=== PATIENT | male | born 1965 | race Caucasian/White ===

== ENCOUNTER 2019-04-02 10:19 | Outpatient (RCR) | payer OTHER, SELFPAY ==
[2019-04-02 11:05] LABS: Basophils Percent Auto 0.3 % (0.2-1.2); Eosinophils Absolute Auto 0.4 K/mm3 (0-0.3); Hematocrit 35.8 % (42.0-52.0); Hemoglobin 11.4 g/dL (14.0-18.0); Immature Granulocyte Absolute 0.04 K/mm3 (0.00-0.031); Immature Granulocyte Percent A 0.6 % (0-0.5); Lymphocytes Absolute Auto 1.22 K/mm3 (0.9-3.2); Lymphocytes Percent Auto 19.7 % (18.3-44.2); Mean Corpuscular HGB Conc 31.8 g/dl (32-36); Mean Corpuscular Hemoglobin 28.4 pg (26-34); Mean Corpuscular Volume 89.3 fl (80-100); Mean Platelet Volume 9.2 fl (7.4-10.4); Monocytes Absolute Auto 0.7 K/mm3 (0.1-0.6); Monocytes Percent Auto 11.8 % (2.6-8.5); Neutrophils Absolute Auto 3.8 K/mm3 (1.3-6.7); Neutrophils Percent Auto 61.6 % (45.5-73.1); Platelet Count Result 130 k/mm3 (150-375); Red Blood Count 4.01 M/mm3 (4.6-6.20); Red Cell Distribution Width 14.2 % (11.5-14.5); White Blood Count 6.2 K/mm3 (4.5-10.0)
[2019-04-02 11:21] LABS: Alanine Aminotransferase 24 U/L (4-50); Albumin Level 3.9 g/dL (3.5-5.1); Alkaline Phosphatase 74 U/L (38-126); Aspartate Amino Transferase 25 U/L (17-59); Bilirubin,Total 0.6 mg/dL (0.2-1.3); Blood Urea Nitrogen 59 mg/dL (9-20); Calcium 8.9 mg/dL (8.4-10.2); Carbon Dioxide 20 mmol/L (22-30); Chloride 109 mmol/L (98-107); Estimated Glomerular Filt Rate 28; Glucose 85 mg/dL (75-110); Potassium 3.9 mmol/L (3.4-5.0); Sodium 141 mmol/L (137-145)
[2019-04-03 22:33] LABS: Tacrolimus Prograf 3.6 mcg/L
== END 2019-07-01 23:59 | disposition home or self-care (01) ==
LOC: ANHLAB 10:19
PROVIDERS: PCP Family Medicine
DX: E10.65 Type 1 diabetes mellitus with hyperglycemia (principal); Z94.0 Kidney transplant status
CPT/HCPCS: 36415; 80053; 80197; 85025

== ENCOUNTER 2020-02-24 10:07 | Outpatient (CLI) | payer BC, SELFPAY ==
--- NOTE | ~2020-02-24 | US_ITS ---
EXAMINATION: US retroperitoneal duplex ltd EXAM DATE: 02/24/2020 11:22 INDICATION: Elevated serum creatinine. Evaluate renal arteries for stenosis. TECHNIQUE: Multiple grayscale and Doppler images of the kidneys and renal arteries were obtained. T here is no prior study for comparison. FINDINGS: The aorta peak systolic velocity is 90 cm/s. The right renal artery peak systolic velocity is 212 cm/ s in the proximal segment, 216 cm/s in the mid segment, and 89 cm/s in the distal segment. Patient mcfarland s a left renal transplant which is reportedly no longer functioning. IMPRESSION: Elevated right renal artery velocity, finding does correlate with greater than 50-60% hal nosis. Reviewed, dictated and finalized at location B. IMPRESSION: Elevated right renal artery velocity, finding does correlate with g reater than 50-60% stenosis.
== END 2020-02-24 10:08 | disposition home or self-care (01) ==
PROVIDERS: PCP Family Medicine
DX: R79.89 Other specified abnormal findings of blood chemistry (principal); I70.1 Atherosclerosis of renal artery
CPT/HCPCS: 93976

== ENCOUNTER 2020-04-12 21:37 | Inpatient (IN) | payer BC, SELFPAY ==
--- NOTE | ~2020-04-12 | XR_ITS ---
XR chest 1V portable DATE: 04/17/2020 06:17 INDICATION: Respiratory failure TECHNIQUE: Portable AP chest on 04/09/2020 at 0513 hours COMPARISON: Portable AP chest on 04/16/2020 at 0511 hours FINDINGS: ET tube in satisfactory position 3 cm above zaida. Nasogastric tube is noted passing towar d the stomach. No central lines. There are persistent bilateral lower lung infiltrates and/atelectasis. Cardiomegaly. Aortic calcification. There is also minor fissure suggesting subpleural edema. There ar e probable bilateral mild pleural effusions. There is pulmonary vascular congestion/redistribution. IMPRESSION: Cardiomegaly, pulmonary vascular congestion, mild pleural effusions, subpleural edema, co nsistent with congestive heart failure, with persistent bilateral predominantly lower lung infiltrate s and/atelectasis. Right lower lung infiltrate or atelectasis appears increased since 04/16/2020. Reviewed, dictated and finalized at location A. UCTION TECHNOLOGIST IMPRESSION: Cardiomegaly, pulmonary vascular congestion, mild pleural effusions , subpleural edema, consistent with congestive heart failure, with persistent b ilateral predominantly lower lung infiltrates and/atelectasis. Right lower lung infiltrate or atelectasis appears increased since 04/16/2020.
--- NOTE | ~2020-04-12 | CT_ITS ---
EXAMINATION: CT chest abdomen pelvis wo con DATE: 04/25/2020 12:45 FLUME MAKER INDICATION: Sepsis TECHNIQUE: Computed tomography (CT) of the chest, abdomen, and pelvis was performed without intraveno us contrast. The dose-length product was 2065.90 mGy-cm. Automated exposure control and iterative rec onstruction technique were employed. COMPARISON: CT dated 01/04/2007 FINDINGS: CHEST CT: Small pleural effusions. Patchy bilateral airspace consolidation with areas of nodularity. Findings c ompatible with pneumonia. There are pleural calcifications possibly related to previous asbestos expo sure. There are pericardial calcifications. There is an endotracheal tube present. There is extensive atherosclerosis of the chest and abdomen. No evidence for aneurysm. ABDOMEN/PELVIS CT: There is a percutaneous catheter in the upper abdomen. There is a midline vertically oriented wound o f the abdominal wall with intraperitoneal gas. Clinical history patient underwent recent exploratory laparotomy. There is soft tissue/fluid near the end of the upper abdominal catheter which lies adjace nt to the stomach. NG tube in the distal aspect of the stomach. Nonobstructive bowel gas pattern. The re is a right flank transplant kidney. There is a failed left flank transplant kidney. There is a Fol ey catheter in the bladder which is decompressed. There are are prostate calcifications. There is sub cutaneous edema of the flank soft tissues bilaterally. There are gallstones. Bowel pattern is nonobst ructive. No osteolytic or osteoblastic lesions. IMPRESSION: 1. Patchy bilateral airspace disease of the mid and lower lung zones, compatible with pneumonia. 2: Small pleural effusions. 3: Percutaneous drainage catheter of the upper abdomen with adjacent midline surgical incision. Intra -abdominal gas is compatible with recent surgery. Small amount of fluid/soft tissue near the end of t he surgical drain which likely represents phlegmonous change. Abscess not excluded in the absence of contrast administration. Cannot exclude fistula with the adjacent stomach. 4: Extensive subcutaneous edema of the flank soft tissues bilaterally. Cannot exclude cellulitis. 5: Cholelithiasis. Dr. Henderson discussed with the patient's nurse in ICU, [place], at 04/25/2020 13:00 FLUME MAKER. Reviewed, dictated and finalized at location A. E MAKER IMPRESSION: 1. Patchy bilateral airspace disease of the mid and lower lung zones, compatibl e with pneumonia. 2: Small pleural effusions. 3: Percutaneous drainage catheter of the upper abdomen with adjacent midline bass rgical incision. Intra-abdominal gas is compatible with recent surgery. Small a mount of fluid/soft tissue near the end of the surgical drain which likely repr esents phlegmonous change. Abscess not excluded in the absence of contrast admi nistration. Cannot exclude fistula with the adjacent stomach. 4: Extensive subcutaneous edema of the flank soft tissues bilaterally. Cannot e xclude cellulitis. 5: Cholelithiasis. Dr. Henderson discussed with the patient's nurse in ICU, [place], at 04/25/2020 13:00 FLUME MAKER.
--- NOTE | ~2020-04-12 | XR_ITS ---
EXAMINATION: XR chest 1V portable DATE: 04/27/2020 06:07 INDICATION: Respiratory failure TECHNIQUE: frontal view of the chest was obtained. COMPARISON: Chest radiograph dated 04/26/2020 FINDINGS: Endotracheal tube tip 5.0 cm above the zaida. Nasogastric tube extends below the left hemidiaphragm with distal tip collimated off the study. Left internal jugular central venous catheter with distal tip near the superior cavoatrial junction. Right upper extremity peripherally inserted central venous catheter (PICC) tip near the superior cavoatrial junction. Slight decrease in the gradient of subtle hazy airspace opacity in the bilateral lower lung zones con sistent with decreasing small bilateral pleural effusions. There is persistent left retrocardiac cons olidation as well as bandlike opacity right lower lung zone bladder most likely discoid atelectasis. No pneumothorax. Cardiomegaly. Atherosclerotic aorta. IMPRESSION: 1. Decreasing small bilateral pleural effusions. 2. Retrocardiac consolidation at the left lung base which could represent atelectasis and/or pneumoni a. 3. Bandlike opacity right lower lung zone which favors atelectasis over pneumonia. 4. Cardiomegaly. Reviewed, dictated and finalized at location A. OR ENERGY MARKET COORDINATOR IMPRESSION: 1. Decreasing small bilateral pleural effusions. 2. Retrocardiac consolidation at the left lung base which could represent atele ctasis and/or pneumonia. 3. Bandlike opacity right lower lung zone which favors atelectasis over pneumon ia. 4. Cardiomegaly.
--- NOTE | ~2020-04-12 | CT_ITS ---
EXAMINATION: CT brain wo con EXAM DATE: 04/20/2020 11:09 INDICATION: Encephalopathy. TECHNIQUE: Spiral CT of the head was performed without contrast. Axial, coronal and sagittal images were reviewed. The dose-length product (DLP) for this examination was 681.00 mGy-cm. The exposure w as tailored according to patient size, and iterative reconstruction (ASIR) was used as additional dos e reduction technique. Comparison is made to prior examination from 10/06/2006. FINDINGS: There is no acute intraparenchymal hemorrhage. No evidence of intraparenchymal brain mass lesion. No evidence of acute infarction. Please note that initial head CT has limited sensitivity f or small or acute infarctions. There is mild periventricular and subcortical hypodensity, nonspecific but probably related to small vessel ischemic disease. There is mild prominence of the sulci and v entricles related to cerebral atrophy. There is intracranial carotid arteriosclerosis. There are n o extra-axial collections. There is no mass effect or midline shift. The orbits are unremarkable. Soft tissue is unremarkable. Mild mucoperiosteal thickening. There is a nasogastric tube. IMPRESSION: 1. No acute intracranial findings. 2. Chronic age related findings. Reviewed, dictated and finalized at location A. ESE LANGUAGE PROFESSOR
--- NOTE | ~2020-04-12 | XR_ITS ---
XR chest 1V portable 04/24/2020 05:42 Indication: Acute respiratory failure Procedure: AP portable chest Comparison: Comparison to multiple prior studies sequentially, with oldest reviewed study dated 05/2019. Findings: Endotracheal tube tip 4.6 cm above the zaida. NG tube in the stomach. PICC line tip in the SVC. Left IJ central venous catheter tip in the SVC. Bibasilar airspace disease without significant change. No pneumothorax. Impression: 1: Persistent airspace disease of the lower lungs which may represent pneumonia and/or atelectasis. Reviewed, dictated and finalized at location A. ER OPERATOR Impression: 1: Persistent airspace disease of the lower lungs which may represent pneumonia and/or atelectasis.
--- NOTE | ~2020-04-12 | XR_ITS ---
XR abdomen NG/feed tube insert INDICATION: Evaluate NG tube position. TECHNIQUE: Limited KUB perform for evaluating NG tube . COMPARISON: 06/03/2005 FINDINGS: NG tube tip in the stomach. Visualized bowel gas pattern is unremarkable. IMPRESSION: 1: NG tube tip in the stomach. Reviewed, dictated and finalized at location A. OYMENT SERVICES DIRECTOR
--- NOTE | ~2020-04-12 | XR_ITS ---
EXAMINATION: XR chest 1V portable EXAM DATE: 04/23/2020 06:20 INDICATION: Acute respiratory failure TECHNIQUE: Portable AP frontal chest x-ray was obtained. Comparison is made to prior examination from 04/22/2020. FINDINGS: Endotracheal tube tip is 4 centimeters above the zaida. There is a nasogastric tube seen with tip collimated off the study, but below the left hemidiaphragm. There is a right-sided PICC l ine with tip projecting over the cavoatrial junction. Scattered bibasilar predominant subsegmental atelectasis and/or infection. Small left pleural effusi ons. Mild cardiomegaly. No pneumothorax. There is aortic arteriosclerosis. Mild degenerative bony changes. Left IJ line no longer identified. Airspace disease appears unchanged. IMPRESSION: 1. Tubes, lines in position. No postprocedure pneumothorax. 2. Bibasilar infection and/or atelectasis unchanged. Reviewed, dictated and finalized at location A. EHOUSE CLERK
--- NOTE | ~2020-04-12 | XR_ITS ---
XR chest 1V portable 04/25/2020 06:09 Indication: Acute respiratory failure Procedure: AP portable chest Comparison: Comparison to multiple prior studies sequentially, with oldest reviewed study dated 07/2019. Findings: Progression of airspace disease in the mid and lower lung zones. Small left pleural effusio n. No pneumothorax. Left IJ central venous catheter tip in the SVC. No acute osseous abnormality. No pneumothorax. Impression: 1: Cardiomegaly with diffuse bilateral airspace disease which has progressed, edema versus pneumonia. Reviewed, dictated and finalized at location A. TURBINE TECHNICIAN Impression: 1: Cardiomegaly with diffuse bilateral airspace disease which has progressed, e rose versus pneumonia.
--- NOTE | ~2020-04-12 | CT_ITS ---
EXAMINATION: CT abdomen pelvis wo con DATE: 04/27/2020 20:26 INDICATION: Abscess TECHNIQUE: Computed tomography (CT) of the abdomen and pelvis was performed without intravenous contr ast. The dose-length product (DLP) was 1676.90 mGy-cm. Automated exposure control and iterative recon struction technique were employed. COMPARISON: 04/25/2020 FINDINGS: There are small pleural effusions, left greater than right. There is near complete opacific ation of the visualized lower lobes. The examination is limited by the absence of intravenous contras t. A percutaneous drainage catheter is again seen in the upper abdomen entering in the right midabdom en and continuing superomedially, crossing the midline and ending with its tip anterior to the body o f the stomach. There is an approximately 6.1 x 4.7 cm abscess located caudal to the tip of the draina ge catheter with extensive surrounding free intraperitoneal gas which tracks the right and left of mi dline in the upper abdomen, into the upper abdominal wall musculature, and posterior and inferior to the transverse colon. Overall extent of free air has increased since the prior examination. Stones ar e present in the nondistended gallbladder. The liver, spleen, pancreas, and adrenal glands appear nor mal. There is severe atrophy of the [place] kidneys. A transplant kidney is present in the right pelvi s. There is severe atrophy of the transplant kidney in the left pelvis. The bladder is decompressed b y [place] catheter. No pathologically enlarged abdominal or pelvic lymph nodes are identified. Enteric contrast material from recent upper GI persists in the colon. IMPRESSION: 1. Worsening upper abdominal abscess. 2. Near complete opacification of the visualized lower lobes, consistent with atelectasis and pneumon ia. 3. Bilateral renal atrophy, detailed left pelvic transplant kidney, and right pelvic transplant kidne y. Reviewed, dictated and finalized at location A. ER MELTER IMPRESSION: 1. Worsening upper abdominal abscess. 2. Near complete opacification of the visualized lower lobes, consistent with a telectasis and pneumonia. 3. Bilateral renal atrophy, detailed left pelvic transplant kidney, and right p elvic transplant kidney.
--- NOTE | ~2020-04-12 | US_ITS ---
EXAMINATION: US right upper quadrant DATE: 04/19/2020 13:03 INDICATION: Hyperbilirubinemia. TECHNIQUE: Multiple grayscale and Doppler ultrasound images of the abdomen were obtained. COMPARISON: Ultrasound 10/12/2005, CT abdomen 01/04/2007 FINDINGS: The pancreas is obscured by bowel gas. The liver is normal without focal lesion. There is n ormal flow in main portal vein. The gallbladder is normal in size. There are gallstones in the gallbl adder. Gallbladder wall thickening is noted. The common duct is normal and measures 4 mm. IMPRESSION: 1. Cholelithiasis. Gallbladder wall thickening may be secondary to interstitial edema. Reviewed, dictated and finalized at location A. DER AND CHIEF EXECUTIVE OFFICER
--- NOTE | ~2020-04-12 | XR_ITS ---
EXAMINATION: XR chest 1V portable DATE: 04/26/2020 05:41 INDICATION: Acute respiratory failure TECHNIQUE: frontal view of the chest was obtained. COMPARISON: Chest radiograph and CT dated 04/25/2020 FINDINGS: Endotracheal tube tip 3.3 cm above the zaida. Nasogastric tube extends below the left hemidiaphragm with distal tip collimated off the study. Right upper extremity peripherally inserted central venous catheter (PICC) tip near the superior cavoatrial junction. Persistent gradients of hazy airspace opacities in the bilateral mid and lower lung zones with superi mposed patchy airspace opacities in the right lower lung zone and retrocardiac consolidation at the l eft lower lung zone. No pneumothorax. Cardiomegaly. There are bridging osteophytes at multiple levels in the spine, consistent with diffuse idiopathic skeletal hyperostosis (DISH). IMPRESSION: 1. No significant change accounting for differences in technique in opacities in the bilateral mid to lower lung zones consistent with likely combination of atelectasis and pneumonia superimposed over s mall pleural effusions. 2. Cardiomegaly. Reviewed, dictated and finalized at location A. ATER CHIEF IMPRESSION: 1. No significant change accounting for differences in technique in opacities i n the bilateral mid to lower lung zones consistent with likely combination of a telectasis and pneumonia superimposed over small pleural effusions. 2. Cardiomegaly.
--- NOTE | ~2020-04-12 | XR_ITS ---
XR chest 1V portable DATE: 04/27/2020 13:37 INDICATION: Respiratory failure TECHNIQUE: Portable upright AP chest on 05/07/2020 at 1331 hours COMPARISON: 04/27/2020 portable AP chest at 0551 hours FINDINGS: ET tube tip is approximately 6 cm above zaida. [place] range is minimal T2-5 centimeters. A nasogastric tube is noted passing toward the stomach. Right upper extremity PIC catheter tip overlies the superior vena cava. Left internal jugular central venous catheter tip also overlies the superior vena cava. There are bilateral lower lung infiltrates and/atelectasis, right greater than left. No pleural effus ion or pulmonary vascular congestion or pneumothorax is detected. IMPRESSION: Bilateral lower lung infiltrate and/atelectasis persist Reviewed, dictated and finalized at location A. GER OF REGULATORY AFFAIRS
--- NOTE | ~2020-04-12 | XR_ITS ---
EXAMINATION: XR chest 1V portable DATE: 04/28/2020 06:23 INDICATION: Respiratory failure TECHNIQUE: frontal view of the chest was obtained. COMPARISON: Chest radiograph and CT abdomen and pelvis dated 04/27/2020 FINDINGS: Endotracheal tube tip 6.6 cm above the zaida. Nasogastric tube extends below the left hemidiaphragm with distal tip collimated off the study. Right upper extremity peripherally inserted central venous catheter (PICC) tip near the superior cavoatrial junction. Left internal jugular central venous cath eter with distal tip also near the superior cavoatrial junction. Unchanged opacities in the bilateral lower lung zones. No pneumothorax. Cardiomediastinal silhouette is normal. IMPRESSION: 1. Endotracheal tube 6.6 cm above the zaida. Consider advancement by 4 cm. 2. Unchanged opacities in the bilateral lower lung which on CT corresponds to a combination of small bilateral pleural effusions, atelectasis and pneumonia. Reviewed, dictated and finalized at location A. NOSTIC TECHNOLOGIST
--- NOTE | ~2020-04-12 | XR_ITS ---
XR chest PICC line 04/20/2020 13:32 Indication: PICC line adjustment Procedure: AP portable chest Comparison: 04/20/2020 Findings: There is a PICC line coiled in the right axillary region. Endotracheal tube tip 5.6 cm abov e the zaida. Distal aspect of the NG tube is not definitely visualized. Bibasilar airspace disease. Small pleural effusions. Heart size upper normal. Impression: 1: Bibasilar airspace disease may represent atelectasis and/or pneumonia. 2: Small pleural effusions. 3: PICC line coiled in the right axilla. Reviewed, dictated and finalized at location B. SUBMERGENCE VEHICLE CREWMEMBER Impression: 1: Bibasilar airspace disease may represent atelectasis and/or pneumonia. 2: Small pleural effusions. 3: PICC line coiled in the right axilla.
--- NOTE | ~2020-04-12 | XR_ITS ---
XR chest 1V portable 04/14/2020 06:04 Indication: Sepsis. Procedure: AP portable chest Comparison: 07/25/2018 Findings: Borderline heart size. Right basilar consolidation. No pleural effusion or pneumothorax. No acute osseous abnormality. Impression: 1: Focal consolidation right lower lung zone which may represent atelectasis or pneumonia. Reviewed, dictated and finalized at location A. NCIAL SERVICE PROFESSIONAL Impression: 1: Focal consolidation right lower lung zone which may represent atelectasis or pneumonia.
--- NOTE | ~2020-04-12 | XR_ITS ---
XR chest 1V portable DATE: 04/15/2020 06:48 INDICATION: Respiratory failure TECHNIQUE: Portable AP chest on 04/15/2020 at 0531 hours COMPARISON: 04/14/2020 portable AP chest at 0530 and 0534 hours FINDINGS: ET tube in satisfactory position approximately 4.6 cm above zaida. NG tube in stomach. No central lines. There are bibasilar infiltrates and/atelectasis, new or increased since 04/14/2020. There is minimal if any pleural effusion. No pneumothorax. Borderline or increased heart size. Aortic arch calcification. IMPRESSION: Increased bibasilar infiltrate and/atelectasis since 04/14/2020 ET and NG tubes in satisfactory position Reviewed, dictated and finalized at location A. ATRIC ONCOLOGY NURSE
--- NOTE | ~2020-04-12 | XR_ITS ---
EXAMINATION: XR chest 1V portable EXAM DATE: 04/22/2020 06:13 INDICATION: Acute respiratory failure . TECHNIQUE: Portable AP frontal chest x-ray was obtained. Comparison is made to prior examination from 04/20/2020. FINDINGS: Endotracheal tube tip is 6 centimeters above the zaida. There is a nasogastric tube seen with tip collimated off the study, but below the left hemidiaphragm. There is a right-sided PICC li ne with tip projecting over the cavoatrial junction. Scattered bibasilar predominant subsegmental atelectasis and/or infection. Small bilateral pleural e ffusions. Mild cardiomegaly. No pneumothorax. There is aortic arteriosclerosis. Mild degenerative bony changes. Airspace disease appears unchanged compared to yesterday. The endotracheal tube may have retracted a centimeter. IMPRESSION: 1. ET tube could be safely advanced 1 to 2 cm. 2. Bibasilar infection and/or atelectasis unchanged. Reviewed, dictated and finalized at location A. VIOUR SUPPORT TEACHER
--- NOTE | ~2020-04-12 | XR_ITS ---
EXAMINATION: XR chest ET placement, XR abdomen NG/feed tube insert DATE: 04/14/2020 17:42 INDICATION: Endotracheal tube and orogastric tube placement TECHNIQUE: 1. Frontal view of the chest was obtained. 2. Frontal view of the abdomen was obtained. COMPARISON: Chest radiograph dated 04/14/2020 at 5:17 AM FINDINGS: Chest: Endotracheal tube tip is essentially at the level of the zaida. Improvement in the bilateral basilar opacities which likely represented atelectasis. No pulmonary edema, pleural effusion or pneumothorax . An electronic device projects over and partially obscures a portion of the left upper lung zone. Ciaran rderline heart size accounting for AP technique. Atherosclerotic thoracic aorta. Abdomen: Orogastric tube tip at the gastric antrum with proximal side-port in the gastric body. No dilated loo ps of gas-filled bowel in the visualized abdomen to suggest obstruction. Vascular calcific calcificat ion along the splenic artery. There are bridging osteophytes at multiple levels in the spine, consist ent with diffuse idiopathic skeletal hyperostosis (DISH). IMPRESSION: 1. Endotracheal tube tip at the level of the zaida. Recommend withdrawal by 2 cm. 2. Orogastric tube in the stomach but would consider withdrawal by 5-10 cm to reduce the redundancy o f the tubing in the stomach. 3. Improvement in prior bibasilar atelectasis. Reviewed, dictated and finalized at location H. TH INFORMATION INTERNSHIP IMPRESSION: 1. Endotracheal tube tip at the level of the zaida. Recommend withdrawal by 2 cm. 2. Orogastric tube in the stomach but would consider withdrawal by 5-10 cm to r educe the redundancy of the tubing in the stomach. 3. Improvement in prior bibasilar atelectasis.
--- NOTE | ~2020-04-12 | CT_ITS ---
EXAMINATION: CT brain wo con DATE: 04/25/2020 12:35 INDICATION: Encephalopathy. TECHNIQUE: Computed tomography (CT) of the head was performed without intravenous contrast. The dose- length product was 681.00 mGy-cm. The mA was adjusted according to patient size. Iterative reconstruc tion technique was employed. COMPARISON: CT dated 04/20/2020 FINDINGS: Mild generalized atrophy. There are scattered mild periventricular and subcortical white ma tter changes, most likely related to small vessel ischemic disease (microangiopathy). There is intrac ranial atherosclerosis. No ventriculomegaly or midline shift. Basilar cisterns are patent. No acute i ntracranial hemorrhage, infarction, mass or mass effect. There are calcifications of the right cerebe llum, likely related to previous trauma or infection. There is an endotracheal tube present. Mild muc osal thickening of the ethmoid and sphenoid sinuses. Mastoids contain small effusions. IMPRESSION: 1. No acute intracranial abnormality. 2: Mild sinus disease. Small mastoid effusions. 3: Chronic age-related findings. Reviewed, dictated and finalized at location A. CUSTOMER SERVICE REPRESENTATIVE
--- NOTE | ~2020-04-12 | XR_ITS ---
XR chest 1V portable DATE: 04/18/2020 05:59 INDICATION: Covid pneumonia TECHNIQUE: Portable AP chest on 04/18/2020 at 0522 hours COMPARISON: 04/17/2020 portable AP chest at 0513 hours FINDINGS: Cardiomegaly. Aortic calcification. There is pulmonary vascular congestion and redistributi on. There are bilateral primarily central and particularly lower lung zone infiltrates and atelectasi s; infiltrates may be due to pulmonary edema and/or pneumonia. The costophrenic angles are not well-d efined, suggesting mild bilateral pleural effusions. ET tube in satisfactory position 4.3 cm above zaida. NG tube noted passing toward the stomach. IMPRESSION: Congestive changes and bilateral infiltrates, stable since 04/17/2020 Reviewed, dictated and finalized at location A. WORKER IMPRESSION: Congestive changes and bilateral infiltrates, stable since 04/17/20 20
--- NOTE | ~2020-04-12 | XR_ITS ---
EXAMINATION: XR chest 1V portable EXAM DATE: 04/20/2020 07:55 INDICATION: shock, respiratory failure, F/U. COVID-19. TECHNIQUE: Portable AP frontal chest x-ray was obtained. Comparison is made to prior examination from 04/19, 04/18. FINDINGS: Endotracheal tube and feeding tube are in position. Scattered bibasilar predominant subsegmental atelectasis and/or infection. Small bilateral pleural e ffusions. Mild cardiomegaly. No pneumothorax. Mild cardiomegaly. There is aortic arteriosclerosis. Mild degenerative bony changes. Accounting for differences in technique, there is no significant interval change. IMPRESSION: 1. Tubes in position. 2. Bibasilar infection and/or atelectasis unchanged. Reviewed, dictated and finalized at location A. RY DERRICK OPERATOR
--- NOTE | ~2020-04-12 | XR_ITS ---
EXAMINATION: XR chest port-a-cath/central EXAM DATE: 04/22/2020 10:45 INDICATION: HD line placement [facility] . Acute respiratory failure. TECHNIQUE: Portable AP frontal chest x-ray was obtained. Comparison is made to prior examination from earlier same day. FINDINGS: There is a left-sided IJ venous catheter, tip projecting over cavoatrial junction region. E ndotracheal tube tip is 4-5 centimeters above the zaida. There is a nasogastric tube seen with tip collimated off the study, but below the left hemidiaphragm. There is a right-sided PICC line with t ip projecting over the cavoatrial junction. Scattered bibasilar predominant subsegmental atelectasis and/or infection. Small bilateral pleural e ffusions. Mild cardiomegaly. No pneumothorax. There is aortic arteriosclerosis. Mild degenerative bony changes. There is no significant interval change. IMPRESSION: 1. Tubes, lines in position. No postprocedure pneumothorax. 2. Bibasilar infection and/or atelectasis unchanged. Reviewed, dictated and finalized at location A. H MIXER
--- NOTE | ~2020-04-12 | XR_ITS ---
EXAMINATION: XR UGI water soluble wo kub EXAM DATE: 04/19/2020 10:11 INDICATION: please place hypaque in NG and do KUB, s/p pyloroplasty. TECHNIQUE: Limited portable bedside upper GI water-soluble exam was injected through nasogastric tub e in place. Omnipaque 350 solution was used, a total of 240 cc. Fluoroscopy time was 0.0 minutes with 3 static KUB images obtained. FINDINGS: There are laparotomy young. There is a right-sided surgical drain. Initial image after 50 mL injected demonstrates feeding tube in expected position and small amount of contrast in the gastric cardia. A total of 120 mL were then injected through the tube with opacifica tion of the stomach and duodenum. A 3rd image following a total of 240 mL injection was then obtained . There was no contrast extravasation at any of the images, gastric pylorus region was unremarkable. IMPRESSION: No evidence of pyloric leak. Reviewed, dictated and finalized at location A. OLATE DIPPER
--- NOTE | ~2020-04-12 | XR_ITS ---
EXAMINATION: XR chest 1V portable DATE: 04/29/2020 05:51 INDICATION: Respiratory failure TECHNIQUE: frontal view of the chest was obtained. COMPARISON: Chest radiograph dated 04/28/2020 FINDINGS: Endotracheal tube tip 5.3 cm above the zaida. Nasogastric tube extends below the left hemidiaphragm with distal tip collimated off the study. Right upper extremity peripherally inserted central venous catheter (PICC) as well as a left internal jugular central venous catheter, both with distal tip krzysztof r the superior cavoatrial junction. Unchanged gradient of hazy airspace opacities in the bilateral mid to lower lung zones the lower lung zones with superimposed more patchy airspace opacities in the lower lung zones. No pneumothorax. Car diomediastinal silhouette is normal. IMPRESSION: 1. Unchanged opacities in the bilateral lower lungs consistent with small posterior layering bilatera l pleural effusions and associated atelectasis and/or pneumonia. Reviewed, dictated and finalized at location A. TER PROFESSIONAL IMPRESSION: 1. Unchanged opacities in the bilateral lower lungs consistent with small poste rior layering bilateral pleural effusions and associated atelectasis and/or pne umonia.
--- NOTE | ~2020-04-12 | XR_ITS ---
EXAMINATION: XR chest PICC line EXAM DATE: 04/20/2020 13:44 INDICATION: Adjustment to PICC. TECHNIQUE: Portable AP frontal chest x-ray was obtained. Comparison is made to prior examination from 04/20. FINDINGS: Endotracheal tube and feeding tube are in position. There is a right-sided PICC line with t ip projecting over the cavoatrial junction. Scattered bibasilar predominant subsegmental atelectasis and/or infection. Small bilateral pleural e ffusions. Mild cardiomegaly. No pneumothorax. There is aortic arteriosclerosis. Mild degenerative bony changes. Compared to prior study, the PICC line has straightened its course. Airspace disease appears unchange d. IMPRESSION: 1. Line, tubes in position. 2. Bibasilar infection and/or atelectasis unchanged. Reviewed, dictated and finalized at location A. CREAM SERVER
--- NOTE | ~2020-04-12 | XR_ITS ---
EXAMINATION: XR chest 1V portable EXAM DATE: 04/19/2020 05:36 INDICATION: COVID-19. Respiratory failure. TECHNIQUE: Portable AP frontal chest x-ray was obtained. Comparison is made to prior examination from 04/18, 04/17 and 04/16. FINDINGS: Endotracheal tube tip is 5 centimeters above the zaida. Feeding tube is in position. Scattered bibasilar subsegmental atelectasis and/or infection. Small bilateral pleural effusions. M ild cardiomegaly. No pneumothorax. Mild cardiomegaly. Mild degenerative bony changes. Accounting for differences in technique, there is no significant interval change. IMPRESSION: 1. Tubes in position. 2. Bibasilar infection and/or atelectasis. Reviewed, dictated and finalized at location A. CAST PATTERNMAKER
--- NOTE | ~2020-04-12 | US_ITS ---
EXAMINATION: US venous doppler [facility] DATE: 04/27/2020 15:46 INDICATION: Deep vein thrombosis. TECHNIQUE: Grayscale ultrasound images without and with compression and Doppler ultrasound images of the bilateral lower extremity veins were obtained. COMPARISON: None. FINDINGS: The visualized portions of right common femoral vein, profunda (deep) femoral vein, femoral vein, pop liteal vein, peroneal veins, posterior tibial veins, and greater saphenous vein outflow are patent. The visualized portions of left common femoral vein, profunda femoral vein, femoral vein, popliteal v ein, peroneal veins, posterior tibial veins, and greater saphenous vein outflow are patent. IMPRESSION: 1. No deep venous thrombosis. Reviewed, dictated and finalized at location B. MINER BLASTING
--- NOTE | ~2020-04-12 | XR_ITS ---
XR chest 1V portable DATE: 04/16/2020 05:47 INDICATION: Respiratory failure TECHNIQUE: Portable AP chest on 04/16/2020 at 0511 hours COMPARISON: 04/15/2020 portable AP chest at 0531 hours FINDINGS: ET tube in satisfactory position approximately 3.5 cm above zaida. NG tube is noted but di stal portion is not visualized due to technique. Heart size is not optimally evaluated due to magnification associated with AP projection. There is ao rtic arch calcification. There is pulmonary vascular redistribution suggesting pulmonary venous hypertension. There are patchy infiltrates and/or atelectasis involving primarily the mid and particularly lower lung zones. Minima l if any pleural effusion is evident. No pneumothorax. IMPRESSION: Patchy infiltrates and/or atelectasis involving the mid and particularly lower lung zones , mildly increased since 04/15/2020 Reviewed, dictated and finalized at location A. SALES ASSOCIATE IMPRESSION: Patchy infiltrates and/or atelectasis involving the mid and particu larly lower lung zones, mildly increased since 04/15/2020
[2020-04-12 21:45] VITALS: BP 130/58; PULSE 57; RESP 18; TEMP 36.5; O2SAT 100
[2020-04-12] MEDS: PANTOPRAZOLE SODIUM IV 40 MG VIAL 80 MG IV PUSH (22:17)
[2020-04-12] MEDS: ONDANSETRON INJ 4 MG/2 ML VIAL IV PUSH (22:17)
[2020-04-12 23:10] LABS: INR 1.3; Prothrombin Time 16.8 Seconds (11.1-14.7)
[2020-04-12 23:11] LABS: Basophils Percent Auto 0.2 % (0.2-1.2); Eosinophils Absolute Auto 0.1 K/mm3 (0-0.3); Eosinophils Percent Auto 1.5 % (0-4.4); Hematocrit 21.8 % (42.0-52.0); Immature Granulocyte Absolute 0.02 K/mm3 (0.00-0.031); Immature Granulocyte Percent A 0.5 % (0-0.5); Lymphocytes Percent Auto 22.2 % (18.3-44.2); Mean Corpuscular HGB Conc 32.1 g/dl (32-36); Mean Corpuscular Hemoglobin 28.3 pg (26-34); Mean Corpuscular Volume 88.3 fl (80-100); Monocytes Absolute Auto 0.4 K/mm3 (0.1-0.6); Monocytes Percent Auto 9.4 % (2.6-8.5); Neutrophils Absolute Auto 2.7 K/mm3 (1.3-6.7); Neutrophils Percent Auto 66.2 % (45.5-73.1); Partial Thromboplastin Time 29.6 SECONDS (22.3-36.8); Platelet Count Result 84 k/mm3 (150-375); Red Blood Count 2.47 M/mm3 (4.6-6.20); Red Cell Distribution Width 14.4 % (11.5-14.5); White Blood Count 4.1 K/mm3 (4.5-10.0)
--- NOTE | 2020-04-12 23:12 | ED.GIBLEED ---
HPI - GI Bleed General Chief complaint: GI Bleed Stated complaint: rectal bleeding Time Seen by Provider: 04/12/20 21:47 History of Present Illness HPI Narrative: Patient is a 55-year-old male who presents the ER with rectal bleeding. Patient reports that he thought he was just going to use the restroom normally when he had liquid maroon blood coming from his rectum. Patient reports that he has recently been placed on Eliquis for new diagnosis of atrial fibrillation. He sees Dr. Prieto with the [facility]. He reports that he does have history of bleeding gastric ulcers that he saw Dr. Negrete for several years back who preformed cauterization. Patient did feel lightheaded when he went from sitting to standing but did not pass out. Related Data Home Medications Medication Instructions Recorded Confirmed aspirin 81 mg tablet,delayed 81 mg PO DAILY 03/27/19 01/27/20 release cholecalciferol (vitamin D3) 25 1,000 unit PO DAILY 03/27/19 01/27/20 mcg (1,000 unit) capsule furosemide 40 mg tablet 40 mg PO QAM PRN 03/27/19 01/27/20 mycophenolate mofetil 500 mg tablet 500 mg PO Q12H tablet 03/27/19 01/27/20 nitroglycerin 0.4 mg sublingual See Rx Instructions SUBLINGUAL Q5M 03/27/19 01/27/20 tablet PRN pen needle, diabetic 29 gauge x #30 each 03/27/19 01/27/20 1/2 prednisolone 5 mg tablet 5 mg PO DAILY tablet 03/27/19 01/27/20 sodium bicarbonate 650 mg tablet 650 mg PO DAILY 03/27/19 01/27/20 tacrolimus 0.75 mg tablet,extended 2 mg PO DAILY tablet 03/27/19 01/27/20 release 24 hr tamsulosin 0.4 mg capsule 0.4 mg PO DAILY 03/27/19 01/27/20 calcium carbonate 260 mg calcium 260 mg PO DAILY 01/27/20 01/27/20 (650 mg) chewable tablet docusate sodium 100 mg capsule 100 mg PO DAILY PRN 01/27/20 01/27/20 fish oil-dha-epa 1,200 mg-144 1 cap PO 01/27/20 01/27/20 mg-216 mg capsule isosorbide mononitrate 60 mg 90 mg PO DAILY tablet 01/27/20 01/27/20 tablet,extended release 24 hr rosuvastatin 20 mg tablet 20 mg PO DAILY 01/27/20 01/27/20 carvedilol [Coreg] 37.5 mg PO BID 04/12/20 insulin regular hum U-500 conc 70 unit SUB-Q BID 04/12/20 [Humulin R U-500 (Conc) Kwikpen] losartan 25 mg PO DAILY 04/12/20 Allergies Allergy/AdvReac Type Severity Reaction Status Date / Time adhesive Allergy Unknown RASH Verified 04/12/20 21:50 clindamycin Allergy Unknown rash Verified 04/12/20 21:50 pantoprazole [From Protonix] AdvReac Unknown rash Verified 04/12/20 21:50 Review of Systems Review of Systems: All systems reviewed & are unremarkable except as noted in HPI and below Constitutional: Constitutional: Denies chills, Denies fever(s) and Denies weakness Cardiovascular: Cardiovascular: Denies chest pain and Denies radiating jaw, neck or arm pain Gastrointestinal: Gastrointestinal: Denies abdominal pain, Reports nausea and Denies vomiting Comments: Rectal bleeding Musculoskeletal: Musculoskeletal: Denies back pain and Denies muscle cramps PMFSH Past Medical History Medical History (Updated 04/13/20 @ 01:41 by Nate Vasquez MD) Anemia in stage 3 chronic kidney disease (~1989) Arthritis CAD (coronary artery disease) Chronic heart failure with preserved ejection fraction (HFpEF) (~2015) COPD (chronic obstructive pulmonary disease) Diabetes mellitus H/O: HTN (hypertension) Hearing loss Heart disease High blood pressure with end-stage kidney disease (~1990) History of left common carotid artery stent placement (~2015) IgA nephropathy with benign hematuria (~1989) Lung disease Renal disease Sleep apnea with use of continuous positive airway pressure (CPAP) (~1995) Status post hemodialysis (~2007) Status post peritoneal dialysis (~2003) Stroke TIA due to embolism Type 2 diabetes mellitus with other circulatory complications (~1989) Surgical History Surgical History History of kidney transplant (~1990) History of kidney transplant (~2007) Family History Fam
[2020-04-12 23:16] LABS: Anion Gap 4 mmol/L (8-16); Blood Urea Nitrogen 82 mg/dL (9-20); Carbon Dioxide 20 mmol/L (22-30); Chloride 113 mmol/L (98-107); Estimated CRCL calculation 49 ml/min; Estimated Glomerular Filt Rate 33; Glucose 206 mg/dL (75-110); Potassium 6.5 mmol/L (3.4-5.0); Sodium 137 mmol/L (137-145)
[2020-04-12 23:22] VITALS: BP 114/60; PULSE 50; RESP 19; O2SAT 100
[2020-04-12] MEDS: SODIUM CHLORIDE 0.9% IV 1,000 ML 999 ML IV CONT (23:42)
[2020-04-12] MEDS: DEXTROSE 50% 25 GM/50 ML SYRINGE IV PUSH (23:42)
[2020-04-12] MEDS: INSULIN HUMAN REGULAR (*BKC) 100 UNITS/ML 10 UNITS IV PUSH (23:43)
[2020-04-13] VITALS (77 sets, daily range): BP systolic 74–141; BP diastolic 23–77; PULSE 52–157; RESP 16–28; TEMP 36.4–37.8; O2SAT 95–100; BMI 39.9
[2020-04-13 00:08] LABS: Glucose Point of Care 218 (65-105)
[2020-04-13] MEDS: ONDANSETRON INJ 4 MG/2 ML VIAL IV PUSH ×2 (00:09→04:49)
[2020-04-13 00:16] LABS: Immature Reticulocyte Fraction 13.8 % (3.0-15.9); Reticulocyte Hemoglobin Conten 31.4 pg (28.2-35.7); Reticulocyte Percent 2.39 % (0.7-4.3); Reticulocytes Absolute 0.06 B/L (32.2-175.7)
[2020-04-13 00:20] LABS: Lactate Dehydrogenase 304 U/L (313-618)
[2020-04-13] MEDS: SODIUM CHLORIDE 0.9% IV 250 ML 30 ML IV CONT ×2 (00:44→19:02)
[2020-04-13] MEDS: TUBING, BLOOD PLUM PUMP TUBING 1 EACH XX ×2 (00:45→19:02)
[2020-04-13 01:32] LABS: Glucose Point of Care 184 (65-105)
--- NOTE | 2020-04-13 01:38 | PM.IMHP ---
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 The patient does have a past medical history of peptic ulcer disease and his last endoscopic evaluation was approximately 4 years ago. he is also known to be on aspirin therapy daily. Tonight the patient has had associated nausea and lightheadedness but denies any significant shortness of breath or chest pain. He denies any NSAID use. He is known to have chronic anemia and his baseline H&H is 10 and 30 although tonight he was found to have a hemoglobin of 7 and hematocrit of 21.8. ER provider performed bedside rectal exam which was grossly positive. The patient was also found to have hyperkalemia on routine labs including a potassium of 6.5 which was treated in the emergency room with insulin and dextrose. while in the emergency room this evening the patient seemed to have a vagal episode as he started a very nauseated and his blood pressure dropped down to 85/45. The patient was treated with 2 L of normal saline IV bolus. The patient has no other complaints at this time. ER provider has consulted radiology therapist, Dr. Vásquez and we have been asked to admit the patient to the hospital for further care. Review of Systems Review of Systems: All systems reviewed & are unremarkable except as noted in HPI and below PMFSH Past Medical History Medical History Anemia in stage 3 chronic kidney disease (~1989) Arthritis CAD (coronary artery disease) Chronic heart failure with preserved ejection fraction (HFpEF) (~2015) Chronic renal failure COPD (chronic obstructive pulmonary disease) Diabetes mellitus H/O: HTN (hypertension) Hearing loss Heart disease High blood pressure with end-stage kidney disease (~1990) History of left common carotid artery stent placement (~2015) IgA nephropathy with benign hematuria (~1989) Lung disease Renal disease Sleep apnea with use of continuous positive airway pressure (CPAP) (~1995) Status post hemodialysis (~2007) Status post peritoneal dialysis (~2003) Stroke TIA due to embolism Type 2 diabetes mellitus with other circulatory complications (~1989) Surgical History Surgical History History of kidney transplant (~1990) History of kidney transplant (~2007) Family History Family History Father Hypertension Family history of diabetes mellitus in first degree relative Diabetes mellitus Family history of hypercholesterolemia Cerebrovascular accident Family history of kidney disease Mother Hypertension Family history of coronary artery disease Diabetes mellitus Family history of hypercholesterolemia Family history of kidney disease Sibling Hypertension Family history of elevated blood lipids Family history of diabetes mellitus in first degree relative Family history of thyroid disease Diabetes mellitus Family history of hypercholesterolemia Grandparent Acute myocardial infarction Social History Social History Smoking status: Never smoker Second hand tobacco smoke exposure: No Alcohol intake: never Substance use: never Spiritual care concerns: No Meds Home Medications and Allergies Home Medications Medication Instructions Recorded Confirmed Type aspirin 81 mg tablet,delayed 81 mg PO DAILY 03/27/19 04/13/20 History release cholecalciferol (vitamin D3) 25 1,000 unit PO DAILY 03/27/19
[2020-04-13] MEDS: SODIUM BICARBONATE 8.4% 50 MEQ/50 ML VIAL IV PUSH ×3 (02:04→09:30)
--- NOTE | 2020-04-13 02:10 | ADMGEN ---
This patient, Juaquin Covington, was admitted to IMU Room 206-01. Patient/family oriented to hospital policies and general routines including ID bracelet, bed and alarms, visiting hours, pain management, procedures, bathroom and other care routines, personal items, smoking policy, room service/diet, and visiting hours. Information on how to activate the Rapid Response Team has been discussed. Patient/Family are encouraged to report perceived risks to care and to ask questions if they do not understand what they are told or what they should do.
[2020-04-13] MEDS: ALBUTEROL SULFATE NEB 2.5 MG/0.5 ML INH 10 MG INHALATION (02:13)
[2020-04-13] MEDS: CALCIUM GLUC 1,000 MG/NS 50 ML 1,000 MG/50 ML BAG 100 MG IVPB ×3 (03:08→10:09)
[2020-04-13 04:50] LABS: Anion Gap 5 mmol/L (8-16); Blood Urea Nitrogen 89 mg/dL (9-20); Calcium 7.3 mg/dL (8.4-10.2); Carbon Dioxide 16 mmol/L (22-30); Chloride 115 mmol/L (98-107); Estimated CRCL calculation 54 ml/min; Estimated Glomerular Filt Rate 35; Glucose 224 mg/dL (75-110); Potassium 6.9 mmol/L (3.4-5.0); Sodium 136 mmol/L (137-145)
[2020-04-13 05:25] LABS: Mean Corpuscular HGB Conc 32.2 g/dl (32-36); Mean Corpuscular Hemoglobin 29.1 pg (26-34); Mean Corpuscular Volume 90.6 fl (80-100); Mean Platelet Volume 9.9 fl (7.4-10.4); Platelet Count Result 76 k/mm3 (150-375); Red Blood Count 2.23 M/mm3 (4.6-6.20); Red Cell Distribution Width 14.5 % (11.5-14.5); White Blood Count 5.3 K/mm3 (4.5-10.0)
[2020-04-13 05:28] LABS: Hematocrit 20.2 % (42.0-52.0); Hemoglobin 6.5 g/dL (14.0-18.0)
[2020-04-13] MEDS: DEXTROSE 50% 25 GM/50 ML SYRINGE IV PUSH ×2 (05:28→09:30)
[2020-04-13] MEDS: INSULIN HUMAN REGULAR (*BKC) 100 UNITS/ML 10 UNITS IV PUSH ×2 (05:34→09:30)
--- NOTE | 2020-04-13 06:26 | WPDPROCEDUR ---
Procedures Central Line Placement Right Femoral: Central Line Date: 04/13/20 Central Line Time: 06:26 Discussed w/ the patient/family/POA,the placement of a central venous catheter, including its clinical necessity/indication & associated potential risks, benifits and alternatives.: Yes Time Out Performed: Yes Patient Position: supine Patient placed on monitor/pulse ox: Yes Provider Prep: mask, sterile gown, sterile gloves, Max. sterile barrier precautions, cap and hand hygiene with conventional soap/water or alcohol based hand rub Central line prep: 2% Chlorhexidine scrub Amount of anesthesia used (ml): 4 Sterile US Technique with sterile gel/sterile probe covers: Yes Central line lumen inserted: triple Persian: 7 Length (cm): 20 Depth of Insertion (cm): 20 Post Procedure: sutured in place, good blood return, all ports aspirated, flushed, capped, transparent dressing, hemostatic product and aseptic technique maintained throughout procedure Patient tolerated procedure: well Complications: none Additional comments: Date of service of procedure was 04/13/2020 at 06:15 hrs.
[2020-04-13] MEDS: SODIUM BICARBONATE 8.4% 150 MEQ in WATER, STERILE FOR INJECTION 950 ML 100 MEQ IV CONT (08:20)
[2020-04-13 08:41] LABS: Alanine Aminotransferase 14 U/L (4-50); Albumin Level 2.2 g/dL (3.5-5.1); Alkaline Phosphatase 39 U/L (38-126); Anion Gap 5 mmol/L (8-16); Aspartate Amino Transferase 17 U/L (17-59); Bilirubin,Total 1.3 mg/dL (0.2-1.3); Blood Urea Nitrogen 87 mg/dL (9-20); Calcium 7.3 mg/dL (8.4-10.2); Carbon Dioxide 16 mmol/L (22-30); Chloride 115 mmol/L (98-107); Estimated CRCL calculation 54 ml/min; Estimated Glomerular Filt Rate 35; Glucose 373 mg/dL (75-110); Lactic Acid Reflex 1.4 mmol/L (0.7-2.1); Magnesium 1.8 mg/dL (1.6-2.3); Phosphorus 2.9 mg/dL (2.5-4.5); Potassium 7.2 mmol/L (3.4-5.0); Sodium 136 mmol/L (137-145)
--- NOTE | 2020-04-13 08:45 | PM.IMPN ---
Progress Note: A&P Assessment and Plan (1) Acute GI bleeding: Onset Date: ~04/13/20 Code(s): K92.2 - Gastrointestinal hemorrhage, unspecified Status: Acute Assessment and Plan: Acute GI bleeding appears to be secondary to anticoagulant use. BRBPR and with dark, coffee ground emesis. Suspect upper GI bleed that is brisk with rapid transit. Patient has received 4 units of packed red blood cells. Repeat H&H. Continue serial H&H if hemoglobin remains stable. GI been consulted and is aware. Eliquis has been stopped. Will hold on going to the GI lab given the severe hyperkalemia. Continue Protonix drip (2) Acute hyperkalemia: Code(s): E87.5 - Hyperkalemia Status: Acute Assessment and Plan: The patient's potassium was 6.5 on admission. The patient was treated with insulin and dextrose in the ER. We will also treat the patient with calcium gluconate, sodium bicarbonate, and albuterol. He was placed on telemetry. Repeat potassium this morning was 7.2. Potassium continues to climb despite appropriate treatment. Could be related to the transfusion. Discussed with Nephrology by phone with plans for emergent dialysis. Continue telemetry. Will repeat above treatment and check another BMP in approximately 1 hour. Patient may need central line for dialysis if fistula does not function well. Last time fistula was accessed was 2007. (3) Acute on chronic anemia: Code(s): D64.9 - Anemia, unspecified Status: Acute Assessment and Plan: With a hemoglobin running in the 10-11 range most likely related to his chronic renal disease. Hemoglobin 7.0 on admission related to acute blood loss anemia. Last hemoglobin 6.5 but this was drawn during the transfusion. Repeat H&H is pending. (4) Thrombocytopenia: Code(s): D69.6 - Thrombocytopenia, unspecified Status: Chronic Assessment and Plan: Patient with chronic thrombocytopenia but counter lower this admission most likely related to consumption from the acute blood loss. Monitor closely and transfuse as needed. (5) Chronic renal failure: Qualifiers: Chronic kidney disease stage: stage 3 (moderate) Chronic kidney disease stage 3 subtype: unspecified whether 3a or 3b Qualified Code(s): N18.30 - Chronic kidney disease, stage 3 unspecified Code(s): N18.9 - Chronic kidney disease, unspecified Status: Chronic Assessment and Plan: Patient with history of IgA nephropathy and end-stage renal disease status post renal transplant. He has underlying CKD with creatinine running the 1.9-2.2 range mostly. Renal function appears to be close to baseline. Monitor renal function, avoid nephrotoxic agents, renally dose medications. Monitor urine output. (6) Chronic heart failure with preserved ejection fraction (HFpEF): Onset Date: ~2015 Code(s): I50.32 - Chronic diastolic (congestive) heart failure Status: Chronic Assessment and Plan: Patient appears euvolemic. Monitor daily weights as well as fluid status. We will consider Lasix therapy in between and after blood transfusion as the patient does have known heart failure and has already received 2 L of normal saline IV bolus in the ER. (7) Type 2 diabetes mellitus with other circulatory complications: Onset Date: ~1989 Code(s): E11.59 - Type 2 diabetes mellitus with other circulatory complications Status: Chronic Assessment and Plan: Accu-Cheks, sliding scale insulin coverage, hypoglycemia protocol. Resume home insulin therapy once he is eating again. (8) History of kidney transplant: Onset Date: ~1990 Code(s): Z94.0 - Kidney transplant status Status: Chronic Assessment and Plan: Of kidney transplant 1990 and again in 2007. His anti-rejection medications are on hold at this time related to above. The transplant unit has been notified. (9) H/O: HTN
[2020-04-13] MEDS: ALBUTEROL SULFATE NEB 2.5 MG/0.5 ML INH 20 MG INHALATION (09:19)
[2020-04-13 09:24] LABS: Hematocrit 21.8 % (42.0-52.0); Hemoglobin 7.1 g/dL (14.0-18.0); Mean Corpuscular HGB Conc 32.6 g/dl (32-36); Mean Corpuscular Hemoglobin 28.5 pg (26-34); Mean Corpuscular Volume 87.6 fl (80-100); Mean Platelet Volume 10.4 fl (7.4-10.4); Platelet Count Result 108 k/mm3 (150-375); Red Blood Count 2.49 M/mm3 (4.6-6.20); Red Cell Distribution Width 14.9 % (11.5-14.5); White Blood Count 7.2 K/mm3 (4.5-10.0)
[2020-04-13 09:57] LABS: Hepatitis B Surface Anti Res Positive
--- NOTE | 2020-04-13 10:06 | ECG_ITS ---
Measurements Intervals [place] Rate: 144 P: IN: 0 QRS: -37 QRSD: 94 T: 92 QT: 285 QTc: 441 Interpretive Statements ATRIAL FIBRILLATION WITH RAPID VENTRICULAR RESPONSE LEFT AXIS DEVIATION ST-T WAVE ABNORMALITY IN HIGH LATERAL LEADS- CONSIDER ISCHEMIA ABNORMAL ECG Electronically Signed On 04-13-2020 10:46:02 HEAD ROSE GROWER by Davdi Le D.O.
[2020-04-13] MEDS: AMIODARONE 150 MG/D5W 100 ML 150 MG/100 ML BAG 600 MG IV CONT ×2 (10:10→12:40)
[2020-04-13] MEDS: LORazepam INJ (*CRX) 2 MG/ML VIAL (10:13)
[2020-04-13] MEDS: AMIODARONE 360 MG/D5W 200 ML 360 MG/200 ML BAG 33.33 MG IV CONT ×2 (10:24→16:30)
--- NOTE | 2020-04-13 10:31 | PM.PNNEP ---
Progress Note: A&P Assessment and Plan (1) Acute hyperkalemia: Code(s): E87.5 - Hyperkalemia Status: Acute Assessment and Plan: as noted by admission labs due to GI bleed and associated hemolysis of RBCs in gut as well as outpatient use of ARB therapy continues to worsen by repeat labs despite medical management HD today to correct hyperkalemia would recheck K+ one hour after HD treatment done (2) Chronic renal failure, stage 3a: Code(s): N18.31 - Chronic kidney disease, stage 3a Status: Acute Assessment and Plan: due chronic allograft nephropathy (of transplanted kidney) baseline creatinine ~ 2.0mg/dl FULL CONSULT to follow Subjective Date/time seen: 04/13/20 10:31 Receiving dialysis at the time of my visit (seen ~ 10:00AM)but complicated by chest pain on my arrival; Dr. Duarte was already at bedside; noted to be tachycardic and hypotensive so blood flow with HD treatment reduced; EKG with Afib but no overt ischemic changes by my read; amiodarone given to attempt rate control and chest did subside over time; attempting to continue dialysis treatment at this time given his hyperkalemia as noted by most recent labs. Exam Narrative: Exam Narrative: General: WD/WN male in mild distress (due to chest pain symptoms) Heart: IRRR and tachycardic Lungs: clear to auscultation Abdomen: soft, nontender, nondistended, positive bowel sounds Extremities: no cyanosis or clubbing; no edema Skin: warm and dry Objective Data Vital Signs Vital Signs: Vital Signs Temp Pulse Resp BP Pulse Ox 04/13/20 09:45 90 84/46 L 04/13/20 09:30 65 106/49 L 04/13/20 09:20 64 119/58 L 04/13/20 09:11 36.9 C 70 20 116/50 L 04/13/20 07:04 36.4 C 62 18 109/60 98 04/13/20 06:49 36.9 C 60 20 103/53 L 98 04/13/20 06:27 36.9 C 60 20 103/53 L 98 04/13/20 06:11 36.8 C 62 20 98/48 L 98 04/13/20 06:00 36.8 C 62 20 98/48 L 98 04/13/20 04:12 36.8 C 56 L 18 115/53 L 100 04/13/20 04:00 36.8 C 56 L 18 115/53 L 100 04/13/20 03:52 36.9 C 55 L 20 95/50 L 100 04/13/20 03:37 36.9 C 55 L 20 95/50 L 100 04/13/20 03:28 36.5 C 57 L 20 101/49 L 100 04/13/20 03:18 36.5 C 57 L 20 101/49 L 100 04/13/20 02:50 36.5 C 57 L 20 101/49 L 100 04/13/20 02:17 74 18 04/13/20 02:00 36.5 C 57 L 20 98/55 L 98 04/13/20 01:50 36.5 C 57 L 20 98/55 L 98 04/13/20 01:33 36.5 C 70 20 120/56 L 95 04/13/20 01:30 100 04/13/20 01:04 36.6 C 56 L 24 H 109/59 L 99 04/13/20 00:50 36.6 C 56 L 22 H 89/52 L 98 04/13/20 00:31 36.6 C 65 21 H 99/66 L 97 04/13/20 00:10 52 L 23 H 85/45 L 100 04/12/20 23:22 50 L 19 114/60 100 04/12/20 21:45 36.5 C 57 L 18 130/58 L 100 Intake/Output Intake/Output: Intake & Output 04/10/20 04/11/20 04/12/20 04/13/20 23:59 23:59 23:59 23:59 Intake Total 2150 Balance 2150 Meds/Results Medications: Active Medications Generic Name Dose Route Start Last Admin Trade Name Freq PRN Reason Stop Dose Admin Dextrose 12.5 gm 04/13/20 02:27 Dextrose 50% 25 Gm/50 Ml Syringe IV PUSH PRN PRN Hypoglycemia Protocol Fentanyl Citrate 50 mcg 04/12/20 23:53 Fentanyl Citrate Inj (*Crx) 100 Mcg/2 Ml Vial IV PUSH Q2H PRN Pain Rated 7-10 Glucagon 1 mg 04/13/20 02:27 Glucagon For Inj 1 Mg Vial IM PRN PRN Hypoglycemia Protocol Pantoprazole Sodium 80 mg/ 500 mls @ 50 mls/hr 04/12/20 22:05 04/12/20 23:22 Dextrose IV CONT 04/15/20 22:06 50 mls/hr .Q10H QUEENIE Administration Acetaminophen 1,000 mg in 100 mls @ 400 mls/hr 04/12/20 23:53 Ofirmev 1,000 Mg Ivpb IVPB 04/13/20 23:54 Q6H PRN Mild Pain (1-3) or Fever Dextrose 1,000 mls @ 100 mls/hr 04/13/20 02:27 Dextrose 5% 1,000 Ml IVPB PRN PRN Hypoglycemia Protocol Sodium Chloride 250 mls @ 30 mls/hr 04/13/20 05:25 04/13/20
[2020-04-13 10:37] LABS: Potassium 5.7 mmol/L (3.4-5.0)
[2020-04-13 10:40] LABS: Anion Gap 2 mmol/L (8-16); Blood Urea Nitrogen 77 mg/dL (9-20); Calcium 7.1 mg/dL (8.4-10.2); Carbon Dioxide 23 mmol/L (22-30); Chloride 111 mmol/L (98-107); Estimated CRCL calculation 67 ml/min; Estimated Glomerular Filt Rate 45; Glucose 364 mg/dL (75-110); Sodium 136 mmol/L (137-145)
--- NOTE | 2020-04-13 11:51 | WPDGICN ---
Assessment and Plan Assessment and plan (1) Acute GI bleeding: Code(s): K92.2 - Gastrointestinal hemorrhage, unspecified Status: Acute Assessment and Plan: Patient appears to have upper GI bleeding based on the NG tube return which is coffee-grounds. He has had significant bleeding overnight. Plan is to transfuse to stable hemoglobin cover with proton pump inhibitor therapy for possible ulcer. An EGD will be performed today after dialysis. (2) Acute on chronic anemia: Code(s): D64.9 - Anemia, unspecified Status: Acute Assessment and Plan: Patient will be transfused to a stable hemoglobin. (3) Paroxysmal atrial fibrillation: Code(s): I48.0 - Paroxysmal atrial fibrillation Status: Chronic Assessment and Plan: patient has recent diagnosis of atrial fibrillation. Was placed on Eliquis anticoagulation. This will be held because of blood loss. Likely Eliquis contributes strongly to his current bleeding episode. (4) Renal disease: Code(s): N28.9 - Disorder of kidney and ureter, unspecified Status: Acute Assessment and Plan: Patient has a history of IgA nephropathy required to kidney transplant. Continues to have azotemia. At the time of presentation potassium was quite elevated and urgent dialysis today (5) IgA nephropathy with benign hematuria: Onset Date: ~1989 Code(s): N02.8 - Recurrent and persistent hematuria with other morphologic changes Status: Acute (6) History of kidney transplant: Onset Date: ~1990 Code(s): Z94.0 - Kidney transplant status Status: Chronic GI Consult Note Consult date/time: 04/13/20 11:51 HPI: Juaquin Covington is a 55 year old male seen in evaluation at the request of the hospitalist service. Patient has a history of renal transplant secondary to IgA nephropathy. He recently was identified as having atrial fibrillation and started on Eliquis anticoagulation. Last evening began to have a rather large amount of maroonish dark bloody stools. This persisted throughout the night prompting him to go to the emergency room. GI blood loss has persisted in NG tube revealed coffee-ground return. Laboratory analysis reveals significant hyperkalemia and for this reason patient is to be dialyzed this morning. I am asked to see him for GI blood loss he will be transfused during dialysis or before dialysis. Review of Systems Review of Systems: All systems reviewed & are unremarkable except as noted in HPI and below PMFSH Past Medical History Medical History Anemia in stage 3 chronic kidney disease (~1989) Arthritis CAD (coronary artery disease) Chronic heart failure with preserved ejection fraction (HFpEF) (~2015) Chronic renal failure COPD (chronic obstructive pulmonary disease) Diabetes mellitus H/O: HTN (hypertension) Hearing loss Heart disease High blood pressure with end-stage kidney disease (~1990) History of left common carotid artery stent placement (~2015) IgA nephropathy with benign hematuria (~1989) Lung disease Renal disease Sleep apnea with use of continuous positive airway pressure (CPAP) (~1995) Status post hemodialysis (~2007) Status post peritoneal dialysis (~2003) Stroke TIA due to embolism Type 2 diabetes mellitus with other circulatory complications (~1989) Surgical History Surgical History (Updated 04/13/20 @ 02:00 by Juaquin Pollack MD) History of kidney transplant (~1990) History of kidney transplant (~2007) Family History Family History Father Hypertension Family history of diabetes mellitus in first degree relative Diabetes mellitus Family history of hypercholesterolemia Cerebrovascular accident Family history of kidney disease Mother Hypertension Family history of coronary artery disease Diabetes mellitus Family hist
[2020-04-13] MEDS: EPOETIN ALFA-EPBX 10,000 UNITS/ML VIAL 10000 UNITS IV PUSH (11:55)
[2020-04-13 12:03] LABS: Hepatitis B Surface Antigen Negative (Negative)
[2020-04-13 13:35] LABS: Hematocrit 19.2 % (42.0-52.0); Hemoglobin 6.5 g/dL (14.0-18.0)
[2020-04-13 13:40] LABS: Glucose Point of Care 297 (65-105)
[2020-04-13 13:40] LABS: Glucose Point of Care 239 (65-105)
[2020-04-13 13:40] LABS: Glucose Point of Care 366 (65-105)
[2020-04-13 13:40] LABS: Glucose Point of Care 292 (65-105)
--- NOTE | 2020-04-13 13:43 | WPDANESEPPF ---
Anes - Initial Pre Proc Eval Procedure: Operation Date: 04/13/20 10:00 Proposed Procedures p Esophagogastroduodenoscopy - Bobby Vásquez MD Date/Time: 04/13/20 13:43 Surgeon: Pritesh Hernandez MD Pre Op Diagnosis: gi bleed, hyperkalemia, thrombocytopenia Patient Data Age: 55 Gender: M Height: 6 ft Weight: 133.7 kg Last Vital Signs Temp 100.1 F H 04/13/20 12:10 Pulse 72 04/13/20 12:10 Resp 17 04/13/20 12:10 BP 94/56 L 04/13/20 12:10 Pulse Ox 100 04/13/20 12:10 Allergies Allergy/AdvReac Type Severity Reaction Status Date / Time adhesive Allergy Unknown RASH Verified 04/12/20 21:50 clindamycin Allergy Unknown rash Verified 04/12/20 21:50 pantoprazole [From Protonix] AdvReac Unknown rash Verified 04/12/20 21:50 Home Medications Medication Instructions Recorded Confirmed Type aspirin 81 mg tablet,delayed 81 mg PO DAILY 03/27/19 04/13/20 History release cholecalciferol (vitamin D3) 25 1,000 unit PO DAILY 03/27/19 04/13/20 History mcg (1,000 unit) capsule furosemide 40 mg tablet 40 mg PO QAM PRN 03/27/19 04/13/20 History mycophenolate mofetil 500 mg tablet 500 mg PO Q12H tablet 03/27/19 04/13/20 History nitroglycerin 0.4 mg sublingual See Rx Instructions SUBLINGUAL Q5M 03/27/19 04/13/20 History tablet PRN pen needle, diabetic 29 gauge x #30 each 03/27/19 01/27/20 History 1/2 prednisolone 5 mg tablet 5 mg PO DAILY tablet 03/27/19 04/13/20 History sodium bicarbonate 650 mg tablet 650 mg PO DAILY 03/27/19 04/13/20 History tacrolimus 0.75 mg tablet,extended 2 mg PO DAILY tablet 03/27/19 04/13/20 History release 24 hr tamsulosin 0.4 mg capsule 0.4 mg PO DAILY 03/27/19 04/13/20 History allopurinol 100 mg tablet See Rx Instructions .ROUTE 11/19/19 04/13/20 Rx .COMPLEX #180 tablet blood sugar diagnostic #100 each 01/27/20 01/27/20 Rx blood-glucose meter #1 each 01/27/20 01/27/20 Rx calcium carbonate 260 mg calcium 260 mg PO DAILY 01/27/20 04/13/20 History (650 mg) chewable tablet docusate sodium 100 mg capsule 100 mg PO DAILY PRN 01/27/20 04/13/20 History fish oil-dha-epa 1,200 mg-144 1 cap PO BID 01/27/20 04/13/20 History mg-216 mg capsule isosorbide mononitrate 60 mg 90 mg PO DAILY tablet 01/27/20 04/13/20 History tablet,extended release 24 hr lancets 33 gauge #100 each 01/27/20 01/27/20 Rx rosuvastatin 20 mg tablet 20 mg PO DAILY 01/27/20 04/13/20 History carvedilol [Coreg] 37.5 mg PO BID 04/12/20 04/13/20 History insulin regular hum U-500 conc See Rx Instructions .ROUTE .COMPLEX 04/12/20 04/13/20 History [Humulin R U-500 (Conc) Kwikpen] losartan 25 mg PO DAILY 04/12/20 04/13/20 History Laboratory Tests 04/12/20 04/12/20 04/12/20 22:51 22:51 22:52 WBC 4.1 K/mm3 L K/mm3 (4.5-10.0) RBC 2.47 M/mm3 L M/mm3 (4.6-6.20) Hgb 7.0 g/dL L D g/dL (14.0-18.0) Hct 21.8 % L % (42.0-52.0) MCV 88.3 fl fl (80-100) MCH 28.3 pg pg (26-34) MCHC 32.1 g/dl g/dl (32-36) RDW 14.4 % % (11.5-14.5) Plt Count 84 k/mm3 L k/mm3 (150-375) MPV 10.0 fl fl (7.4-10.4) Immature Gran % (Auto) 0.5 % % (0-0.5) Neut % (Auto) 66.2 % % (45.5-73.1) Lymph % (Auto) 22.2 % % (18.3-44.2) Divide % (Auto) 9.4 % H % (2.6-8.5) Eos % (Auto) 1.5 % % (0-4.4) Baso % (Auto) 0.2 % % (0.2-1.2) Lymph # (Auto) 0.90 K/mm3 K/mm3 (0.9-3.2) Divide # (Auto) 0.4 K/mm3 K/mm3 (0.1-0.6) Eos # (Auto) 0.1 K/mm3 K/mm3 (0-0.3) Baso # (Auto) 0.0 K/mm3 K/mm3 (0.0-0.1) Abs Immat Gran (auto) 0.02 K/mm3 K/mm3 (0.00-0.031) Absolute Neuts (auto) 2.7 K/mm3 K/mm3 (1.3-6.7) Absolute Nucleated RBC 0.0 K/mm3 K/mm3 (0.0-0.012) Nucleated RBC % 0.0 % % (0.0-0.2) Absolute Retic 0.06 B/L L B/L (32.2-175.7) Percent Retic 2.39 % % (0.7-4.3)
[2020-04-13 13:47] LABS: Anion Gap 7 mmol/L (8-16); Blood Urea Nitrogen 55 mg/dL (9-20); Calcium 7.3 mg/dL (8.4-10.2); Carbon Dioxide 22 mmol/L (22-30); Chloride 107 mmol/L (98-107); Estimated CRCL calculation 71 ml/min; Estimated Glomerular Filt Rate 49; Glucose 289 mg/dL (75-110); Potassium 4.5 mmol/L (3.4-5.0); Sodium 136 mmol/L (137-145)
[2020-04-13] MEDS: SODIUM CHLORIDE 0.9% IV 500 ML 10 ML IV CONT (13:51)
[2020-04-13 15:05] LABS: Glucose Point of Care 331 (65-105)
--- NOTE | 2020-04-13 15:39 | WPDCNINT ---
Assessment and Plan Assessment and plan (1) Acute GI bleeding: Code(s): K92.2 - Gastrointestinal hemorrhage, unspecified Status: Acute Assessment and Plan: Patient presented with dark red stools along with vomiting coffee-ground emesis. -hemoglobin was 7.0 on admission and dropped to 6.5 after 2 units packed RBCs, 2 more units of packed RBCs were transfused for a total of 4 units. Patient was given 1 unit of FFP and 1 unit of platelets. -repeat hemoglobin after 4 units of packed RBCs was 6.5. Patient to get 1 more unit of packed RBCs now -EGD done on 04/13/2020 showed duodenal ulcers were cauterized with gold probe successfully -appreciate GI following the patient -he was initially on a PPI drip which is being currently switch to Protonix IV q.12 hours (2) Paroxysmal atrial fibrillation: Code(s): I48.0 - Paroxysmal atrial fibrillation Status: Chronic Assessment and Plan: Patient went to AFib RVR during dialysis requiring amiodarone bolus and infusion -will continue to monitor heart rate -patient was on Eliquis, which was held due to acute GI bleed (3) Chronic renal failure: Qualifiers: Chronic kidney disease stage: stage 3 (moderate) Chronic kidney disease stage 3 subtype: unspecified whether 3a or 3b Qualified Code(s): N18.30 - Chronic kidney disease, stage 3 unspecified Code(s): N18.9 - Chronic kidney disease, unspecified Status: Chronic Assessment and Plan: Patient with history of chronic renal failure, creatinine at baseline, patient with good urine output -will continue to monitor (4) Thrombocytopenia: Code(s): D69.6 - Thrombocytopenia, unspecified Status: Chronic Assessment and Plan: Thrombocytopenia likely presumptive, also could be due to immunosuppressive treatment for his renal transplant Received 1 unit of platelets this morning -will monitor platelet counts closely (5) Acute on chronic anemia: Code(s): D64.9 - Anemia, unspecified Status: Acute Assessment and Plan: Acute on chronic anemia likely related to GI bleed -transfuse as above -continue to monitor H&H Q 6 (6) H/O: HTN (hypertension): Code(s): Z86.79 - Personal history of other diseases of the circulatory system Status: Chronic Assessment and Plan: Hold antihypertensives as patient with borderline blood pressures likely hypovolemic secondary to acute severe blood loss -will restart antihypertensives as tolerated (7) Atrial fibrillation with rapid ventricular response: Code(s): I48.91 - Unspecified atrial fibrillation Status: Acute Assessment and Plan: AFib RVR during dialysis and wall receiving albuterol nebulizer for his hyperkalemia -patient given amiodarone bolus and started on amiodarone infusion -will obtain echocardiogram (8) History of kidney transplant: Onset Date: ~1990 Code(s): Z94.0 - Kidney transplant status Status: Chronic Assessment and Plan: Patient on tacrolimus prednisolone mycophenolate mofetil -will check tacrolimus levels (9) DVT prophylaxis: Code(s): Z29.9 - Encounter for prophylactic measures, unspecified Status: Acute Assessment and Plan: SCDs Additional Plan Discussed with patient updated with his condition and plan of care. Patient is a little anxious which is the natural with all what is going on. I answered all questions. Discussed with Maryse, patient's and updated her with patient's condition and plan of care. I did discuss with her, the the EGD report, the patient had AFib RVR. I answered all questions Code status: Full code Critical care time spent: 55 minutes Due to a high probability of clinically significant, life threatening deterioration, the patient required my highest level of preparedness to intervene emergently and I personally spent this critical care time directly and personally managing the patient. This critical
--- NOTE | 2020-04-13 17:07 | PCDIET ---
transferred pt to room ICU 1 at 1650. Report given to Brittney FRANCISCO
[2020-04-13] MEDS: SODIUM BICARBONATE 8.4% 150 MEQ in WATER, STERILE FOR INJECTION 950 ML 50 MEQ IV CONT (18:09)
[2020-04-13] MEDS: INSULIN ASPART (*BKC) 100 UNITS/ML SUB-Q (18:12)
[2020-04-13 18:17] LABS: Glucose Point of Care 346 (65-105)
[2020-04-13 18:41] LABS: Anion Gap 7 mmol/L (8-16); Blood Urea Nitrogen 58 mg/dL (9-20); Calcium 7.3 mg/dL (8.4-10.2); Carbon Dioxide 24 mmol/L (22-30); Chloride 104 mmol/L (98-107); Estimated CRCL calculation 63 ml/min; Estimated Glomerular Filt Rate 42; Glucose 347 mg/dL (75-110); Potassium 5.2 mmol/L (3.4-5.0); Sodium 135 mmol/L (137-145)
[2020-04-13 18:42] LABS: Hemoglobin 6.3 g/dL (14.0-18.0)
--- NOTE | 2020-04-13 20:44 | PHAR ---
The patient's home meds of Mycophenolate 500mg (1 tab bid) and Envarsus xr 1mg (Tacrolimus) (1 tab daily) have been verified.
[2020-04-13] MEDS: AMIODARONE 360 MG/D5W 200 ML 360 MG/200 ML BAG 16.67 MG IV CONT ×2 (22:30→23:15)
[2020-04-13 23:26] LABS: Hemoglobin 5.7 g/dL (14.0-18.0)
[2020-04-14] VITALS (64 sets, daily range): BP systolic 73–166; BP diastolic 44–73; PULSE 48–105; RESP 12–34; TEMP 36–38.4; O2SAT 93–100; BMI 39.9
[2020-04-14] MEDS: NOREPINEPHRINE 8 MG/D5W 250 ML 8 MG/250 ML BAG 18.75 MG IV CONT
--- NOTE | 2020-04-14 | ECHO_ITS ---
Patient Info Name: Juaquin Covington Age: 55 years : 1965 Gender: Male Ht: 72 in Wt: 294 lbs BSA: 2.66 m2 HR: 69 bpm BP: 99 / 58 mmHg Heart Rhythm: Sinus Rhythm Technical Quality: Good Exam Date: 04/14/2020 9:58 AM Exam Location: [facility] Patient Status: Inpatient Admit Date: 04/12/2020 Staff Ordering Physician: Ngoc Duarte MD Trencher Driver: Willie Ratliff, MARCOCS, RT Attending Provider: Ayaz Hernandez MD Referring Physician: Felicia HERNANDEZ; Exam Type: CA echo dop color flow w con Study Info Indications I50.9 - Heart failure, unspecified Complete two-dimensional, color flow and Doppler transthoracic echocardiogram is performed. Summary 1. Complete two-dimensional, color flow and Doppler transthoracic echocardiogram is performed. 2. Left ventricular chamber dimension is normal. 3. Left ventricular systolic function is hyperdynamic, estimated at >70%. 4. There is moderately increased left ventricular wall thickness. 5. The left ventricular diastolic function is normal. 6. Left atrial chamber dimension is mildly enlarged. 7. There is mild aortic valve calcification. 8. There is mild pulmonic regurgitation. Left Ventricle Left ventricular chamber dimension is normal. Left ventricular systolic function is hyperdynamic, estimated at >70%. There is moderately increased left ventricular wall thickness. The left ventricular diastolic function is normal. Right Ventricle Right ventricular chamber dimension is normal. Right ventricular systolic function is normal. Left Atria Left atrial chamber dimension is mildly enlarged. Right Atria Right atrial chamber dimension is normal. Atrial Septum Intact interatrial septum visualized by color flow imaging. Aortic Valve The aortic valve is probable trileaflet. There is mild aortic valve sclerosis. There is no aortic valve stenosis. There is trace aortic valve regurgitation. There is mild aortic valve calcification. Pulmonic Valve The pulmonic valve is normal. There is no pulmonic valve stenosis. There is mild pulmonic regurgitation. Mitral Valve The mitral valve has calcified annulus. There is no mitral valve stenosis. There is trace mitral valve regurgitation. Tricuspid Valve The tricuspid valve leaflets are normal. There is no significant tricuspid valve stenosis. There is trace tricuspid valve regurgitation. Pericardium/Pleural The pericardium appears normal. There is no pericardial effusion. Inferior Vena Cava Normal inferior vena cava with >50% collapse upon inspiration consistent with normal right atrial pressure, 10 mmHg. Aorta The aortic root size at the sinus of Valsalva is normal. There is mild aortic atherosclerosis. Left Ventricular Outflow Tract Name Value Normal LVOT 2D LVOT Diameter 1.97 cm LVOT Doppler LVOT Peak Gradient 7 mmHg LVOT Mean Gradient 4 mmHg LVOT VTI 24.50 cm LVOT VTI/AV VTI Ratio 1.01 LVOT Stroke Volume 74.81 ml
[2020-04-14] MEDS: PANTOPRAZOLE SODIUM IV 40 MG VIAL IV PUSH (01:36)
[2020-04-14] MEDS: SODIUM CHLORIDE 0.9% IV 250 ML 30 ML IV CONT ×2 (02:59→08:05)
[2020-04-14] MEDS: ONDANSETRON INJ 4 MG/2 ML VIAL IV PUSH (05:32)
[2020-04-14 05:37] LABS: Basophils Percent Auto 0.2 % (0.2-1.2); Eosinophils Percent Auto 0.3 % (0-4.4); Immature Granulocyte Absolute 0.13 K/mm3 (0.00-0.031); Immature Granulocyte Percent A 1.2 % (0-0.5); Lymphocytes Absolute Auto 3.05 K/mm3 (0.9-3.2); Lymphocytes Percent Auto 29.2 % (18.3-44.2); Mean Corpuscular HGB Conc 32.6 g/dl (32-36); Mean Corpuscular Hemoglobin 28.6 pg (26-34); Mean Corpuscular Volume 87.7 fl (80-100); Mean Platelet Volume 9.9 fl (7.4-10.4); Monocytes Absolute Auto 1.4 K/mm3 (0.1-0.6); Monocytes Percent Auto 12.9 % (2.6-8.5); Neutrophils Absolute Auto 5.9 K/mm3 (1.3-6.7); Neutrophils Percent Auto 56.2 % (45.5-73.1); Nucleated Red Blood Cells Perc 0.4 % (0.0-0.2); Platelet Count Result 116 k/mm3 (150-375); Red Blood Count 1.54 M/mm3 (4.6-6.20); Red Cell Distribution Width 15.6 % (11.5-14.5); White Blood Count 10.5 K/mm3 (4.5-10.0)
[2020-04-14 05:43] LABS: Hematocrit 13.5 % (42.0-52.0); Hemoglobin 4.4 g/dL (14.0-18.0)
[2020-04-14 05:46] LABS: INR 1.9; Partial Thromboplastin Time 36.7 SECONDS (22.3-36.8)
--- NOTE | 2020-04-14 05:50 | P.PNCROSS_ITS ---
Event Note Event Note Event Note: Nursing staff called me this evening regarding patient's H&H at 11:00 p.m. that came back with result of 5.7 and 17. At that time I instructed the nurse to contact our spinning lathe operator, Dr. Vásquez and I ordered 2 more units of packed red blood cells, platelets, and FFP to be transfused to the patient. Dr. Vásquez instructed nursing staff to replace NG to the and do lavage. I called general surgeon Dr. Pickett and discussed the case with him at length as I felt the patient may need surgical evaluation and intervention for his GI bleed. Nursing staff informs me that the patient continues to have ongoing rectal bleeding. Overnight we continue to monitor the patient closely and I also ordered Levophed IV for vasopressor support as the patient's blood pressure or became labile. I was called by ICU nurse at 5:45 a.m. to inform me that the patient was getting anxious. He finished receiving his blood products and his H&H has now come back at 4.4 And 13.5. We have ordered an additional 3 units of packed red blood cells to be transfused and I have called and spoken with Dr. Vásquez who is on his way into the hospital now to perform endoscopy at bedside.
[2020-04-14 05:55] LABS: Albumin Level 1.6 g/dL (3.5-5.1); Alkaline Phosphatase 29 U/L (38-126); Anion Gap 10 mmol/L (8-16); Aspartate Amino Transferase 31 U/L (17-59); Bilirubin,Total 0.6 mg/dL (0.2-1.3); Blood Urea Nitrogen 63 mg/dL (9-20); Calcium 6.2 mg/dL (8.4-10.2); Carbon Dioxide 19 mmol/L (22-30); Chloride 105 mmol/L (98-107); Estimated CRCL calculation 43 ml/min; Estimated Glomerular Filt Rate 27; Glucose 439 mg/dL (75-110); Magnesium 1.7 mg/dL (1.6-2.3); Phosphorus 3.4 mg/dL (2.5-4.5); Potassium 6.3 mmol/L (3.4-5.0); Sodium 134 mmol/L (137-145)
[2020-04-14 05:56] LABS: Lactic Acid Reflex 7.3 mmol/L (0.7-2.1)
[2020-04-14 05:59] LABS: Alanine Aminotransferase 20 U/L (4-50)
[2020-04-14 06:07] LABS: Base Excess ABG -6.9 mEq/l (+/-2.0); Carboxyhemoglobin 0.3 % THb (0-2.0); Fractional Inspired Oxygen 28 %; HCO3 ABG 16.6 mEq/l (22.0-26.0); Methemoglobin ABG 0.8 %THb (0-1.5); Oxygen Content ABG 6.9 %vol (16.0-22.0); Oxygen Saturation ABG 98.6 % (95.0-100.0); PCO2 ABG 24.6 mmHg (35.0-45.0); PO2 ABG 122.6 mmHg (80.0-100.0); PO2 FiO2 Ratio Arterial Blood 4.38 %; Reduced Hemoglobin 2.9 %THb (0-5.0); pH ABG 7.448 (7.350-7.450)
[2020-04-14 06:09] LABS: Total Hemoglobin 4.9 g/dL (12.0-18.0)
[2020-04-14 06:10] LABS: Device VENTURI MASK; Modified Allen's Test Unable to perform; Site Drawn LEFT FEMORAL
--- NOTE | 2020-04-14 07:25 | PM.OP ---
Procedure Note - Brief Procedure Note - Brief Date of procedure: 04/14/20 Pre-op diagnosis: gi bleed, hyperkalemia, thrombocytopenia Post-op diagnosis: other (duodenal ulcer) Procedure performed: EGD with epinephrine injection and 3 clips applied Description of procedure: Patient is sedated with anesthesia Fujinon video endoscope passed through the esophagus which appears normal stomach reveals some residual blood but no lesions. Duodenum reveals a 1cm ulceration in the duodenal sweep that is actively bleeding. This is injected with 2cc of epinephrine this cause the bleeding to subside. Subsequently 3 clips were applied to the actively bleeding duodenal ulcer. No active bleeding noted at the end of the procedure. Anesthesia: MAC Surgeon: Bobby Vásquez MD Findings: Impression duodenal ulcer with active bleeding now status post epinephrine injection and 3 clips applied. Plan to continue close observation transfuse as necessary. Avoid anticoagulation. Proton pump inhibitor drip will continue.
--- NOTE | 2020-04-14 07:53 | SUR.OPER ---
GOLD PROBE USED ON DUODENAL ULCER. 2ML EPI INJECTED
--- NOTE | 2020-04-14 07:53 | SUR.OPER ---
RESOLUTION CLIP PLACED X3 LOT #[id number] EXP LOT #[id number] EXP LOT #[id number] EXP
[2020-04-14 08:02] LABS: Mean Platelet Volume 10.6 fl (7.4-10.4); Platelet Count Result 111 k/mm3 (150-375)
[2020-04-14] MEDS: SODIUM BICARBONATE 8.4% 50 MEQ/50 ML VIAL IV PUSH (08:02)
--- NOTE | 2020-04-14 08:03 | OP_ITS ---
DATE OF PROCEDURE: 04/14/2020 PREOPERATIVE DIAGNOSIS: Upper gastrointestinal bleeding. POSTOPERATIVE DIAGNOSIS: Actively bleeding duodenal ulcer. DESCRIPTION OF PROCEDURE: Informed consent was obtained from the patient. The risks, benefits, alternatives, indications are discussed and agreed to prior to starting the procedure. The risks include, but are not limited to, adverse reaction to medications including allergies, the risk of bleeding and possible need for transfusion, the risk of perforation and possible need for surgery, and the risk for missed pathology. The patient voiced clear understanding, agreed to proceed. The patient is sedated with anesthesia. Instrument is the IPWireless video endoscope. Following findings, the esophagus appeared normal. Stomach is seen in its entirety including U-turn also normal, some residual blood noted. Duodenal bulb is normal in this sweep. There is ulceration identified on previous endoscopy. There is active oozing of blood from this area. The ulcer is injected with 2 cc of epinephrine with diminishment of bleeding. Subsequent to this, 3 clips were applied to the ulcer with no active bleeding at the end of the procedure. IMPRESSION: Duodenal ulcer status post active bleeding, now status post epinephrine and clip application. Plan is to continue monitor hemoglobin closely. Transfuse to a stable hemoglobin. Continue Protonix drip for the immediate future. D I MT: Maria Luz
[2020-04-14 08:17] LABS: Glucose Point of Care 450 (65-105)
[2020-04-14 08:19] LABS: INR 2.2
--- NOTE | 2020-04-14 08:19 | WPDANESPN ---
Anes - Prog Note Post-Op Date/Time: 04/14/20 08:19 Cardiovascular status: other (on levophed drip) Respiratory status: other (on facemask) Airway patency: baseline Mental status: other (АЛЕКСАНДР 2/2 repeat EGD and post-anesthesia this A.M.) Post-Op hydration status: normal Vital Signs: Last Vital Signs Temp 36.6 C 04/14/20 06:45 Pulse 57 L 04/14/20 07:44 Resp 20 04/14/20 06:45 BP 100/44 L 04/14/20 07:44 Pulse Ox 97 04/14/20 06:45 Pain Score (VAS): АЛЕКСАНДР I/O: Intake & Output 04/13/20 04/14/20 04/14/20 23:59 07:59 15:59 Intake Total 1650 2759 350 Output Total 2300 1400 Balance -650 1359 350 Laboratory Tests 04/14/20 07:56 04/14/20 05:22 04/12/20 04/13/20 04/13/20 22:53 08:12 08:14 WBC 7.2 RBC 2.49 L Hgb 7.1 L Hct 21.8 L MCV 87.6 MCH 28.5 MCHC 32.6 RDW 14.9 H Plt Count 108 L MPV 10.4 Immature Gran % (Auto) Neut % (Auto) Lymph % (Auto) [place] % (Auto) Eos % (Auto) Baso % (Auto) Lymph # (Auto) [place] # (Auto) Eos # (Auto) Baso # (Auto) Abs Immat Gran (auto) Absolute Neuts (auto) Absolute Nucleated RBC Nucleated RBC % PT INR APTT Fibrinogen D-Dimer Puncture Site ABG pH ABG pCO2 ABG pO2 ABG PO2/FiO2 Ratio ABG HCO3 ABG O2 Saturation ABG O2 Content ABG Base Excess A-a Gradient Oxyhemoglobin Carboxyhemoglobin Methemoglobin Reduced Hemoglobin Total Hemoglobin O2 Delivery Device O2 Liters/Min FiO2 Sodium Potassium Chloride Carbon Dioxide Anion Gap BUN Creatinine Estim Creat Clear Calc Estimated GFR Glucose POC Capillary Glucose Lactic Acid Calcium Phosphorus Magnesium Total Bilirubin AST ALT Alkaline Phosphatase Total Protein Albumin Tacrolimus Hep Bs Antigen Negative Hep Bs Antibody Positive Blood Type A Negative Antibody Screen Negative Crossmatch See Detail 04/13/20 04/13/20 04/13/20 08:17 08:17 08:17 WBC RBC Hgb Hct MCV MCH MCHC RDW Plt Count MPV Immature Gran % (Auto) Neut % (Auto) Lymph % (Auto) [place] % (Auto) Eos % (Auto) Baso % (Auto) Lymph # (Auto) [place] # (Auto) Eos # (Auto) Baso # (Auto) Abs Immat Gran (auto) Absolute Neuts (auto) Absolute Nucleated RBC Nucleated RBC % PT INR APTT Fibrinogen D-Dimer Puncture Site ABG pH ABG pCO2 ABG pO2 ABG PO2/FiO2 Ratio ABG HCO3 ABG O2 Saturation ABG O2 Content ABG Base Excess A-a Gradient Oxyhemoglobin Carboxyhemoglobin Methemoglobin Reduced Hemoglobin Total Hemoglobin O2 Delivery Device O2 Liters/Min FiO2 Sodium 136 L Potassium Cancelled 7.2 H* Chloride 115 H Carbon Dioxide 16 L Anion Gap 5 L BUN 87 H Creatinine 2.00 H Estim Creat Clear Calc 54 Estimated GFR 35 L Glucose 373 H POC Capillary Glucose Lactic Acid 1.4 Calcium 7.3 L Phosphorus 2.9 Magnesium 1.8 Total Bilirubin 1.3 AST 17 ALT 14 Alkaline Phosphatase 39 Total Protein 4.0 L Albumin 2.2 L Tacrolimus Hep Bs Antigen Hep Bs Antibody Blood Type Antibody Screen Crossmatch 04/13/20 04/13/20 04/13/20 09:46 10:01 10:49 WBC RBC Hgb Hct MCV MCH MCHC RDW Plt Count MPV Immature Gran % (Auto) Neut % (Auto) Lymph % (Auto) [place] % (Auto) Eos % (Auto) Baso % (Auto) Lymph # (Auto) [place] # (Auto) Eos # (Auto) Baso # (Auto) Abs Immat Gran (auto) Absolute Neuts (auto) Absolute Nucleated RBC Nucleated RBC % PT INR APTT Fibrinogen D-Dimer Puncture Site ABG pH ABG pCO2 ABG pO2 ABG PO2/FiO2 Ratio ABG HCO3 ABG O2 Saturation ABG O2 Content ABG Base Excess
[2020-04-14 08:20] LABS: Magnesium 1.6 mg/dL (1.6-2.3); Partial Thromboplastin Time 40.1 SECONDS (22.3-36.8)
[2020-04-14 08:22] LABS: D Dimer 1.14 ug/mL (<0.48)
[2020-04-14 08:33] LABS: Reflex Lactic Acid Yes or No Add Lactic
[2020-04-14 08:46] LABS: Fibrinogen 108 mg/dl (215-510)
[2020-04-14] MEDS: INSULIN HUMAN REGULAR (*BKC) 100 UNITS/ML 10 UNITS IV PUSH (08:46)
[2020-04-14] MEDS: DEXTROSE 50% 25 GM/50 ML SYRINGE IV PUSH (08:46)
[2020-04-14] MEDS: CALCIUM GLUCONATE 1,000 MG/10 ML VIAL 1000 MG IV PUSH (08:48)
[2020-04-14] MEDS: INSULIN DETEMIR 100 UNITS/ML 8 UNITS SUB-Q (08:50)
[2020-04-14] MEDS: INSULIN ASPART (*BKC) 100 UNITS/ML SUB-Q (08:52)
[2020-04-14] MEDS: NOREPINEPHRINE 8 MG/D5W 250 ML 8 MG/250 ML BAG 46.88 MG IV CONT ×2 (09:05→14:03)
--- NOTE | 2020-04-14 09:52 | WPDINTPN ---
Progress Note: A&P Assessment and Plan (1) Hemorrhagic shock: Code(s): R57.8 - Other shock Status: Acute Assessment and Plan: Hemorrhagic shock likely related to acute GI bleed, from bleeding duodenal ulcer -patient with severe anemia status post large amount of blood product transfusion -patient on Levophed, maintain mean arterial pressures greater than 65 mm Hg for adequate end organ perfusion specially the transplanted kidney (2) Acute GI bleeding: Onset Date: ~04/13/20 Code(s): K92.2 - Gastrointestinal hemorrhage, unspecified Status: Acute Assessment and Plan: Patient presented with dark red stools along with vomiting coffee-ground emesis. -EGD done on 04/13/2020 showed duodenal ulcers were cauterized with gold probe successfully -patient continues to have bloody bowel movements, repeat EGD on 04/14/2020 shows acute active duodenal ulcer bleeding. Epinephrine and clips x3 were applied. -appreciate GI following the patient -PPI infusion was restarted -appreciate surgical evaluation and recommendation (3) Paroxysmal atrial fibrillation: Code(s): I48.0 - Paroxysmal atrial fibrillation Status: Chronic Assessment and Plan: Patient went to AFib RVR during dialysis requiring amiodarone bolus and infusion -patient converted to sinus rhythm last night on 04/13/2020 -patient was on Eliquis, which is currently being held due to the acute GI bleed and severe anemia (4) Chronic renal failure: Qualifiers: Chronic kidney disease stage: stage 3 (moderate) Chronic kidney disease stage 3 subtype: unspecified whether 3a or 3b Qualified Code(s): N18.30 - Chronic kidney disease, stage 3 unspecified Code(s): N18.9 - Chronic kidney disease, unspecified Status: Chronic Assessment and Plan: Patient with history of chronic renal failure, creatinine at baseline, patient with good urine output -patient with metabolic acidosis, lactic acidosis likely related to hemorrhagic shock -creatinine has increase, patient is hyperkalemic, discussed with Nephrology, will try to dialyze again today (5) Thrombocytopenia: Code(s): D69.6 - Thrombocytopenia, unspecified Status: Chronic Assessment and Plan: Thrombocytopenia likely presumptive, also could be due to immunosuppressive treatment for his renal transplant Patient received more platelets on 04/14 -will monitor platelet counts closely (6) Acute on chronic anemia: Code(s): D64.9 - Anemia, unspecified Status: Acute Assessment and Plan: Acute on chronic anemia likely related to GI bleed -transfuse to maintain hemoglobin greater than 7.0 -continue to monitor H&H Q 6 (7) H/O: HTN (hypertension): Code(s): Z86.79 - Personal history of other diseases of the circulatory system Status: Chronic Assessment and Plan: Hold antihypertensives as patient with borderline blood pressures likely hypovolemic secondary to acute severe blood loss -will restart antihypertensives as tolerated (8) Atrial fibrillation with rapid ventricular response: Code(s): I48.91 - Unspecified atrial fibrillation Status: Acute Assessment and Plan: AFib RVR during dialysis and wall receiving albuterol nebulizer for his hyperkalemia -patient given amiodarone bolus and started on amiodarone infusion -echocardiogram was done, report pending -patient converted to sinus rhythm, amiodarone has been discontinued since patient was slightly bradycardic in the 50s (9) History of kidney transplant: Onset Date: ~1990 Code(s): Z94.0 - Kidney transplant status Status: Chronic Assessment and Plan: Patient on tacrolimus prednisolone mycophenolate mofetil -tacrolimus levels are pending -discussed with neurology regarding patient's immunosuppressive therapy, recommended holding for now until patient is able to take p.o. for the next 2-3 days (10) DVT prophylaxis: Code(s):
[2020-04-14 10:08] LABS: Hematocrit 19.7 % (42.0-52.0); Hemoglobin 6.4 g/dL (14.0-18.0)
[2020-04-14 10:16] LABS: Anion Gap 10 mmol/L (8-16); Blood Urea Nitrogen 67 mg/dL (9-20); Calcium 6.1 mg/dL (8.4-10.2); Carbon Dioxide 20 mmol/L (22-30); Chloride 105 mmol/L (98-107); Estimated CRCL calculation 37 ml/min; Estimated Glomerular Filt Rate 23; Glucose 443 mg/dL (75-110); Potassium 5.7 mmol/L (3.4-5.0); Sodium 135 mmol/L (137-145)
[2020-04-14 10:23] LABS: Lactic Acid Reflex 8.5 mmol/L (0.7-2.1)
--- NOTE | 2020-04-14 10:28 | PM.CNGS ---
Assessment and Plan Assessment and plan (1) Acute GI bleeding: Onset Date: ~04/13/20 Code(s): K92.2 - Gastrointestinal hemorrhage, unspecified Status: Acute Assessment and Plan: Plan is for serial H&Hs further transfusion and careful observation in ICU. Surgery will stand ready to proceed with possible open upper abdominal surgery with duodenotomy and over-sewing of the duodenal ulcer. Hopefully this recent COUNTERINTELLIGENCE ANALYST with placement of clips and injection of epipherine will stop his bleeding as we are now 36 hours away from his last Eliquis dose. With the combination of further platelets and FFP with transfusion may help the patient's situation. (2) Chronic renal failure, stage 3a: Code(s): N18.31 - Chronic kidney disease, stage 3a Status: Acute (3) Paroxysmal atrial fibrillation: Code(s): I48.0 - Paroxysmal atrial fibrillation Status: Chronic (4) Thrombocytopenia: Code(s): D69.6 - Thrombocytopenia, unspecified Status: Chronic (5) Acute hyperkalemia: Code(s): E87.5 - Hyperkalemia Status: Acute (6) Obesity (BMI 35.0-39.9 without comorbidity): Code(s): E66.9 - Obesity, unspecified Status: Acute (7) CAD (coronary artery disease): Code(s): I25.10 - Atherosclerotic heart disease of [place] coronary artery without angina pectoris Status: Acute (8) H/O: HTN (hypertension): Code(s): Z86.79 - Personal history of other diseases of the circulatory system Status: Chronic (9) 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 The patient does have a past medical history of peptic ulcer disease and his last endoscopic evaluation was approximately 4 years ago. he is also known to be on aspirin therapy daily. Last night the patient has had associated nausea and lightheadedness but denies any significant shortness of breath or chest pain. He denies any NSAID use. He is known to have chronic anemia and his baseline H&H is 10 and 30 although tonight he was found to have a hemoglobin of 7 and hematocrit of 21.8. ER provider performed bedside rectal exam which was grossly positive. The patient was also found to have hyperkalemia on routine labs including a potassium of 6.5 which was treated in the emergency room with insulin and dextrose. While in the emergency room this evening the patient seemed to have a vagal episode as he started being very nauseated and his blood pressure dropped down to 85/45. The patient was treated with 2 L of normal saline IV bolus. The patient has no other complaints at this time. ER provider has consulted chemical tester, Dr. Vásquez. Since his admission yesterday Dr. tete heller performed upper GI endoscopy and found a duodenal ulcer that was oozing. This was cauterized. However the patient had been off his Eliquis for just over 12 hours at that point. last night when the patient had received total of 7 units of PRBCs and was still having some mild hypotension and rectal bleeding in the ICU doctor late ca
[2020-04-14] MEDS: PERFLUTREN LIPID MICROSPHERES 1.5 ML VIAL DILUTED TO 10 ML TOTAL VOLUME IV PUSH (10:36)
[2020-04-14] MEDS: SODIUM BICARBONATE 8.4% 150 MEQ in WATER, STERILE FOR INJECTION 950 ML 100 MEQ IV CONT (10:53)
[2020-04-14 12:05] LABS: Glucose Point of Care 496 (65-105)
[2020-04-14 13:32] LABS: Glucose Point of Care > 500 (65-105)
[2020-04-14] MEDS: INSULIN HUMAN REGULAR (*BKC) 100 UNITS in SODIUM CHLORIDE 0.9% IV 99 ML 8.7 UNITS IV CONT (14:28)
[2020-04-14 14:31] LABS: Glucose Point of Care 494 (65-105)
[2020-04-14 15:11] LABS: Hematocrit 19.7 % (42.0-52.0); Hemoglobin 6.5 g/dL (14.0-18.0)
[2020-04-14 15:17] LABS: Magnesium 1.6 mg/dL (1.6-2.3); Phosphorus 3.5 mg/dL (2.5-4.5)
[2020-04-14 15:18] LABS: Anion Gap 5 mmol/L (8-16); Blood Urea Nitrogen 71 mg/dL (9-20); Calcium 5.9 mg/dL (8.4-10.2); Carbon Dioxide 24 mmol/L (22-30); Chloride 103 mmol/L (98-107); Estimated CRCL calculation 34 ml/min; Estimated Glomerular Filt Rate 20; Glucose 463 mg/dL (75-110); Potassium 5.7 mmol/L (3.4-5.0); Sodium 132 mmol/L (137-145)
--- NOTE | 2020-04-14 15:28 | P.CONNP_ITS ---
Assessment and Plan Assessment and plan (1) Acute hyperkalemia: Code(s): E87.5 - Hyperkalemia Status: Acute Assessment and Plan: * as noted by admission labs * due to GI bleed and associated hemolysis of RBCs in gut as well as outpatient use of ARB therapy * continued to worsen by repeat labs despite medical management on admission * s/p hemodialysis yesterday to help correct hyperkalemia (complicated by AFib with RVR and chest pain as well as relative hypotension) * unfortunately, with events overnight, potassium is back up again * will attempt HD again today to correct K+ and provide clearance of lactic acid (2) QUANG (acute kidney injury): Code(s): N17.9 - Acute kidney failure, unspecified Status: Acute Assessment and Plan: * likely mild ATN from hemodynamic instability, shock, and severe anemia * continue effort to maintain perfusion to his transplant kidney * follow trend of electrolytes, urine output/volume status, and clearance - suspect higher BUN more related to bleeding issue than lack of clearance of uremic toxins (3) Chronic renal failure, stage 3a: Code(s): N18.31 - Chronic kidney disease, stage 3a Status: Acute Assessment and Plan: * due chronic allograft nephropathy (of transplanted kidney) * baseline creatinine ~ 2.0mg/dl * 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 (4) Hemorrhagic shock: Code(s): R57.8 - Other shock Status: Acute Assessment and Plan: * as evidence by ongoing GI bleeding in the last 24 hours * pressor support to maintain MAP with weaning as tolerated * blood product transfusion PRN * follow trend of hemodynamics (5) Acute GI bleeding: Onset Date: ~04/13/20 Code(s): K92.2 - Gastrointestinal hemorrhage, unspecified Status: Acute Assessment and Plan: * s/p EGD x 2 with findings of bleeding duodenal ulcers * Gastroentrology following * follow trend of H/H * dose Epogen with HD (6) Paroxysmal atrial fibrillation: Code(s): I48.0 - Paroxysmal atrial fibrillation Status: Chronic Assessment and Plan: * noted to RVR with dialysis treatment yesterday * back in NSR with amidodarone * anticoagulation on hold given #5 (7) History of kidney transplant: Onset Date: ~1990 Code(s): Z94.0 - Kidney transplant status Status: Chronic Assessment and Plan: * hold immunosuppressive therapy for now * resume when able to safely take oral medications (8) Diabetes: Code(s): E11.9 - Type 2 diabetes mellitus without complications Status: Chronic Assessment and Plan: * follow accuchecks * on SSI Discussed case with Dr. Duarte. Greater than 20 minutes was spent reviewing the chart, disussion with physicians and nurses involved in his care, and the patient himself given his multitude of medical issues at this time. Will continue to follow. History of Present Illness Reason for Consult Consult date: 04/14/20 Reason for consult: chronic renal failure and hyperkalemia Chief Complaint Chief complaint: gi bleed, hyperkalemia, thrombocytopenia History of Present Illness Narrative: The patient is a 55 year old male with an extensive past medical history as outlined below who presented to [facility] Emergency room with complaints of large dark red stools. The patient has a past medical history significant for peptic ulcer disease and given the finding of the a for mentioned bloody stools he was somewhat concern
--- NOTE | 2020-04-14 15:28 | PM.CNNEP ---
Assessment and Plan Assessment and plan (1) Acute hyperkalemia: Code(s): E87.5 - Hyperkalemia Status: Acute Assessment and Plan: as noted by admission labs due to GI bleed and associated hemolysis of RBCs in gut as well as outpatient use of ARB therapy continued to worsen by repeat labs despite medical management on admission s/p hemodialysis yesterday to help correct hyperkalemia (complicated by AFib with RVR and chest pain as well as relative hypotension) unfortunately, with events overnight, potassium is back up again will attempt HD again today to correct K+ and provide clearance of lactic acid (2) QUANG (acute kidney injury): Code(s): N17.9 - Acute kidney failure, unspecified Status: Acute Assessment and Plan: likely mild ATN from hemodynamic instability, shock, and severe anemia continue effort to maintain perfusion to his transplant kidney follow trend of electrolytes, urine output/volume status, and clearance - suspect higher BUN more related to bleeding issue than lack of clearance of uremic toxins (3) Chronic renal failure, stage 3a: Code(s): N18.31 - Chronic kidney disease, stage 3a Status: Acute Assessment and Plan: due chronic allograft nephropathy (of transplanted kidney) baseline creatinine ~ 2.0mg/dl 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 (4) Hemorrhagic shock: Code(s): R57.8 - Other shock Status: Acute Assessment and Plan: as evidence by ongoing GI bleeding in the last 24 hours pressor support to maintain MAP with weaning as tolerated blood product transfusion PRN follow trend of hemodynamics (5) Acute GI bleeding: Onset Date: ~04/13/20 Code(s): K92.2 - Gastrointestinal hemorrhage, unspecified Status: Acute Assessment and Plan: s/p EGD x 2 with findings of bleeding duodenal ulcers Gastroentrology following follow trend of H/H dose Epogen with HD (6) Paroxysmal atrial fibrillation: Code(s): I48.0 - Paroxysmal atrial fibrillation Status: Chronic Assessment and Plan: noted to RVR with dialysis treatment yesterday back in NSR with amidodarone anticoagulation on hold given #5 (7) History of kidney transplant: Onset Date: ~1990 Code(s): Z94.0 - Kidney transplant status Status: Chronic Assessment and Plan: hold immunosuppressive therapy for now resume when able to safely take oral medications (8) Diabetes: Code(s): E11.9 - Type 2 diabetes mellitus without complications Status: Chronic Assessment and Plan: follow accuchecks on SSI Discussed case with Dr. Duarte. Greater than 20 minutes was spent reviewing the chart, disussion with physicians and nurses involved in his care, and the patient himself given his multitude of medical issues at this time. Will continue to follow. History of Present Illness Reason for Consult Consult date: 04/14/20 Reason for consult: chronic renal failure and hyperkalemia Chief Complaint Chief complaint: gi bleed, hyperkalemia, thrombocytopenia History of Present Illness Narrative: The patient is a 55 year old male with an extensive past medical history as outlined below who presented to [facility] Emergency room with complaints of large dark red stools. The patient has a past medical history significant for peptic ulcer disease and given the finding of the a for mentioned bloody stools he was somewhat concerned. Furthermore, he been having issues and problems with nausea and lightheadedness as well. Reportedly, he also had coffee-ground emesis but I am unclear when this occurred. Further complicating matters is that he is on chronic anticoagulation for his recently diagnosed paroxysmal atrial fibrillation. He is also known to have chronic anemia secondary to his chronic kidney disease from his renal transplantation and given these multiple v
[2020-04-14 15:46] LABS: Glucose Point of Care > 500 (65-105)
[2020-04-14] MEDS: SODIUM CHLORIDE 0.9% IV 1,000 ML 999 ML IV CONT (17:30)
[2020-04-14 17:55] LABS: Mean Corpuscular HGB Conc 34.1 g/dl (32-36); Mean Corpuscular Hemoglobin 29.4 pg (26-34); Mean Corpuscular Volume 86.3 fl (80-100); Mean Platelet Volume 9.9 fl (7.4-10.4); Platelet Count Result 75 k/mm3 (150-375); Red Blood Count 2.04 M/mm3 (4.6-6.20); Red Cell Distribution Width 15.9 % (11.5-14.5); White Blood Count 17.2 K/mm3 (4.5-10.0)
[2020-04-14 17:59] LABS: Alveolar/Arterial O2 Gradient 203.8 mmHg; Base Excess ABG -2.2 mEq/l (+/-2.0); Fractional Inspired Oxygen 100 %; HCO3 ABG 21.3 mEq/l (22.0-26.0); Oxygen Content ABG 10.4 %vol (16.0-22.0); Oxygen Saturation ABG 99.9 % (95.0-100.0); PCO2 ABG 30.3 mmHg (35.0-45.0); PO2 ABG 478.9 mmHg (80.0-100.0); PO2 FiO2 Ratio Arterial Blood 4.79 %; pH ABG 7.464 (7.350-7.450)
[2020-04-14 17:59] LABS: Hematocrit 17.6 % (42.0-52.0)
[2020-04-14 18:01] LABS: Arterial Blood Gas Ventilator rate 26 /MIN; Device VENTILATOR; Modified Allen's Test Pass; Site Drawn ARTLINE; Total Hemoglobin 6.6 g/dL (12.0-18.0)
[2020-04-14 18:02] LABS: Arterial Blood Gas PEEP 8 cmH2O; Arterial Blood Gas Tidal Volume 500 ml; Arterial Blood Gas Vent Mode ASSIST CONTROL
[2020-04-14 18:09] LABS: Phosphorus 3.9 mg/dL (2.5-4.5)
[2020-04-14 18:11] LABS: Albumin Level 1.1 g/dL (3.5-5.1); Alkaline Phosphatase 24 U/L (38-126); Anion Gap 9 mmol/L (8-16); Bilirubin,Total 0.3 mg/dL (0.2-1.3); Blood Urea Nitrogen 68 mg/dL (9-20); Calcium 5.9 mg/dL (8.4-10.2); Carbon Dioxide 24 mmol/L (22-30); Chloride 103 mmol/L (98-107); Estimated CRCL calculation 35 ml/min; Estimated Glomerular Filt Rate 21; Glucose 392 mg/dL (75-110); Magnesium 1.7 mg/dL (1.6-2.3); Potassium 4.4 mmol/L (3.4-5.0); Sodium 136 mmol/L (137-145)
[2020-04-14 18:13] LABS: INR 3.2; Lactic Acid Reflex 7.6 mmol/L (0.7-2.1)
[2020-04-14 18:14] LABS: Partial Thromboplastin Time 42.6 SECONDS (22.3-36.8)
[2020-04-14 18:16] LABS: D Dimer 1.37 ug/mL (<0.48)
--- NOTE | 2020-04-14 18:18 | WPDANESEPPF ---
Anes - Initial Pre Proc Eval Procedure: Operation Date: 04/13/20 10:00 Proposed Procedures p Esophagogastroduodenoscopy - Bobby Vásquez MD Operation Date: 04/14/20 07:00 Proposed Procedures p Esophagogastroduodenoscopy - Bobby Vásquez MD Date/Time: 04/14/20 18:18 Pre Op Diagnosis: gi bleed, hyperkalemia, thrombocytopenia Patient Data Age: 55 Gender: M Height: 1.83 m Weight: 133.7 kg Last Vital Signs Temp 37.4 C 04/14/20 17:42 Pulse 68 04/14/20 17:42 Resp 24 H 04/14/20 17:42 BP 100/64 04/14/20 17:42 Pulse Ox 94 04/14/20 17:42 Allergies Allergy/AdvReac Type Severity Reaction Status Date / Time adhesive Allergy Unknown RASH Verified 04/12/20 21:50 clindamycin Allergy Unknown rash Verified 04/12/20 21:50 pantoprazole [From Protonix] AdvReac Unknown rash Verified 04/12/20 21:50 Home Medications Medication Instructions Recorded Confirmed Type aspirin 81 mg tablet,delayed 81 mg PO DAILY 03/27/19 04/13/20 History release cholecalciferol (vitamin D3) 25 1,000 unit PO DAILY 03/27/19 04/13/20 History mcg (1,000 unit) capsule furosemide 40 mg tablet 40 mg PO QAM PRN 03/27/19 04/13/20 History mycophenolate mofetil 500 mg tablet 500 mg PO Q12H tablet 03/27/19 04/13/20 History nitroglycerin 0.4 mg sublingual See Rx Instructions SUBLINGUAL Q5M 03/27/19 04/13/20 History tablet PRN prednisolone 5 mg tablet 5 mg PO DAILY tablet 03/27/19 04/13/20 History sodium bicarbonate 650 mg tablet 650 mg PO DAILY 03/27/19 04/13/20 History tacrolimus 0.75 mg tablet,extended 2 mg PO DAILY tablet 03/27/19 04/13/20 History release 24 hr tamsulosin 0.4 mg capsule 0.4 mg PO DAILY 03/27/19 04/13/20 History allopurinol 100 mg tablet See Rx Instructions .ROUTE 11/19/19 04/13/20 Rx .COMPLEX #180 tablet calcium carbonate 260 mg calcium 260 mg PO DAILY 01/27/20 04/13/20 History (650 mg) chewable tablet docusate sodium 100 mg capsule 100 mg PO DAILY PRN 01/27/20 04/13/20 History fish oil-dha-epa 1,200 mg-144 1 cap PO BID 01/27/20 04/13/20 History mg-216 mg capsule isosorbide mononitrate 60 mg 90 mg PO DAILY tablet 01/27/20 04/13/20 History tablet,extended release 24 hr rosuvastatin 20 mg tablet 20 mg PO DAILY 01/27/20 04/13/20 History carvedilol [Coreg] 37.5 mg PO BID 04/12/20 04/13/20 History insulin regular hum U-500 conc See Rx Instructions .ROUTE .COMPLEX 04/12/20 04/13/20 History [Humulin R U-500 (Conc) Kwikpen] losartan 25 mg PO DAILY 04/12/20 04/13/20 History Laboratory Tests 04/12/20 04/13/20 04/13/20 22:53 18:11 18:11 WBC RBC Hgb 6.3 g/dL L* g/dL (14.0-18.0) Hct 19.0 % L* % (42.0-52.0) MCV MCH MCHC RDW Plt Count MPV Immature Gran % (Auto) Neut % (Auto) Lymph % (Auto) [place] % (Auto) Eos % (Auto) Baso % (Auto) Lymph # (Auto) [place] # (Auto) Eos # (Auto) Baso # (Auto) Abs Immat Gran (auto) Absolute Neuts (auto) Absolute Nucleated RBC Nucleated RBC % PT INR APTT Fibrinogen D-Dimer Puncture Site ABG pH ABG pCO2 ABG pO2 ABG PO2/FiO2 Ratio ABG HCO3 ABG O2 Saturation ABG O2 Content ABG Base Excess A-a Gradient Oxyhemoglobin Carboxyhemoglobin Methemoglobin Reduced Hemoglobin Total Hemoglobin O2 Delivery Device O2 Liters/Min Minute Volume Vent Rate Vent Mode FiO2 Tidal Volume PEEP Peak Inspir Pressure Pressure Support Sodium
[2020-04-14 18:22] LABS: Glucose Point of Care 462 (65-105)
[2020-04-14 18:25] LABS: Alanine Aminotransferase 1071 U/L (4-50); Aspartate Amino Transferase 1455 U/L (17-59)
--- NOTE | 2020-04-14 18:25 | WPDHPUPDATE1 ---
History and Physical Update Update Date/Time: 04/14/20 18:25 History and Physical has been reviewed, including an updated exam of the patient. All events discussed with ICU staff as patient now intubated. I had a long d/w pt's and decision to proceed to OR emergently for exploration.
[2020-04-14 18:26] LABS: Total Protein < 2.0 g/dL (6.3-8.2)
[2020-04-14 18:30] LABS: Fibrinogen 71 mg/dl (215-510)
--- NOTE | 2020-04-14 18:34 | WPDPROCEDUR ---
Procedures Intubation Intubation Date: 04/14/20 Intubation Time: 16:50 A pre-procedural Time-Out was completed immediately before starting the procedure and confirmed: Patient Identification, Site, Procedure, Patient Position and the Availability of Requisite Equipment: Yes Sedative: etomidate Paralytic: rocuronium Laryngoscope: fiber optic video scope Assist device used: fiber optic device ET tube size: 8 Tube secured depth (cm): 25 Tube secured location: lips Tube placement confirmation: visualized tube passing through cords, equal breath sounds bilaterally, no breath sounds over epigastrium and confirmation by capnometry Patient tolerated procedure: well Intubation complications: none
--- NOTE | 2020-04-14 18:36 | WPDPROCEDUR ---
Procedures Arterial Line Arterial Line Date: 04/14/20 Discussed with the patient/family/POA, the placement of an arterial catheter, including its clinical necessity/indication and associated potential risks, benefits and alternatives.: Yes Patient/family/POA and/or understands and acknowledges the need to proceed with the arterial catheter insertion as an important element of the patient's clinical management.: Yes Time Out Performed: Yes Patient Position: supine Wireless Field Technician Prep: sterile gloves, mask and hat Site: left and femoral Site Prep: chlorhexidine and sterile drape Technique used: ultrasound-guided Size (Gauge): 18 Length: 12 cm Closure/Dressing: suture, transparent dressing, hemostatic product, antimicrobial product and securement product Patient tolerated procedure: well Complications: none
--- NOTE | 2020-04-14 18:37 | PDCODEBLUE ---
Code Blue Note Code Blue Note Time Arrived at Code Blue: 1650 Initial Rhythm on Arrival: Ventricular fibrillation Airway Management: Initiated bagging pt on arrival (Airway was present) Chest Compressions: Initiated upon arrival Result of Code Blue: In ICU Cardiac Rhythm Post Code: Sinus rhythm with heart rate in the 60s and 70s Code Blue Summary: Patient was undergoing dialysis, had a glassy look, pale, decreased mentation. Patient had bright red blood per rectum. Dialysis was stopped, patient was started on IV fluid bolus, emergently intubated. Post intubation patient went into VFib arrest at 5:10 p.m., patient was defibrillated x2, received epinephrine, calcium, bicarb, amiodarone bolus. ROSC at 5:16 p.m, patient was sinus rhythm with heart rate in the 60s to 70s. Arterial line was inserted emergently using sterile precautions. Called surgeon since patient was likely bleeding from his duodenal ulcer, status post EGD on 04/13/2020 with cauterization, repeat bleed and repeat EGD on 04/14/2020 status post epi injection and clips x3 to the ulcer. Despite that he has been bleeding, currently in hemorrhagic shock requiring Levophed, epinephrine, vasopressin. Surgeon arrived at bedside and will be taking patient to the OR. Emergent labs, ABGs were ordered
--- NOTE | 2020-04-14 18:56 | PC.NURSE ---
At approximately 1645 Dialysis treatment was initiated by sweater operator @1705 pig farm manager requested this RN to come to the room and evaluate patient status, He was found to be restless, incomprehensible speech, disoriented X3, with blank withdrawn expression. @1707 Dr. Duarte and nursing staff arrived to room, Pt. subsequently intubated and patient went into v tach. Code blue called. See code sheet documentation.
[2020-04-14 19:02] LABS: Glucose Point of Care 420 (65-105)
--- NOTE | 2020-04-14 19:03 | PCRCNOTE ---
DR SIMMS CALLED REGARDING ETT PLACEMENT. ETT AT 28CM, NEEDS TO COME BACK TO 26. BEFORE ETT PLACEMENT COULD BE CHANGED, O.R. CALLED FOR PATIENT AND PATIENT WAS TRANSPORTED EMERGENTLY TO O.R. REPORT GIVEN TO ANESTHESIA REGARDING ETT PLACEMENT
[2020-04-14] MEDS: FENTANYL 2,500MCG/NS250ML(*CRX 2,500 MCG/250 ML BAG (19:12)
--- NOTE | 2020-04-14 19:15 | PM.IMPN ---
Progress Note: A&P Assessment and Plan (1) Cardiac arrest with ventricular fibrillation: Code(s): I46.9 - Cardiac arrest, cause unspecified; I49.01 - Ventricular fibrillation Status: Acute Assessment and Plan: Patient developed VFib arrest probably related to hypovolemic shock from acute blood loss. He did have elevated potassium earlier today which could have contributed to this. ROSC after 6 minutes. Patient currently in surgery. (2) Acute respiratory failure: Code(s): J96.00 - Acute respiratory failure, unspecified whether with hypoxia or hypercapnia Status: Acute Assessment and Plan: Patient became obtunded requiring intubation a short time prior to the code blue. Airway secured now. Remain on mechanical ventilation. (3) Acute GI bleeding: Onset Date: ~04/13/20 Code(s): K92.2 - Gastrointestinal hemorrhage, unspecified Status: Acute Assessment and Plan: Acute GI bleeding appears to be secondary to duodenal ulcer complicated by recent anticoagulant use. BRBPR and with dark, coffee ground emesis. Upper GI bleed that is brisk with rapid transit. Patient has received 15 units of packed red blood cells. EGD twice has failed to stop the bleeding and now in OR. (4) Acute hyperkalemia: Code(s): E87.5 - Hyperkalemia Status: Acute Assessment and Plan: The patient's potassium was 6.5 on admission. The patient was treated appropriately and placed on telemetry. Repeat potassium this morning was 6.3. Potassium has improved today. Continue telemetry. (5) QUANG (acute kidney injury): Code(s): N17.9 - Acute kidney failure, unspecified Status: Acute Assessment and Plan: Cr increased to 3.1 related to above and acute blood loss and now code blue. Follow. Hopefully his fistula is functioning. (6) Acute on chronic anemia: Code(s): D64.9 - Anemia, unspecified Status: Acute Assessment and Plan: With a baseline hemoglobin running in the 10-11 range most likely related to his chronic renal disease. Hemoglobin 7.0 on admission related to acute blood loss anemia but having difficulty keeping Hgb above 6. He has received 3U plasma, 1 cryo and 15U PRBC. Last hemoglobin 6.0 with emergency transfusion ordered. Currently down in OR. (7) Thrombocytopenia: Code(s): D69.6 - Thrombocytopenia, unspecified Status: Chronic Assessment and Plan: Patient with chronic thrombocytopenia but much lower this admission most likely related to consumption from the acute blood loss. He has received 2U plt transfusion. Monitor closely and transfuse as needed. (8) Chronic renal failure: Qualifiers: Chronic kidney disease stage: stage 3 (moderate) Chronic kidney disease stage 3 subtype: unspecified whether 3a or 3b Qualified Code(s): N18.30 - Chronic kidney disease, stage 3 unspecified Code(s): N18.9 - Chronic kidney disease, unspecified Status: Chronic Assessment and Plan: Patient with history of IgA nephropathy and end-stage renal disease status post renal transplant. He has underlying CKD with creatinine running the 1.9-2.2 range mostly. Renal function has worsened. Monitor renal function, avoid nephrotoxic agents, renally dose medications. Monitor urine output. (9) Chronic heart failure with preserved ejection fraction (HFpEF): Onset Date: ~2015 Code(s): I50.32 - Chronic diastolic (congestive) heart failure Status: Chronic Assessment and Plan: As above. Use HD to control fluid status. (10) Type 2 diabetes mellitus with other circulatory complications: Onset Date: ~1989 Code(s): E11.59 - Type 2 diabetes mellitus with other circulatory complications Status: Chronic Assessment and Plan: Accu-Cheks with sliding scale insulin coverage. Hypoglycemia protocol available as needed. Resume home insulin ther
[2020-04-14] MEDS: VASOPRESSIN INJ 100 UNITS in DEXTROSE 5% 95 ML IV CONT (19:32)
--- NOTE | 2020-04-14 19:33 | SUR.OPER ---
no signed surgical consent due to emergency status of patient
[2020-04-14] MEDS: NOREPINEPHRINE 8 MG/D5W 250 ML 8 MG/250 ML BAG 37.5 MG IV CONT (19:41)
[2020-04-14 20:53] LABS: Reflex Lactic Acid Yes or No Add Lactic
--- NOTE | 2020-04-14 20:54 | SUR.OPER ---
EBL:[id number]
[2020-04-14] MEDS: FENTANYL 2,500MCG/NS250ML(*CRX 2,500 MCG/250 ML BAG 10 MCG IV CONT (21:00)
--- NOTE | 2020-04-14 21:00 | PC.NURSE ---
Pt returned from surgery.
--- NOTE | 2020-04-14 21:08 | P.OP_ITS ---
Procedure Note - Detailed Date of procedure: 04/14/20 Pre-op diagnosis: gi bleed, hyperkalemia, thrombocytopenia Post-op diagnosis: other ( actively bleeding vessel lesser sac, bleeding duodenal ulcer) Procedure performed: exploratory laparotomy, extensive lysis of adhesions approximately 1 hour, ligation of bleeding vessel in the posterior sac, mobilization of splenic flexure and duodenum, pyloroplasty with over-sewing bleeding duodenal ulcer Description of procedure: The patient was taken to the operating room and placed in the supine position. After adequate induction of general anesthesia, the patient was prepped and draped in the normal sterile fashion. A time-out was then done to verify the patient's identity, as well as the procedure being performed. I began by making a generous upper midline incision. This was carried down into the peritoneal cavity. Upon getting into the peritoneum, a dense amount of adhesions was noted to the anterior abdominal wall. An extensive lysis of adhesions was undertaken to free this all up. Once clearly into the abdominal cavity, I got into the lesser sac. Once in the lesser sac, there was noted to be a large amount of blood. At this point, I was able to pack this area. Once he was somewhat stable, I began to look for the bleeding . There was a large vessel that was noted to be bleeding. I was able to control this by dissecting both proximal and distal to the area of bleeding. I then clamped both proximal and distal and the vessel was transected. I then tied off both ends. Once this was done, no other obvious bleeding was noted. It was noted that his vessels were very calcified. I then mobilized the greater curvature of the stomach as well as the splenic flexure. Once done I Kocherized the duodenum. I then opened the pylorus. There was noted to be a shallow ulcer in the duodenum, however very little bleeding was noted. I did go ahead and over-sew the gastroduodenal artery as well as the transverse pancreatic artery. Once done, I placed the NG tube with stenting over the repair. I then closed the pylorus horizontally in 2 layers. I then copiously washed out the abdomen. I left a 15 [place] SERGE drain in the lesser sac. No other bleeding or pathology was noted. I then closed the fascia with an 0 looped PDS suture. The skin was closed with skin young. The patient will now be transferred back to the ICU in critically ill condition. Anesthesia: GETA Surgeon: Nori Geiger MD Estimated blood loss (mL): 1,000 Drains: Yes Packing: No Pathology: none sent Complications: No immediate complications Condition: critical Disposition: ICU Findings: Bleeding vessel lesser sac, bleeding duodenal ulcer
[2020-04-14] MEDS: INSULIN HUMAN REGULAR (*BKC) 100 UNITS in SODIUM CHLORIDE 0.9% IV 99 ML 14.6 UNITS IV CONT (22:24)
[2020-04-14 23:17] LABS: Glucose Point of Care 426 (65-105)
[2020-04-14 23:17] LABS: Glucose Point of Care 477 (65-105)
[2020-04-15] VITALS (62 sets, daily range): BP systolic 77–144; BP diastolic 4–59; PULSE 49–150; RESP 21–28; TEMP 36.4–38.6; O2SAT 61–100
[2020-04-15 00:26] LABS: Hematocrit 28.8 % (42.0-52.0); Hemoglobin 9.7 g/dL (14.0-18.0)
[2020-04-15 00:34] LABS: Glucose Point of Care 473 (65-105)
[2020-04-15 01:03] LABS: Anion Gap 3 mmol/L (8-16); Blood Urea Nitrogen 67 mg/dL (9-20); Calcium 5.4 mg/dL (8.4-10.2); Carbon Dioxide 27 mmol/L (22-30); Chloride 98 mmol/L (98-107); Estimated CRCL calculation 34 ml/min; Estimated Glomerular Filt Rate 20; Glucose 562 mg/dL (75-110); Potassium 5.3 mmol/L (3.4-5.0); Sodium 128 mmol/L (137-145)
[2020-04-15 01:04] LABS: Lactic Acid 4.2 mmol/L (0.7-2.1)
[2020-04-15] MEDS: EPINEPHrine INJ 1 MG in DEXTROSE 5% IN WATER 250 ML 90.36 MG IV CONT (01:37)
[2020-04-15 01:52] LABS: Glucose Point of Care 486 (65-105)
[2020-04-15] MEDS: SODIUM BICARBONATE 8.4% 150 MEQ in WATER, STERILE FOR INJECTION 950 ML 100 MEQ IV CONT (02:04)
[2020-04-15] MEDS: NOREPINEPHRINE 8 MG/D5W 250 ML 8 MG/250 ML BAG 37.5 MG IV CONT (02:32)
[2020-04-15 02:57] LABS: Glucose Point of Care 483 (65-105)
[2020-04-15] MEDS: INSULIN HUMAN REGULAR (*BKC) 100 UNITS in SODIUM CHLORIDE 0.9% IV 99 ML 29.6 UNITS IV CONT (03:17)
[2020-04-15 03:28] LABS: Alveolar/Arterial O2 Gradient 187.2 mmHg; Base Excess ABG -3.5 mEq/l (+/-2.0); Fractional Inspired Oxygen 65 %; HCO3 ABG 19.5 mEq/l (22.0-26.0); Oxygen Content ABG 14.6 %vol (16.0-22.0); Oxygen Saturation ABG 99.6 % (95.0-100.0); Oxyhemoglobin 97.8 % THb (90.0-100.0); PCO2 ABG 28.4 mmHg (35.0-45.0); PO2 ABG 245.4 mmHg (80.0-100.0); PO2 FiO2 Ratio Arterial Blood 3.78 %; Total Hemoglobin 10.2 g/dL (12.0-18.0); pH ABG 7.455 (7.350-7.450)
[2020-04-15 03:29] LABS: Arterial Blood Gas Vent Mode ASSIST CONTROL; Arterial Blood Gas Ventilator rate 24 /MIN; Device VENTILATOR; Site Drawn ARTLINE
[2020-04-15 03:30] LABS: Arterial Blood Gas PEEP 8 cmH2O; Arterial Blood Gas Tidal Volume 500 ml
[2020-04-15 05:34] LABS: Glucose Point of Care 406 (65-105)
[2020-04-15 05:34] LABS: Glucose Point of Care 491 (65-105)
[2020-04-15 05:42] LABS: Basophils Percent Auto 0.2 % (0.2-1.2); Eosinophils Absolute Auto 0.1 K/mm3 (0-0.3); Eosinophils Percent Auto 0.5 % (0-4.4); Hemoglobin 9.4 g/dL (14.0-18.0); Immature Granulocyte Absolute 0.16 K/mm3 (0.00-0.031); Immature Granulocyte Percent A 0.9 % (0-0.5); Lymphocytes Absolute Auto 2.89 K/mm3 (0.9-3.2); Lymphocytes Percent Auto 15.8 % (18.3-44.2); Mean Corpuscular HGB Conc 33.6 g/dl (32-36); Mean Corpuscular Hemoglobin 29.7 pg (26-34); Mean Corpuscular Volume 88.3 fl (80-100); Mean Platelet Volume 10.5 fl (7.4-10.4); Monocytes Absolute Auto 1.4 K/mm3 (0.1-0.6); Monocytes Percent Auto 7.6 % (2.6-8.5); Neutrophils Absolute Auto 13.7 K/mm3 (1.3-6.7); Nucleated Red Blood Cells Absolute Auto 0.1 K/mm3 (0.0-0.012); Nucleated Red Blood Cells Perc 0.5 % (0.0-0.2); Platelet Count Result 56 k/mm3 (150-375); Red Blood Count 3.17 M/mm3 (4.6-6.20); Red Cell Distribution Width 15.1 % (11.5-14.5); White Blood Count 18.3 K/mm3 (4.5-10.0)
[2020-04-15 05:56] LABS: INR 2.6; Prothrombin Time 28.4 Seconds (11.1-14.7)
[2020-04-15 05:57] LABS: Partial Thromboplastin Time 37.8 SECONDS (22.3-36.8)
[2020-04-15 06:14] LABS: Albumin Level 1.3 g/dL (3.5-5.1); Alkaline Phosphatase 24 U/L (38-126); Anion Gap 6 mmol/L (8-16); Blood Urea Nitrogen 70 mg/dL (9-20); Calcium 5.7 mg/dL (8.4-10.2); Carbon Dioxide 27 mmol/L (22-30); Chloride 97 mmol/L (98-107); Estimated CRCL calculation 30 ml/min; Estimated Glomerular Filt Rate 18; Glucose 439 mg/dL (75-110); Magnesium 1.6 mg/dL (1.6-2.3); Phosphorus 3.7 mg/dL (2.5-4.5); Potassium 4.7 mmol/L (3.4-5.0); Sodium 130 mmol/L (137-145)
[2020-04-15 06:32] LABS: Alanine Aminotransferase 1060 U/L (4-50); Aspartate Amino Transferase 1160 U/L (17-59); Total Protein < 2.0 g/dL (6.3-8.2)
[2020-04-15 06:49] LABS: Glucose Point of Care 447 (65-105)
[2020-04-15] MEDS: INSULIN HUMAN REGULAR (*BKC) 100 UNITS in SODIUM CHLORIDE 0.9% IV 99 ML 30.9 UNITS IV CONT (07:10)
[2020-04-15] MEDS: NOREPINEPHRINE 8 MG/D5W 250 ML 8 MG/250 ML BAG 52.5 MG IV CONT (07:12)
[2020-04-15 07:54] LABS: Glucose Point of Care 390 (65-105)
[2020-04-15] MEDS: INSULIN DETEMIR 100 UNITS/ML 8 UNITS SUB-Q (08:02)
[2020-04-15 09:05] LABS: Glucose Point of Care 432 (65-105)
[2020-04-15] MEDS: INSULIN HUMAN REGULAR (*BKC) 100 UNITS in SODIUM CHLORIDE 0.9% IV 99 ML 37.2 UNITS IV CONT (09:10)
--- NOTE | 2020-04-15 09:15 | PM.IMPN ---
Progress Note: A&P Assessment and Plan (1) Cardiac arrest with ventricular fibrillation: Code(s): I46.9 - Cardiac arrest, cause unspecified; I49.01 - Ventricular fibrillation Status: Acute Assessment and Plan: Patient developed VFib arrest evening on 04/14 probably related to hypovolemic shock from acute blood loss. He did have elevated potassium earlier in the day which could have contributed to this. ROSC after 6 minutes. Patient taken to surgery later that evening. Patient currently stable but remains in critical condition. Trop 4.1 but not unexpected after a code blue. Amio given at time of code. Amio drip started today. (2) Acute respiratory failure: Code(s): J96.00 - Acute respiratory failure, unspecified whether with hypoxia or hypercapnia Status: Acute Assessment and Plan: Patient became obtunded requiring intubation on 04/14. A short time later, code blue was called. He remains on mechanical ventilation. (3) Hemorrhagic shock: Code(s): R57.8 - Other shock Status: Acute Assessment and Plan: Patient with acute blood loss resulting in hemorrhagic shock. Currently on NE, Epi and CLINICAL REHABILITATION LIAISON with soft BP. Hgb better. Albumin 1.3. Consider albumin to improve oncotic pressure; discussed (4) Acute GI bleeding: Onset Date: ~04/13/20 Code(s): K92.2 - Gastrointestinal hemorrhage, unspecified Status: Acute Assessment and Plan: Acute GI bleeding secondary to duodenal ulcer complicated by recent anticoagulant use. BRBPR and with dark, coffee ground emesis. Upper GI bleed that is brisk with rapid transit. Patient has received 15 units of packed red blood cells. EGD twice has failed to stop the bleeding. Kel underwent emergency surgery 04/14 with exploratory laparotomy, extensive lysis of adhesions, ligation of bleeding vessel in the posterior sac, and pyloroplasty with over-sewing bleeding duodenal ulcer. Patient survived the procedure but still critical condition. (5) Acute hyperkalemia: Code(s): E87.5 - Hyperkalemia Status: Acute Assessment and Plan: The patient's potassium was 6.5 on admission and has been elevated at times. The patient has been treated appropriately. Repeat potassium this morning was 4.7. Continue to follow. (6) QUANG (acute kidney injury): Code(s): N17.9 - Acute kidney failure, unspecified Status: Acute Assessment and Plan: Cr increased to 3.1 related to above and acute blood loss and now code blue. Cr now 3.6 today. Good UOP yesterday. Monitor UOP. (7) Acute on chronic anemia: Code(s): D64.9 - Anemia, unspecified Status: Acute Assessment and Plan: With a baseline hemoglobin running in the 10-11 range most likely related to his chronic renal disease. Hemoglobin 7.0 on admission related to acute blood loss anemia from DU and was having difficulty keeping Hgb above 6. He has received 3U plasma, 1 cryo and 15U PRBC. Hgb now at 9.4. Follow for stability (8) Elevated LFTs: Code(s): R79.89 - Other specified abnormal findings of blood chemistry Status: Acute Assessment and Plan: AST/ALT elevated probably from shock liver post code. Follow. (9) Thrombocytopenia: Code(s): D69.6 - Thrombocytopenia, unspecified Status: Chronic Assessment and Plan: Patient with chronic thrombocytopenia but much lower this admission most likely related to consumption from the acute blood loss. He has received 2U plt transfusion. Monitor closely and transfuse as needed. (10) Chronic renal failure: Qualifiers: Chronic kidney disease stage: stage 3 (moderate) Chronic kidney disease stage 3 subtype: unspecified whether 3a or 3b Qualified Code(s): N18.30 - Chronic kidney disease, stage 3 unspecified Code(s): N18.9 - Chronic kidney disease, unspecified Status: Chronic Assessment and Plan: Mitra
[2020-04-15] MEDS: EPINEPHrine INJ 1 MG in DEXTROSE 5% IN WATER 250 ML 59.94 MG IV CONT (09:47)
[2020-04-15 10:01] LABS: Glucose Point of Care 362 (65-105)
--- NOTE | 2020-04-15 10:01 | PM.CNCAR ---
Assessment and Plan Additional Plan this is a 55-year-old man unfortunately who suffered a ventricular fibrillation arrest now has troponin evidence of a type 2 myocardial infarction with evidently because of hemorrhagic shock related to his bleeding ulcer and rupture With hemorrhage into his peritoneal cavity. He is still in the ICU is hypotensive and on I inotropic support. It is also appears evident that he has paroxysmal atrial fibrillation from reviewing his telemetry strips and ECGs. At this point aggressive supportive care is all that there is to recommend. He is obviously not a candidate for invasive cardiac procedures nor is he a candidate for anticoagulation related to his atrial fibrillation. We will follow with you while he is in the hospital but at this point I do not have any specific cardiac recommendations to make over and above what is already being done Helio Jacobo MD [facility] History of Present Illness History of Present Illness Consult date/time: 04/15/20 10:01 Reason For Visit: gi bleed, hyperkalemia, thrombocytopenia Narrative: This is an unfortunate 55-year-old gentleman that I am seeing this morning at the request of the hospitalist because he had a ventricular fibrillation arrest yesterday while he was hospitalized for severe upper GI bleeding. The patient according to the record does not have a significant cardiac history he is intubated in the ICU and obviously incapable of providing any history to me directly. According to the record he presented to the hospital several days ago complaining of dark maroon-colored rectal bleeding. He was evaluated in the emergency room and admitted to the hospital. Patient also has an important comorbidity of end-stage renal disease he is on hemodialysis due to IgA nephropathy. The patient was seen by GI and was found to have a bleeding gastric ulcer and underwent cauterization of this in the GI lab. Unfortunately he continued to bleed and underwent a 2nd endoscopic procedure demonstrating ongoing bleeding which could not be controlled. He was on hemodialysis yesterday and had a VFib arrest. Shortly before the arrest his hemoglobin had bled all the way down to 4.4 g. He was then taken to the operating later in the day where he underwent exploratory laparotomy evacuating a large amount of blood from the peritoneum found to have a ruptured ulcer that was actively bleeding that was repaired surgically. He is in the ICU he is on pressor support and intubated. After this event troponin level was done for reasons that are not explained on the chart it is elevated at Just over 4. According to the telemetry strips on the patient's chart his rhythm has been alternating between sinus and atrial fibrillation. It is not clear to me that I can be of any particular help in this situation or what is expected of cardiology consultation. Review of Systems Review of Systems: ROS unobtainable: Yes unobtainable due to medical condition PMFSH Past Medical History Medical History Anemia in stage 3 chronic kidney disease (~1989) Arthritis CAD (coronary artery disease) Chronic heart failure with preserved ejection fraction (HFpEF) (~2015) Chronic renal failure COPD (chronic obstructive pulmonary disease) Diabetes mellitus H/O: HTN (hypertension) Hearing loss Heart disease High blood pressure with end-stage kidney disease (~1990) History of left common carotid artery stent placement (~2015) IgA nephropathy with benign hematuria (~1989) Lung disease Renal disease Sleep apnea with use of continuous positive airway pressure (CPAP) (~1995) Status post hemodialysis (~2007) Status post peritoneal dialysis (~2003) Stroke TIA due to embolism Type 2 diabetes mellitus with other circulatory complications (~1989) Surgical History Surgical History History of kidney transplant (~1990) History
[2020-04-15 10:10] LABS: Mean Platelet Volume 10.7 fl (7.4-10.4); Platelet Count Result 73 k/mm3 (150-375)
[2020-04-15 10:21] LABS: INR 2.1; Partial Thromboplastin Time 34.9 SECONDS (22.3-36.8); Prothrombin Time 24.2 Seconds (11.1-14.7)
[2020-04-15 10:22] LABS: Magnesium 1.5 mg/dL (1.6-2.3)
[2020-04-15 10:23] LABS: Anion Gap 4 mmol/L (8-16); Blood Urea Nitrogen 72 mg/dL (9-20); Calcium 5.5 mg/dL (8.4-10.2); Carbon Dioxide 28 mmol/L (22-30); Chloride 97 mmol/L (98-107); Estimated CRCL calculation 28 ml/min; Estimated Glomerular Filt Rate 16; Glucose 346 mg/dL (75-110); Potassium 4.6 mmol/L (3.4-5.0); Sodium 129 mmol/L (137-145)
[2020-04-15 10:24] LABS: D Dimer 1.27 ug/mL (<0.48)
[2020-04-15 10:25] LABS: Add Urine Microscopic? YES; Appearance Urine Clear (Clear); Bacteria Urine Trace /hpf; Bilirubin Urine Negative (Negative); Blood Urine 1+ (Negative); Color Urine Yellow (Yellow); Glucose Urine UA 3+ mg/dL (Negative); Ketones Urine Negative (Negative); Leukocyte Esterase Ur Trace LEU/UL (NEGATIVE); Mucus Urine Rare /lpf; Nitrate Urine Negative (Negative); Protein Urine 1+ mg/dL (Negative); Specific Grav Ur 1.016 (1.001-1.035); Urobilinogen Urine Negative mg/dL (<2.0)
--- NOTE | 2020-04-15 10:34 | PM.PNGS ---
Progress Note: A&P Assessment and Plan (1) Hemorrhagic shock: Code(s): R57.8 - Other shock Status: Acute Assessment and Plan: remains critically ill postop day 1. After over-sewing bleeding duodenal ulcer. Continue critical care. (2) Acute GI bleeding: Onset Date: ~04/13/20 Code(s): K92.2 - Gastrointestinal hemorrhage, unspecified Status: Acute Assessment and Plan: Controlled with surgery last night (3) Thrombocytopenia: Code(s): D69.6 - Thrombocytopenia, unspecified Status: Chronic Assessment and Plan: 73,000 this morning (4) Chronic renal failure: Qualifiers: Chronic kidney disease stage: stage 3 (moderate) Chronic kidney disease stage 3 subtype: unspecified whether 3a or 3b Qualified Code(s): N18.30 - Chronic kidney disease, stage 3 unspecified Code(s): N18.9 - Chronic kidney disease, unspecified Status: Chronic (5) Acute respiratory failure: Code(s): J96.00 - Acute respiratory failure, unspecified whether with hypoxia or hypercapnia Status: Acute Subjective Subjective Date/Time Seen: 04/15/20 10:34 Post Op day: 1 Patient reports: other ( Intubated on mechanical ventilator in intensive care unit) Interval history: sedated, on 3 vasopressors of agents. Has had about 15 units of blood. Seems to have stabilized. Review of Systems Review of Systems: ROS unobtainable: Yes unobtainable due to endotracheal tube Exam GI: Inspection: non-distended, incision ( Dressings dry and intact, somewhat bloody drainage for SERGE) and obesity GI Palp: Yes Soft to palpation Auscultation: absent bowel sounds Objective Data Vital Signs Vital Signs: Vital Signs - 24 hr 04/14/20 11:01 04/14/20 11:27 04/14/20 11:30 Temperature 38.4 C H 37.7 C H Pulse Rate 64 64 Respiratory Rate 20 24 H Blood Pressure 111/54 L Pulse Oximetry 96 94 04/14/20 11:44 04/14/20 12:00 04/14/20 12:44 Temperature 38.2 C H 37.7 C H 38.2 C H Pulse Rate 63 60 61 Respiratory Rate 20 12 22 H Blood Pressure 103/55 L 105/56 L 105/65 Pulse Oximetry 96 97 96 04/14/20 13:44 04/14/20 14:00 04/14/20 14:03 Temperature 37.7 C H 37.2 C Pulse Rate 58 L 62 65 Respiratory Rate 21 H 19 Blood Pressure 103/50 L 101/57 L 117/55 L Pulse Oximetry 96 97 04/14/20 14:21 04/14/20 14:27 04/14/20 16:00 Temperature 36.9 C 37.1 C Pulse Rate 63 72 Respiratory Rate 19 17 Blood Pressure 109/65 109/65 86/57 L Pulse Oximetry 95 96 04/14/20 16:30 04/14/20 17:20 04/14/20 17:42 Temperature 37.4 C Pulse Rate 80 105 H 68 Respiratory Rate 24 H Blood Pressure 73/47 L 100/64 Pulse Oximetry 96 94 04/14/20 18:00 04/14/20 18:05 04/14/20 18:50 Temperature Pulse Rate 61 59 L 60 Respiratory Rate 26 H Blood Pressure 103/61 93/55 L Pulse Oximetry 95 04/14/20 19:12 04/14/20 19:13 04/14/20 19:32 Temperature Pulse Rate 55 L 55 L 54 L Respiratory Rate 15 15 Blood Pressure 88/54 L Pulse Oximetry 04/14/20 19:33 04/14/20 19:34 04/14/20 19:41 Temperature Pulse Rate 59 L 59 L 60 Respiratory Rate Blood Pressure 89/59 L 102/64 Pulse Oximetry 04/14/20 21:00 04/14/20 21:24 04/14/20 21:36 Temperature 36.5 C 36.5 C Pulse Rate 50 L 57 L Respiratory Rate 34 H Blood Pressure 165/65 H Pulse Oximetry 97 100 04/14/20 21:40 04/14/20 21:41 04/14/20 21:42 Temperature Pulse Rate 50 L 48 L 50 L Respiratory Rate Blood Pressure 165/65 H 166/65 H 165/65 H Pulse Oximetry 04/14/20 22:00 04/14/20 22:39 04/15/20 00:00 Temperature 36.4 C Pulse Rate 49 L 52 L 57 L Respiratory Rate 24 H 24 H Blood Pressure 117/61 129/66 105/57 L Pulse Oximetry 100 100 04/15/20 00:04 04/15/20 00:05 04/15/20 00:06 Temperature Pulse Rate 56 L 56 L 55 L Respiratory Rate 24 H 24 H Blood Pressure 100/54 L 101/55 L Pulse Oximetry 04/15/20 00:47 04/15/20 01:13 04/15/20 01:37 Temperature P
[2020-04-15 10:38] LABS: Fibrinogen 131 mg/dl (215-510)
--- NOTE | 2020-04-15 10:38 | PC.NURSE ---
1 amp sodium bicarbonate and 1 amp calcium chloride given at [address] Duarte. 150 mg amiodarone IV push given at 1020. Drugs drawn up from the crash cart. Dr. Duarte at bedside.
[2020-04-15 10:45] LABS: Hemoglobin 9.8 g/dL (14.0-18.0)
[2020-04-15] MEDS: AMIODARONE 360 MG/D5W 200 ML 360 MG/200 ML BAG 33.33 MG IV CONT ×2 (10:56→22:32)
[2020-04-15 10:59] LABS: Glucose Point of Care 397 (65-105)
[2020-04-15] MEDS: ALBUMIN HUMAN 25% 12.5 GM/50ML 50 ML IVPB ×2 (11:06→17:59)
[2020-04-15] MEDS: NOREPINEPHRINE 8 MG/D5W 250 ML 8 MG/250 ML BAG 60 MG IV CONT (11:12)
[2020-04-15] MEDS: INSULIN HUMAN REGULAR (*BKC) 100 UNITS in SODIUM CHLORIDE 0.9% IV 99 ML 40.4 UNITS IV CONT (11:12)
[2020-04-15 12:24] LABS: Glucose Point of Care 380 (65-105)
--- NOTE | 2020-04-15 12:45 | WPDINTPN ---
Progress Note: A&P Assessment and Plan (1) Acute respiratory failure: Code(s): J96.00 - Acute respiratory failure, unspecified whether with hypoxia or hypercapnia Status: Acute Assessment and Plan: Patient with hemorrhagic shock, hypertensive, acidotic, decreased mentation on 04/14 was emergently intubated for ventilatory support -patient currently on CMV mode of ventilation, decreased peep to 5, wean FiO2 as tolerated -chest x-ray and ABGs reviewed -sedated with fentanyl and Versed infusion, (2) Cardiac arrest with ventricular fibrillation: Code(s): I46.9 - Cardiac arrest, cause unspecified; I49.01 - Ventricular fibrillation Status: Acute Assessment and Plan: Is patient with VFib arrest on 04/14/2020 hemorrhagic/hypovolemic shock secondary to acute significant GI bleed. Could be related to elevated potassium -ROSC after 6 minutes. This patient taken to surgery -not a candidate for hypothermia protocol given significant bleed, coagulopathy -continue vasopressors, amiodarone infusion -troponin elevated, likely secondary to cardiac arrest -appreciate Cardiology evaluation recommendation (3) Hemorrhagic shock: Code(s): R57.8 - Other shock Status: Acute Assessment and Plan: Hemorrhagic shock likely related to acute GI bleed, from bleeding duodenal ulcer -patient with severe anemia status post large amount of blood transfusion -will transfuse cryoprecipitate today -patient currently on Levophed, epinephrine, vasopressin, Pedro-Synephrine for vasopressor support, will maintain mean arterial pressures > 65 mmHg -continue to monitor urine output and end organ perfusion with serial lactic acid level - (4) Acute GI bleeding: Onset Date: ~04/13/20 Code(s): K92.2 - Gastrointestinal hemorrhage, unspecified Status: Acute Assessment and Plan: Patient presented with dark red stools along with vomiting coffee-ground emesis. -EGD done on 04/13/2020 showed duodenal ulcers were cauterized with gold probe successfully -patient continues to have bloody bowel movements, repeat EGD on 04/14/2020 shows acute active duodenal ulcer bleeding. Epinephrine and clips x3 were applied. -patient continued to bleed on 04/14 in the evening -surgery was called emergently -patient is received massive volume blood transfusion - 04/14/2020: Patient underwent Ex lap with extensive lysis of adhesions, pyloroplasty with oversewing bleeding duodenal ulcer and ligation of bleeding vessel in the posterior sac -hemoglobin stable this morning, will continue to monitor serial H&H -continue PPI infusion (5) Paroxysmal atrial fibrillation: Code(s): I48.0 - Paroxysmal atrial fibrillation Status: Chronic Assessment and Plan: Patient went to AFib RVR during dialysis requiring amiodarone bolus and infusion -patient converted to sinus rhythm last night on 04/13/2020 -patient back in AFib RVR this morning on 04/15/2020: Patient was given amiodarone bolus and started on infusion -cardiology following the patient -patient was on Eliquis, which is currently being held due to the acute GI bleed and severe anemia (6) QUANG (acute kidney injury): Code(s): N17.9 - Acute kidney failure, unspecified Status: Acute Assessment and Plan: Patient with acute on chronic kidney disease, creatinine improving, urine output has been decreased most likely related to hemorrhagic/hypovolemic shock due to acute GI bleed. -patient has a history of renal transplants x2 -nephrology following the patient closely, patient did get dialyzed on 04/13/2020 and as the connected him to dialysis machine and started, and less than 10 minutes patient was unstable and dialysis had to be stopped -patient with metabolic acidosis, lactic acidosis likely related to hemorrhagic shock -bicarb infusion was discontinued, hyperkalemia has improved (7) Thrombocytopenia: Code(s): D69.6 - Thrombocytopenia, unspecified
--- NOTE | 2020-04-15 12:46 | WPDANESPN ---
Anes - Prog Note Post-Op Date/Time: 04/15/20 12:46 Cardiovascular status: other (inotropic support per ICU team) Respiratory status: other (intubated on ventilatory support) Airway patency: other (intubated) Mental status: other (intubated and sedated per ICU team) Post-Op hydration status: other (management per ICU team) Vital Signs: Last Vital Signs Temp 38.2 C H 04/15/20 12:00 Pulse 135 H 04/15/20 12:00 Resp 24 H 04/15/20 12:00 BP 101/58 L 04/15/20 12:00 Pulse Ox 96 04/15/20 12:00 Pain Score (VAS): 0/10 I/O: Intake & Output 04/14/20 04/15/20 04/15/20 23:59 07:59 15:59 Intake Total 3641 2894 500 Output Total 850 365 80 Balance 2791 8099 420 Laboratory Tests 04/15/20 10:35 04/15/20 09:51 04/12/20 04/14/20 04/14/20 22:53 13:28 14:22 WBC RBC Hgb Hct MCV MCH MCHC RDW Plt Count MPV Immature Gran % (Auto) Neut % (Auto) Lymph % (Auto) [place] % (Auto) Eos % (Auto) Baso % (Auto) Lymph # (Auto) [place] # (Auto) Eos # (Auto) Baso # (Auto) Abs Immat Gran (auto) Absolute Neuts (auto) Absolute Nucleated RBC Nucleated RBC % % Immature Plt Fraction PT INR APTT Fibrinogen D-Dimer Puncture Site ABG pH ABG pCO2 ABG pO2 ABG PO2/FiO2 Ratio ABG HCO3 ABG O2 Saturation ABG O2 Content ABG Base Excess A-a Gradient Oxyhemoglobin Total Hemoglobin O2 Delivery Device O2 Liters/Min Minute Volume Vent Rate Vent Mode FiO2 Tidal Volume PEEP Peak Inspir Pressure Pressure Support Sodium Potassium Chloride Carbon Dioxide Anion Gap BUN Creatinine Estim Creat Clear Calc Estimated GFR Glucose POC Capillary Glucose > 500 H* 494 H Lactic Acid Calcium Ionized Calcium Qing Phosphorus Magnesium Total Bilirubin AST ALT Alkaline Phosphatase Troponin I Total Protein Albumin Urine Color Urine Appearance Urine pH Ur Specific [place] Urine Protein Urine Glucose (UA) Urine Ketones Ur Blood (Man) Urine Nitrate Urine Bilirubin Urine Urobilinogen Ur Leukocyte Esterase Urine RBC Urine WBC Urine Bacteria Urine Mucus Blood Type A Negative Antibody Screen Negative Crossmatch See Detail 04/14/20 04/14/20 04/14/20 14:52 14:52 14:52 WBC RBC Hgb 6.5 L* Hct 19.7 L* MCV MCH MCHC RDW Plt Count MPV Immature Gran % (Auto) Neut % (Auto) Lymph % (Auto) [place] % (Auto) Eos % (Auto) Baso % (Auto) Lymph # (Auto) [place] # (Auto) Eos # (Auto) Baso # (Auto) Abs Immat Gran (auto) Absolute Neuts (auto) Absolute Nucleated RBC Nucleated RBC % % Immature Plt Fraction PT INR APTT Fibrinogen D-Dimer Puncture Site ABG pH ABG pCO2 ABG pO2 ABG PO2/FiO2 Ratio ABG HCO3 ABG O2 Saturation ABG O2 Content ABG Base Excess A-a Gradient Oxyhemoglobin Total Hemoglobin O2 Delivery Device O2 Liters/Min Minute Volume Vent Rate Vent Mode FiO2 Tidal Volume PEEP Peak Inspir Pressure Pressure Support Sodium 132 L Potassium 5.7 H Chloride 103 Carbon Dioxide 24 Anion Gap 5 L BUN 71 H Creatinine 3.20 H Estim Creat Clear Calc 34 Estimated GFR 20 L Glucose 463 H POC Capillary Glucose Lactic Acid Calcium 5.9 L Ionized Calcium Qing Phosphorus 3.5 Magnesium 1.6 Total Bilirubin AST ALT Alkaline Phosphatase Troponin I Total Protein Albumin Urine Color Urine Appearance Urine pH Ur Specific [place] Urine Protein Urine Glucose (UA) Urine Ketones Ur Blood (Man) Urine Nitrate Urine Bilirubin Urine Urobilinogen Ur Leukocyte Esterase Urine RBC Urine WBC U
[2020-04-15 13:00] LABS: Glucose Point of Care 380 (65-105)
[2020-04-15] MEDS: INSULIN HUMAN REGULAR (*BKC) 100 UNITS in SODIUM CHLORIDE 0.9% IV 99 ML 44.8 UNITS IV CONT (13:43)
[2020-04-15 14:11] LABS: Glucose Point of Care 325 (65-105)
[2020-04-15] MEDS: NOREPINEPHRINE 8 MG/D5W 250 ML 8 MG/250 ML BAG 56.25 MG IV CONT (15:03)
[2020-04-15] MEDS: EPINEPHrine INJ 1 MG in DEXTROSE 5% IN WATER 250 ML 45.18 MG IV CONT ×2 (15:03→17:58)
[2020-04-15 15:08] LABS: Glucose Point of Care 325 (65-105)
[2020-04-15 16:14] LABS: Glucose Point of Care 335 (65-105)
[2020-04-15] MEDS: INSULIN HUMAN REGULAR (*BKC) 100 UNITS in SODIUM CHLORIDE 0.9% IV 99 ML 46.8 UNITS IV CONT (16:29)
[2020-04-15] MEDS: AMIODARONE 360 MG/D5W 200 ML 360 MG/200 ML BAG 16.67 MG IV CONT (16:32)
[2020-04-15 17:09] LABS: Glucose Point of Care 303 (65-105)
--- NOTE | 2020-04-15 17:13 | P.PNNP_ITS ---
Progress Note: A&P Assessment and Plan (1) Acute hyperkalemia: Code(s): E87.5 - Hyperkalemia Status: Acute Assessment and Plan: * as noted by admission labs * due to GI bleed and associated hemolysis of RBCs in gut as well as outpatient use of ARB therapy * continued to worsen by repeat labs despite medical management on admission * s/p hemodialysis x1 to help correct hyperkalemia (complicated by AFib with RVR and chest pain as well as relative hypotension) * attempted dialysis yesterday but aborted due to respiratory decline * however, at this time, K+ is stable * follow repeat levels (2) QUANG (acute kidney injury): Code(s): N17.9 - Acute kidney failure, unspecified Status: Acute Assessment and Plan: * likely mild ATN from hemodynamic instability, shock, cardiac arrest, and severe anemia * continue effort to maintain perfusion to his transplant kidney * follow trend of electrolytes, urine output/volume status, and clearance - suspect higher BUN more related to bleeding issue than lack of clearance of uremic toxins (3) Chronic renal failure, stage 3a: Code(s): N18.31 - Chronic kidney disease, stage 3a Status: Acute Assessment and Plan: * due chronic allograft nephropathy (of transplanted kidney) * baseline creatinine ~ 2.0mg/dl * 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 (4) Hemorrhagic shock: Code(s): R57.8 - Other shock Status: Acute Assessment and Plan: * as evidence by ongoing GI bleeding in the last 24 - 48 hours * pressor support to maintain MAP with weaning as tolerated * blood product transfusion PRN (has received ~ 15 units of PRBCs to date) * follow trend of hemodynamics (5) Acute GI bleeding: Onset Date: ~04/13/20 Code(s): K92.2 - Gastrointestinal hemorrhage, unspecified Status: Acute Assessment and Plan: * s/p EGD x 2 with findings of bleeding duodenal ulcers * Gastroentrology following * s/p surgical intervention as noted (exploratory laparotomy with extensive lysis of adhesions and pyloroplasty with oversewing of bleeding duodenal ulcer and ligation of bleeding vessel in the posterior sac) * follow trend of H/H (6) Paroxysmal atrial fibrillation: Code(s): I48.0 - Paroxysmal atrial fibrillation Status: Chronic Assessment and Plan: * noted to RVR with dialysis treatment on day of admission * on amidodarone for rate control * anticoagulation on hold given #5 (7) History of kidney transplant: Onset Date: ~1990 Code(s): Z94.0 - Kidney transplant status Status: Chronic Assessment and Plan: * hold immunosuppressive therapy for now * resume when able to safely take oral medications (8) Diabetes: Code(s): E11.9 - Type 2 diabetes mellitus without complications Status: Chronic Assessment and Plan: * follow accuchecks * on SSI Patient remains critically ill at this time - I am concerned about his drop in urine output as he may need renal replacement therapy/dialysis if her runs into volume overload or further critical electrolytes; with his soboptimal hemodyamics at this time, he may need CRRT if dialytic intervention is needed. Will continue to follow. Subjective Date/time seen: 04/15/20 17:13 Events overnight noted -- attempted dialysis treatment yesterday was aborted when he required intubation/mechanical ventilation; shortly after, he had Vfib arrest with ACLS protocol and ROSC after about 6 minutes; Hgb dropped to 4.4 and he was to take
--- NOTE | 2020-04-15 17:13 | PM.PNNEP ---
Progress Note: A&P Assessment and Plan (1) Acute hyperkalemia: Code(s): E87.5 - Hyperkalemia Status: Acute Assessment and Plan: as noted by admission labs due to GI bleed and associated hemolysis of RBCs in gut as well as outpatient use of ARB therapy continued to worsen by repeat labs despite medical management on admission s/p hemodialysis x1 to help correct hyperkalemia (complicated by AFib with RVR and chest pain as well as relative hypotension) attempted dialysis yesterday but aborted due to respiratory decline however, at this time, K+ is stable follow repeat levels (2) QUANG (acute kidney injury): Code(s): N17.9 - Acute kidney failure, unspecified Status: Acute Assessment and Plan: likely mild ATN from hemodynamic instability, shock, cardiac arrest, and severe anemia continue effort to maintain perfusion to his transplant kidney follow trend of electrolytes, urine output/volume status, and clearance - suspect higher BUN more related to bleeding issue than lack of clearance of uremic toxins (3) Chronic renal failure, stage 3a: Code(s): N18.31 - Chronic kidney disease, stage 3a Status: Acute Assessment and Plan: due chronic allograft nephropathy (of transplanted kidney) baseline creatinine ~ 2.0mg/dl 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 (4) Hemorrhagic shock: Code(s): R57.8 - Other shock Status: Acute Assessment and Plan: as evidence by ongoing GI bleeding in the last 24 - 48 hours pressor support to maintain MAP with weaning as tolerated blood product transfusion PRN (has received ~ 15 units of PRBCs to date) follow trend of hemodynamics (5) Acute GI bleeding: Onset Date: ~04/13/20 Code(s): K92.2 - Gastrointestinal hemorrhage, unspecified Status: Acute Assessment and Plan: s/p EGD x 2 with findings of bleeding duodenal ulcers Gastroentrology following s/p surgical intervention as noted (exploratory laparotomy with extensive lysis of adhesions and pyloroplasty with oversewing of bleeding duodenal ulcer and ligation of bleeding vessel in the posterior sac) follow trend of H/H (6) Paroxysmal atrial fibrillation: Code(s): I48.0 - Paroxysmal atrial fibrillation Status: Chronic Assessment and Plan: noted to RVR with dialysis treatment on day of admission on amidodarone for rate control anticoagulation on hold given #5 (7) History of kidney transplant: Onset Date: ~1990 Code(s): Z94.0 - Kidney transplant status Status: Chronic Assessment and Plan: hold immunosuppressive therapy for now resume when able to safely take oral medications (8) Diabetes: Code(s): E11.9 - Type 2 diabetes mellitus without complications Status: Chronic Assessment and Plan: follow accuchecks on SSI Patient remains critically ill at this time - I am concerned about his drop in urine output as he may need renal replacement therapy/dialysis if her runs into volume overload or further critical electrolytes; with his soboptimal hemodyamics at this time, he may need CRRT if dialytic intervention is needed. Will continue to follow. Subjective Date/time seen: 04/15/20 17:13 Events overnight noted -- attempted dialysis treatment yesterday was aborted when he required intubation/mechanical ventilation; shortly after, he had Vfib arrest with ACLS protocol and ROSC after about 6 minutes; Hgb dropped to 4.4 and he was to taken to the OR where he underwent exploratory laparotomy with extensive lysis of adhesions and pyloroplasty with oversewing of bleeding duodenal ulcer and ligation of bleeding vessel in the posterior sac. H/H has stabilized but remains critically ill on vasopressor and ventilator support. Exam Narrative: Exam Narrative: General: WD/WN male intubated and sedated Heart: normal S1 and S2; no rub Lungs: coarse breath s
[2020-04-15] MEDS: SODIUM CHLORIDE 0.9% IV 100 ML 30 ML (17:23)
[2020-04-15 17:39] LABS: Reflex Lactic Acid Yes or No Add Lactic
[2020-04-15 18:08] LABS: Hematocrit 26.9 % (42.0-52.0); Hemoglobin 9.3 g/dL (14.0-18.0)
[2020-04-15 18:26] LABS: Lactic Acid 3.2 mmol/L (0.7-2.1)
[2020-04-15 18:28] LABS: Glucose Point of Care 298 (65-105)
[2020-04-15] MEDS: SODIUM BICARBONATE 8.4% 50 MEQ/50 ML VIAL 100 MEQ IV PUSH (18:44)
[2020-04-15] MEDS: INSULIN HUMAN REGULAR (*BKC) 100 UNITS in SODIUM CHLORIDE 0.9% IV 99 ML 45.2 UNITS IV CONT (18:51)
[2020-04-15 19:07] LABS: Glucose Point of Care 257 (65-105)
[2020-04-15 19:12] LABS: Anion Gap 5 mmol/L (8-16); Blood Urea Nitrogen 71 mg/dL (9-20); Calcium 5.7 mg/dL (8.4-10.2); Carbon Dioxide 31 mmol/L (22-30); Chloride 93 mmol/L (98-107); Estimated CRCL calculation 27 ml/min; Estimated Glomerular Filt Rate 16; Glucose 235 mg/dL (75-110); Magnesium 1.3 mg/dL (1.6-2.3); Phosphorus 3.9 mg/dL (2.5-4.5); Potassium 4.2 mmol/L (3.4-5.0); Sodium 129 mmol/L (137-145)
[2020-04-15] MEDS: NOREPINEPHRINE 8 MG/D5W 250 ML 8 MG/250 ML BAG 84.38 MG IV CONT (19:17)
[2020-04-15] MEDS: MAGNESIUM SULF 2 GM/WATER 50ML 2 GM/50 ML BAG IVPB (19:54)
[2020-04-15] MEDS: CALCIUM GLUC 2,000 MG/NS 100ML 2,000 MG/100 ML BAG 100 MG IVPB (19:54)
[2020-04-15] MEDS: EPINEPHrine INJ 1 MG in DEXTROSE 5% IN WATER 250 ML 120.48 MG IV CONT ×2 (20:14→22:22)
[2020-04-15 20:20] LABS: Glucose Point of Care 281 (65-105)
[2020-04-15] MEDS: PANTOPRAZOLE SODIUM IV 40 MG VIAL IV PUSH (20:44)
[2020-04-15] MEDS: INSULIN DETEMIR 100 UNITS/ML 12 UNITS SUB-Q (20:44)
[2020-04-15] MEDS: INSULIN HUMAN REGULAR (*BKC) 100 UNITS in SODIUM CHLORIDE 0.9% IV 99 ML 44.7 UNITS IV CONT (21:13)
[2020-04-15 21:20] LABS: Glucose Point of Care 263 (65-105)
[2020-04-15] MEDS: NOREPINEPHRINE 8 MG/D5W 250 ML 8 MG/250 ML BAG 93.75 MG IV CONT (22:21)
--- NOTE | 2020-04-15 22:25 | PC.NURSE ---
Epinephrine gtt previously charted at 4 mcg/min. Bag is double concentrated and cannot be programmed into pump as such. Actual rate is running at 8 mcg/min.
[2020-04-15 22:39] LABS: Glucose Point of Care 215 (65-105)
[2020-04-15 23:18] LABS: Glucose Point of Care 209 (65-105)
[2020-04-15] MEDS: INSULIN HUMAN REGULAR (*BKC) 100 UNITS in SODIUM CHLORIDE 0.9% IV 99 ML 35.8 UNITS IV CONT (23:59)
[2020-04-16] VITALS (66 sets, daily range): BP systolic 97–173; BP diastolic 42–84; PULSE 52–133; RESP 18–28; TEMP 37.3–38.8; O2SAT 95–99; BMI 48.8
[2020-04-16 00:12] LABS: Hematocrit 23.9 % (42.0-52.0); Hemoglobin 8.4 g/dL (14.0-18.0)
[2020-04-16] MEDS: ALBUMIN HUMAN 25% 12.5 GM/50ML 50 ML IVPB ×4 (00:21→17:42)
[2020-04-16] MEDS: EPINEPHrine INJ 1 MG in DEXTROSE 5% IN WATER 250 ML 120.48 MG IV CONT ×5 (00:43→09:38)
[2020-04-16] MEDS: NOREPINEPHRINE 8 MG/D5W 250 ML 8 MG/250 ML BAG 93.75 MG IV CONT (00:55)
[2020-04-16 01:41] LABS: Glucose Point of Care 160 (65-105)
[2020-04-16 01:41] LABS: Glucose Point of Care 191 (65-105)
[2020-04-16] MEDS: ROCURONIUM BROMIDE 50 MG/5 ML VIAL IV PUSH (02:35)
[2020-04-16 03:01] LABS: Glucose Point of Care 174 (65-105)
[2020-04-16 03:40] LABS: Glucose Point of Care 137 (65-105)
[2020-04-16] MEDS: NOREPINEPHRINE 8 MG/D5W 250 ML 8 MG/250 ML BAG 88.13 MG IV CONT (04:00)
[2020-04-16] MEDS: INSULIN HUMAN REGULAR (*BKC) 100 UNITS in SODIUM CHLORIDE 0.9% IV 99 ML 19.3 UNITS IV CONT (04:24)
[2020-04-16] MEDS: AMIODARONE 360 MG/D5W 200 ML 360 MG/200 ML BAG 33.33 MG IV CONT (04:35)
[2020-04-16 04:39] LABS: Glucose Point of Care 157 (65-105)
[2020-04-16 05:01] LABS: Basophils Percent Auto 0.3 % (0.2-1.2); Eosinophils Absolute Auto 0.1 K/mm3 (0-0.3); Eosinophils Percent Auto 0.8 % (0-4.4); Hematocrit 23.9 % (42.0-52.0); Hemoglobin 8.2 g/dL (14.0-18.0); Immature Granulocyte Absolute 0.12 K/mm3 (0.00-0.031); Immature Granulocyte Percent A 0.8 % (0-0.5); Immature Platelet Fraction Pct 4.8 % (0.9-11.2); Lymphocytes Absolute Auto 1.38 K/mm3 (0.9-3.2); Lymphocytes Percent Auto 9.4 % (18.3-44.2); Mean Corpuscular HGB Conc 34.3 g/dl (32-36); Mean Corpuscular Hemoglobin 29.7 pg (26-34); Mean Corpuscular Volume 86.6 fl (80-100); Mean Platelet Volume 10.5 fl (7.4-10.4); Monocytes Absolute Auto 1.1 K/mm3 (0.1-0.6); Monocytes Percent Auto 7.2 % (2.6-8.5); Neutrophils Absolute Auto 11.9 K/mm3 (1.3-6.7); Neutrophils Percent Auto 81.5 % (45.5-73.1); Nucleated Red Blood Cells Absolute Auto 0.3 K/mm3 (0.0-0.012); Nucleated Red Blood Cells Perc 1.8 % (0.0-0.2); Platelet Count Result 71 k/mm3 (150-375); Red Blood Count 2.76 M/mm3 (4.6-6.20); Red Cell Distribution Width 15.7 % (11.5-14.5); White Blood Count 14.6 K/mm3 (4.5-10.0)
[2020-04-16 05:09] LABS: Alveolar/Arterial O2 Gradient 223.6 mmHg; Fractional Inspired Oxygen 50 %; HCO3 ABG 23.9 mEq/l (22.0-26.0); Oxygen Content ABG 13.3 %vol (16.0-22.0); Oxygen Saturation ABG 96.6 % (95.0-100.0); Oxyhemoglobin 94.8 % THb (90.0-100.0); PCO2 ABG 40.5 mmHg (35.0-45.0); PO2 ABG 87.3 mmHg (80.0-100.0); PO2 FiO2 Ratio Arterial Blood 1.75 %; Total Hemoglobin 9.9 g/dL (12.0-18.0); pH ABG 7.389 (7.350-7.450)
[2020-04-16 05:11] LABS: Device VENTILATOR; Site Drawn ARTLINE
[2020-04-16 05:12] LABS: Tacrolimus Prograf 5.9 mcg/L
[2020-04-16 05:12] LABS: Arterial Blood Gas PEEP 5 cmH2O; Arterial Blood Gas Tidal Volume 500 ml; Arterial Blood Gas Vent Mode ASSIST CONTROL; Arterial Blood Gas Ventilator rate 22 /MIN
[2020-04-16 05:13] LABS: INR 2.2; Prothrombin Time 24.7 Seconds (11.1-14.7)
[2020-04-16 05:14] LABS: Lactic Acid Reflex 2.6 mmol/L (0.7-2.1); Partial Thromboplastin Time 42.6 SECONDS (22.3-36.8)
[2020-04-16 05:24] LABS: Glucose Point of Care 148 (65-105)
[2020-04-16 05:26] LABS: Albumin Level 1.7 g/dL (3.5-5.1); Alkaline Phosphatase 61 U/L (38-126); Anion Gap 6 mmol/L (8-16); Aspartate Amino Transferase 726 U/L (17-59); Bilirubin,Total 3.8 mg/dL (0.2-1.3); Blood Urea Nitrogen 68 mg/dL (9-20); Calcium 5.9 mg/dL (8.4-10.2); Carbon Dioxide 27 mmol/L (22-30); Chloride 92 mmol/L (98-107); Estimated CRCL calculation 27 ml/min; Estimated Glomerular Filt Rate 15; Glucose 148 mg/dL (75-110); Magnesium 1.5 mg/dL (1.6-2.3); Phosphorus 3.8 mg/dL (2.5-4.5); Potassium 4.3 mmol/L (3.4-5.0); Sodium 125 mmol/L (137-145)
[2020-04-16 05:27] LABS: Alanine Aminotransferase 941 U/L (4-50)
[2020-04-16] MEDS: VASOPRESSIN INJ 100 UNITS in DEXTROSE 5% 95 ML IV CONT (06:28)
[2020-04-16 06:47] LABS: Glucose Point of Care 134 (65-105)
[2020-04-16 07:57] LABS: Reflex Lactic Acid Yes or No Add Lactic
[2020-04-16] MEDS: NOREPINEPHRINE 8 MG/D5W 250 ML 8 MG/250 ML BAG 75 MG IV CONT (08:09)
[2020-04-16] MEDS: HYDROCORTISONE SODIUM SUCCINATE 100 MG/2 ML VIAL IV PUSH ×3 (08:31→21:15)
[2020-04-16] MEDS: MAGNESIUM SULF 2 GM/WATER 50ML 2 GM/50 ML BAG IVPB (08:32)
[2020-04-16] MEDS: PANTOPRAZOLE SODIUM IV 40 MG VIAL IV PUSH ×2 (08:33→20:02)
[2020-04-16] MEDS: INSULIN DETEMIR 100 UNITS/ML 12 UNITS SUB-Q ×2 (08:35→21:14)
[2020-04-16] MEDS: INSULIN HUMAN REGULAR (*BKC) 100 UNITS in SODIUM CHLORIDE 0.9% IV 99 ML 17.2 UNITS IV CONT (09:55)
--- NOTE | 2020-04-16 10:10 | PM.IMPN ---
Progress Note: A&P Assessment and Plan (1) Cardiac arrest with ventricular fibrillation: Code(s): I46.9 - Cardiac arrest, cause unspecified; I49.01 - Ventricular fibrillation Status: Acute Assessment and Plan: Patient developed VFib arrest evening on 04/14 probably related to hypovolemic shock from acute blood loss. He did have elevated potassium earlier in the day which could have contributed to this. ROSC after 6 minutes. Patient taken to surgery later that evening. Patient currently stable but remains in critical condition on multiple pressors. Trop 4.2 at peak but not unexpected after a code blue. Continue amiodarone drip. (2) Acute respiratory failure: Code(s): J96.00 - Acute respiratory failure, unspecified whether with hypoxia or hypercapnia Status: Acute Assessment and Plan: Patient became obtunded requiring intubation on 04/14. A short time later, code blue was called. He remains on mechanical ventilation. ABG normal today. Chest x-ray showing patchy infiltrates in the lower lung zones. Patient with fevers so concern for pneumonia. Cultures have been collected. Abx on hold. COVID ordered. Wean vent as toelrated. (3) Hemorrhagic shock: Code(s): R57.8 - Other shock Status: Acute Assessment and Plan: Patient with acute blood loss resulting in hemorrhagic shock. Currently on NE, Epi and R[place] with soft BP. Hgb better. Hydrocortisone added. Albumin 1.7. Receiving albumin currently. (4) Acute GI bleeding: Onset Date: ~04/13/20 Code(s): K92.2 - Gastrointestinal hemorrhage, unspecified Status: Acute Assessment and Plan: Acute GI bleeding secondary to duodenal ulcer complicated by recent anticoagulant use. BRBPR and with coffee ground emesis consistent with brisk upper GI bleed with rapid transit. Patient has received 15 units of packed red blood cells in total. EGD twice has failed to stop the bleeding. Patient underwent emergency surgery 04/14 with exploratory laparotomy, extensive lysis of adhesions, ligation of bleeding vessel in the posterior sac, and pyloroplasty with over-sewing bleeding duodenal ulcer. Patient survived the procedure but still critical condition. (5) Acute hyperkalemia: Code(s): E87.5 - Hyperkalemia Status: Acute Assessment and Plan: The patient's potassium was 6.5 on admission and has been elevated at times. The patient has been treated appropriately. Repeat potassium this morning was 4.3. Continue to follow. (6) QUANG (acute kidney injury): Code(s): N17.9 - Acute kidney failure, unspecified Status: Acute Assessment and Plan: Cr increased to 4.1 today related to above and acute blood loss and now code blue. Erum is s/p renal transplant and he is off his anti-rejection meds. Fevers related to rejection? UOP has dropped off. (7) Acute on chronic anemia: Code(s): D64.9 - Anemia, unspecified Status: Acute Assessment and Plan: With a baseline hemoglobin running in the 10-11 range most likely related to his chronic renal disease. Hemoglobin 7.0 on admission related to acute blood loss anemia from DU and was having difficulty keeping Hgb above 6. He has received 3U plasma, 1 cryo and 15U PRBC. Hgb now at 8.2 but could be from mobilizing fluids. Follow for stability (8) Elevated LFTs: Code(s): R79.89 - Other specified abnormal findings of blood chemistry Status: Acute Assessment and Plan: AST/ALT elevated probably from shock liver post code. Levels trending downward. Follow. (9) Thrombocytopenia: Code(s): D69.6 - Thrombocytopenia, unspecified Status: Chronic Assessment and Plan: Patient with chronic thrombocytopenia but much lower this admission most likely related to consumption from the acute blood loss. He has received 2U plt transfusion. Platelet count better today. Monitor closely
--- NOTE | 2020-04-16 10:44 | PM.PNGS ---
Progress Note: A&P Assessment and Plan (1) Hemorrhagic shock: Code(s): R57.8 - Other shock Status: Acute Assessment and Plan: patient remains on vasopressin Levophed and epinephrine for blood pressure control. Even with these medications, yesterday afternoon he had a drop in blood pressure which did respond to some bicarbonate. Blood pressure now more stable. Patient remains critically ill. (2) Acute GI bleeding: Onset Date: ~04/13/20 Code(s): K92.2 - Gastrointestinal hemorrhage, unspecified Status: Acute Assessment and Plan: Now postop day 2. After over-sewing bleeding duodenal ulcer with lesser sac bleed. Patient has had 15 units of packed cells as well as frozen plasma, cryoprecipitate, platelets. No evidence persistent bleeding. Remains anemic but stable. (3) Thrombocytopenia: Code(s): D69.6 - Thrombocytopenia, unspecified Status: Chronic Assessment and Plan: Platelet count 72853 today. (4) Fever: Qualifiers: Fever type: unspecified Qualified Code(s): R50.9 - Fever, unspecified Code(s): R50.9 - Fever, unspecified Status: Acute Assessment and Plan: Had temp to 38.8 last night. COVID testing ordered and patient is a PUI. Other sources of fever certainly possible (5) Acute respiratory failure: Qualifiers: Respiratory failure complication: unspecified whether with hypoxia or hypercapnia Qualified Code(s): J96.00 - Acute respiratory failure, unspecified whether with hypoxia or hypercapnia Code(s): J96.00 - Acute respiratory failure, unspecified whether with hypoxia or hypercapnia Status: Acute Assessment and Plan: remains sedated on mechanical ventilator (6) Chronic renal failure: Qualifiers: Chronic kidney disease stage: stage 3 (moderate) Chronic kidney disease stage 3 subtype: unspecified whether 3a or 3b Qualified Code(s): N18.30 - Chronic kidney disease, stage 3 unspecified Code(s): N18.9 - Chronic kidney disease, unspecified Status: Chronic Assessment and Plan: chronic dialysis patient (7) Coagulopathy: Code(s): D68.9 - Coagulation defect, unspecified Status: Acute Assessment and Plan: protime today 24.7 with INR 2.2 continue to monitor. Subjective Subjective Date/Time Seen: 04/16/20 10:44 Post Op day: 2 Patient reports: other ( Patient critically ill on mechanical ventilator with multiple vasopressor agents being given) Review of Systems Review of Systems: ROS unobtainable: Yes unobtainable due to endotracheal tube and unobtainable due to medical condition Exam Const: Nutritional Appearance: obese Orientation/consciousness: patient obtunded ( sedated on mechanical ventilator) Resp: Effort & Inspection: symmetric chest movement Auscultation: rales and rhonchi Cardio: Rate: tachycardic Rhythm: regular rhythm GI: Inspection: non-distended and incision ( wound dry, healing, minimal serous drainage) GI Palp: Yes Soft to palpation Auscultation: absent bowel sounds Objective Data Vital Signs Vital Signs: Vital Signs - 24 hr 04/15/20 10:56 04/15/20 11:30 04/15/20 12:00 Temperature 38.2 C H Pulse Rate 131 H 143 H 135 H Respiratory Rate 24 H Blood Pressure 77/45 L 101/58 L Pulse Oximetry 96 96 04/15/20 12:49 04/15/20 12:50 04/15/20 14:00 Temperature 38.2 C H Pulse Rate 126 H 144 H 137 H Respiratory Rate 22 H 22 H 22 H Blood Pressure 102/54 L Pulse Oximetry 94 04/15/20 14:08 04/15/20 14:22 04/15/20 15:03 Temperature Pulse Rate 63 64 64 Respiratory Rate Blood Pressure 116/47 L 116/47 L Pulse Oximetry 93 04/15/20 15:04 04/15/20 16:00 04/15/20 16:30 Temperature 38.3 C H Pulse Rate 62 68 65 Respiratory Rate 22 H Blood Pressure 117/4 L 124/48 L 139/51 L Pulse Oximetry 96 04/15/20 16:32 04/15/20 16:33 04/15/20 16:44 Temperature 38.3 C H Pulse Rate 64
[2020-04-16] MEDS: AMIODARONE 360 MG/D5W 200 ML 360 MG/200 ML BAG 16.67 MG IV CONT (10:47)
--- NOTE | 2020-04-16 10:57 | PM.PNCARD ---
Progress Note: A&P Additional Plan 55-year-old man with: Ventricular fibrillation in the setting of hypovolemic shock and also hypokalemia. Status post emergency laparotomy and surgical repair of perforated actively bleeding ulcer. Continue aggressive supportive care again no specific cardiac recommendations at this time Helio Jacobo MD [facility] Subjective Date/time seen: Date of service:04/16/20 10:57 Interval history: 55-year-old man with: VF arrest in the setting of hemorrhagic shock also evidence of paroxysmal atrial fib on telemetry. Patient underwent emergency laparotomy with repair of actively bleeding/ perforated ulcer. Still in the ICU intubated on mechanical ventilator and on pressor support. No further arrhythmias. Exam Const: Other: Sedated obese white male on mechanical ventilator Eyes: Sclera: sclerae normal Neck: Other: no carotid bruits normal pulses Resp: Other: breath sounds anteriorly are relatively clear ventilator Cardio: Rate: regular rate Rhythm: regular rhythm Other: no apparent murmur PMI not displaced GI: GI Palp: Yes Soft to palpation Objective Data Vital Signs Vital Signs: Vital Signs - 24 hr 04/15/20 11:30 04/15/20 12:00 04/15/20 12:49 Temperature 38.2 C H Pulse Rate 143 H 135 H 126 H Respiratory Rate 24 H 22 H Blood Pressure 101/58 L Pulse Oximetry 96 96 04/15/20 12:50 04/15/20 14:00 04/15/20 14:08 Temperature 38.2 C H Pulse Rate 144 H 137 H 63 Respiratory Rate 22 H 22 H Blood Pressure 102/54 L Pulse Oximetry 94 93 04/15/20 14:22 04/15/20 15:03 04/15/20 15:04 Temperature Pulse Rate 64 64 62 Respiratory Rate Blood Pressure 116/47 L 116/47 L 117/4 L Pulse Oximetry 04/15/20 16:00 04/15/20 16:30 04/15/20 16:32 Temperature 38.3 C H Pulse Rate 68 65 64 Respiratory Rate 22 H Blood Pressure 124/48 L 139/51 L 144/53 H Pulse Oximetry 96 04/15/20 16:33 04/15/20 16:44 04/15/20 17:24 Temperature 38.3 C H Pulse Rate 67 66 65 Respiratory Rate 22 H 22 H Blood Pressure 122/48 L Pulse Oximetry 96 97 04/15/20 17:39 04/15/20 17:41 04/15/20 17:58 Temperature Pulse Rate 135 H 139 H 139 H Respiratory Rate 22 H 22 H Blood Pressure 122/48 L Pulse Oximetry 04/15/20 18:00 04/15/20 18:20 04/15/20 19:30 Temperature 38.3 C H Pulse Rate 136 H 136 H 134 H Respiratory Rate 22 H 22 H 22 H Blood Pressure 106/59 L Pulse Oximetry 95 04/15/20 20:00 04/15/20 20:14 04/15/20 20:30 Temperature 38.4 C H Pulse Rate 137 H 128 H 70 Respiratory Rate 22 H Blood Pressure 101/53 L 95/54 L 113/48 L Pulse Oximetry 95 04/15/20 20:31 04/15/20 21:00 04/15/20 21:59 Temperature 38.6 C H Pulse Rate 150 H 132 H 68 Respiratory Rate 22 H Blood Pressure 101/56 L 102/55 L Pulse Oximetry 97 04/15/20 22:00 04/15/20 22:24 04/16/20 00:00 Temperature 38.6 C H 38.8 C H Pulse Rate 69 70 69 Respiratory Rate 22 H 23 H 22 H Blood Pressure 107/44 L 110/46 L Pulse Oximetry 96 97 04/16/20 00:02 04/16/20 00:55 04/16/20 01:38 Temperature Pulse Rate 69 68 67 Respiratory Rate 28 H 28 H Blood Pressure 113/47 L Pulse Oximetry 04/16/20 02:00 04/16/20 03:26 04/16/20 03:28 Temperature 38.8 C H Pulse Rate 66 128 H 124 H Respiratory Rate 22 H 22 H Blood Pressure 114/46 L 148/78 H Pulse Oximetry 96 04/16/20 03:36 04/16/20 03:58 04/16/20 04:00 Temperature 38.4 C H Pulse Rate 133 H 131 H 118 H Respiratory Rate 22 H Blood Pressure 139/75 120/72 129/72 Pulse Oximetry 96 04/16/20 04:32 04/16/20 06:00 04/16/20 06:31 Temperature 38.2 C H Pulse Rate 126 H 122 H 120 H Respiratory Rate 22 H Blood Pressure 132/70 130/71 125/69 Pulse Oximetry 96 04/16/20 06:33 04/16/20 06:54 04/16/20 07:21 Temperature Pulse Rate 128 H 128 H 128 H Respiratory Rate 24 H Blood Pressure 125/69 125/69 Pulse Oximetry 04/16/20 08:00 04/16/20 08:09 04/16/20
--- NOTE | 2020-04-16 11:08 | PCDIET ---
Nutrition Follow-Up Complete: Inadequate oral intake related to inability to consume foods orally due to mechanical ventilation as evidence by NPO order Total intake will meet estimated nutrition needs Goal: New goal started Additional Notes: Due to duodenal ulcer, recommend bowel rest with initiation of Clinimix 5/15 with 250ml 20% lipids, reaching goal over two days, due to altered glucose, Na, Mg levels. Goal day one of 50ml/hr to provide 1352 kcals, 60g protein, and 1450ml free water. If tolerated, recommend advancing to final goal of 100ml/hr to provide 2204kcals, 120g protein, and 2650ml of free water. When appropriate, recommend trialing Nepro at 10ml/hr, advancing 10ml q 4hrs to goal of 60ml/hr while titrating TPN down. At goal 60ml/hr day Nepro will provide 2376 kcals, 106 g protein,and 959ml of free water. Following skin, nutrition, labs, weight BMs, daily in ICU
[2020-04-16] MEDS: NOREPINEPHRINE 8 MG/D5W 250 ML 8 MG/250 ML BAG 56.25 MG IV CONT (11:36)
[2020-04-16 11:52] LABS: Lactic Acid 2.4 mmol/L (0.7-2.1)
--- NOTE | 2020-04-16 11:53 | WPDINTPN ---
Progress Note: A&P Assessment and Plan (1) Acute respiratory failure: Qualifiers: Respiratory failure complication: unspecified whether with hypoxia or hypercapnia Qualified Code(s): J96.00 - Acute respiratory failure, unspecified whether with hypoxia or hypercapnia Code(s): J96.00 - Acute respiratory failure, unspecified whether with hypoxia or hypercapnia Status: Acute Assessment and Plan: Patient with hemorrhagic shock, hypertensive, acidotic, decreased mentation on 04/14 was emergently intubated for ventilatory support -patient currently on CMV mode of ventilation, peep of 5 and 50% FiO2 -patient still in hemorrhagic shock with multiple vasopressors on board, will continue mechanical ventilation and sedation for now -chest x-ray and ABGs reviewed -sedated with fentanyl and Versed infusion, (2) Cardiac arrest with ventricular fibrillation: Code(s): I46.9 - Cardiac arrest, cause unspecified; I49.01 - Ventricular fibrillation Status: Acute Assessment and Plan: Is patient with VFib arrest on 04/14/2020 hemorrhagic/hypovolemic shock secondary to acute significant GI bleed. Could be related to elevated potassium -ROSC after 6 minutes. This patient taken to surgery -not a candidate for hypothermia protocol given significant bleed, coagulopathy -continue vasopressors, amiodarone infusion -troponin elevated, likely secondary to cardiac arrest -appreciate Cardiology evaluation recommendation (3) Hemorrhagic shock: Code(s): R57.8 - Other shock Status: Acute Assessment and Plan: Hemorrhagic shock likely related to acute GI bleed, from bleeding duodenal ulcer -patient with severe anemia status post large amount of blood transfusion -patient currently on Levophed, epinephrine, vasopressin, Pedro-Synephrine for vasopressor support, will maintain mean arterial pressures > 65 mmHg -continue to monitor urine output and end organ perfusion with serial lactic acid level -continue stress dose steroids (4) Acute GI bleeding: Onset Date: ~04/13/20 Code(s): K92.2 - Gastrointestinal hemorrhage, unspecified Status: Acute Assessment and Plan: Patient presented with dark red stools along with vomiting coffee-ground emesis. -EGD done on 04/13/2020 showed duodenal ulcers were cauterized with gold probe successfully -patient continues to have bloody bowel movements, repeat EGD on 04/14/2020 shows acute active duodenal ulcer bleeding. Epinephrine and clips x3 were applied. -patient continued to bleed on 04/14 in the evening -surgery was called emergently -patient is received massive volume blood transfusion - 04/14/2020: Patient underwent Ex lap with extensive lysis of adhesions, pyloroplasty with oversewing bleeding duodenal ulcer and ligation of bleeding vessel in the posterior sac -slight drop in hemoglobin, could be related to hemodilution as patient is 17.5 L positive in fluid balance. Continue to monitorl H&H -no evidence of bleeding was noted overnight -switched PPI to IV q.12 hours (5) Paroxysmal atrial fibrillation: Code(s): I48.0 - Paroxysmal atrial fibrillation Status: Chronic Assessment and Plan: Patient went to AFib RVR during dialysis requiring amiodarone bolus and infusion -patient converted to sinus rhythm last night on 04/13/2020 -patient back in AFib RVR this morning on 04/15/2020: Remains on amiodarone infusion, currently in sinus rhythm -cardiology following the patient -patient was on Eliquis, which is currently being held due to the acute GI bleed and severe anemia (6) QUANG (acute kidney injury): Code(s): N17.9 - Acute kidney failure, unspecified Status: Acute Assessment and Plan: Patient with acute on chronic kidney disease, creatinine improving, urine output has been decreased most likely related to hemorrhagic/hypovolemic shock due to acute GI bleed. -patient has a history of renal transplants x2 -nephrology follo
[2020-04-16] MEDS: EPINEPHrine INJ 1 MG in DEXTROSE 5% IN WATER 250 ML 105.42 MG IV CONT ×3 (12:04→16:46)
[2020-04-16 12:14] LABS: Glucose Point of Care 112 (65-105)
[2020-04-16 12:14] LABS: Glucose Point of Care 135 (65-105)
[2020-04-16 12:14] LABS: Glucose Point of Care 130 (65-105)
[2020-04-16 12:14] LABS: Glucose Point of Care 150 (65-105)
[2020-04-16 12:59] LABS: Hematocrit 22.4 % (42.0-52.0); Hemoglobin 7.9 g/dL (14.0-18.0)
--- NOTE | 2020-04-16 13:25 | P.PNNP_ITS ---
Progress Note: A&P Assessment and Plan (1) Acute hyperkalemia: Code(s): E87.5 - Hyperkalemia Status: Acute Assessment and Plan: * as noted by admission labs * due to GI bleed and associated hemolysis of RBCs in gut as well as outpatient use of ARB therapy * continued to worsen by repeat labs despite medical management on admission * s/p hemodialysis x1 (on 04/13/20) to help correct hyperkalemia (complicated by AFib with RVR and chest pain as well as relative hypotension) * attempted dialysis (on 04/14/20) but aborted due to respiratory decline * however, at this time, K+ is stable * follow repeat levels (2) QUANG (acute kidney injury): Code(s): N17.9 - Acute kidney failure, unspecified Status: Acute Assessment and Plan: * likely ATN from hemodynamic instability, shock, cardiac arrest, and severe anemia * continue efforts to maintain perfusion to his transplant kidney * follow trend of electrolytes, urine output/volume status, and clearance - suspect higher BUN more related to bleeding issue than lack of clearance of uremic toxins * remains at risk for needed renal replacement therapy - HOWEVER, he is currently unstable for any type of dialytic intervention - fortunately, no critical electrolytes but his volume status is becoming an issue -- consider trial of IV diuretics if his hemodynamics improve (3) Chronic renal failure, stage 3a: Code(s): N18.31 - Chronic kidney disease, stage 3a Status: Acute Assessment and Plan: * due chronic allograft nephropathy (of transplanted kidney) * baseline creatinine ~ 2.0mg/dl * 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 (4) Hemorrhagic shock: Code(s): R57.8 - Other shock Status: Acute Assessment and Plan: * as evidence by ongoing GI bleeding on admission * H/H relatively stable at this time * pressor support to maintain MAP with weaning as tolerated * blood product transfusion PRN (has received ~ 15 units of PRBCs to date) * follow trend of hemodynamics (5) Acute GI bleeding: Onset Date: ~04/13/20 Code(s): K92.2 - Gastrointestinal hemorrhage, unspecified Status: Acute Assessment and Plan: * s/p EGD x 2 with findings of bleeding duodenal ulcers * Gastroentrology following * s/p surgical intervention as noted (exploratory laparotomy with extensive lysis of adhesions and pyloroplasty with oversewing of bleeding duodenal ulcer and ligation of bleeding vessel in the posterior sac) - General Surgery followoing * follow trend of H/H (6) Paroxysmal atrial fibrillation: Code(s): I48.0 - Paroxysmal atrial fibrillation Status: Chronic Assessment and Plan: * noted to RVR with dialysis treatment on day of admission * on amidodarone for rate control * anticoagulation on hold given #5 (7) History of kidney transplant: Onset Date: ~1990 Code(s): Z94.0 - Kidney transplant status Status: Chronic Assessment and Plan: * hold immunosuppressive therapy for now * resume when able to safely take oral medications * stress dose steroids initiated (8) Diabetes: Code(s): E11.9 - Type 2 diabetes mellitus without complications Status: Chronic Assessment and Plan: * follow accuchecks * on SSI Discussed case with Dr. Duarte -- patient unstable for any intervention at this time so will follow the trend of repeat labs, urine output and he modynamics. Will continue to fo
--- NOTE | 2020-04-16 13:25 | PM.PNNEP ---
Progress Note: A&P Assessment and Plan (1) Acute hyperkalemia: Code(s): E87.5 - Hyperkalemia Status: Acute Assessment and Plan: as noted by admission labs due to GI bleed and associated hemolysis of RBCs in gut as well as outpatient use of ARB therapy continued to worsen by repeat labs despite medical management on admission s/p hemodialysis x1 (on 04/13/20) to help correct hyperkalemia (complicated by AFib with RVR and chest pain as well as relative hypotension) attempted dialysis (on 04/14/20) but aborted due to respiratory decline however, at this time, K+ is stable follow repeat levels (2) QUANG (acute kidney injury): Code(s): N17.9 - Acute kidney failure, unspecified Status: Acute Assessment and Plan: likely ATN from hemodynamic instability, shock, cardiac arrest, and severe anemia continue efforts to maintain perfusion to his transplant kidney follow trend of electrolytes, urine output/volume status, and clearance - suspect higher BUN more related to bleeding issue than lack of clearance of uremic toxins remains at risk for needed renal replacement therapy - HOWEVER, he is currently unstable for any type of dialytic intervention - fortunately, no critical electrolytes but his volume status is becoming an issue -- consider trial of IV diuretics if his hemodynamics improve (3) Chronic renal failure, stage 3a: Code(s): N18.31 - Chronic kidney disease, stage 3a Status: Acute Assessment and Plan: due chronic allograft nephropathy (of transplanted kidney) baseline creatinine ~ 2.0mg/dl 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 (4) Hemorrhagic shock: Code(s): R57.8 - Other shock Status: Acute Assessment and Plan: as evidence by ongoing GI bleeding on admission H/H relatively stable at this time pressor support to maintain MAP with weaning as tolerated blood product transfusion PRN (has received ~ 15 units of PRBCs to date) follow trend of hemodynamics (5) Acute GI bleeding: Onset Date: ~04/13/20 Code(s): K92.2 - Gastrointestinal hemorrhage, unspecified Status: Acute Assessment and Plan: s/p EGD x 2 with findings of bleeding duodenal ulcers Gastroentrology following s/p surgical intervention as noted (exploratory laparotomy with extensive lysis of adhesions and pyloroplasty with oversewing of bleeding duodenal ulcer and ligation of bleeding vessel in the posterior sac) - General Surgery followoing follow trend of H/H (6) Paroxysmal atrial fibrillation: Code(s): I48.0 - Paroxysmal atrial fibrillation Status: Chronic Assessment and Plan: noted to RVR with dialysis treatment on day of admission on amidodarone for rate control anticoagulation on hold given #5 (7) History of kidney transplant: Onset Date: ~1990 Code(s): Z94.0 - Kidney transplant status Status: Chronic Assessment and Plan: hold immunosuppressive therapy for now resume when able to safely take oral medications stress dose steroids initiated (8) Diabetes: Code(s): E11.9 - Type 2 diabetes mellitus without complications Status: Chronic Assessment and Plan: follow accuchecks on SSI Discussed case with Dr. Duarte -- patient unstable for any intervention at this time so will follow the trend of repeat labs, urine output and hemodynamics. Will continue to follow. Subjective Date/time seen: 04/16/20 13:25 Patient remains criticall ill -- he is on 4 vasopressors to maintain his MAP/BP; however, he is making more urine today than yesterday; remains on full ventilator support at this time; febrile in the last 24 hours; H/H as well as potassium relatively stable at this time. Exam Narrative: Exam Narrative: General: WD/WN male intubated and sedated Heart: normal S1 and S2; no ru
[2020-04-16] MEDS: INSULIN HUMAN REGULAR (*BKC) 100 UNITS in SODIUM CHLORIDE 0.9% IV 99 ML 17.9 UNITS IV CONT (15:57)
[2020-04-16 17:04] LABS: SARS-CoV-2 RNA PCR Positive
[2020-04-16 17:34] LABS: Glucose Point of Care 135 (65-105)
[2020-04-16 17:34] LABS: Glucose Point of Care 150 (65-105)
[2020-04-16 17:34] LABS: Glucose Point of Care 122 (65-105)
[2020-04-16 17:34] LABS: Glucose Point of Care 139 (65-105)
[2020-04-16 17:34] LABS: Glucose Point of Care 138 (65-105)
[2020-04-16 18:18] LABS: Hematocrit 20.1 % (42.0-52.0)
[2020-04-16] MEDS: NOREPINEPHRINE 8 MG/D5W 250 ML 8 MG/250 ML BAG 33.75 MG IV CONT (18:40)
[2020-04-16 19:11] LABS: Hematocrit 21.5 % (42.0-52.0); Hemoglobin 7.5 g/dL (14.0-18.0)
[2020-04-16 20:23] LABS: Glucose Point of Care 102 (65-105)
[2020-04-16 20:24] LABS: Glucose Point of Care 97 (65-105)
[2020-04-16 20:24] LABS: Glucose Point of Care 112 (65-105)
[2020-04-16 22:03] LABS: Glucose Point of Care 121 (65-105)
[2020-04-16 22:15] LABS: Glucose Point of Care 95 (65-105)
[2020-04-16] MEDS: FENTANYL 2,500MCG/NS250ML(*CRX 2,500 MCG/250 ML BAG IV CONT (23:04)
[2020-04-16 23:09] LABS: Glucose Point of Care 75 (65-105)
[2020-04-17] VITALS (52 sets, daily range): BP systolic 96–137; BP diastolic 49–71; PULSE 53–112; RESP 14–24; TEMP 36.1–37.2; O2SAT 90–97
[2020-04-17] MEDS: SODIUM CHLORIDE 0.9% IV 250 ML 30 ML IV CONT (00:51)
[2020-04-17] MEDS: ALBUMIN HUMAN 25% 12.5 GM/50ML 50 ML IVPB ×4 (01:28→17:36)
[2020-04-17 01:59] LABS: Glucose Point of Care 91 (65-105)
[2020-04-17] MEDS: NOREPINEPHRINE 8 MG/D5W 250 ML 8 MG/250 ML BAG 28.13 MG IV CONT ×2 (03:30→11:58)
[2020-04-17 04:08] LABS: Glucose Point of Care 101 (65-105)
[2020-04-17 04:08] LABS: Glucose Point of Care 207 (65-105)
[2020-04-17 04:08] LABS: Glucose Point of Care 206 (65-105)
[2020-04-17] MEDS: HYDROCORTISONE SODIUM SUCCINATE 100 MG/2 ML VIAL IV PUSH ×3 (05:25→22:01)
[2020-04-17 05:29] LABS: Basophils Percent Auto 0.1 % (0.2-1.2); Eosinophils Percent Auto 0.1 % (0-4.4); Hematocrit 22.6 % (42.0-52.0); Immature Granulocyte Absolute 0.11 K/mm3 (0.00-0.031); Immature Granulocyte Percent A 0.9 % (0-0.5); Immature Platelet Fraction Pct 3.9 % (0.9-11.2); Lymphocytes Absolute Auto 0.57 K/mm3 (0.9-3.2); Lymphocytes Percent Auto 4.4 % (18.3-44.2); Mean Corpuscular HGB Conc 35.4 g/dl (32-36); Mean Corpuscular Volume 84.6 fl (80-100); Mean Platelet Volume 10.4 fl (7.4-10.4); Monocytes Absolute Auto 0.6 K/mm3 (0.1-0.6); Monocytes Percent Auto 4.7 % (2.6-8.5); Neutrophils Absolute Auto 11.6 K/mm3 (1.3-6.7); Neutrophils Percent Auto 89.8 % (45.5-73.1); Nucleated Red Blood Cells Absolute Auto 0.1 K/mm3 (0.0-0.012); Nucleated Red Blood Cells Perc 0.7 % (0.0-0.2); Platelet Count Result 68 k/mm3 (150-375); Red Blood Count 2.67 M/mm3 (4.6-6.20); Red Cell Distribution Width 15.5 % (11.5-14.5); White Blood Count 12.9 K/mm3 (4.5-10.0)
[2020-04-17 05:33] LABS: Alveolar/Arterial O2 Gradient 215.2 mmHg; Base Excess ABG -3.2 mEq/l (+/-2.0); Device VENTILATOR; Fractional Inspired Oxygen 50 %; HCO3 ABG 20.8 mEq/l (22.0-26.0); Oxygen Saturation ABG 97.9 % (95.0-100.0); Oxyhemoglobin 96.3 % THb (90.0-100.0); PCO2 ABG 33.2 mmHg (35.0-45.0); PO2 FiO2 Ratio Arterial Blood 2.08 %; Site Drawn ARTLINE; Total Hemoglobin 9.5 g/dL (12.0-18.0); pH ABG 7.415 (7.350-7.450)
[2020-04-17 05:34] LABS: Arterial Blood Gas PEEP 5 cmH2O; Arterial Blood Gas Tidal Volume 500 ml; Arterial Blood Gas Vent Mode CMV; Arterial Blood Gas Ventilator rate 22 /MIN
[2020-04-17 05:41] LABS: Lactic Acid Reflex 1.9 mmol/L (0.7-2.1)
[2020-04-17 06:03] LABS: INR 1.7; Prothrombin Time 20.7 Seconds (11.1-14.7)
[2020-04-17 06:27] LABS: Alkaline Phosphatase 104 U/L (38-126); Anion Gap 6 mmol/L (8-16); Aspartate Amino Transferase 741 U/L (17-59); Bilirubin,Total 7.1 mg/dL (0.2-1.3); Blood Urea Nitrogen 69 mg/dL (9-20); Calcium 5.8 mg/dL (8.4-10.2); Carbon Dioxide 27 mmol/L (22-30); Chloride 87 mmol/L (98-107); Estimated CRCL calculation 32 ml/min; Estimated Glomerular Filt Rate 17; Glucose 210 mg/dL (75-110); Magnesium 1.6 mg/dL (1.6-2.3); Phosphorus 4.4 mg/dL (2.5-4.5); Sodium 120 mmol/L (137-145)
[2020-04-17] MEDS: INSULIN HUMAN REGULAR (*BKC) 100 UNITS in SODIUM CHLORIDE 0.9% IV 99 ML 9 UNITS IV CONT (06:33)
[2020-04-17 06:51] LABS: Glucose Point of Care 199 (65-105)
[2020-04-17 06:51] LABS: Glucose Point of Care 211 (65-105)
[2020-04-17 07:05] LABS: Alanine Aminotransferase 1077 U/L (4-50)
[2020-04-17 07:06] LABS: CRP 31.3 mg/dL (<1.0)
[2020-04-17 07:07] LABS: Potassium 3.5 mmol/L (3.4-5.0)
[2020-04-17] MEDS: INSULIN HUMAN REGULAR (*BKC) 100 UNITS in SODIUM CHLORIDE 0.9% IV 99 ML 11.3 UNITS IV CONT (07:43)
[2020-04-17] MEDS: INSULIN DETEMIR 100 UNITS/ML 12 UNITS SUB-Q (08:38)
[2020-04-17] MEDS: PANTOPRAZOLE SODIUM IV 40 MG VIAL IV PUSH ×2 (08:38→21:26)
--- NOTE | 2020-04-17 09:16 | PM.IMPN ---
Progress Note: A&P Assessment and Plan (1) Cardiac arrest with ventricular fibrillation: Code(s): I46.9 - Cardiac arrest, cause unspecified; I49.01 - Ventricular fibrillation Status: Acute Assessment and Plan: Patient developed VFib arrest evening on 04/14 probably related to hypovolemic shock from acute blood loss. He did have elevated potassium earlier in the day which could have contributed to this. ROSC after 6 minutes. Patient taken to surgery later that evening. Patient currently stable but remains in critical condition on multiple pressors. Trop 4.2 at peak but not unexpected after a code blue. Continue amiodarone drip. (2) Acute respiratory failure: Qualifiers: Respiratory failure complication: unspecified whether with hypoxia or hypercapnia Qualified Code(s): J96.00 - Acute respiratory failure, unspecified whether with hypoxia or hypercapnia Code(s): J96.00 - Acute respiratory failure, unspecified whether with hypoxia or hypercapnia Status: Acute Assessment and Plan: Patient became obtunded requiring intubation on 04/14. A short time later, code blue was called. He remains on mechanical ventilation. ABG essentially normal today. Chest x-ray showing pulmonary edema. Patient with fevers and has tested positive for COVID. BCx pending. Abx on hold. Fevers have waned. (3) COVID-19: Code(s): U07.1 - COVID-19 Status: Acute Assessment and Plan: Patient had intermittent fevers but developed more persistent fevers on 04/14. He was tested and found to be positive for COVID on 04/16/20. BCx pending. Abx on hold. Currently on steroids. No Remdesivir due to QUANG. (4) Hemorrhagic shock: Code(s): R57.8 - Other shock Status: Acute Assessment and Plan: Patient with acute blood loss resulting in hemorrhagic shock. Currently on NE and [employer]; phenylephrine started. Epi stopped. Hgb decreased to 7.0 last night requiring transfusion. Hydrocortisone added for pressure and for anti-rejection. Albumin 2.0. Receiving albumin currently. (5) Acute GI bleeding: Onset Date: ~04/13/20 Code(s): K92.2 - Gastrointestinal hemorrhage, unspecified Status: Acute Assessment and Plan: Acute GI bleeding secondary to duodenal ulcer complicated by recent anticoagulant use. BRBPR and with coffee ground emesis consistent with brisk upper GI bleed with rapid transit. Patient has received 15 units of packed red blood cells in total. EGD twice has failed to stop the bleeding. Patient underwent emergency surgery 04/14 with exploratory laparotomy, extensive lysis of adhesions, ligation of bleeding vessel in the posterior sac, and pyloroplasty with over-sewing bleeding duodenal ulcer. Patient survived the procedure but still critical condition. (6) Acute hyperkalemia: Code(s): E87.5 - Hyperkalemia Status: Acute Assessment and Plan: The patient's potassium was 6.5 on admission and has been elevated at times. He did require HD. The patient has been treated appropriately. Repeat potassium this morning was 3.5. Continue to follow. (7) QUANG (acute kidney injury): Code(s): N17.9 - Acute kidney failure, unspecified Status: Acute Assessment and Plan: QUANG related to above and acute blood loss and now code blue. Cr better at 3.8 today with improved UOP. Patient is s/p renal transplant and he is off his anti-rejection meds. Steroids started for anti-rejection treatment. Monitor renal function and UOP (8) Acute on chronic anemia: Code(s): D64.9 - Anemia, unspecified Status: Acute Assessment and Plan: With a baseline hemoglobin running in the 10-11 range most likely related to his chronic renal disease. Hemoglobin 7.0 on admission related to acute blood loss anemia from DU and was having difficulty keeping Hgb above 6. He has received 3U plasma, 1 cryo and 15U PRBC. Hg
--- NOTE | 2020-04-17 11:31 | PM.PNGS ---
Progress Note: A&P Assessment and Plan (1) Hemorrhagic shock: Code(s): R57.8 - Other shock Status: Acute Assessment and Plan: improving. Pressors nearly weaned completely off. Remains intubated on mechanical ventilator and sedated. Continue critical care measures. (2) Shock liver: Code(s): K72.00 - Acute and subacute hepatic failure without coma Status: Acute Assessment and Plan: total bilirubin up to 7.1. ALT over 1000. Likely due to hemorrhagic shock and vasopressor use. Continue to watch coags and monitor liver function tests. (3) Acute GI bleeding: Onset Date: ~04/13/20 Code(s): K92.2 - Gastrointestinal hemorrhage, unspecified Status: Acute Assessment and Plan: No evidence of recurrent bleeding. Decrease in hematocrit likely due to dilutional factors. (4) Acute on chronic anemia: Code(s): D64.9 - Anemia, unspecified Status: Acute Assessment and Plan: Patient received another unit of blood last night which I believe make 16 units packed cells transfused. (5) COVID-19: Code(s): U07.1 - COVID-19 Status: Acute Assessment and Plan: Had fever night before last and COVID testing is positive. (6) Coagulopathy: Code(s): D68.9 - Coagulation defect, unspecified Status: Acute Assessment and Plan: Protime 20.7 with INR 1.7 this morning. Subjective Subjective Date/Time Seen: 04/17/20 11:31 Post Op day: 3 Patient reports: other ( Remains intubated on mechanical ventilator. Patient tested positive for COVID) Interval history: patient received 1 unit packed cells last night. They have been able to nearly wean him off of all pressors today. Review of Systems Review of Systems: ROS unobtainable: Yes unobtainable due to endotracheal tube and unobtainable due to medical condition Exam Const: General: patient obtunded Nutritional Appearance: obese Orientation/consciousness: patient obtunded Resp: Effort & Inspection: abnormal respiratory pattern ( On mechanical ventilator) Auscultation: clear to auscultation bilaterally and diminished lung sounds bilateral Cardio: Rate: bradycardic Rhythm: regular rhythm Heart sounds: no murmurs and no rubs GI: Inspection: non-distended and incision ( intact, minimal serous drainage) GI Palp: Yes Soft to palpation Auscultation: absent bowel sounds Extrem: General: edema Objective Data Vital Signs Vital Signs: Vital Signs - 24 hr 04/16/20 11:33 04/16/20 11:36 04/16/20 11:48 Temperature Pulse Rate 66 66 66 Respiratory Rate Blood Pressure 121/69 121/69 121/69 Pulse Oximetry 04/16/20 12:00 04/16/20 12:04 04/16/20 13:11 Temperature 38.3 C H Pulse Rate 66 66 66 Respiratory Rate 20 Blood Pressure 132/68 121/69 121/69 Pulse Oximetry 96 04/16/20 13:46 04/16/20 13:47 04/16/20 14:00 Temperature 38.1 C H Pulse Rate 66 66 54 L Respiratory Rate 22 H Blood Pressure 121/69 121/69 97/42 L Pulse Oximetry 97 04/16/20 14:17 04/16/20 14:26 04/16/20 16:00 Temperature 37.9 C H Pulse Rate 66 66 57 L Respiratory Rate 20 Blood Pressure 121/69 121/69 103/47 L Pulse Oximetry 98 04/16/20 16:46 04/16/20 17:57 04/16/20 18:00 Temperature 37.9 C H Pulse Rate 57 L 102 H 102 H Respiratory Rate 20 Blood Pressure 103/47 L 107/67 107/67 Pulse Oximetry 96 04/16/20 18:01 04/16/20 18:40 04/16/20 18:45 Temperature Pulse Rate 102 H 102 H 102 H Respiratory Rate Blood Pressure 107/67 107/67 107/67 Pulse Oximetry 04/16/20 19:10 04/16/20 19:32 04/16/20 19:33 Temperature Pulse Rate 102 H 102 H 102 H Respiratory Rate Blood Pressure 107/67 107/67 107/67 Pulse Oximetry 04/16/20 19:53 04/16/20 19:57 04/16/20 20:00 Temperature 37.4 C Pulse Rate 108 H 95 107 H Respiratory Rate 27 H 22 H Blood Pressure 139/70 150/73 H Pulse Oximetry 95 04/16/20 21:16 04/16/20 21:17 04/16/20 21:
[2020-04-17 11:48] LABS: Glucose Point of Care 198 (65-105)
[2020-04-17 11:48] LABS: Glucose Point of Care 222 (65-105)
[2020-04-17 11:48] LABS: Glucose Point of Care 208 (65-105)
[2020-04-17 11:49] LABS: Glucose Point of Care 185 (65-105)
[2020-04-17 11:49] LABS: Glucose Point of Care 189 (65-105)
--- NOTE | 2020-04-17 11:57 | WPDINTPN ---
Progress Note: A&P Assessment and Plan (1) Acute respiratory failure: Qualifiers: Respiratory failure complication: unspecified whether with hypoxia or hypercapnia Qualified Code(s): J96.00 - Acute respiratory failure, unspecified whether with hypoxia or hypercapnia Code(s): J96.00 - Acute respiratory failure, unspecified whether with hypoxia or hypercapnia Status: Acute Assessment and Plan: Patient with hemorrhagic shock, hypertensive, acidotic, decreased mentation on 04/14 was emergently intubated for ventilatory support -patient currently on CMV mode of ventilation, peep of 5 and 50% FiO2, wean FiO2 -patient still in hemorrhagic shock with multiple vasopressors on board, will continue mechanical ventilation and sedation for now -chest x-ray and ABGs reviewed -sedated with fentanyl and Versed infusion, (2) Cardiac arrest with ventricular fibrillation: Code(s): I46.9 - Cardiac arrest, cause unspecified; I49.01 - Ventricular fibrillation Status: Acute Assessment and Plan: Is patient with VFib arrest on 04/14/2020 hemorrhagic/hypovolemic shock secondary to acute significant GI bleed. Could be related to elevated potassium -ROSC after 6 minutes. This patient taken to surgery -not a candidate for hypothermia protocol given significant bleed, coagulopathy -continue vasopressors, amiodarone infusion -troponin elevated, likely secondary to cardiac arrest -appreciate Cardiology evaluation recommendation (3) Hemorrhagic shock: Code(s): R57.8 - Other shock Status: Acute Assessment and Plan: Hemorrhagic shock likely related to acute GI bleed, from bleeding duodenal ulcer -patient with severe anemia status post large amount of blood transfusion -patient off epinephrine and vasopressin infusion, on minimal dose of Pedro-Synephrine, weaning Levophed also. Will maintain mean arterial pressures > 65 mmHg. Lactic acid trending down -continue to monitor urine output and end organ perfusion with serial lactic acid level -continue stress dose steroids (4) Acute GI bleeding: Onset Date: ~04/13/20 Code(s): K92.2 - Gastrointestinal hemorrhage, unspecified Status: Acute Assessment and Plan: Patient presented with dark red stools along with vomiting coffee-ground emesis. -EGD done on 04/13/2020 showed duodenal ulcers were cauterized with gold probe successfully -patient continues to have bloody bowel movements, repeat EGD on 04/14/2020 shows acute active duodenal ulcer bleeding. Epinephrine and clips x3 were applied. -patient continued to bleed on 04/14 in the evening -surgery was called emergently -patient is received massive volume blood transfusion - 04/14/2020: Patient underwent Ex lap with extensive lysis of adhesions, pyloroplasty with oversewing bleeding duodenal ulcer and ligation of bleeding vessel in the posterior sac -patient dropped his hemoglobin to 7.5 overnight requiring 1 unit of packed RBCs could be related to hemodilution as patient is 19 L positive fluid balance PPI to IV q.12 hours (5) Paroxysmal atrial fibrillation: Code(s): I48.0 - Paroxysmal atrial fibrillation Status: Chronic Assessment and Plan: Patient went to AFib RVR during dialysis requiring amiodarone bolus and infusion -patient converted to sinus rhythm last night on 04/13/2020 -patient back in AFib RVR this morning on 04/15/2020: Currently in sinus rhythm, off amiodarone infusion -cardiology following the patient -patient was on Eliquis, which is currently being held due to the acute GI bleed and severe anemia (6) QUANG (acute kidney injury): Code(s): N17.9 - Acute kidney failure, unspecified Status: Acute Assessment and Plan: Patient with acute on chronic kidney disease, creatinine improving, urine output has been decreased most likely related to hemorrhagic/hypovolemic shock due to acute GI bleed. -patient has a history of renal transplants x2 -nephrol
--- NOTE | 2020-04-17 12:03 | PM.PNCARD ---
Progress Note: A&P Assessment and Plan (1) Shock: Code(s): R57.9 - Shock, unspecified Status: Acute Assessment and Plan: Admitted with life-threatening GI bleeding and shock. Pressors have been weaned off, remains on Levophed, intubated. Has shock liver and acute on chronic kidney disease. Cont supportive care. (2) Paroxysmal atrial fibrillation: Code(s): I48.0 - Paroxysmal atrial fibrillation Status: Chronic Assessment and Plan: History of PAF recently diagnosed, had RVR initially but has converted to sinus rhythm and is mildly bradycardic. Off amiodarone now. (3) CAD (coronary artery disease): Code(s): I25.10 - Atherosclerotic heart disease of [place] coronary artery without angina pectoris Status: Acute Assessment and Plan: History of CAD and LAD stent in 2016, with stable exertional angina as an outpatient. No reversible defects on recent stress test. Elevated troponin up to 4, not unexpected after VFib arrest. Ischemic EKG changed noted During a fib RVR. Continue supportive care. Of course the patient is off of his aspirin now. (4) COVID-19: Code(s): U07.1 - COVID-19 Status: Acute Assessment and Plan: Treatment per hospitalist (5) Cardiac arrest with ventricular fibrillation: Code(s): I46.9 - Cardiac arrest, cause unspecified; I49.01 - Ventricular fibrillation Status: Acute Assessment and Plan: Due to severe hypovolemia and hyperkalemia. (6) Acute GI bleeding: Onset Date: ~04/13/20 Code(s): K92.2 - Gastrointestinal hemorrhage, unspecified Status: Acute Assessment and Plan: Had perforated ulcer, status post surgical repair. Remains anemic, but hemoglobin stable. 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 Had acute renal failure requiring dialysis; also severe hyperkalemia (resolved) and hyponatremia (worse). Making urine now . Subjective Date/time seen: 04/17/20 12:03 Interval history: 55-year-old man CAD and LAD stent 2015, CKD s/p second renal transplant, PAF followed by Dr. Prieto. Recently started on Eliquis for new onset PAF. Admitted with perforated ulcer and a life-threatening GI bleed. VF arrest in the setting of hemorrhagic shock also evidence of paroxysmal atrial fib on telemetry. Patient underwent emergency laparotomy with repair of actively bleeding/ perforated ulcer. Follow-up for PAF, CAD. COVID POSITIVE. 04/16/2020: Still in the ICU intubated on mechanical ventilator and on pressor support. No further arrhythmias. Date of service 04/17/2020: Off of vasopressin and epinephrine, still on some Levophed with declining doses. Remains intubated on ventilator support. Converted to sinus rhythm and is a little bradycardic, heart rate in the 50s, off IV amiodarone now. Making some urine so has not had any more dialysis; urine output of 2100 cc yesterday. Extensive ICU notes reviewed. Review of Systems Review of Systems: Narrative: Review of systems obtained from the chart and the patient's nurse. ROS unobtainable: Yes unobtainable due to endotracheal tube and unobtainable due to mental status ENT: Reports as per HPI Cardiovascular: Cardiovascular: Denies chest pain and Denies palpitations Respiratory: Respiratory: Denies no additional respiratory complaints Gastrointestinal: Gastrointestinal: Denies hematochezia Genitourinary: Genitourinary: Denies hematuria Musculoskeletal: Musculoskeletal: R
[2020-04-17] MEDS: MAGNESIUM SULF 2 GM/WATER 50ML 2 GM/50 ML BAG IVPB (12:04)
[2020-04-17 12:39] LABS: Hemoglobin 7.3 g/dL (14.0-18.0)
[2020-04-17 12:43] LABS: Hematocrit 20.9 % (42.0-52.0)
[2020-04-17 12:58] LABS: Bilirubin Indirect 1.4 mg/dL (0-1.1)
--- NOTE | 2020-04-17 13:02 | P.PNNP_ITS ---
Progress Note: A&P Assessment and Plan (1) Acute hyperkalemia: Code(s): E87.5 - Hyperkalemia Status: Acute Assessment and Plan: * Early on due to renal failure and GI bleed. * Treated with dialysis for 1 treatment. The potassium eventually came down. * Level has been fine since then. (2) QUANG (acute kidney injury): Code(s): N17.9 - Acute kidney failure, unspecified Status: Acute Assessment and Plan: * likely ATN from hemodynamic instability, shock, cardiac arrest, and severe anemia * continue efforts to maintain perfusion to his transplant kidney * He is currently on steroids only for this. * MMF and tacrolimus hold because of the severe septic syndrome * Since his urine output is better and his creatinine has fallen a little bit in the setting of improvement with few were pressors, I think we ought to hold off on dialysis and see how he does. 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 * Hemoglobin looks relatively stable. (5) Acute GI bleeding: Onset Date: ~04/13/20 Code(s): K92.2 - Gastrointestinal hemorrhage, unspecified Status: Acute Assessment and Plan: * No black or bloody stools per nursing (6) Paroxysmal atrial fibrillation: Code(s): I48.0 - Paroxysmal atrial fibrillation Status: Chronic Assessment and Plan: * noted to RVR with dialysis treatment on day of admission * Off amiodarone (7) History of kidney transplant: Onset Date: ~1990 Code(s): Z94.0 - Kidney transplant status Status: Chronic Assessment and Plan: * holding MMF and tacrolimus. * resume when able to safely take oral medications once sepsis resolved * stress dose steroids initiated (8) Diabetes: Code(s): E11.9 - Type 2 diabetes mellitus without complications Status: Chronic Assessment and Plan: * follow accuchecks * on SSI Discussed case with Dr. Duarte. Continue to observe the patient as has improved. Subjective Date/time seen: 04/17/20 13:02 Interval history: Rinku lucero is on the ventilator, sedated. Still very ill. Three of his pressors have been weaned, however, his blood pressure seems to have been stable doing this. Urine output is up a little bit. Review of Systems Review of Systems: ROS unobtainable: Yes unobtainable due to medical condition Exam Narrative: Exam Narrative: General: WD/WN male intubated and sedated Heart: normal S1 and S2; no rub or gallop Lungs: coarse breath sounds bilaterally Abdomen: soft, hypoactive bowel sounds Extremities: no cyanosis or clubbing; 1+ edema Skin: No rash Objective Data Vital Signs Vital Signs: Vital Signs - 24 hr 04/16/20 13:11 04/16/20 13:46 04/16/20 13:47 Temperature Pulse Rate 66 66 66 Respiratory Rate Blood Pressure 121/69 121/69 121/69 Pulse Oximetry 04/16/20 14:00 04/16/20 14:17 04/16/20 14:26 Temperature 38.1
--- NOTE | 2020-04-17 13:02 | PM.PNNEP ---
Progress Note: A&P Assessment and Plan (1) Acute hyperkalemia: Code(s): E87.5 - Hyperkalemia Status: Acute Assessment and Plan: Early on due to renal failure and GI bleed. Treated with dialysis for 1 treatment. The potassium eventually came down. Level has been fine since then. (2) QUANG (acute kidney injury): Code(s): N17.9 - Acute kidney failure, unspecified Status: Acute Assessment and Plan: likely ATN from hemodynamic instability, shock, cardiac arrest, and severe anemia continue efforts to maintain perfusion to his transplant kidney He is currently on steroids only for this. MMF and tacrolimus hold because of the severe septic syndrome Since his urine output is better and his creatinine has fallen a little bit in the setting of improvement with few were pressors, I think we ought to hold off on dialysis and see how he does. 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 Hemoglobin looks relatively stable. (5) Acute GI bleeding: Onset Date: ~04/13/20 Code(s): K92.2 - Gastrointestinal hemorrhage, unspecified Status: Acute Assessment and Plan: No black or bloody stools per nursing (6) Paroxysmal atrial fibrillation: Code(s): I48.0 - Paroxysmal atrial fibrillation Status: Chronic Assessment and Plan: noted to RVR with dialysis treatment on day of admission Off amiodarone (7) History of kidney transplant: Onset Date: ~1990 Code(s): Z94.0 - Kidney transplant status Status: Chronic Assessment and Plan: holding MMF and tacrolimus. resume when able to safely take oral medications once sepsis resolved stress dose steroids initiated (8) Diabetes: Code(s): E11.9 - Type 2 diabetes mellitus without complications Status: Chronic Assessment and Plan: follow accuchecks on SSI Discussed case with Dr. Duarte. Continue to observe the patient as has improved. Subjective Date/time seen: 04/17/20 13:02 Interval history: Rinku it is on the ventilator, sedated. Still very ill. Three of his pressors have been weaned, however, his blood pressure seems to have been stable doing this. Urine output is up a little bit. Review of Systems Review of Systems: ROS unobtainable: Yes unobtainable due to medical condition Exam Narrative: Exam Narrative: General: WD/WN male intubated and sedated Heart: normal S1 and S2; no rub or gallop Lungs: coarse breath sounds bilaterally Abdomen: soft, hypoactive bowel sounds Extremities: no cyanosis or clubbing; 1+ edema Skin: No rash Objective Data Vital Signs Vital Signs: Vital Signs - 24 hr 04/16/20 13:11 04/16/20 13:46 04/16/20 13:47 Temperature Pulse Rate 66 66 66 Respiratory Rate Blood Pressure 121/69 121/69 121/69 Pulse Oximetry 04/16/20 14:00 04/16/20 14:17 04/16/20 14:26 Temperature 38.1 C H Pulse Rate 54 L 66 66 Respiratory Rate 22 H Blood Pressure 97/42 L 121/69 121/69 Pulse Oximetry 97 04/16/20 16:00 04/16/20 16:46 04/16/20 17:57 Temperature 37.9 C H Pulse Rate 57 L 57 L 102 H Respiratory Rate 20 Blood Pressure 103/47 L 103/47 L 107/67 Pulse Oximetry 98 04/16/20 18:00 04/16/20 18:01 04/16/20 18:40 Temperature 37.9 C H Pulse Rate 102 H 102 H 102 H Respiratory Rate 20 Blood Pressure 107/67 107/67 107/67 Pulse Oximetry 96 04/16/20 18:45 04/16/20 19:10 04/16/20 19:32 Temperature Pulse Rate 102 H 102 H 102 H Respiratory Rate Blood Pressure 107/67 107/67 107/67 Pu
[2020-04-17] MEDS: INSULIN HUMAN REGULAR (*BKC) 100 UNITS in SODIUM CHLORIDE 0.9% IV 99 ML 7.8 UNITS IV CONT (16:33)
[2020-04-17 18:45] LABS: Glucose Point of Care 145 (65-105)
[2020-04-17 18:45] LABS: Glucose Point of Care 161 (65-105)
[2020-04-17 18:45] LABS: Glucose Point of Care 188 (65-105)
[2020-04-17 18:45] LABS: Glucose Point of Care 121 (65-105)
[2020-04-17 18:45] LABS: Glucose Point of Care 172 (65-105)
[2020-04-17 18:45] LABS: Glucose Point of Care 330 (65-105)
[2020-04-17 18:46] LABS: Glucose Point of Care 138 (65-105)
[2020-04-17 18:46] LABS: Glucose Point of Care 133 (65-105)
[2020-04-17 18:53] LABS: Hemoglobin 7.3 g/dL (14.0-18.0)
[2020-04-17 18:54] LABS: Hematocrit 20.6 % (42.0-52.0)
[2020-04-17 20:21] LABS: Glucose Point of Care 92 (65-105)
[2020-04-17 22:12] LABS: Glucose Point of Care 94 (65-105)
[2020-04-17 22:12] LABS: Glucose Point of Care 102 (65-105)
[2020-04-17] MEDS: NOREPINEPHRINE 8 MG/D5W 250 ML 8 MG/250 ML BAG 24.38 MG IV CONT (23:31)
[2020-04-17 23:40] LABS: Glucose Point of Care 104 (65-105)
[2020-04-17 23:49] LABS: Hematocrit 21.4 % (42.0-52.0); Hemoglobin 7.5 g/dL (14.0-18.0)
[2020-04-18] VITALS (36 sets, daily range): BP systolic 94–143; BP diastolic 47–74; PULSE 52–98; RESP 20–22; TEMP 36.3–36.5; O2SAT 91–97
[2020-04-18 00:01] LABS: Anion Gap 9 mmol/L (8-16); Blood Urea Nitrogen 77 mg/dL (9-20); Calcium 5.9 mg/dL (8.4-10.2); Carbon Dioxide 26 mmol/L (22-30); Chloride 87 mmol/L (98-107); Estimated CRCL calculation 31 ml/min; Estimated Glomerular Filt Rate 16; Glucose 138 mg/dL (75-110); Potassium 4.2 mmol/L (3.4-5.0); Sodium 122 mmol/L (137-145)
[2020-04-18] MEDS: levETIRAcetam 1000MG/NACL100ML 1,000 MG/100 ML BAG 400 MG IVPB (00:57)
[2020-04-18 01:19] LABS: Glucose Point of Care 139 (65-105)
[2020-04-18 03:29] LABS: Glucose Point of Care 131 (65-105)
[2020-04-18 03:29] LABS: Glucose Point of Care 149 (65-105)
[2020-04-18 04:25] LABS: Ionized Calcium 3.4 mg/dL (4.8-5.6)
[2020-04-18 04:42] LABS: Glucose Point of Care 121 (65-105)
[2020-04-18 04:55] LABS: Hemoglobin 7.2 g/dL (14.0-18.0); Immature Platelet Fraction Pct 3.1 % (0.9-11.2); Mean Corpuscular HGB Conc 35.3 g/dl (32-36); Mean Corpuscular Hemoglobin 29.1 pg (26-34); Mean Corpuscular Volume 82.6 fl (80-100); Mean Platelet Volume 10.3 fl (7.4-10.4); Platelet Count Result 64 k/mm3 (150-375); Red Blood Count 2.47 M/mm3 (4.6-6.20); Red Cell Distribution Width 15.4 % (11.5-14.5)
[2020-04-18 05:04] LABS: Hematocrit 20.4 % (42.0-52.0)
[2020-04-18 05:07] LABS: INR 1.5; Prothrombin Time 18.5 Seconds (11.1-14.7)
[2020-04-18 05:20] LABS: Alveolar/Arterial O2 Gradient 188.8 mmHg; Base Excess ABG -0.8 mEq/l (+/-2.0); Carboxyhemoglobin 0.3 % THb (0-2.0); Device VENTILATOR; Fractional Inspired Oxygen 45 %; HCO3 ABG 23.2 mEq/l (22.0-26.0); Methemoglobin ABG 0.3 %THb (0-1.5); Oxygen Content ABG 11.3 %vol (16.0-22.0); Oxygen Saturation ABG 97.3 % (95.0-100.0); Oxyhemoglobin 95.1 % THb (90.0-100.0); PCO2 ABG 35.3 mmHg (35.0-45.0); PO2 ABG 91.9 mmHg (80.0-100.0); PO2 FiO2 Ratio Arterial Blood 2.04 %; Reduced Hemoglobin 4.3 %THb (0-5.0); Site Drawn ARTLINE; Total Hemoglobin 8.3 g/dL (12.0-18.0); pH ABG 7.436 (7.350-7.450)
[2020-04-18 05:21] LABS: Arterial Blood Gas PEEP 5 cmH2O; Arterial Blood Gas Tidal Volume 500 ml; Arterial Blood Gas Vent Mode ASSIST CONTROL; Arterial Blood Gas Ventilator rate 22 /MIN
[2020-04-18] MEDS: HYDROCORTISONE SODIUM SUCCINATE 100 MG/2 ML VIAL IV PUSH ×3 (05:31→19:59)
[2020-04-18 05:47] LABS: Glucose Point of Care 127 (65-105)
[2020-04-18 05:55] LABS: Albumin Level 2.2 g/dL (3.5-5.1); Alkaline Phosphatase 147 U/L (38-126); Anion Gap 10 mmol/L (8-16); Aspartate Amino Transferase 437 U/L (17-59); Bilirubin,Total 7.3 mg/dL (0.2-1.3); Blood Urea Nitrogen 80 mg/dL (9-20); Calcium 5.9 mg/dL (8.4-10.2); Carbon Dioxide 25 mmol/L (22-30); Chloride 88 mmol/L (98-107); Estimated CRCL calculation 31 ml/min; Estimated Glomerular Filt Rate 16; Glucose 134 mg/dL (75-110); Lactate Dehydrogenase 1071 U/L (313-618); Magnesium 2.1 mg/dL (1.6-2.3); Phosphorus 5.4 mg/dL (2.5-4.5); Potassium 3.8 mmol/L (3.4-5.0); Sodium 123 mmol/L (137-145)
[2020-04-18 06:09] LABS: Alanine Aminotransferase 905 U/L (4-50)
[2020-04-18 06:47] LABS: Glucose Point of Care 120 (65-105)
[2020-04-18] MEDS: INSULIN DETEMIR 100 UNITS/ML 12 UNITS SUB-Q (08:18)
[2020-04-18] MEDS: PANTOPRAZOLE SODIUM IV 40 MG VIAL IV PUSH ×2 (08:19→19:59)
[2020-04-18 08:37] LABS: Glucose Point of Care 117 (65-105)
[2020-04-18 08:37] LABS: CRP 32.8 mg/dL (<1.0)
[2020-04-18 08:38] LABS: Glucose Point of Care 127 (65-105)
--- NOTE | 2020-04-18 09:05 | PM.IMPN ---
Progress Note: A&P Assessment and Plan (1) Cardiac arrest with ventricular fibrillation: Code(s): I46.9 - Cardiac arrest, cause unspecified; I49.01 - Ventricular fibrillation Status: Acute Assessment and Plan: Patient developed VFib arrest evening on 04/14 probably related to hypovolemic shock from acute blood loss. He did have elevated potassium earlier in the day which could have contributed to this. ROSC after 6 minutes. Patient taken to surgery later that evening. Patient currently stable but remains in critical condition. Trop 4.2 at peak but not unexpected after a code blue. Cardiology consulted and appreciate their input. (2) Acute respiratory failure: Qualifiers: Respiratory failure complication: unspecified whether with hypoxia or hypercapnia Qualified Code(s): J96.00 - Acute respiratory failure, unspecified whether with hypoxia or hypercapnia Code(s): J96.00 - Acute respiratory failure, unspecified whether with hypoxia or hypercapnia Status: Acute Assessment and Plan: Patient became obtunded requiring intubation on 04/14. A short time later, code cady was called. He remains on mechanical ventilation. ABG normal today. Chest x-ray reviewed and showing pulmonary edema with lower lobe airspace disease. Patient with fevers and has tested positive for COVID. BCx NGTD. Sputum Cx growing H.flu. Abx on hold but will start. Fevers have waned. (3) COVID-19: Code(s): U07.1 - COVID-19 Status: Acute Assessment and Plan: Patient had intermittent fevers but developed more persistent fevers on 04/14. He was tested and found to be positive for COVID on 04/16/20. Currently on steroids. No Remdesivir due to QUANG. (4) Hemorrhagic shock: Code(s): R57.8 - Other shock Status: Acute Assessment and Plan: Patient with acute blood loss resulting in hemorrhagic shock. Currently on NE but able to come off of [employer] and phenylephrine. Hgb decreased to 7.2 this morning requiring transfusion. Hydrocortisone added for pressure and for anti-rejection. Albumin 2.2. Received albumin but currently off now. (5) Acute GI bleeding: Onset Date: ~04/13/20 Code(s): K92.2 - Gastrointestinal hemorrhage, unspecified Status: Acute Assessment and Plan: Acute GI bleeding secondary to duodenal ulcer complicated by recent anticoagulant use. BRBPR and with coffee ground emesis consistent with brisk upper GI bleed with rapid transit. Patient has received 16 units (and 1U planned for today) of packed red blood cells in total. EGD twice has failed to stop the bleeding. Patient underwent emergency surgery 04/14 with exploratory laparotomy, extensive lysis of adhesions, ligation of bleeding vessel in the posterior sac, and pyloroplasty with over-sewing bleeding duodenal ulcer. Patient has done well thus far and is showing signs of improvement. Monitor HH closely for stability. Transfusion ordered for today. (6) Acute hyperkalemia: Code(s): E87.5 - Hyperkalemia Status: Acute Assessment and Plan: The patient's potassium was as high as 7.2 on admission and has been elevated at times. The patient was treated appropriately including HD. Recent potassium levels normal. Continue to follow. (7) QUANG (acute kidney injury): Code(s): N17.9 - Acute kidney failure, unspecified Status: Acute Assessment and Plan: QUANG related to above with acute blood loss and now code blue. Cr stable at 3.9 today with improved UOP (2L out yesterday). Suspect pre-renal and ATN from shock. Patient is s/p renal transplant and he is off his anti-rejection meds. Steroids started for anti-rejection treatment. Monitor renal function and UOP. (8) Acute on chronic anemia: Code(s): D64.9 - Anemia, unspecified Status: Acute Assessment and Plan: With a baseline hemoglobin running in the 10-11 range most like
--- NOTE | 2020-04-18 09:32 | PM.PNGS ---
Progress Note: A&P Assessment and Plan (1) Hemorrhagic shock: Code(s): R57.8 - Other shock Status: Acute Assessment and Plan: still on Levophed. Discussed with Dr. Duarte. Would continue to transfuse and try get patient off pressors. I think he needs to dialyze. His H&H remains low primarily due to end-stage renal disease and dilutional factors. Do not feel there is any evidence of rebleeding or abdominal abscess. (2) Shock liver: Code(s): K72.00 - Acute and subacute hepatic failure without coma Status: Acute Assessment and Plan: Total biliary slightly higher but liver enzymes are slightly lower. Follow (3) COVID-19: Code(s): U07.1 - COVID-19 Status: Acute (4) Acute GI bleeding: Onset Date: ~04/13/20 Code(s): K92.2 - Gastrointestinal hemorrhage, unspecified Status: Acute Assessment and Plan: no evidence rebleeding (5) Thrombocytopenia: Code(s): D69.6 - Thrombocytopenia, unspecified Status: Chronic Assessment and Plan: platelet count [id number] today (6) Acute on chronic anemia: Code(s): D64.9 - Anemia, unspecified Status: Acute Assessment and Plan: recommend transfuse at least 1 if not 2 units packed cells and try to wean off Levophed (7) Chronic renal failure: Qualifiers: Chronic kidney disease stage: stage 3 (moderate) Chronic kidney disease stage 3 subtype: unspecified whether 3a or 3b Qualified Code(s): N18.30 - Chronic kidney disease, stage 3 unspecified Code(s): N18.9 - Chronic kidney disease, unspecified Status: Chronic Assessment and Plan: dialyze when able. Subjective Subjective Date/Time Seen: 04/18/20 09:32 Post Op day: 4 Patient reports: other ( remains intubated on mechanical ventilator, on Levophed still but off all other pressors) Review of Systems Review of Systems: ROS unobtainable: Yes unobtainable due to endotracheal tube Exam Const: General: patient obtunded Nutritional Appearance: obese Orientation/consciousness: patient obtunded GI: Inspection: incision ( healing well, small amount serosanguineous drainage lower aspect wound) and obesity GI Palp: Yes Soft to palpation and Yes Tenderness to palpation present (GI) ( patient sedated) Auscultation: normal bowel sounds ( good bowel sounds noted today) Objective Data Vital Signs Vital Signs: Vital Signs - 24 hr 04/17/20 09:36 04/17/20 10:00 04/17/20 11:13 Temperature Pulse Rate 57 L 56 L 57 L Respiratory Rate 20 Blood Pressure 109/49 L 120/55 L Pulse Oximetry 94 95 04/17/20 11:40 04/17/20 11:43 04/17/20 11:58 Temperature Pulse Rate 56 L 56 L 56 L Respiratory Rate Blood Pressure 120/55 L 120/55 L 120/55 L Pulse Oximetry 04/17/20 12:00 04/17/20 13:33 04/17/20 14:00 Temperature 36.5 C 36.2 C L Pulse Rate 56 L 56 L 91 Respiratory Rate 14 20 Blood Pressure 123/58 L 123/58 L 113/64 Pulse Oximetry 94 90 04/17/20 14:39 04/17/20 14:57 04/17/20 15:36 Temperature Pulse Rate 91 90 90 Respiratory Rate Blood Pressure 113/64 113/64 Pulse Oximetry 92 04/17/20 16:00 04/17/20 16:33 04/17/20 16:58 Temperature 36.1 C L Pulse Rate 99 99 87 Respiratory Rate 20 Blood Pressure 104/61 104/61 Pulse Oximetry 92 91 04/17/20 18:00 04/17/20 19:44 04/17/20 19:46 Temperature 36.2 C L Pulse Rate 94 53 L 54 L Respiratory Rate 20 22 H 22 H Blood Pressure 96/59 L 96/49 L 111/55 L Pulse Oximetry 94 97 04/17/20 20:00 04/17/20 21:05 04/17/20 22:00 Temperature 36.4 C Pulse Rate 54 L 56 L 55 L Respiratory Rate 22 H Blood Pressure 119/55 L Pulse Oximetry 93 95 04/17/20 22:07 04/17/20 23:07 04/17/20 23:32 Temperature Pulse Rate 58 L 55 L 59 L Respiratory Rate 22 H 22 H Blood Pressure Pulse Oximetry 95 04/18/20 00:00 04/18/20 00:55 04/18/20 01:00 Temperature 36.4 C L Pulse Rate 98 93 91 Respiratory Rat
[2020-04-18 09:36] LABS: Glucose Point of Care 104 (65-105)
[2020-04-18 10:48] LABS: Glucose Point of Care 101 (65-105)
[2020-04-18] MEDS: FENTANYL 2,500MCG/NS250ML(*CRX 2,500 MCG/250 ML BAG 7.5 MCG IV CONT (11:05)
[2020-04-18] MEDS: SODIUM CHLORIDE 0.9% IV 250 ML 30 ML IV CONT (11:18)
--- NOTE | 2020-04-18 11:41 | WPDINTPN ---
Progress Note: A&P Assessment and Plan (1) Acute respiratory failure: Qualifiers: Respiratory failure complication: unspecified whether with hypoxia or hypercapnia Qualified Code(s): J96.00 - Acute respiratory failure, unspecified whether with hypoxia or hypercapnia Code(s): J96.00 - Acute respiratory failure, unspecified whether with hypoxia or hypercapnia Status: Acute Assessment and Plan: Patient with hemorrhagic shock, hypertensive, acidotic, decreased mentation on 04/14 was emergently intubated for ventilatory support -patient currently on CMV mode of ventilation, peep of 5 and 50% FiO2, wean FiO2 -patient still in hemorrhagic shock with multiple vasopressors on board, will continue mechanical ventilation and sedation for now -chest x-ray and ABGs reviewed -sedated with fentanyl and Versed infusion, -patient may need diuresis, as he has edematous. Discussed with Nephrology, will diurese patient with Bumex 2 mg IV Q 12 hours for 2 doses for now (2) Cardiac arrest with ventricular fibrillation: Code(s): I46.9 - Cardiac arrest, cause unspecified; I49.01 - Ventricular fibrillation Status: Acute Assessment and Plan: Is patient with VFib arrest on 04/14/2020 hemorrhagic/hypovolemic shock secondary to acute significant GI bleed. Could be related to elevated potassium -ROSC after 6 minutes. This patient taken to surgery -not a candidate for hypothermia protocol given significant bleed, coagulopathy -vasopressors being weaned -off amiodarone infusion -troponin elevated, likely secondary to cardiac arrest -appreciate Cardiology evaluation recommendation (3) Hemorrhagic shock: Code(s): R57.8 - Other shock Status: Acute Assessment and Plan: Hemorrhagic shock likely related to acute GI bleed, from bleeding duodenal ulcer -patient with severe anemia status post large amount of blood transfusion -patient off epinephrine, vasopressin and Pedro-Synephrine. Remains on Levophed which is also being weaned. Will maintain mean arterial pressures > 65 mmHg. Lactic acid trending down -continue to monitor urine output and end organ perfusion with serial lactic acid level -continue stress dose steroids (4) Acute GI bleeding: Onset Date: ~04/13/20 Code(s): K92.2 - Gastrointestinal hemorrhage, unspecified Status: Acute Assessment and Plan: Patient presented with dark red stools along with vomiting coffee-ground emesis. -EGD done on 04/13/2020 showed duodenal ulcers were cauterized with gold probe successfully -patient continues to have bloody bowel movements, repeat EGD on 04/14/2020 shows acute active duodenal ulcer bleeding. Epinephrine and clips x3 were applied. -patient continued to bleed on 04/14 in the evening -surgery was called emergently -patient is received massive volume blood transfusion - 04/14/2020: Patient underwent Ex lap with extensive lysis of adhesions, pyloroplasty with oversewing bleeding duodenal ulcer and ligation of bleeding vessel in the posterior sac -patient dropped his hemoglobin to 7.2 on 04/18/2020: 1 unit of packed RBCs has been ordered -PPI to IV q.12 hours (5) Paroxysmal atrial fibrillation: Code(s): I48.0 - Paroxysmal atrial fibrillation Status: Chronic Assessment and Plan: Patient went to AFib RVR during dialysis requiring amiodarone bolus and infusion -patient converted to sinus rhythm last night on 04/13/2020 -patient back in AFib RVR this morning on 04/15/2020: Currently in sinus rhythm, off amiodarone infusion -cardiology following the patient -patient was on Eliquis, which is currently being held due to the acute GI bleed and severe anemia (6) QUANG (acute kidney injury): Code(s): N17.9 - Acute kidney failure, unspecified Status: Acute Assessment and Plan: Patient with acute on chronic kidney disease, creatinine improving, urine output has been decreased most likely related to hemorrhagic/hyp
[2020-04-18 11:45] LABS: Glucose Point of Care 89 (65-105)
--- NOTE | 2020-04-18 12:13 | P.PNNP_ITS ---
Progress Note: A&P Assessment and Plan (1) Acute hyperkalemia: Code(s): E87.5 - Hyperkalemia Status: Acute Assessment and Plan: * Resolved (2) QUANG (acute kidney injury): Code(s): N17.9 - Acute kidney failure, unspecified Status: Acute Assessment and Plan: * likely ATN from hemodynamic instability, shock, cardiac arrest, and severe anemia * Pre renal factors always play a role in those with hypotension as well. * Continue holding off on hemodialysis. * Will try diuretics to see if we can improve pulmonary situation. 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 * Hemoglobin down a little bit. * Getting a blood transfusion. (5) Acute GI bleeding: Onset Date: ~04/13/20 Code(s): K92.2 - Gastrointestinal hemorrhage, unspecified Status: Acute Assessment and Plan: * No black or bloody stools per nursing (6) Paroxysmal atrial fibrillation: Code(s): I48.0 - Paroxysmal atrial fibrillation Status: Chronic Assessment and Plan: * Heart rate doing okay * Off amiodarone (7) History of kidney transplant: Onset Date: ~1990 Code(s): Z94.0 - Kidney transplant status Status: Chronic Assessment and Plan: * holding MMF and tacrolimus. * He is on steroids. (8) Diabetes: Code(s): E11.9 - Type 2 diabetes mellitus without complications Status: Chronic Assessment and Plan: * follow accuchecks * on SSI Discussed case with Dr. Duarte. Subjective Date/time seen: 04/18/20 12:13 Interval history: Rinku it is on the ventilator, sedated. He is still on only Levophed. Urine output is still pretty good. Creatinine is stable Review of Systems Review of Systems: ROS unobtainable: Yes unobtainable due to medical condition Exam Narrative: Exam Narrative: General: WD/WN male intubated and sedated Heart: normal S1 and S2; no rub or gallop Lungs: coarse breath sounds throughout Abdomen: soft, hypoactive bowel sounds Extremities: 1+ edema Skin: No rash or subcu nodules Objective Data Vital Signs Vital Signs: Vital Signs - 24 hr 04/17/20 13:33 04/17/20 14:00 04/17/20 14:39 Temperature 36.2 C L Pulse Rate 56 L 91 91 Respiratory Rate 20 Blood Pressure 123/58 L 113/64 113/64 Pulse Oximetry 90 04/17/20 14:57 04/17/20 15:36 04/17/20 16:00 Temperature 36.1 C L Pulse Rate 90 90 99 Respiratory Rate 20 Blood Pressure 113/64 104/61 Pulse Oximetry 92 92 04/17/20 16:33 04/17/20 16:58 04/17/20 18:00 Temperature Pulse Rate 99 87 94 Respiratory Rate 20 Blood Pressure 104/61 96/59 L Pulse Oximetry 91 94 04/17/20 19:44 04/17/20 19:46 04/17/20 20:00 Temperature 36.2 C L Pulse Rate 53 L 54 L 54 L
--- NOTE | 2020-04-18 12:13 | PM.PNNEP ---
Progress Note: A&P Assessment and Plan (1) Acute hyperkalemia: Code(s): E87.5 - Hyperkalemia Status: Acute Assessment and Plan: Resolved (2) QUANG (acute kidney injury): Code(s): N17.9 - Acute kidney failure, unspecified Status: Acute Assessment and Plan: likely ATN from hemodynamic instability, shock, cardiac arrest, and severe anemia Pre renal factors always play a role in those with hypotension as well. Continue holding off on hemodialysis. Will try diuretics to see if we can improve pulmonary situation. 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 Hemoglobin down a little bit. Getting a blood transfusion. (5) Acute GI bleeding: Onset Date: ~04/13/20 Code(s): K92.2 - Gastrointestinal hemorrhage, unspecified Status: Acute Assessment and Plan: No black or bloody stools per nursing (6) Paroxysmal atrial fibrillation: Code(s): I48.0 - Paroxysmal atrial fibrillation Status: Chronic Assessment and Plan: Heart rate doing okay Off amiodarone (7) History of kidney transplant: Onset Date: ~1990 Code(s): Z94.0 - Kidney transplant status Status: Chronic Assessment and Plan: holding MMF and tacrolimus. He is on steroids. (8) Diabetes: Code(s): E11.9 - Type 2 diabetes mellitus without complications Status: Chronic Assessment and Plan: follow accuchecks on SSI Discussed case with Dr. Duarte. Subjective Date/time seen: 04/18/20 12:13 Interval history: Rinku it is on the ventilator, sedated. He is still on only Levophed. Urine output is still pretty good. Creatinine is stable Review of Systems Review of Systems: ROS unobtainable: Yes unobtainable due to medical condition Exam Narrative: Exam Narrative: General: WD/WN male intubated and sedated Heart: normal S1 and S2; no rub or gallop Lungs: coarse breath sounds throughout Abdomen: soft, hypoactive bowel sounds Extremities: 1+ edema Skin: No rash or subcu nodules Objective Data Vital Signs Vital Signs: Vital Signs - 24 hr 04/17/20 13:33 04/17/20 14:00 04/17/20 14:39 Temperature 36.2 C L Pulse Rate 56 L 91 91 Respiratory Rate 20 Blood Pressure 123/58 L 113/64 113/64 Pulse Oximetry 90 04/17/20 14:57 04/17/20 15:36 04/17/20 16:00 Temperature 36.1 C L Pulse Rate 90 90 99 Respiratory Rate 20 Blood Pressure 113/64 104/61 Pulse Oximetry 92 92 04/17/20 16:33 04/17/20 16:58 04/17/20 18:00 Temperature Pulse Rate 99 87 94 Respiratory Rate 20 Blood Pressure 104/61 96/59 L Pulse Oximetry 91 94 04/17/20 19:44 04/17/20 19:46 04/17/20 20:00 Temperature 36.2 C L Pulse Rate 53 L 54 L 54 L Respiratory Rate 22 H 22 H Blood Pressure 96/49 L 111/55 L Pulse Oximetry 97 04/17/20 21:05 04/17/20 22:00 04/17/20 22:07 Temperature 36.4 C Pulse Rate 56 L 55 L 58 L Respiratory Rate 22 H 22 H Blood Pressure 119/55 L Pulse Oximetry 93 95 04/17/20 23:07 04/17/20 23:32 04/18/20 00:00 Temperature 36.4 C L Pulse Rate 55 L 59 L 98 Respiratory Rate 22 H 20 Blood Pressure 111/61 Pulse Oximetry 95 91 04/18/20 00:55 04/18/20 01:00 04/18/20 02:00 Temperature 36.5 C Pulse Rate 93 91 88 Respiratory Rate 22 H Blood Pressure 143/74 H 130/70 114/64 Pulse Oximetry 94 04/18/20 03:22 04/18/20 03:28 04/18/20 03:53 Temperature 36.4 C L Pulse Rate 89 98 82 Respiratory Rate 22 H 22 H Blood Pressure 113/62 Pulse Oximetry 97 97 04/18/20 04:00
--- NOTE | 2020-04-18 12:25 | PM.PNCARD ---
Progress Note: A&P Assessment and Plan (1) Shock: Code(s): R57.9 - Shock, unspecified Status: Acute Assessment and Plan: Admitted with life-threatening GI bleeding and shock. Pressors have been weaned off, remains on Levophed, intubated. Has shock liver and acute on chronic kidney disease. Cont supportive care. (2) Paroxysmal atrial fibrillation: Code(s): I48.0 - Paroxysmal atrial fibrillation Status: Chronic Assessment and Plan: History of PAF recently diagnosed, had RVR initially and cont to have PAF though HR controlled when in a fib. When in NSR he is mildly bradycardic. Off amiodarone and other rate-limited meds now. (3) CAD (coronary artery disease): Code(s): I25.10 - Atherosclerotic heart disease of [place] coronary artery without angina pectoris Status: Acute Assessment and Plan: History of CAD and LAD stent in 2016, with stable exertional angina as an outpatient. No reversible defects on recent stress test. Elevated troponin up to 4, not unexpected after VFib arrest. Ischemic EKG changed noted during a fib RVR. Continue supportive care. Of course the patient is off of his aspirin now. (4) COVID-19: Code(s): U07.1 - COVID-19 Status: Acute Assessment and Plan: Treatment per hospitalist (5) Cardiac arrest with ventricular fibrillation: Code(s): I46.9 - Cardiac arrest, cause unspecified; I49.01 - Ventricular fibrillation Status: Acute Assessment and Plan: Due to severe hypovolemia and hyperkalemia. (6) Acute GI bleeding: Onset Date: ~04/13/20 Code(s): K92.2 - Gastrointestinal hemorrhage, unspecified Status: Acute Assessment and Plan: Had perforated ulcer, status post surgical repair. Remains anemic, another unit PRBCs 04/18/2020. 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 Had acute renal failure requiring dialysis; also severe hyperkalemia (resolved) and hyponatremia (no worse). Making urine now . Subjective Date/time seen: 04/18/20 12:25 Interval history: 55-year-old man CAD and LAD stent 2015, CKD s/p second renal transplant, PAF followed by Dr. Prieto. Recently started on Eliquis for new onset PAF. Admitted with perforated ulcer and a life-threatening GI bleed. VF arrest in the setting of hemorrhagic shock also evidence of paroxysmal atrial fib on telemetry. Patient underwent emergency laparotomy with repair of actively bleeding/ perforated ulcer. Follow-up for PAF, CAD. COVID POSITIVE. 04/16/2020: Still in the ICU intubated on mechanical ventilator and on pressor support. No further arrhythmias. 04/17/2020: Off of vasopressin and epinephrine, still on some Levophed with declining doses. Remains intubated on ventilator support. Converted to sinus rhythm and is a little bradycardic, heart rate in the 50s, off IV amiodarone now. Making some urine so has not had any more dialysis; urine output of 2100 cc yesterday. DAte of Service 04/18/2020: STill on Levophed, vent, sedated. In and out of a fib but HR in a fib running in 80's, otherwise sinus hazel rate around 57 BPM. Rec'd 1 unit PRBCs as H&H drifted down. Made 2400 cc's urine yesterday. On 50% FiO2. Getting started on IV Bumex today. Review of Systems Review of Systems: Narrative: ROS obtained fr chart and pt's nurse. ROS unobtainable: Yes unobtainable due to medical condition and unobtainable due to mental status Cardiovascular: Cardiovascular: D
[2020-04-18 12:36] LABS: Glucose Point of Care 80 (65-105)
[2020-04-18 13:36] LABS: Glucose Point of Care 142 (65-105)
[2020-04-18 14:41] LABS: Glucose Point of Care 99 (65-105)
[2020-04-18] MEDS: BUMETANIDE INJ 2.5 MG/10 ML VIAL 2 MG IV PUSH (14:45)
[2020-04-18] MEDS: NOREPINEPHRINE 8 MG/D5W 250 ML 8 MG/250 ML BAG 11.25 MG IV CONT (15:26)
[2020-04-18 15:39] LABS: Glucose Point of Care 101 (65-105)
[2020-04-18 17:07] LABS: Glucose Point of Care 121 (65-105)
[2020-04-18 17:34] LABS: Glucose Point of Care 158 (65-105)
[2020-04-18 18:53] LABS: Hematocrit 22.1 % (42.0-52.0); Hemoglobin 7.8 g/dL (14.0-18.0)
[2020-04-18 19:08] LABS: Creatine Kinase 1271 U/L (55-170)
[2020-04-18 20:07] LABS: Glucose Point of Care 168 (65-105)
[2020-04-18 20:07] LABS: Glucose Point of Care 113 (65-105)
[2020-04-18 21:24] LABS: Glucose Point of Care 115 (65-105)
[2020-04-18 23:11] LABS: Glucose Point of Care 99 (65-105)
[2020-04-18 23:11] LABS: Glucose Point of Care 102 (65-105)
[2020-04-19] VITALS (37 sets, daily range): BP systolic 74–114; BP diastolic 46–70; PULSE 54–108; RESP 20–24; TEMP 36.6–36.8; O2SAT 92–96
[2020-04-19 00:24] LABS: Glucose Point of Care 125 (65-105)
[2020-04-19 01:09] LABS: Glucose Point of Care 138 (65-105)
[2020-04-19] MEDS: BUMETANIDE INJ 2.5 MG/10 ML VIAL 2 MG IV PUSH ×3 (01:09→20:02)
[2020-04-19 01:33] LABS: Hematocrit 22.7 % (42.0-52.0); Hemoglobin 7.9 g/dL (14.0-18.0)
[2020-04-19 02:09] LABS: Glucose Point of Care 171 (65-105)
[2020-04-19 03:10] LABS: Alveolar/Arterial O2 Gradient 244.8 mmHg; Base Excess ABG -4.3 mEq/l (+/-2.0); Carboxyhemoglobin 0.3 % THb (0-2.0); Fractional Inspired Oxygen 50 %; HCO3 ABG 19.2 mEq/l (22.0-26.0); Methemoglobin ABG 0.3 %THb (0-1.5); Oxygen Content ABG 11.6 %vol (16.0-22.0); Oxygen Saturation ABG 96.2 % (95.0-100.0); Oxyhemoglobin 93.7 % THb (90.0-100.0); PCO2 ABG 29.2 mmHg (35.0-45.0); PO2 ABG 78.9 mmHg (80.0-100.0); PO2 FiO2 Ratio Arterial Blood 1.58 %; Reduced Hemoglobin 5.7 %THb (0-5.0); Total Hemoglobin 8.7 g/dL (12.0-18.0); pH ABG 7.435 (7.350-7.450)
[2020-04-19 03:13] LABS: Arterial Blood Gas PEEP 5 cmH2O; Arterial Blood Gas Tidal Volume 500 ml; Arterial Blood Gas Vent Mode ASSIST CONTROL; Arterial Blood Gas Ventilator rate 22 /MIN; Device VENTILATOR; Site Drawn ARTLINE
[2020-04-19] MEDS: levETIRAcetam 1000MG/NACL100ML 1,000 MG/100 ML BAG 400 MG IVPB (03:16)
[2020-04-19] MEDS: HYDROCORTISONE SODIUM SUCCINATE 100 MG/2 ML VIAL IV PUSH ×3 (05:36→23:23)
[2020-04-19] MEDS: INSULIN ASPART (*BKC) 100 UNITS/ML SUB-Q ×4 (05:37→23:20)
[2020-04-19 06:03] LABS: Glucose Point of Care 215 (65-105)
[2020-04-19 06:13] LABS: Hematocrit 23.4 % (42.0-52.0); Hemoglobin 8.2 g/dL (14.0-18.0); Immature Platelet Fraction Pct 4.4 % (0.9-11.2); Mean Corpuscular Volume 85.7 fl (80-100); Platelet Count Result 57 k/mm3 (150-375); Red Blood Count 2.73 M/mm3 (4.6-6.20); Red Cell Distribution Width 16.5 % (11.5-14.5); White Blood Count 7.4 K/mm3 (4.5-10.0)
[2020-04-19 06:23] LABS: D Dimer 1.07 ug/mL (<0.48)
[2020-04-19 07:40] LABS: Alanine Aminotransferase 693 U/L (4-50); Albumin Level 2.3 g/dL (3.5-5.1); Alkaline Phosphatase 265 U/L (38-126); Anion Gap 11 mmol/L (8-16); Aspartate Amino Transferase 187 U/L (17-59); Bilirubin,Total 9.7 mg/dL (0.2-1.3); Blood Urea Nitrogen 100 mg/dL (9-20); Calcium 5.7 mg/dL (8.4-10.2); Carbon Dioxide 23 mmol/L (22-30); Chloride 89 mmol/L (98-107); Estimated CRCL calculation 29 ml/min; Estimated Glomerular Filt Rate 15; Glucose 222 mg/dL (75-110); Lactate Dehydrogenase 842 U/L (313-618); Magnesium 2.2 mg/dL (1.6-2.3); Potassium 4.2 mmol/L (3.4-5.0); Sodium 123 mmol/L (137-145)
[2020-04-19] MEDS: NOREPINEPHRINE 8 MG/D5W 250 ML 8 MG/250 ML BAG 20.63 MG IV CONT (07:49)
[2020-04-19] MEDS: INSULIN DETEMIR 100 UNITS/ML 12 UNITS SUB-Q ×2 (07:56→20:04)
[2020-04-19] MEDS: PANTOPRAZOLE SODIUM IV 40 MG VIAL IV PUSH ×2 (07:56→20:04)
[2020-04-19 08:26] LABS: CRP 30.6 mg/dL (<1.0)
--- NOTE | 2020-04-19 09:13 | PM.IMPN ---
Progress Note: A&P Assessment and Plan (1) Cardiac arrest with ventricular fibrillation: Code(s): I46.9 - Cardiac arrest, cause unspecified; I49.01 - Ventricular fibrillation Status: Acute Assessment and Plan: Patient developed VFib arrest evening on 04/14 probably related to hypovolemic shock from acute blood loss. He did have elevated potassium earlier in the day which could have contributed to this. ROSC after 6 minutes. Patient taken to surgery later that evening. Patient currently stable but remains in critical condition. Trop 4.2 at peak but not unexpected after a code blue. Cardiology consulted and appreciate their input. (2) Acute respiratory failure: Qualifiers: Respiratory failure complication: unspecified whether with hypoxia or hypercapnia Qualified Code(s): J96.00 - Acute respiratory failure, unspecified whether with hypoxia or hypercapnia Code(s): J96.00 - Acute respiratory failure, unspecified whether with hypoxia or hypercapnia Status: Acute Assessment and Plan: Patient became obtunded requiring intubation on 04/14. A short time later, code cady was called. He remains on mechanical ventilation. ABG looks good. Chest x-ray reviewed and showing bibasilar subsegmental atelectasis and/or infection. Patient with fevers and has tested positive for COVID. BCx NGTD. Sputum Cx growing H.Flu so Rocephin started. (3) Seizures: Code(s): R56.9 - Unspecified convulsions Status: Acute Assessment and Plan: Patietn developed fevers last night. Etiology unclear. Needs CT brain when stable enought to have this. Keppra stared. make sure renally dosed. Seizure precautions. (4) COVID-19: Code(s): U07.1 - COVID-19 Status: Acute Assessment and Plan: Patient had intermittent fevers but developed more persistent fevers on 04/14. He was tested and found to be positive for COVID on 04/16/20. Currently on steroids. No Remdesivir due to QUANG. (5) Hemorrhagic shock: Code(s): R57.8 - Other shock Status: Acute Assessment and Plan: Patient with acute blood loss resulting in hemorrhagic shock. Currently on NE but able to come off of [employer] and phenylephrine. Hydrocortisone added for pressure and for anti-rejection. Albumin 2.3. NE requirment increased overnight related to seizure? or from Bumex? Wean down as tolerated. (6) Acute GI bleeding: Onset Date: ~04/13/20 Code(s): K92.2 - Gastrointestinal hemorrhage, unspecified Status: Acute Assessment and Plan: Acute GI bleeding secondary to duodenal ulcer complicated by recent anticoagulant use. BRBPR and with coffee ground emesis consistent with brisk upper GI bleed with rapid transit. Patient has received 17 units of packed red blood cells in total. EGD twice has failed to stop the bleeding. Patient underwent emergency surgery 04/14 with exploratory laparotomy, extensive lysis of adhesions, ligation of bleeding vessel in the posterior sac, and pyloroplasty with over-sewing bleeding duodenal ulcer. Patient has done well thus far and is showing signs of improvement. Monitor HH closely for stability. (7) Acute hyperkalemia: Code(s): E87.5 - Hyperkalemia Status: Acute Assessment and Plan: The patient's potassium was as high as 7.2 on admission and has been elevated at times. The patient was treated appropriately including HD. Recent potassium levels normal. Continue to follow. (8) QUANG (acute kidney injury): Code(s): N17.9 - Acute kidney failure, unspecified Status: Acute Assessment and Plan: QUANG related to above with acute blood loss and code blue. Cr up to 4.2 today with BUN 100. UOP 1.7L yesterday. Suspect pre-renal and ATN from shock. Patient is s/p renal transplant and he is off his anti-rejection meds. Steroids started for anti-rejection treatment. Monitor renal function and UOP. (
--- NOTE | 2020-04-19 09:44 | PM.PNGS ---
Progress Note: A&P Assessment and Plan (1) Acute GI bleeding: Onset Date: ~04/13/20 Code(s): K92.2 - Gastrointestinal hemorrhage, unspecified Status: Acute Assessment and Plan: plan to get hypaque study thru NG today, if no leak ok to start trophic feeds, cont to wean pressor/vent as cortez Subjective Subjective Date/Time Seen: 04/19/20 09:44 no acute changes, still on Levophed although slowly coming down Review of Systems Review of Systems: ROS unobtainable: Yes unobtainable due to endotracheal tube Exam GI: Inspection: Abdominal wall edema, distended and incision GI Palp: Yes Soft to palpation, No Guarding due to palpation present (GI) and No Rigid due to palpation Other: SERGE c mod s/s drainage Objective Data Vital Signs Vital Signs: Vital Signs - 24 hr 04/18/20 10:00 04/18/20 10:28 04/18/20 10:29 Temperature 36.3 C L 36.3 C L Pulse Rate 55 L 56 L 56 L Respiratory Rate 20 20 22 H Blood Pressure 110/58 L 100/48 L 107/51 L Pulse Oximetry 95 96 96 04/18/20 10:30 04/18/20 11:05 04/18/20 11:23 Temperature Pulse Rate 59 L 56 L 60 Respiratory Rate 22 H Blood Pressure 101/50 L Pulse Oximetry 95 04/18/20 12:00 04/18/20 14:00 04/18/20 14:21 Temperature 36.3 C L 36.3 C L Pulse Rate 57 L 57 L 60 Respiratory Rate 20 20 Blood Pressure 110/52 L 101/50 L Pulse Oximetry 96 95 95 04/18/20 14:30 04/18/20 15:26 04/18/20 16:00 Temperature 36.4 C Pulse Rate 60 60 56 L Respiratory Rate 20 20 Blood Pressure 101/50 L 106/53 L Pulse Oximetry 96 04/18/20 16:43 04/18/20 17:03 04/18/20 18:00 Temperature Pulse Rate 60 56 L 54 L Respiratory Rate 20 Blood Pressure 101/50 L 94/48 L Pulse Oximetry 96 96 04/18/20 19:31 04/18/20 19:48 04/18/20 20:00 Temperature 36.5 C Pulse Rate 55 L 56 L 59 L Respiratory Rate 22 H 22 H Blood Pressure 99/49 L 96/49 L Pulse Oximetry 95 97 04/18/20 20:04 04/18/20 22:00 04/18/20 23:08 Temperature 36.5 C Pulse Rate 58 L 56 L 59 L Respiratory Rate 22 H Blood Pressure 95/47 L 110/54 L Pulse Oximetry 94 94 04/19/20 00:00 04/19/20 02:00 04/19/20 02:55 Temperature 36.7 C 36.7 C Pulse Rate 54 L 56 L 56 L Respiratory Rate 22 H 22 H Blood Pressure 111/53 L 108/51 L Pulse Oximetry 95 95 94 04/19/20 04:00 04/19/20 05:19 04/19/20 05:35 Temperature 36.7 C Pulse Rate 57 L 103 H 99 Respiratory Rate 20 22 H Blood Pressure 109/51 L 88/53 L Pulse Oximetry 94 04/19/20 05:57 04/19/20 06:00 04/19/20 07:49 Temperature 36.8 C Pulse Rate 103 H 102 H 102 H Respiratory Rate 22 H Blood Pressure 88/56 L 93/57 L 86/53 L Pulse Oximetry 96 04/19/20 07:50 04/19/20 07:51 04/19/20 08:00 Temperature 36.8 C Pulse Rate 102 H 102 H 96 Respiratory Rate 22 H 22 H 22 H Blood Pressure 91/53 L Pulse Oximetry 94 04/19/20 08:18 04/19/20 09:09 Temperature Pulse Rate 96 59 L Respiratory Rate 22 H Blood Pressure 88/52 L 114/51 L Pulse Oximetry Intake/Output Intake/Output: Intake & Output 04/16/20 04/17/20 04/18/20 04/19/20 23:59 23:59 23:59 23:59 Intake Total 62660 540 Output Total 2089 4234 5 1300 Balance 8747 -376 -1010 -760 Meds/Results Medications: Active Medications Generic Name Dose Route Start Last Admin Trade Name Freq PRN Reason Stop Dose Admin Dextrose 12.5 gm 04/14/20 13:36 Dextrose 50% 25 Gm/50 Ml Syringe IV PUSH PRN PRN Hypoglycemia Protocol Dextrose 12.5 gm 04/19/20 02:34 Dextrose 50% 25 Gm/50 Ml Syringe IV PUSH PRN PRN Hypoglycemia Protocol Fentanyl Citrate 50 mcg 04/12/20 23:53 Fentanyl Citrate Inj (*Crx) 100 Mcg/2 Ml Vial IV PUSH Q2H PRN Pain Rated 7-10 Glucagon 1 mg 04/14/20 13:36 Glucagon For Inj 1 Mg Vial IM PRN PRN Hypoglycemia Protocol Glucagon 1 mg 04/19/20 02:34 Glucagon For Inj 1 Mg Vial IM PRN PRN Hypoglycemia Protocol Glucose 15 g
[2020-04-19 10:43] LABS: Bilirubin Direct 5.2 mg/dL (0-0.3)
--- NOTE | 2020-04-19 11:13 | PCDIET ---
ICU Rounding Note: Patient currently NPO with plan to start tube feedings, as upper GI series showed no leak. Recommend Nepro at 50mL/hr goal rate for 1980kcal, 89g protein and 799mL free water (over 22 hours/day). May also consider additional protein flush if unable to extubate in next 24-48hrs. If medically appropriate, would consider obtaining ionized calcium level and replacing, if indicated. Last recorded weight is 162.8kg which is down from last review. Bowel Motility: Last documented BM on 04/14/20 x 3. Labs Reviewed: Hgb (8.2), Hct (23.4), Glu (215), BUN (100), Cr (4.2), Na (123), Alb (2.3), PO4 (7.0), Ca (5.7) Meds Noted:Solu Cortef, Novolog, Rocephin, Fentanyl, Levemir, Versed, Levophed, Protonix, Bumex Additional Notes: Skin issues reported; integumentary notes reviewed. Following daily in ICU rounds. Assessing/reassessing every Sunday/Sunday.
[2020-04-19] MEDS: levETIRAcetam 500MG/NACL 100ML 500 MG/100 ML BAG 400 MG IVPB ×2 (11:38→23:20)
[2020-04-19 12:34] LABS: Glucose Point of Care 236 (65-105)
--- NOTE | 2020-04-19 12:49 | P.PNNP_ITS ---
Progress Note: A&P Assessment and Plan (1) Acute hyperkalemia: Code(s): E87.5 - Hyperkalemia Status: Acute Assessment and Plan: * Resolved (2) QUANG (acute kidney injury): Code(s): N17.9 - Acute kidney failure, unspecified Status: Acute Assessment and Plan: * likely ATN from hemodynamic instability, shock, cardiac arrest, and severe anemia * Pre renal factors always play a role in those with hypotension as well. * Intake/output is negative by 1L. * creatinine is relatively stable. * Continue holding off on hemodialysis. * Will try another day of diuretics. 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 * Hemoglobin Stable since he got a blood transfusion (5) Acute GI bleeding: Onset Date: ~04/13/20 Code(s): K92.2 - Gastrointestinal hemorrhage, unspecified Status: Acute Assessment and Plan: * No black or bloody stools noted (6) Paroxysmal atrial fibrillation: Code(s): I48.0 - Paroxysmal atrial fibrillation Status: Chronic Assessment and Plan: * Heart rate doing okay * Off amiodarone (7) History of kidney transplant: Onset Date: ~1990 Code(s): Z94.0 - Kidney transplant status Status: Chronic Assessment and Plan: * holding MMF and tacrolimus. * He is on steroids. (8) Diabetes: Code(s): E11.9 - Type 2 diabetes mellitus without complications Status: Chronic Assessment and Plan: * follow accuchecks * on SSI Discussed case with Dr. Duarte. Subjective Date/time seen: 04/19/20 12:49 Interval history: Rinku it is on the ventilator, sedated. He is still on only Levophed. Urine output About 2L yesterday. Creatinine is Up a little bit. Really, creatinine is been bouncing around since 04/15. Review of Systems Review of Systems: ROS unobtainable: Yes unobtainable due to medical condition Exam Narrative: Exam Narrative: General: WD/WN male intubated and sedated Heart: normal S1 and S2; no rub or gallop Lungs: coarse breath sounds throughout Abdomen: soft, hypoactive bowel sounds Extremities: 1+ edema And no cyanosis Skin: No rash or subcu nodules Objective Data Vital Signs Vital Signs: Vital Signs - 24 hr 04/18/20 14:00 04/18/20 14:21 04/18/20 14:30 Temperature 36.3 C L Pulse Rate 57 L 60 60 Respiratory Rate 20 20 Blood Pressure 101/50 L Pulse Oximetry 95 95 04/18/20 15:26 04/18/20 16:00 04/18/20 16:43 Temperature 36.4 C Pulse Rate 60 56 L 60 Respiratory Rate 20 Blood Pressure 101/50 L 106/53 L 101/50 L Pulse Oximetry 96 04/18/20 17:03 04/18/20 18:00 04/18/20 19:31 Temperature Pulse Rate 56 L 54 L 55 L Respiratory Rate 20 Blood Pressure 94/48 L Pulse Oximetry 96 96 95 04/18/20
--- NOTE | 2020-04-19 12:49 | PM.PNNEP ---
Progress Note: A&P Assessment and Plan (1) Acute hyperkalemia: Code(s): E87.5 - Hyperkalemia Status: Acute Assessment and Plan: Resolved (2) QUANG (acute kidney injury): Code(s): N17.9 - Acute kidney failure, unspecified Status: Acute Assessment and Plan: likely ATN from hemodynamic instability, shock, cardiac arrest, and severe anemia Pre renal factors always play a role in those with hypotension as well. Intake/output is negative by 1L. creatinine is relatively stable. Continue holding off on hemodialysis. Will try another day of diuretics. 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 Hemoglobin Stable since he got a blood transfusion (5) Acute GI bleeding: Onset Date: ~04/13/20 Code(s): K92.2 - Gastrointestinal hemorrhage, unspecified Status: Acute Assessment and Plan: No black or bloody stools noted (6) Paroxysmal atrial fibrillation: Code(s): I48.0 - Paroxysmal atrial fibrillation Status: Chronic Assessment and Plan: Heart rate doing okay Off amiodarone (7) History of kidney transplant: Onset Date: ~1990 Code(s): Z94.0 - Kidney transplant status Status: Chronic Assessment and Plan: holding MMF and tacrolimus. He is on steroids. (8) Diabetes: Code(s): E11.9 - Type 2 diabetes mellitus without complications Status: Chronic Assessment and Plan: follow accuchecks on SSI Discussed case with Dr. Duarte. Subjective Date/time seen: 04/19/20 12:49 Interval history: Rinku it is on the ventilator, sedated. He is still on only Levophed. Urine output About 2L yesterday. Creatinine is Up a little bit. Really, creatinine is been bouncing around since 04/15. Review of Systems Review of Systems: ROS unobtainable: Yes unobtainable due to medical condition Exam Narrative: Exam Narrative: General: WD/WN male intubated and sedated Heart: normal S1 and S2; no rub or gallop Lungs: coarse breath sounds throughout Abdomen: soft, hypoactive bowel sounds Extremities: 1+ edema And no cyanosis Skin: No rash or subcu nodules Objective Data Vital Signs Vital Signs: Vital Signs - 24 hr 04/18/20 14:00 04/18/20 14:21 04/18/20 14:30 Temperature 36.3 C L Pulse Rate 57 L 60 60 Respiratory Rate 20 20 Blood Pressure 101/50 L Pulse Oximetry 95 95 04/18/20 15:26 04/18/20 16:00 04/18/20 16:43 Temperature 36.4 C Pulse Rate 60 56 L 60 Respiratory Rate 20 Blood Pressure 101/50 L 106/53 L 101/50 L Pulse Oximetry 96 04/18/20 17:03 04/18/20 18:00 04/18/20 19:31 Temperature Pulse Rate 56 L 54 L 55 L Respiratory Rate 20 Blood Pressure 94/48 L Pulse Oximetry 96 96 95 04/18/20 19:48 04/18/20 20:00 04/18/20 20:04 Temperature 36.5 C Pulse Rate 56 L 59 L 58 L Respiratory Rate 22 H 22 H Blood Pressure 99/49 L 96/49 L 95/47 L Pulse Oximetry 97 04/18/20 22:00 04/18/20 23:08 04/19/20 00:00 Temperature 36.5 C 36.7 C Pulse Rate 56 L 59 L 54 L Respiratory Rate 22 H 22 H Blood Pressure 110/54 L 111/53 L Pulse Oximetry 94 94 95 04/19/20 02:00 04/19/20 02:55 04/19/20 04:00 Temperature 36.7 C 36.7 C Pulse Rate 56 L 56 L 57 L Respiratory Rate 22 H 20 Blood Pressure 108/51 L 109/51 L Pulse Oximetry 95 94 94 04/19/20 05:19 04/19/20 05:35 04/19/20 05:57 Temperature Pulse Rate 103 H 99 103 H Respiratory Rate 22 H Blood Pressure 88/53 L 88/56 L Pulse Oximetry 04/19/20 06:00 04/19/20 07:49 04/19/20 0
--- NOTE | 2020-04-19 13:46 | WPDINTPN ---
Progress Note: A&P Assessment and Plan (1) Acute respiratory failure: Qualifiers: Respiratory failure complication: unspecified whether with hypoxia or hypercapnia Qualified Code(s): J96.00 - Acute respiratory failure, unspecified whether with hypoxia or hypercapnia Code(s): J96.00 - Acute respiratory failure, unspecified whether with hypoxia or hypercapnia Status: Acute Assessment and Plan: Patient with hemorrhagic shock, hypertensive, acidotic, decreased mentation on 04/14 was emergently intubated for ventilatory support -patient currently on CMV mode of ventilation, peep of 5 and 45% FiO2, wean FiO2 -patient still in hemorrhagic shock with multiple vasopressors on board, will continue mechanical ventilation and sedation for now -chest x-ray and ABGs reviewed -diuresing patient with Bumex -sedation with fentanyl and Versed being wean off, patient will be placed on SBT and evaluate for extubation (2) Cardiac arrest with ventricular fibrillation: Code(s): I46.9 - Cardiac arrest, cause unspecified; I49.01 - Ventricular fibrillation Status: Acute Assessment and Plan: Is patient with VFib arrest on 04/14/2020 hemorrhagic/hypovolemic shock secondary to acute significant GI bleed. Could be related to elevated potassium -ROSC after 6 minutes. This patient taken to surgery -not a candidate for hypothermia protocol given significant bleed, coagulopathy -vasopressors being weaned -off amiodarone infusion -troponin elevated, likely secondary to cardiac arrest -appreciate Cardiology evaluation recommendation (3) Hemorrhagic shock: Code(s): R57.8 - Other shock Status: Acute Assessment and Plan: Hemorrhagic shock likely related to acute GI bleed, from bleeding duodenal ulcer -patient with severe anemia status post large amount of blood transfusion -patient off epinephrine, vasopressin and Pedro-Synephrine. Remains on Levophed which is also being weaned. Will maintain mean arterial pressures > 65 mmHg. Lactic acid trending down -continue to monitor urine output and end organ perfusion with serial lactic acid level -continue stress dose steroids (4) Acute GI bleeding: Onset Date: ~04/13/20 Code(s): K92.2 - Gastrointestinal hemorrhage, unspecified Status: Acute Assessment and Plan: Patient presented with dark red stools along with vomiting coffee-ground emesis. -EGD done on 04/13/2020 showed duodenal ulcers were cauterized with gold probe successfully -patient continues to have bloody bowel movements, repeat EGD on 04/14/2020 shows acute active duodenal ulcer bleeding. Epinephrine and clips x3 were applied. -patient continued to bleed on 04/14 in the evening -surgery was called emergently -patient is received massive volume blood transfusion - 04/14/2020: Patient underwent Ex lap with extensive lysis of adhesions, pyloroplasty with oversewing bleeding duodenal ulcer and ligation of bleeding vessel in the posterior sac -hemoglobin 8.2 this morning -PPI to IV q.12 hours (5) Paroxysmal atrial fibrillation: Code(s): I48.0 - Paroxysmal atrial fibrillation Status: Chronic Assessment and Plan: Fluid back into AFib last night, currently rate controlled in the 90s to 100s -not on any anticoagulation secondary to bleeding ulcer and hemorrhagic shock -not on amiodarone anymore (6) QUANG (acute kidney injury): Code(s): N17.9 - Acute kidney failure, unspecified Status: Acute Assessment and Plan: Patient with acute on chronic kidney disease, creatinine improving, urine output has been decreased most likely related to hemorrhagic/hypovolemic shock due to acute GI bleed. -patient has a history of renal transplants x2 -discussed with nephrology, will diurese today -lactic acid improved -urine output is adequate -metabolic acidosis and hyperkalemia have resolved -continue diuresis (7) Thrombocytopenia: Code(s): D69.6 - Thrombocytop
[2020-04-19 18:18] LABS: Glucose Point of Care 284 (65-105)
[2020-04-19] MEDS: NOREPINEPHRINE 8 MG/D5W 250 ML 8 MG/250 ML BAG 15 MG IV CONT (20:06)
[2020-04-19 20:57] LABS: Hematocrit 23.6 % (42.0-52.0); Hemoglobin 8.2 g/dL (14.0-18.0)
[2020-04-19] MEDS: CENTRAL LINE FLUSH 10 ML IV PUSH (23:23)
[2020-04-20] VITALS (21 sets, daily range): BP systolic 93–118; BP diastolic 29–58; PULSE 53–76; RESP 22; TEMP 35.8–37.7; O2SAT 89–94
[2020-04-20 00:09] LABS: Glucose Point of Care 303 (65-105)
[2020-04-20 01:36] LABS: Glucose Point of Care 304 (65-105)
[2020-04-20 04:49] LABS: Hematocrit 23.3 % (42.0-52.0); Hemoglobin 8.2 g/dL (14.0-18.0); Mean Corpuscular HGB Conc 35.2 g/dl (32-36); Mean Corpuscular Hemoglobin 29.7 pg (26-34); Mean Corpuscular Volume 84.4 fl (80-100); Mean Platelet Volume 10.2 fl (7.4-10.4); Platelet Count Result 72 k/mm3 (150-375); Red Blood Count 2.76 M/mm3 (4.6-6.20); Red Cell Distribution Width 16.6 % (11.5-14.5); White Blood Count 11.3 K/mm3 (4.5-10.0)
[2020-04-20 05:12] LABS: Alanine Aminotransferase 481 U/L (4-50); Albumin Level 2.3 g/dL (3.5-5.1); Alkaline Phosphatase 284 U/L (38-126); Anion Gap 12 mmol/L (8-16); Aspartate Amino Transferase 93 U/L (17-59); Calcium 5.7 mg/dL (8.4-10.2); Carbon Dioxide 24 mmol/L (22-30); Chloride 89 mmol/L (98-107); Estimated CRCL calculation 26 ml/min; Estimated Glomerular Filt Rate 13; Glucose 292 mg/dL (75-110); Phosphorus 7.9 mg/dL (2.5-4.5); Potassium 3.9 mmol/L (3.4-5.0); Sodium 125 mmol/L (137-145)
[2020-04-20] MEDS: CENTRAL LINE FLUSH 10 ML IV PUSH ×3 (05:32→21:16)
[2020-04-20] MEDS: INSULIN ASPART (*BKC) 100 UNITS/ML SUB-Q ×3 (05:32→19:37)
[2020-04-20 05:34] LABS: Blood Urea Nitrogen 122 mg/dL (9-20)
[2020-04-20] MEDS: HYDROCORTISONE SODIUM SUCCINATE 100 MG/2 ML VIAL IV PUSH ×3 (05:34→21:13)
[2020-04-20 06:47] LABS: Alveolar/Arterial O2 Gradient 172.4 mmHg; Base Excess ABG -3.8 mEq/l (+/-2.0); Carboxyhemoglobin 0.3 % THb (0-2.0); Fractional Inspired Oxygen 40 %; HCO3 ABG 19.9 mEq/l (22.0-26.0); Methemoglobin ABG 0.1 %THb (0-1.5); Oxygen Content ABG 10.8 %vol (16.0-22.0); Oxygen Saturation ABG 95.9 % (95.0-100.0); Oxyhemoglobin 93.6 % THb (90.0-100.0); PCO2 ABG 30.8 mmHg (35.0-45.0); PO2 ABG 77.4 mmHg (80.0-100.0); PO2 FiO2 Ratio Arterial Blood 1.94 %; Total Hemoglobin 8.1 g/dL (12.0-18.0); pH ABG 7.429 (7.350-7.450)
[2020-04-20 06:50] LABS: Device VENTILATOR; Site Drawn ARTLINE
[2020-04-20] MEDS: levETIRAcetam 500MG/NACL 100ML 500 MG/100 ML BAG 400 MG IVPB (07:32)
[2020-04-20] MEDS: PANTOPRAZOLE SODIUM IV 40 MG VIAL IV PUSH ×2 (07:33→21:13)
[2020-04-20] MEDS: CALCIUM GLUC 2,000 MG/NS 100ML 2,000 MG/100 ML BAG 100 MG IVPB (08:21)
--- NOTE | 2020-04-20 10:22 | P.PNNP_ITS ---
Progress Note: A&P Assessment and Plan (1) Acute hyperkalemia: Code(s): E87.5 - Hyperkalemia Status: Acute Assessment and Plan: * Resolved (2) QUANG (acute kidney injury): Code(s): N17.9 - Acute kidney failure, unspecified Status: Acute Assessment and Plan: * likely ATN from hemodynamic instability, shock, cardiac arrest, and severe anemia * Liver enzymes are a bit high and the patient has a thickened gallbladder duron. This would explain his abdominal tenderness.Dr Duarte is looking into this. * Pre renal factors always play a role in those with hypotension as well. * Intake/output is negative by 2+L. * creatinine is higher with the diuretics. * Discussed with Dr. Duarte. Will hold diuretics for now and see how he does respiratory carmen. His FiO2 is down to 40% in is only on 5 of peep so we have some reserve in this department. 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 * Hemoglobin still stable since he got a blood transfusion (5) Acute GI bleeding: Onset Date: ~04/13/20 Code(s): K92.2 - Gastrointestinal hemorrhage, unspecified Status: Acute Assessment and Plan: * No black or bloody stools noted (6) Paroxysmal atrial fibrillation: Code(s): I48.0 - Paroxysmal atrial fibrillation Status: Chronic Assessment and Plan: * Heart rate doing okay * Off amiodarone (7) History of kidney transplant: Onset Date: ~1990 Code(s): Z94.0 - Kidney transplant status Status: Chronic Assessment and Plan: * holding MMF and tacrolimus. * He is on steroids. (8) Diabetes: Code(s): E11.9 - Type 2 diabetes mellitus without complications Status: Chronic Assessment and Plan: * follow accuchecks * on SSI Discussed case with Dr. Duarte. Subjective Date/time seen: 04/20/20 10:22 Interval history: Rinku it is on the ventilator, sedated. He is still on only Levophed at 6 mcg. Urine output 3200 yesterday. Creatinine is up again. Review of Systems Review of Systems: ROS unobtainable: Yes unobtainable due to medical condition Exam Narrative: Exam Narrative: General: WD/WN male intubated and sedated Heart: normal S1 and S2; no rub or gallop Lungs: coarse breath sounds throughout Abdomen: soft, hypoactive bowel sounds. A little bit of when seen when I pushed on his belly. Extremities: 1+ edema Skin: No rash or subcu nodules Objective Data Vital Signs Vital Signs: Vital Signs - 24 hr 04/19/20 10:24 04/19/20 10:25 04/19/20 11:37 Temperature Pulse Rate 108 H 108 H 108 H Respiratory Rate 22 H 22 H 22 H Blood Pressure 110/61 102/58 L Pulse Oximetry 04/19/20 11:38 04/19/20 11:42 04/19/20 11:56 Temperature Pulse Rate 108 H 106 H 104 H Respiratory Rate 22 H Blood Pressure 97/58 L Pulse Oximetry 94
--- NOTE | 2020-04-20 10:22 | PM.PNNEP ---
Progress Note: A&P Assessment and Plan (1) Acute hyperkalemia: Code(s): E87.5 - Hyperkalemia Status: Acute Assessment and Plan: Resolved (2) QUANG (acute kidney injury): Code(s): N17.9 - Acute kidney failure, unspecified Status: Acute Assessment and Plan: likely ATN from hemodynamic instability, shock, cardiac arrest, and severe anemia Liver enzymes are a bit high and the patient has a thickened gallbladder duron. This would explain his abdominal tenderness.Dr Duarte is looking into this. Pre renal factors always play a role in those with hypotension as well. Intake/output is negative by 2+L. creatinine is higher with the diuretics. Discussed with Dr. Duarte. Will hold diuretics for now and see how he does respiratory carmen. His FiO2 is down to 40% in is only on 5 of peep so we have some reserve in this department. 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 Hemoglobin still stable since he got a blood transfusion (5) Acute GI bleeding: Onset Date: ~04/13/20 Code(s): K92.2 - Gastrointestinal hemorrhage, unspecified Status: Acute Assessment and Plan: No black or bloody stools noted (6) Paroxysmal atrial fibrillation: Code(s): I48.0 - Paroxysmal atrial fibrillation Status: Chronic Assessment and Plan: Heart rate doing okay Off amiodarone (7) History of kidney transplant: Onset Date: ~1990 Code(s): Z94.0 - Kidney transplant status Status: Chronic Assessment and Plan: holding MMF and tacrolimus. He is on steroids. (8) Diabetes: Code(s): E11.9 - Type 2 diabetes mellitus without complications Status: Chronic Assessment and Plan: follow accuchecks on SSI Discussed case with Dr. Duarte. Subjective Date/time seen: 04/20/20 10:22 Interval history: Rinku it is on the ventilator, sedated. He is still on only Levophed at 6 mcg. Urine output 3200 yesterday. Creatinine is up again. Review of Systems Review of Systems: ROS unobtainable: Yes unobtainable due to medical condition Exam Narrative: Exam Narrative: General: WD/WN male intubated and sedated Heart: normal S1 and S2; no rub or gallop Lungs: coarse breath sounds throughout Abdomen: soft, hypoactive bowel sounds. A little bit of when seen when I pushed on his belly. Extremities: 1+ edema Skin: No rash or subcu nodules Objective Data Vital Signs Vital Signs: Vital Signs - 24 hr 04/19/20 10:24 04/19/20 10:25 04/19/20 11:37 Temperature Pulse Rate 108 H 108 H 108 H Respiratory Rate 22 H 22 H 22 H Blood Pressure 110/61 102/58 L Pulse Oximetry 04/19/20 11:38 04/19/20 11:42 04/19/20 11:56 Temperature Pulse Rate 108 H 106 H 104 H Respiratory Rate 22 H Blood Pressure 97/58 L Pulse Oximetry 94 04/19/20 12:00 04/19/20 12:48 04/19/20 14:00 Temperature 36.6 C 36.6 C Pulse Rate 98 100 99 Respiratory Rate 22 H 22 H Blood Pressure 97/57 L 101/61 93/56 L Pulse Oximetry 95 94 04/19/20 14:08 04/19/20 14:14 04/19/20 14:19 Temperature Pulse Rate 100 92 108 H Respiratory Rate Blood Pressure 94/57 L 74/51 L 104/63 Pulse Oximetry 04/19/20 14:31 04/19/20 16:00 04/19/20 17:11 Temperature 36.6 C Pulse Rate 108 H 96 101 H Respiratory Rate 22 H Blood Pressure 96/57 L Pulse Oximetry 93 94 92 04/19/20 17:59 04/19/20 18:00 04/19/20 19:41 Temperature 36.7 C Pulse Rate 60 59 L 62 Respiratory Rate 22 H 22 H Blood Pressure 99/49 L 101/50 L Puls
[2020-04-20] MEDS: INSULIN DETEMIR 100 UNITS/ML 18 UNITS SUB-Q ×2 (11:37→21:15)
[2020-04-20 11:41] LABS: Glucose Point of Care 328 (65-105)
--- NOTE | 2020-04-20 11:57 | PCDIET ---
Nutrition Follow-Up Complete: Nutrition Diagnosis: Inadequate oral intake related to inability to consume foods orally due to mechanical ventilation as evidenced by NPO order. Nutrition Goal: Total intake will meet estimated nutrition needs. Goal in progress. MD ordered to start trickle feedings today: Nepro at 10mL/hr. Last recorded weight is 163.4 kg which is increased from last review. -I/O. No dialysis planned for today. Bowel Motility: No documented BM. Labs Reviewed: Hgb (8.2), Hct (23.3), Glu (292), BUN (122), Cr (4.7), Na (125), Alb (2.3), PO4 (7.9), Ca (5.7) Meds Noted: Rocephin, Solu Cortef, Fentanyl, Novolog, Levemir, Versed, Levophed, Protonix, Calcium Gluconate, Additional Notes: Significant edema reported. Will follow closely with same goal. Nutrition Monitoring and Evaluation: Follow up every Sunday/Sunday.
[2020-04-20 12:25] LABS: Haptoglobin 24 mg/dL (43-212)
--- NOTE | 2020-04-20 12:52 | WPDINTPN ---
Progress Note: A&P Assessment and Plan (1) Acute respiratory failure: Qualifiers: Respiratory failure complication: unspecified whether with hypoxia or hypercapnia Qualified Code(s): J96.00 - Acute respiratory failure, unspecified whether with hypoxia or hypercapnia Code(s): J96.00 - Acute respiratory failure, unspecified whether with hypoxia or hypercapnia Status: Acute Assessment and Plan: Patient with hemorrhagic shock, hypertensive, acidotic, decreased mentation on 04/14 was emergently intubated for ventilatory support -patient currently on CMV mode of ventilation, peep of 5 and 40% FiO2, wean FiO2 -patient off all sedation greater than 24 hours, not waking up on 04/20/2020 with no acute intracranial findings -once patient is more awake will place patient on SBT and evaluate for extubation -worsening creatinine, will hold diuresis, discussed with Nephrology (2) Cardiac arrest with ventricular fibrillation: Code(s): I46.9 - Cardiac arrest, cause unspecified; I49.01 - Ventricular fibrillation Status: Acute Assessment and Plan: Is patient with VFib arrest on 04/14/2020 hemorrhagic/hypovolemic shock secondary to acute significant GI bleed. Could be related to elevated potassium -ROSC after 6 minutes. This patient taken to surgery -vasopressors being weaned -off amiodarone infusion -troponin elevated, likely secondary to cardiac arrest -appreciate Cardiology evaluation recommendation (3) Hemorrhagic shock: Code(s): R57.8 - Other shock Status: Acute Assessment and Plan: Hemorrhagic shock likely related to acute GI bleed, from bleeding duodenal ulcer -patient with severe anemia status post large amount of blood transfusion -patient remains on Levophed only -will discontinue art line if blood pressures correlate on the arm -continue stress dose steroids (4) Acute GI bleeding: Onset Date: ~04/13/20 Code(s): K92.2 - Gastrointestinal hemorrhage, unspecified Status: Acute Assessment and Plan: Patient presented with dark red stools along with vomiting coffee-ground emesis. -EGD done on 04/13/2020 showed duodenal ulcers were cauterized with gold probe successfully -patient continues to have bloody bowel movements, repeat EGD on 04/14/2020 shows acute active duodenal ulcer bleeding. Epinephrine and clips x3 were applied. -patient continued to bleed on 04/14 in the evening -surgery was called emergently -patient is received massive volume blood transfusion - 04/14/2020: Patient underwent Ex lap with extensive lysis of adhesions, pyloroplasty with oversewing bleeding duodenal ulcer and ligation of bleeding vessel in the posterior sac -hemoglobin has been stable for 48 hours -PPI to IV q.12 hours (5) Paroxysmal atrial fibrillation: Code(s): I48.0 - Paroxysmal atrial fibrillation Status: Chronic Assessment and Plan: Currently in sinus bradycardia -not on any anticoagulation secondary to bleeding ulcer and hemorrhagic shock -not on amiodarone anymore (6) QUANG (acute kidney injury): Code(s): N17.9 - Acute kidney failure, unspecified Status: Acute Assessment and Plan: Patient with acute on chronic kidney disease, creatinine improving, urine output has been decreased most likely related to hemorrhagic/hypovolemic shock due to acute GI bleed. -patient has a history of renal transplants x2 -creatinine trending up, will hold diuresis as per discussion with Nephrology -lactic acid improved -urine output is adequate (7) Thrombocytopenia: Code(s): D69.6 - Thrombocytopenia, unspecified Status: Chronic Assessment and Plan: Thrombocytopenia likely consumptive, also could be due to immunosuppressive treatment for his renal transplant Patient received more platelets on 04/14 -will monitor platelet counts closely, transfuse if under 50,000 (8) Acute on chronic anemia: Code(s): D64.9 - Anemia, unspec
[2020-04-20 14:11] LABS: INR 1.6; Prothrombin Time 19.8 Seconds (11.1-14.7)
[2020-04-20 14:12] LABS: Partial Thromboplastin Time 34.9 SECONDS (22.3-36.8)
--- NOTE | 2020-04-20 17:19 | PM.IMPN ---
Progress Note: A&P Assessment and Plan (1) Cardiac arrest with ventricular fibrillation: Code(s): I46.9 - Cardiac arrest, cause unspecified; I49.01 - Ventricular fibrillation Status: Acute Assessment and Plan: Patient developed VFib arrest evening on 04/14 probably related to hypovolemic shock from acute blood loss. He did have elevated potassium earlier in the day which could have contributed to this. ROSC after 6 minutes. Patient taken to surgery later that evening. Patient currently stable but remains in critical condition. Trop 4.2 at peak but not unexpected after a code blue. (2) Acute respiratory failure: Qualifiers: Respiratory failure complication: unspecified whether with hypoxia or hypercapnia Qualified Code(s): J96.00 - Acute respiratory failure, unspecified whether with hypoxia or hypercapnia Code(s): J96.00 - Acute respiratory failure, unspecified whether with hypoxia or hypercapnia Status: Acute Assessment and Plan: Patient became obtunded requiring intubation on 04/14. A short time later, code blue was called. He remains on mechanical ventilation. ABG normal today. Chest x-ray reviewed and showing pulmonary edema with lower lobe airspace disease. Patient with fevers and has tested positive for COVID. BCx NGTD. Sputum Cx growing H.flu. Ceftriaxone started 04/18. Fevers have waned. (3) COVID-19: Code(s): U07.1 - COVID-19 Status: Acute Assessment and Plan: Patient had intermittent fevers but developed more persistent fevers on 04/14. He was tested and found to be positive for COVID on 04/16/20. Currently on steroids. No Remdesivir due to QUANG. (4) Hemorrhagic shock: Code(s): R57.8 - Other shock Status: Acute Assessment and Plan: Patient with acute blood loss resulting in hemorrhagic shock. Currently on NE but able to come off of IMPREGNATING HELPER and phenylephrine. Hgb 8.2 this morning after transfusion 04/19. Hydrocortisone added for pressure and for anti-rejection. Albumin 2.2. Received albumin but currently off now. (5) Acute GI bleeding: Onset Date: ~04/13/20 Code(s): K92.2 - Gastrointestinal hemorrhage, unspecified Status: Acute Assessment and Plan: Acute GI bleeding secondary to duodenal ulcer complicated by recent anticoagulant use. BRBPR and with coffee ground emesis consistent with brisk upper GI bleed with rapid transit. Patient has received 17 units of packed red blood cells in total. EGD twice has failed to stop the bleeding. Patient underwent emergency surgery 04/14 with exploratory laparotomy, extensive lysis of adhesions, ligation of bleeding vessel in the posterior sac, and pyloroplasty with over-sewing bleeding duodenal ulcer. Patient has done well thus far and is showing signs of improvement. Monitor HH closely for stability. Transfusion 1 unit 04/19 (6) Acute hyperkalemia: Code(s): E87.5 - Hyperkalemia Status: Acute Assessment and Plan: The patient's potassium was as high as 7.2 on admission and has been elevated at times. The patient was treated appropriately including HD. Recent potassium levels normal. Continue to follow. (7) QUANG (acute kidney injury): Code(s): N17.9 - Acute kidney failure, unspecified Status: Acute Assessment and Plan: QUANG related to above with acute blood loss and now code blue. Cr stable at 4.7 today ). Suspect pre-renal and ATN from shock. Patient is s/p renal transplant and he is off his anti-rejection meds. Steroids started for anti-rejection treatment. Monitor renal function and UOP. (8) Acute on chronic anemia: Code(s): D64.9 - Anemia, unspecified Status: Acute Assessment and Plan: With a baseline hemoglobin running in the 10-11 range most likely related to his chronic renal disease. Hemoglobin 7.0 on admission related to acute blood loss anemia from DU and was having d
[2020-04-20 20:47] LABS: Glucose Point of Care 297 (65-105)
[2020-04-21] VITALS (33 sets, daily range): BP systolic 74–137; BP diastolic 29–85; PULSE 53–120; RESP 10–94; TEMP 36–37.6; O2SAT 22–96
[2020-04-21] MEDS: INSULIN ASPART (*BKC) 100 UNITS/ML SUB-Q ×4 (00:14→17:27)
[2020-04-21 00:17] LABS: Glucose Point of Care 301 (65-105)
[2020-04-21] MEDS: NOREPINEPHRINE 8 MG/D5W 250 ML 8 MG/250 ML BAG 22.5 MG IV CONT (04:48)
[2020-04-21] MEDS: HYDROCORTISONE SODIUM SUCCINATE 100 MG/2 ML VIAL IV PUSH ×3 (04:49→23:12)
[2020-04-21] MEDS: CENTRAL LINE FLUSH 10 ML IV PUSH ×6 (04:50→23:12)
[2020-04-21 04:53] LABS: Hematocrit 22.4 % (42.0-52.0); Hemoglobin 7.8 g/dL (14.0-18.0); Mean Corpuscular HGB Conc 34.8 g/dl (32-36); Mean Corpuscular Hemoglobin 29.1 pg (26-34); Mean Corpuscular Volume 83.6 fl (80-100); Mean Platelet Volume 10.2 fl (7.4-10.4); Platelet Count Result 85 k/mm3 (150-375); Red Blood Count 2.68 M/mm3 (4.6-6.20); Red Cell Distribution Width 17.3 % (11.5-14.5); White Blood Count 19.1 K/mm3 (4.5-10.0)
[2020-04-21 04:58] LABS: Alveolar/Arterial O2 Gradient 456.1 mmHg; Carboxyhemoglobin 0.3 % THb (0-2.0); Fractional Inspired Oxygen 80 %; HCO3 ABG 21.7 mEq/l (22.0-26.0); Methemoglobin ABG 0.3 %THb (0-1.5); Oxygen Content ABG 11.8 %vol (16.0-22.0); Oxygen Saturation ABG 94.9 % (95.0-100.0); Oxyhemoglobin 92.8 % THb (90.0-100.0); PCO2 ABG 37.4 mmHg (35.0-45.0); PO2 FiO2 Ratio Arterial Blood 0.94 %; Reduced Hemoglobin 6.6 %THb (0-5.0); pH ABG 7.382 (7.350-7.450)
[2020-04-21 04:59] LABS: Arterial Blood Gas PEEP 5 cmH2O; Arterial Blood Gas Tidal Volume 500 ml; Arterial Blood Gas Vent Mode ASSIST CONTROL; Arterial Blood Gas Ventilator rate 22 /MIN; Device VENTILATOR; Modified Allen's Test Unable to perform; Site Drawn RIGHT RADIAL
[2020-04-21 04:59] LABS: Glucose Point of Care 258 (65-105)
[2020-04-21 05:07] LABS: D Dimer 1.92 ug/mL (<0.48)
[2020-04-21 05:27] LABS: Albumin Level 2.4 g/dL (3.5-5.1); Anion Gap 13 mmol/L (8-16); Calcium 5.8 mg/dL (8.4-10.2); Carbon Dioxide 24 mmol/L (22-30); Chloride 90 mmol/L (98-107); Estimated CRCL calculation 23 ml/min; Estimated Glomerular Filt Rate 12; Glucose 243 mg/dL (75-110); Lactate Dehydrogenase 845 U/L (313-618); Phosphorus 9.5 mg/dL (2.5-4.5); Potassium 4.2 mmol/L (3.4-5.0); Sodium 127 mmol/L (137-145)
[2020-04-21 05:32] LABS: CRP 26.1 mg/dL (<1.0)
[2020-04-21 06:15] LABS: Blood Urea Nitrogen 147 mg/dL (9-20)
[2020-04-21 08:11] LABS: Arterial Blood Gas Vent Mode CMV; Arterial Blood Gas Ventilator rate 22 /MIN
[2020-04-21 08:12] LABS: Arterial Blood Gas PEEP 5 cmH2O; Arterial Blood Gas Tidal Volume 500 ml
[2020-04-21] MEDS: CALCIUM GLUC 2,000 MG/NS 100ML 2,000 MG/100 ML BAG 100 MG IVPB (10:40)
[2020-04-21] MEDS: INSULIN DETEMIR 100 UNITS/ML 26 UNITS SUB-Q ×2 (10:49→20:09)
[2020-04-21] MEDS: PANTOPRAZOLE SODIUM IV 40 MG VIAL IV PUSH ×2 (10:52→20:10)
--- NOTE | 2020-04-21 11:05 | PCDIET ---
ICU Rounding Note: Patient remains NPO with order for Nepro at 10mL/hr. MD reports tube feedings not yet initiated, but will start today. Patient also planned for dialysis today. Last recorded weight is 160kg which is down from last review. -I/O. Bowel Motility: No documented BM since 04/14/20. Discussed with MD. Labs Reviewed: Hgb (7.8), Hct (22.4), Glu (243), BUN (147), Cr (5.2), Na (127), Alb (2.4), PO4 (9.5), Daiana Ca (7.08) Meds Noted: Calcium Gluconate, Fentanyl, Novolog, Levemir, Rocephin, Solu Cortef, Levophed, Protonix Additional Notes: Buttocks macerated. Abdomen with SERGE drain. Following daily in ICU rounds. Assessing/reassessing every Sunday/Sunday.
--- NOTE | 2020-04-21 11:55 | PM.PNGS ---
Progress Note: A&P Assessment and Plan (1) Acute GI bleeding: Onset Date: ~04/13/20 Code(s): K92.2 - Gastrointestinal hemorrhage, unspecified Status: Acute Assessment and Plan: no evidence of ongoing bleeding, cont supp care, would start trickle feeds thru NG, cont abx Subjective Subjective Date/Time Seen: 04/21/20 11:55 no acute issues, still not waking up off sedation Review of Systems Review of Systems: ROS unobtainable: Yes unobtainable due to endotracheal tube Exam Resp: Effort & Inspection: normal respiratory effort Auscultation: clear to auscultation bilaterally Cardio: Rate: regular rate Rhythm: regular rhythm GI: Inspection: normal to inspection, non-distended and incision Other: S, sl dist, incision C/D/I, drain c dk sangenous drainage Objective Data Vital Signs Vital Signs: Vital Signs - 24 hr 04/20/20 12:00 04/20/20 14:00 04/20/20 15:21 Temperature 35.9 C L 35.9 C L Pulse Rate 55 L 54 L 58 L Respiratory Rate 22 H 22 H Blood Pressure 107/48 L 93/56 L Pulse Oximetry 94 92 92 04/20/20 16:00 04/20/20 18:00 04/20/20 18:50 Temperature 35.8 C L Pulse Rate 54 L 69 63 Respiratory Rate 22 H 22 H Blood Pressure 98/57 L 102/29 L Pulse Oximetry 91 89 L 93 04/20/20 20:00 04/20/20 22:00 04/20/20 22:30 Temperature 37.7 C H 37.6 C Pulse Rate 62 57 L 59 L Respiratory Rate 22 H 22 H Blood Pressure 110/52 L 100/47 L Pulse Oximetry 90 90 94 04/21/20 00:00 04/21/20 01:55 04/21/20 02:00 Temperature 37.6 C 37.3 C Pulse Rate 62 55 L 55 L Respiratory Rate 22 H 22 H Blood Pressure 97/35 L 88/39 L Pulse Oximetry 90 95 91 04/21/20 02:52 04/21/20 02:53 04/21/20 04:00 Temperature 37.2 C Pulse Rate 60 56 L 55 L Respiratory Rate 22 H Blood Pressure 89/29 L 74/42 L 97/38 L Pulse Oximetry 94 04/21/20 04:48 04/21/20 05:15 04/21/20 06:00 Temperature Pulse Rate 56 L 55 L 54 L Respiratory Rate 22 H Blood Pressure 74/42 L 107/44 L Pulse Oximetry 93 92 04/21/20 08:00 04/21/20 08:23 04/21/20 10:00 Temperature 37.1 C 37.0 C Pulse Rate 53 L 55 L 55 L Respiratory Rate 22 H 94 H Blood Pressure 106/38 L 105/33 L Pulse Oximetry 94 94 22 L 04/21/20 10:42 Temperature Pulse Rate 58 L Respiratory Rate Blood Pressure 113/46 L Pulse Oximetry Intake/Output Intake/Output: Intake & Output 04/18/20 04/19/20 04/20/20 04/21/20 23:59 23:59 23:59 23:59 Intake Total 1190 918.4 350 250 Output Total 2200 3230 2455 940 Balance -1010 -2311.6 -2105 -690 Meds/Results Medications: Active Medications Generic Name Dose Route Start Last Admin Trade Name Freq PRN Reason Stop Dose Admin Dextrose 12.5 gm 04/19/20 02:34 Dextrose 50% 25 Gm/50 Ml Syringe IV PUSH PRN PRN Hypoglycemia Protocol Fentanyl Citrate 50 mcg 04/12/20 23:53 Fentanyl Citrate Inj (*Crx) 100 Mcg/2 Ml Vial IV PUSH Q2H PRN Pain Rated 7-10 Glucagon 1 mg 04/19/20 02:34 Glucagon For Inj 1 Mg Vial IM PRN PRN Hypoglycemia Protocol Glucose 15 gm 04/19/20 02:34 Glucose Oral Gel 15 Gm Of Glucse In 37.5 Gm Tube PO PRN PRN Hypoglycemia Protocol Hydrocortisone Sodium Succinate 100 mg 04/16/20 07:35 04/21/20 04:49 Hydrocortisone Sodium Succinate 100 Mg/2 Ml Vial IV PUSH 100 mg Q8HR QUEENIE Administration Norepinephrine Bitartrate 8 mg in 250 mls @ 22.5 mls/hr 04/14/20 00:25 04/21/20 10:42 Levophed 8 Mg/D5w 250 Ml IV CONT 12 mcg/min .[id number] QUEENIE 22.5 mls/hr Titration Protocol 12 MCG/MIN Ceftriaxone Sodium/Dextrose 1 gm in 50 mls @ 100 mls/hr 04/18/20 21:00 04/20/20 21:11 Rocephin 1 Gm/D5w 50 Ml IVPB 100 mls/hr Q24H QUEENIE Administration Dextrose 1,000 mls @ 100 mls/hr 04/19/20 02:34 Dextrose 5% 1,000 Ml IVPB PRN PRN Hypoglycemia Protocol Insulin Aspart 4 - 8 units 04/19/20 06:00 04/21/20 04:49 Insulin Aspart (*Bkc) 100 Units/Ml SUB-Q 5 un
--- NOTE | 2020-04-21 13:01 | WPDINTPN ---
Progress Note: A&P Assessment and Plan (1) Acute respiratory failure: Qualifiers: Respiratory failure complication: unspecified whether with hypoxia or hypercapnia Qualified Code(s): J96.00 - Acute respiratory failure, unspecified whether with hypoxia or hypercapnia Code(s): J96.00 - Acute respiratory failure, unspecified whether with hypoxia or hypercapnia Status: Acute Assessment and Plan: Patient with hemorrhagic shock, hypertensive, acidotic, decreased mentation on 04/14 was emergently intubated for ventilatory support -patient currently on CMV mode of ventilation, peep of 5 and 80% FiO2, wean FiO2 -patient off all sedation greater than 48 hours, not waking up -CT head on 04/20/2020 with no acute intracranial findings -worsening BUN and creatinine, discussed with Nephrology Will dialyze today (2) Cardiac arrest with ventricular fibrillation: Code(s): I46.9 - Cardiac arrest, cause unspecified; I49.01 - Ventricular fibrillation Status: Acute Assessment and Plan: Is patient with VFib arrest on 04/14/2020 hemorrhagic/hypovolemic shock secondary to acute significant GI bleed. Could be related to elevated potassium -ROSC after 6 minutes. This patient taken to surgery -vasopressors being weaned -off amiodarone infusion -troponin elevated, likely secondary to cardiac arrest -appreciate Cardiology evaluation recommendation (3) Hemorrhagic shock: Code(s): R57.8 - Other shock Status: Acute Assessment and Plan: Hemorrhagic shock likely related to acute GI bleed, from bleeding duodenal ulcer -patient with severe anemia status post large amount of blood transfusion -patient remains on Levophed only (4) Acute GI bleeding: Onset Date: ~04/13/20 Code(s): K92.2 - Gastrointestinal hemorrhage, unspecified Status: Acute Assessment and Plan: Patient presented with dark red stools along with vomiting coffee-ground emesis. -EGD done on 04/13/2020 showed duodenal ulcers were cauterized with gold probe successfully -patient continues to have bloody bowel movements, repeat EGD on 04/14/2020 shows acute active duodenal ulcer bleeding. Epinephrine and clips x3 were applied. - 04/14/2020: Patient underwent Ex lap with extensive lysis of adhesions, pyloroplasty with oversewing bleeding duodenal ulcer and ligation of bleeding vessel in the posterior sac -hemoglobin has been stable for 48 hours -PPI to IV q.12 hours -discussed with surgery will start tube feeds (5) Paroxysmal atrial fibrillation: Code(s): I48.0 - Paroxysmal atrial fibrillation Status: Chronic Assessment and Plan: Currently in A fib rate controlled -not on any anticoagulation secondary to bleeding ulcer and hemorrhagic shock -not on amiodarone anymore (6) QUANG (acute kidney injury): Code(s): N17.9 - Acute kidney failure, unspecified Status: Acute Assessment and Plan: Patient with acute on chronic kidney disease, creatinine improving, urine output has been decreased most likely related to hemorrhagic/hypovolemic shock due to acute GI bleed. -patient has a history of renal transplants x2 -creatinine trending up, will hold diuresis as per discussion with Nephrology -lactic acid improved -urine output slowing down, BUN and creatinine rising, discussed with Nephrology, will dialyze the patient today as he has dialysis access (7) Thrombocytopenia: Code(s): D69.6 - Thrombocytopenia, unspecified Status: Chronic Assessment and Plan: Thrombocytopenia likely consumptive, also could be due to immunosuppressive treatment for his renal transplant Patient received more platelets on 04/14 -will monitor platelet counts closely, transfuse if under 50,000 (8) Acute on chronic anemia: Code(s): D64.9 - Anemia, unspecified Status: Acute Assessment and Plan: Acute on chronic anemia likely related to GI bleed -transfuse to maintain hemoglobi
--- NOTE | 2020-04-21 13:30 | P.PNNP_ITS ---
Progress Note: A&P Assessment and Plan (1) Acute hyperkalemia: Code(s): E87.5 - Hyperkalemia Status: Acute Assessment and Plan: * Resolved (2) QUANG (acute kidney injury): Code(s): N17.9 - Acute kidney failure, unspecified Status: Acute Assessment and Plan: * likely ATN from hemodynamic instability, shock, cardiac arrest, and severe anemia * May be some contribution from the abdominal process. * Pre renal factors always play a role in those with hypotension as well. * Intake/output is negative by 1-2L. * creatinine is higher with the diuretics. BUN on the rise as well. * Discussed with Dr. Duarte. Will initiate dialysis. He has a fistula in the left arm. I let the dialysis nurse no. 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 * Hemoglobin still stable since he got a blood transfusion (5) Acute GI bleeding: Onset Date: ~04/13/20 Code(s): K92.2 - Gastrointestinal hemorrhage, unspecified Status: Acute Assessment and Plan: * No black or bloody stools noted (6) Paroxysmal atrial fibrillation: Code(s): I48.0 - Paroxysmal atrial fibrillation Status: Chronic Assessment and Plan: * Heart rate doing okay * Off amiodarone (7) History of kidney transplant: Onset Date: ~1990 Code(s): Z94.0 - Kidney transplant status Status: Chronic Assessment and Plan: * holding MMF and tacrolimus. * He is on steroids. (8) Diabetes: Code(s): E11.9 - Type 2 diabetes mellitus without complications Status: Chronic Assessment and Plan: * follow accuchecks * on SSI Discussed case with Dr. Duarte. Subjective Date/time seen: 04/21/20 13:30 Interval history: Rinku it is on the ventilator, sedated. He is still on only Levophed Urine output A little more than 1999 yesterday. Creatinine is up again. BUN is very high as well. Review of Systems Review of Systems: ROS unobtainable: Yes unobtainable due to medical condition Exam Narrative: Exam Narrative: General: WD/WN male intubated and sedated Heart: normal S1 and S2; no rub or gallop Lungs: coarse breath sounds throughout Abdomen: soft, hypoactive bowel sounds. Extremities: 1+ edema Skin: No rash Objective Data Vital Signs Vital Signs: Vital Signs - 24 hr 04/20/20 14:00 04/20/20 15:21 04/20/20 16:00 Temperature 35.9 C L 35.8 C L Pulse Rate 54 L 58 L 54 L Respiratory Rate 22 H 22 H Blood Pressure 93/56 L 98/57 L Pulse Oximetry 92 92 91 04/20/20 18:00 04/20/20 18:50 04/20/20 20:00 Temperature 37.7 C H Pulse Rate 69 63 62 Respiratory Rate 22 H 22 H Blood Pressure 102/29 L 110/52 L Pulse Oximetry 89 L 93 90 04/20/20 22:00 04/20/20 22:30 04/21/20 00:00 Temperature 37.6 C 37.6 C Pulse Rate 57 L 59 L 62 Respir
--- NOTE | 2020-04-21 13:30 | PM.PNNEP ---
Progress Note: A&P Assessment and Plan (1) Acute hyperkalemia: Code(s): E87.5 - Hyperkalemia Status: Acute Assessment and Plan: Resolved (2) QUANG (acute kidney injury): Code(s): N17.9 - Acute kidney failure, unspecified Status: Acute Assessment and Plan: likely ATN from hemodynamic instability, shock, cardiac arrest, and severe anemia May be some contribution from the abdominal process. Pre renal factors always play a role in those with hypotension as well. Intake/output is negative by 1-2L. creatinine is higher with the diuretics. BUN on the rise as well. Discussed with Dr. Duarte. Will initiate dialysis. He has a fistula in the left arm. I let the dialysis nurse no. 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 Hemoglobin still stable since he got a blood transfusion (5) Acute GI bleeding: Onset Date: ~04/13/20 Code(s): K92.2 - Gastrointestinal hemorrhage, unspecified Status: Acute Assessment and Plan: No black or bloody stools noted (6) Paroxysmal atrial fibrillation: Code(s): I48.0 - Paroxysmal atrial fibrillation Status: Chronic Assessment and Plan: Heart rate doing okay Off amiodarone (7) History of kidney transplant: Onset Date: ~1990 Code(s): Z94.0 - Kidney transplant status Status: Chronic Assessment and Plan: holding MMF and tacrolimus. He is on steroids. (8) Diabetes: Code(s): E11.9 - Type 2 diabetes mellitus without complications Status: Chronic Assessment and Plan: follow accuchecks on SSI Discussed case with Dr. Duarte. Subjective Date/time seen: 04/21/20 13:30 Interval history: Rinku it is on the ventilator, sedated. He is still on only Levophed Urine output A little more than 2000 yesterday. Creatinine is up again. BUN is very high as well. Review of Systems Review of Systems: ROS unobtainable: Yes unobtainable due to medical condition Exam Narrative: Exam Narrative: General: WD/WN male intubated and sedated Heart: normal S1 and S2; no rub or gallop Lungs: coarse breath sounds throughout Abdomen: soft, hypoactive bowel sounds. Extremities: 1+ edema Skin: No rash Objective Data Vital Signs Vital Signs: Vital Signs - 24 hr 04/20/20 14:00 04/20/20 15:21 04/20/20 16:00 Temperature 35.9 C L 35.8 C L Pulse Rate 54 L 58 L 54 L Respiratory Rate 22 H 22 H Blood Pressure 93/56 L 98/57 L Pulse Oximetry 92 92 91 04/20/20 18:00 04/20/20 18:50 04/20/20 20:00 Temperature 37.7 C H Pulse Rate 69 63 62 Respiratory Rate 22 H 22 H Blood Pressure 102/29 L 110/52 L Pulse Oximetry 89 L 93 90 04/20/20 22:00 04/20/20 22:30 04/21/20 00:00 Temperature 37.6 C 37.6 C Pulse Rate 57 L 59 L 62 Respiratory Rate 22 H 22 H Blood Pressure 100/47 L 97/35 L Pulse Oximetry 90 94 90 04/21/20 01:55 04/21/20 02:00 04/21/20 02:52 Temperature 37.3 C Pulse Rate 55 L 55 L 60 Respiratory Rate 22 H Blood Pressure 88/39 L 89/29 L Pulse Oximetry 95 91 04/21/20 02:53 04/21/20 04:00 04/21/20 04:48 Temperature 37.2 C Pulse Rate 56 L 55 L 56 L Respiratory Rate 22 H Blood Pressure 74/42 L 97/38 L 74/42 L Pulse Oximetry 94 04/21/20 05:15 04/21/20 06:00 04/21/20 08:00 Temperature 37.1 C Pulse Rate 55 L 54 L 53 L Respiratory Rate 22 H 22 H Blood Pressure 107/44 L 106/38 L Pulse Oximetry 93 92 94 04/21/20 08:23 04/21/20 10:00 04/21/20 10:42 Temperature 37.0 C Pulse Rate 55 L 55 L 58 L
[2020-04-21 14:12] LABS: Alanine Aminotransferase 308 U/L (4-50); Albumin Level 2.5 g/dL (3.5-5.1); Alkaline Phosphatase 376 U/L (38-126); Anion Gap 14 mmol/L (8-16); Aspartate Amino Transferase 74 U/L (17-59); Bilirubin,Total 13.6 mg/dL (0.2-1.3); Carbon Dioxide 22 mmol/L (22-30); Chloride 92 mmol/L (98-107); Estimated CRCL calculation 25 ml/min; Estimated Glomerular Filt Rate 12; Glucose 232 mg/dL (75-110); Sodium 128 mmol/L (137-145)
[2020-04-21 14:42] LABS: Blood Urea Nitrogen 158 mg/dL (9-20)
[2020-04-21 15:59] LABS: Glucose Point of Care 297 (65-105)
[2020-04-21] MEDS: NOREPINEPHRINE 8 MG/D5W 250 ML 8 MG/250 ML BAG 26.25 MG IV CONT (17:04)
[2020-04-21 18:28] LABS: Glucose Point of Care 228 (65-105)
[2020-04-21] MEDS: dexmedeTOMIDine 400 MCG/100 ML 400 MCG/100 ML BAG 8 MCG IV CONT (18:54)
--- NOTE | 2020-04-21 19:55 | PC.NURSE ---
Dialysis nurse unable to successfully access dialysis access. Dr. Gonzalez notified, and advised he will discuss insertion of non-tunneled dialysis catheter tomorrow, 04/22/20, with Dr. Duarte.
--- NOTE | 2020-04-21 20:02 | ECG_ITS ---
Measurements Intervals [place] Rate: 112 P: DE: 0 QRS: -20 QRSD: 103 T: 125 QT: 336 QTc: 461 Interpretive Statements ATRIAL FIBRILLATION WITH RAPID VENTRICULAR RESPONSE DELAYED PRECORDIAL R/S TRANSITION ST-T WAVE ABNORMALITY IN HIGH LATERAL LEADS- CONSIDER ISCHEMIA BASELINE ARTIFACT- I, II ABNORMAL ECG Electronically Signed On 04-22-2020 12:26:53 FABRICATION TECHNICIAN by David Le D.O.
[2020-04-22] VITALS (37 sets, daily range): BP systolic 62–163; BP diastolic 18–99; PULSE 88–134; RESP 18–26; TEMP 35.5–37.5; O2SAT 92–98
[2020-04-22] MEDS: INSULIN ASPART (*BKC) 100 UNITS/ML SUB-Q ×3 (00:41→11:30)
[2020-04-22 00:56] LABS: Glucose Point of Care 265 (65-105)
[2020-04-22] MEDS: dexmedeTOMIDine 400 MCG/100 ML 400 MCG/100 ML BAG 12 MCG IV CONT (01:41)
[2020-04-22] MEDS: NOREPINEPHRINE 8 MG/D5W 250 ML 8 MG/250 ML BAG 22.5 MG IV CONT (03:05)
[2020-04-22 05:01] LABS: Hematocrit 24.6 % (42.0-52.0); Hemoglobin 8.6 g/dL (14.0-18.0); Mean Corpuscular Hemoglobin 29.3 pg (26-34); Mean Corpuscular Volume 83.7 fl (80-100); Platelet Count Result 109 k/mm3 (150-375); Red Blood Count 2.94 M/mm3 (4.6-6.20); Red Cell Distribution Width 17.8 % (11.5-14.5)
[2020-04-22] MEDS: CENTRAL LINE FLUSH 10 ML IV PUSH ×5 (05:06→21:05)
[2020-04-22] MEDS: HYDROCORTISONE SODIUM SUCCINATE 100 MG/2 ML VIAL IV PUSH ×3 (05:06→21:03)
[2020-04-22 05:10] LABS: Alveolar/Arterial O2 Gradient 435.8 mmHg; Base Excess ABG -4.1 mEq/l (+/-2.0); Carboxyhemoglobin 0.3 % THb (0-2.0); Device VENTILATOR; Fractional Inspired Oxygen 80 %; HCO3 ABG 20.2 mEq/l (22.0-26.0); Methemoglobin ABG 0.2 %THb (0-1.5); Modified Allen's Test Pass; Oxygen Content ABG 14.2 %vol (16.0-22.0); Oxygen Saturation ABG 97.5 % (95.0-100.0); Oxyhemoglobin 95.9 % THb (90.0-100.0); PCO2 ABG 33.9 mmHg (35.0-45.0); PO2 FiO2 Ratio Arterial Blood 1.24 %; Reduced Hemoglobin 3.6 %THb (0-5.0); Site Drawn LEFT RADIAL; Total Hemoglobin 10.4 g/dL (12.0-18.0); pH ABG 7.393 (7.350-7.450)
[2020-04-22 05:11] LABS: Arterial Blood Gas PEEP 5 cmH2O; Arterial Blood Gas Tidal Volume 500 ml; Arterial Blood Gas Vent Mode CMV; Arterial Blood Gas Ventilator rate 22 /MIN
[2020-04-22 05:53] LABS: Alanine Aminotransferase 269 U/L (4-50); Albumin Level 2.5 g/dL (3.5-5.1); Alkaline Phosphatase 463 U/L (38-126); Anion Gap 15 mmol/L (8-16); Aspartate Amino Transferase 68 U/L (17-59); Bilirubin,Total 13.8 mg/dL (0.2-1.3); Calcium 5.9 mg/dL (8.4-10.2); Carbon Dioxide 23 mmol/L (22-30); Chloride 92 mmol/L (98-107); Estimated CRCL calculation 23 ml/min; Estimated Glomerular Filt Rate 12; Glucose 265 mg/dL (75-110); Magnesium 2.9 mg/dL (1.6-2.3); Phosphorus 10.8 mg/dL (2.5-4.5); Sodium 130 mmol/L (137-145)
[2020-04-22 06:36] LABS: Glucose Point of Care 271 (65-105)
[2020-04-22 06:58] LABS: Blood Urea Nitrogen 164 mg/dL (9-20)
[2020-04-22 09:00] LABS: INR 1.7; Partial Thromboplastin Time 29.5 SECONDS (22.3-36.8); Prothrombin Time 20.4 Seconds (11.1-14.7)
[2020-04-22] MEDS: MIDAZOLAM HCL (*CRX) 2 MG/2 ML VIAL IV PUSH ×4 (10:17→16:51)
[2020-04-22] MEDS: PANTOPRAZOLE SODIUM IV 40 MG VIAL IV PUSH ×2 (10:19→20:56)
--- NOTE | 2020-04-22 11:16 | PCDIET ---
Nutrition Note: Tube feedings held for line placement earlier today, but have since resumed at 10mL/hr (Nepro) with 30mL water flush every 4 hours. Recommend gradual advancement of Nepro toward goal of 50mL/hr. If medically appropriate, would also consider use of phosphorus binder (ideally calcium based). Last recorded weight is 156.8 kg which is down from last review. -I/O. Bowel Motility: No documented BM. Labs Reviewed: Hgb (8.6), Hct (24.6), Glu (265), BUN (164), Cr (5.2), Na (130), Alb (2.5), PO4 (10.8) Meds Noted: Albumin, Rocephin, Precedex, Fentanyl, Solu Cortef, Novolog, Levemir, Levophed, Protonix Additional Notes: No change in skin noted. Will follow up 04/23/20 as scheduled.
[2020-04-22] MEDS: INSULIN DETEMIR 100 UNITS/ML 26 UNITS SUB-Q ×2 (11:30→20:54)
[2020-04-22] MEDS: dexmedeTOMIDine 400 MCG/100 ML 400 MCG/100 ML BAG IV CONT (11:32)
[2020-04-22 11:39] LABS: Glucose Point of Care 291 (65-105)
--- NOTE | 2020-04-22 13:24 | P.PNNP_ITS ---
Progress Note: A&P Assessment and Plan (1) Acute hyperkalemia: Code(s): E87.5 - Hyperkalemia Status: Acute Assessment and Plan: * Resolved (2) QUANG (acute kidney injury): Code(s): N17.9 - Acute kidney failure, unspecified Status: Acute Assessment and Plan: * likely ATN from hemodynamic instability, shock, cardiac arrest, and severe anemia * May be some contribution from the abdominal process. * Pre renal factors always play a role in those with hypotension as well. * dialysis at attempted yesterday but the fistula could not be cannulated. So he has a catheter now and will start dialysis shortly. * Persistence of the acute kidney injury could be related to his severity of COVID or possibly abdominal process? Surgery is on the case. He is too big to fit into the CT scan machine. 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 * Hemoglobin still stable since he got a blood transfusion (5) Acute GI bleeding: Onset Date: ~04/13/20 Code(s): K92.2 - Gastrointestinal hemorrhage, unspecified Status: Acute Assessment and Plan: * No black or bloody stools noted (6) Paroxysmal atrial fibrillation: Code(s): I48.0 - Paroxysmal atrial fibrillation Status: Chronic Assessment and Plan: * Heart rate doing okay * Off amiodarone (7) History of kidney transplant: Onset Date: ~1990 Code(s): Z94.0 - Kidney transplant status Status: Chronic Assessment and Plan: * holding MMF and tacrolimus. * He is on steroids. (8) Diabetes: Code(s): E11.9 - Type 2 diabetes mellitus without complications Status: Chronic Assessment and Plan: * follow accuchecks * on SSI Discussed case with Dr. Duarte. Subjective Date/time seen: 04/22/20 13:24 Interval history: Rinku it is on the ventilator, sedated. He is still on only Levophed Review of Systems Review of Systems: ROS unobtainable: Yes unobtainable due to medical condition Exam Narrative: Exam Narrative: General: WD/WN male intubated and sedated Heart: normal S1 and S2; no rub or gallop Lungs: coarse breath sounds throughout Abdomen: soft, hypoactive bowel sounds. he has a drain and dressings over a not completely closed wound. Follow odor emanating there from. Extremities: 1+ edema Skin: No rash or subcu nodules Objective Data Vital Signs Vital Signs: Vital Signs - 24 hr 04/21/20 14:00 04/21/20 14:50 04/21/20 15:03 Temperature Pulse Rate 102 H 106 H 106 H Respiratory Rate 22 H Blood Pressure 137/85 137/85 Pulse Oximetry 95 96 04/21/20 15:55 04/21/20 16:00 04/21/20 16:47 Temperature 36.9 C Pulse Rate 113 H 111 H 108 H Respiratory Rate 22 H Blood Pressure 94/54 L Pulse Oximetry 93 93 04/21/20 17:04 04/21/20 18:00 04/21/20 18:54
--- NOTE | 2020-04-22 13:24 | PM.PNNEP ---
Progress Note: A&P Assessment and Plan (1) Acute hyperkalemia: Code(s): E87.5 - Hyperkalemia Status: Acute Assessment and Plan: Resolved (2) QUANG (acute kidney injury): Code(s): N17.9 - Acute kidney failure, unspecified Status: Acute Assessment and Plan: likely ATN from hemodynamic instability, shock, cardiac arrest, and severe anemia May be some contribution from the abdominal process. Pre renal factors always play a role in those with hypotension as well. dialysis at attempted yesterday but the fistula could not be cannulated. So he has a catheter now and will start dialysis shortly. Persistence of the acute kidney injury could be related to his severity of COVID or possibly abdominal process? Surgery is on the case. He is too big to fit into the CT scan machine. 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 Hemoglobin still stable since he got a blood transfusion (5) Acute GI bleeding: Onset Date: ~04/13/20 Code(s): K92.2 - Gastrointestinal hemorrhage, unspecified Status: Acute Assessment and Plan: No black or bloody stools noted (6) Paroxysmal atrial fibrillation: Code(s): I48.0 - Paroxysmal atrial fibrillation Status: Chronic Assessment and Plan: Heart rate doing okay Off amiodarone (7) History of kidney transplant: Onset Date: ~1990 Code(s): Z94.0 - Kidney transplant status Status: Chronic Assessment and Plan: holding MMF and tacrolimus. He is on steroids. (8) Diabetes: Code(s): E11.9 - Type 2 diabetes mellitus without complications Status: Chronic Assessment and Plan: follow accuchecks on SSI Discussed case with Dr. Duarte. Subjective Date/time seen: 04/22/20 13:24 Interval history: Rinku it is on the ventilator, sedated. He is still on only Levophed Review of Systems Review of Systems: ROS unobtainable: Yes unobtainable due to medical condition Exam Narrative: Exam Narrative: General: WD/WN male intubated and sedated Heart: normal S1 and S2; no rub or gallop Lungs: coarse breath sounds throughout Abdomen: soft, hypoactive bowel sounds. he has a drain and dressings over a not completely closed wound. Follow odor emanating there from. Extremities: 1+ edema Skin: No rash or subcu nodules Objective Data Vital Signs Vital Signs: Vital Signs - 24 hr 04/21/20 14:00 04/21/20 14:50 04/21/20 15:03 Temperature Pulse Rate 102 H 106 H 106 H Respiratory Rate 22 H Blood Pressure 137/85 137/85 Pulse Oximetry 95 96 04/21/20 15:55 04/21/20 16:00 04/21/20 16:47 Temperature 36.9 C Pulse Rate 113 H 111 H 108 H Respiratory Rate 22 H Blood Pressure 94/54 L Pulse Oximetry 93 93 04/21/20 17:04 04/21/20 18:00 04/21/20 18:54 Temperature 36.9 C Pulse Rate 113 H 114 H 120 H Respiratory Rate 22 H 22 H Blood Pressure 104/54 L 96/74 L Pulse Oximetry 92 04/21/20 18:58 04/21/20 20:00 04/21/20 20:04 Temperature 37.0 C 36.9 C Pulse Rate 114 H 114 H 112 H Respiratory Rate 22 H 24 H 24 H Blood Pressure 119/60 94/56 L 94/56 L Pulse Oximetry 93 93 04/21/20 20:18 04/21/20 22:00 04/21/20 22:50 Temperature Pulse Rate 108 H 107 H 102 H Respiratory Rate 24 H Blood Pressure 120/66 Pulse Oximetry 94 94 94 04/21/20 23:12 04/22/20 00:00 04/22/20 00:41 Temperature 37.0 C Pulse Rate 93 Respiratory Rate 24 H Blood Pressure 126/63 113/58 L 112/74 Pulse Oximetry 93 04/22/20 01:41 04/22/20
[2020-04-22] MEDS: NOREPINEPHRINE 8 MG/D5W 250 ML 8 MG/250 ML BAG 37.5 MG IV CONT (14:06)
[2020-04-22] MEDS: SODIUM CHLORIDE 0.9% IV 1,000 ML 999 ML IV CONT (14:34)
[2020-04-22 15:04] LABS: Alanine Aminotransferase 233 U/L (4-50); Albumin Level 2.5 g/dL (3.5-5.1); Alkaline Phosphatase 510 U/L (38-126); Anion Gap 13 mmol/L (8-16); Aspartate Amino Transferase 67 U/L (17-59); Bilirubin,Total 12.7 mg/dL (0.2-1.3); Carbon Dioxide 25 mmol/L (22-30); Chloride 94 mmol/L (98-107); Estimated CRCL calculation 30 ml/min; Estimated Glomerular Filt Rate 16; Glucose 238 mg/dL (75-110); Potassium 3.6 mmol/L (3.4-5.0); Sodium 132 mmol/L (137-145)
[2020-04-22 15:09] LABS: Blood Urea Nitrogen 138 mg/dL (9-20)
--- NOTE | 2020-04-22 15:11 | WPDINTPN ---
Progress Note: A&P Assessment and Plan (1) Acute respiratory failure: Qualifiers: Respiratory failure complication: unspecified whether with hypoxia or hypercapnia Qualified Code(s): J96.00 - Acute respiratory failure, unspecified whether with hypoxia or hypercapnia Code(s): J96.00 - Acute respiratory failure, unspecified whether with hypoxia or hypercapnia Status: Acute Assessment and Plan: Patient with hemorrhagic shock, hypertensive, acidotic, decreased mentation on 04/14 was emergently intubated for ventilatory support -oxygen requirements going up likely related to volume overload, -patient currently on CMV mode of ventilation, peep of 5 and 80% FiO2, wean FiO2 -patient off all sedation greater than 48 hours, open his eyes, followed simple commands -CT head on 04/20/2020 with no acute intracranial findings - Dialysis catheter placed, patient will be dialyzed today (2) Cardiac arrest with ventricular fibrillation: Code(s): I46.9 - Cardiac arrest, cause unspecified; I49.01 - Ventricular fibrillation Status: Acute Assessment and Plan: Is patient with VFib arrest on 04/14/2020 hemorrhagic/hypovolemic shock secondary to acute significant GI bleed. Could be related to elevated potassium -ROSC after 6 minutes. This patient taken to surgery Only on Levophed at this time -off amiodarone infusion -troponin elevated, likely secondary to cardiac arrest -appreciate Cardiology evaluation recommendation (3) Hemorrhagic shock: Code(s): R57.8 - Other shock Status: Acute Assessment and Plan: Hemorrhagic shock likely related to acute GI bleed, from bleeding duodenal ulcer -patient with severe anemia status post large amount of blood transfusion -patient remains on Levophed only (4) Acute GI bleeding: Onset Date: ~04/13/20 Code(s): K92.2 - Gastrointestinal hemorrhage, unspecified Status: Acute Assessment and Plan: Patient presented with dark red stools along with vomiting coffee-ground emesis. -EGD done on 04/13/2020 showed duodenal ulcers were cauterized with gold probe successfully -patient continues to have bloody bowel movements, repeat EGD on 04/14/2020 shows acute active duodenal ulcer bleeding. Epinephrine and clips x3 were applied. - 04/14/2020: Patient underwent Ex lap with extensive lysis of adhesions, pyloroplasty with oversewing bleeding duodenal ulcer and ligation of bleeding vessel in the posterior sac -hemoglobin has been stable for > 48 hours -PPI to IV q.12 hours -discussed with surgery, will increase tube feeds -patient with increasing leukocytosis, still started ertapenem on 04/22/2020, as patient is having foul-smelling drainage from his incision and the SERGE to drain. Discussed with surgery (5) Paroxysmal atrial fibrillation: Code(s): I48.0 - Paroxysmal atrial fibrillation Status: Chronic Assessment and Plan: Currently in A fib rate controlled -not on any anticoagulation secondary to bleeding ulcer and hemorrhagic shock -not on amiodarone anymore (6) QUANG (acute kidney injury): Code(s): N17.9 - Acute kidney failure, unspecified Status: Acute Assessment and Plan: Patient with acute on chronic kidney disease, creatinine improving, urine output has been decreased most likely related to hemorrhagic/hypovolemic shock due to acute GI bleed. -patient has a history of renal transplants x2 -creatinine trending up, will hold diuresis as per discussion with Nephrology -lactic acid improved -urine output slowing down, BUN and creatinine rising, discussed with Nephrology, dialysis access placed early this morning. Patient to get dialyzed today (7) Thrombocytopenia: Code(s): D69.6 - Thrombocytopenia, unspecified Status: Chronic Assessment and Plan: Thrombocytopenia likely consumptive, also could be due to immunosuppressive treatment for his renal transplant Patient received more platelet
--- NOTE | 2020-04-22 15:35 | PM.IMPN ---
Progress Note: A&P Assessment and Plan (1) Cardiac arrest with ventricular fibrillation: Code(s): I46.9 - Cardiac arrest, cause unspecified; I49.01 - Ventricular fibrillation Status: Acute Assessment and Plan: Patient developed VFib arrest evening on 04/14 probably related to hypovolemic shock from acute blood loss. He did have elevated potassium earlier in the day which could have contributed to this. ROSC after 6 minutes. Patient taken to surgery later that evening. Patient currently stable but remains in critical condition. Trop 4.2 at peak but not unexpected after a code blue. (2) Acute respiratory failure: Qualifiers: Respiratory failure complication: unspecified whether with hypoxia or hypercapnia Qualified Code(s): J96.00 - Acute respiratory failure, unspecified whether with hypoxia or hypercapnia Code(s): J96.00 - Acute respiratory failure, unspecified whether with hypoxia or hypercapnia Status: Acute Assessment and Plan: Patient became obtunded requiring intubation on 04/14. A short time later, code blue was called. He remains on mechanical ventilation. . Chest x-ray reviewed and showing pulmonary edema with lower lobe airspace disease. Patient with fevers and has tested positive for COVID. BCx NGTD. Sputum Cx growing H.flu. Ceftriaxone started 04/18. Fevers have waned. O2 requirements have increased thought secondary to volume overload (3) COVID-19: Code(s): U07.1 - COVID-19 Status: Acute Assessment and Plan: Patient had intermittent fevers but developed more persistent fevers on 04/14. He was tested and found to be positive for COVID on 04/16/20. Currently on steroids. No Remdesivir due to QUANG. (4) Hemorrhagic shock: Code(s): R57.8 - Other shock Status: Acute Assessment and Plan: Patient with acute blood loss resulting in hemorrhagic shock. Currently on NE but able to come off of PLASTER [employer]M [employer]KER and phenylephrine. Hgb 8.6 this am , stable past 48 hours. Hydrocortisone added for pressure and for anti-rejection. Albumin 2.2. Received albumin but currently off now. (5) Acute GI bleeding: Onset Date: ~04/13/20 Code(s): K92.2 - Gastrointestinal hemorrhage, unspecified Status: Acute Assessment and Plan: Acute GI bleeding secondary to duodenal ulcer complicated by recent anticoagulant use. BRBPR and with coffee ground emesis consistent with brisk upper GI bleed with rapid transit. Patient has received 17 units of packed red blood cells in total. EGD twice has failed to stop the bleeding. Patient underwent emergency surgery 04/14 with exploratory laparotomy, extensive lysis of adhesions, ligation of bleeding vessel in the posterior sac, and pyloroplasty with over-sewing bleeding duodenal ulcer. Patient has done well thus far and is showing signs of improvement. Monitor HH closely for stability. (6) Acute hyperkalemia: Code(s): E87.5 - Hyperkalemia Status: Acute Assessment and Plan: The patient's potassium was as high as 7.2 on admission and has been elevated at times. The patient was treated appropriately including HD. Recent potassium levels normal. Continue to follow. (7) QUANG (acute kidney injury): Code(s): N17.9 - Acute kidney failure, unspecified Status: Acute Assessment and Plan: QUANG related to above with acute blood loss and now code blue. Cr stable at 4.0 today ). Suspect pre-renal and ATN from shock. Patient is s/p renal transplant and he is off his anti-rejection meds. Steroids started for anti-rejection treatment. Volume overload so dialysis will be started today after catheter placed. Attempted dialysis through left arm shunt 04/21 but unable to be cannulated (8) Acute on chronic anemia: Code(s): D64.9 - Anemia, unspecified Status: Acute Assessment and Plan: With a baseline hemoglobin running in the 10-11 range mo
--- NOTE | 2020-04-22 15:45 | PM.PNGS ---
Progress Note: A&P Assessment and Plan (1) Acute GI bleeding: Onset Date: ~04/13/20 Code(s): K92.2 - Gastrointestinal hemorrhage, unspecified Status: Acute Assessment and Plan: Still no evidence of ongoing bleeding. May start increasing tube feedings through the NG tube. WBC increasing, at 22,000 today. Foul-smelling purulent drainage from upper midline incision and SERGE drain concerning for intra-abdominal infection. Unable to perform CT a/p because of patient's body habitus. Culture taken of the drainage from the midline abdominal incision, results pending. Agree with adding IV Ertapenem for antimicrobial coverage. I removed the young and opened up the midline abdominal incision today. Will start wet to dry gauze dressings and ask the wound care nurses to evaluate the patient tomorrow for possible wound VAC placement. Continue to trend labs and monitor. (2) Shock: Code(s): R57.9 - Shock, unspecified Status: Acute Assessment and Plan: Still on levophed for vasopressor support. WBC increasing, see plan above. Continue care per CCP and wean vasopressors as tolerated. (3) Shock liver: Code(s): K72.00 - Acute and subacute hepatic failure without coma Status: Acute Assessment and Plan: Total bilirubin 12.7 today, down some but still very elevated. Continue to trend. (4) COVID-19: Code(s): U07.1 - COVID-19 Status: Acute Assessment and Plan: Still on mechanical ventilator. Wean vent per CCP. (5) Acute kidney injury superimposed on CKD: Code(s): N17.9 - Acute kidney failure, unspecified; N18.9 - Chronic kidney disease, unspecified Status: Acute Assessment and Plan: Creatinine better today at 4.0. Additional Plan Discussed and formulated plan of care with Dr. Geiger today. Subjective Subjective Date/Time Seen: 04/22/20 15:45 Post Op day: 8 Interval history: Patient on mechanical ventilation and sedated. Review of Systems Review of Systems: ROS unobtainable: Yes unobtainable due to endotracheal tube and unobtainable due to mental status Exam Const: General: no acute distress Resp: Effort & Inspection: abnormal respiratory pattern ( On mechanical ventilator) Auscultation: diminished lung sounds bilateral Cardio: Rate: regular rate Rhythm: regular rhythm GI: Inspection: obesity GI Palp: Yes Soft to palpation (protuberant) Auscultation: normal bowel sounds ( good bowel sounds noted today) Other: upper midline incision with young intact and dark sanguineous, cloudy, foul-smelling drainage. Young removed and incision opened, cleaned wound with sterile saline and gauze. Diallo fibrinous debri throughout the wound, fascia intact. Applied a wet to dry dressing. LUQ SERGE drain with similar drainage - dark, purulent sanguineous drainage. Urinary Catheter: Urinary Catheter: patent and draining and urine clear Skin: General skin exam: jaundice Neuro: Other: [id number], sedated and on vent. Not following commands for me but did open eyes. Objective Data Vital Signs Vital Signs: Vital Signs - 24 hr 04/21/20 15:55 04/21/20 16:00 04/21/20 16:47 Temperature 98.4 F Pulse Rate 113 H 111 H 108 H Respiratory Rate 22 H Blood Pressure 94/54 L Pulse Oximetry 93 93 04/21/20 17:04 04/21/20 18:00 04/21/20 18:54 Temperature 98.5 F Pulse Rate 113 H 114 H 120 H Respiratory Rate 22 H 22 H Blood Pressure 104/54 L 96/74 L Pulse Oximetry 92 04/21/20 18:58 04/21/20 20:00 04/21/20 20:04 Temperature 98.6 F 98.5 F Pulse Rate 114 H 114 H 112 H Respiratory Rate 22 H 24 H 24 H Blood Pressure 119/60 94/56 L 94/56 L Pulse Oximetry 93 93 04/21/20 20:18 04/21/20 22:00 04/21/20 22:50 Temperature Pulse Rate 108 H 107 H 102 H Respiratory Rate 24 H Blood Pressure 120/66 Pulse Oximetry 94 94 94 04/21/20 23:12 04/22/20 00:00 04/22/20 00:41 Temperature 98.6 F Pulse Rate 93 Respiratory Rate 24 H Blood Pre
[2020-04-22] MEDS: HEPARIN SODIUM 1,000 UNITS/ML VIAL 5000 UNITS (16:43)
[2020-04-22] MEDS: ERTAPENEM 1 GM/NS 50 ML 1 GM/50 ML BAG IVPB (17:22)
--- NOTE | 2020-04-22 18:58 | WPDPROCEDUR ---
Procedures Central Line Placement Left IJ: Central Line Date: 04/22/20 Discussed w/ the patient/family/POA,the placement of a central venous catheter, including its clinical necessity/indication & associated potential risks, benifits and alternatives.: Yes The patient/family/POA understand(s) and acknowledge(s) the need to proceed with central venous catheter insertion as an important element of the patient's clinical management.: Yes Consent: Consent was obtained from the , Maryse for DIALYSIS CATHETER Time Out Performed: Yes Patient Position: supine Patient placed on monitor/pulse ox: Yes Provider Prep: mask, sterile gown, sterile gloves, Max. sterile barrier precautions, cap (PAPR) and hand hygiene with conventional soap/water or alcohol based hand rub Central line prep: 2% Chlorhexidine scrub and sterile full body sheet applied Local anesthesia used: lidocaine 1% Amount of anesthesia used (ml): 3 Sterile US Technique with sterile gel/sterile probe covers: Yes Central line lumen inserted: triple Post Procedure: sutured in place, good blood return, all ports aspirated, flushed, capped, transparent dressing, hemostatic product, antimicrobial product, securement product and aseptic technique maintained throughout procedure Post procedure x-ray: tip of catheter in good position and no pneumothorax seen Patient tolerated procedure: well Complications: none Arterial Line Size (Gauge): 18
[2020-04-22 20:43] LABS: Glucose Point of Care 183 (65-105)
[2020-04-22 21:25] LABS: Glucose Point of Care 207 (65-105)
[2020-04-23] VITALS (49 sets, daily range): BP systolic 71–145; BP diastolic 27–116; PULSE 99–128; RESP 20–43; TEMP 35.5–38.5; O2SAT 86–95
[2020-04-23] MEDS: INSULIN ASPART (*BKC) 100 UNITS/ML SUB-Q ×3 (00:21→13:14)
[2020-04-23] MEDS: dexmedeTOMIDine 400 MCG/100 ML 400 MCG/100 ML BAG 20 MCG IV CONT ×5 (00:29→20:57)
[2020-04-23 00:32] LABS: Glucose Point of Care 202 (65-105)
[2020-04-23] MEDS: NOREPINEPHRINE 8 MG/D5W 250 ML 8 MG/250 ML BAG 18.75 MG IV CONT ×2 (04:01→18:57)
[2020-04-23] MEDS: CENTRAL LINE FLUSH 10 ML IV PUSH ×6 (05:45→20:49)
[2020-04-23 05:52] LABS: Alveolar/Arterial O2 Gradient 245.1 mmHg; Base Excess ABG -1.3 mEq/l (+/-2.0); Fractional Inspired Oxygen 50 %; HCO3 ABG 22.5 mEq/l (22.0-26.0); Methemoglobin ABG 0.3 %THb (0-1.5); Oxygen Content ABG 19.7 %vol (16.0-22.0); Oxygen Saturation ABG 94.9 % (95.0-100.0); Oxyhemoglobin 92.3 % THb (90.0-100.0); PCO2 ABG 35.1 mmHg (35.0-45.0); PO2 ABG 71.9 mmHg (80.0-100.0); PO2 FiO2 Ratio Arterial Blood 1.44 %; Reduced Hemoglobin 6.4 %THb (0-5.0); Total Hemoglobin 15.2 g/dL (12.0-18.0); pH ABG 7.424 (7.350-7.450)
[2020-04-23 05:53] LABS: Arterial Blood Gas PEEP 5 cmH2O; Arterial Blood Gas Tidal Volume 500 ml; Arterial Blood Gas Vent Mode CMV; Arterial Blood Gas Ventilator rate 22 /MIN; Device VENTILATOR; Modified Allen's Test Pass; Site Drawn RIGHT RADIAL
[2020-04-23] MEDS: HYDROCORTISONE SODIUM SUCCINATE 100 MG/2 ML VIAL IV PUSH ×3 (05:55→21:18)
[2020-04-23 06:05] LABS: Hematocrit 25.6 % (42.0-52.0); Hemoglobin 8.8 g/dL (14.0-18.0); Mean Corpuscular HGB Conc 34.4 g/dl (32-36); Mean Corpuscular Hemoglobin 29.7 pg (26-34); Mean Corpuscular Volume 86.5 fl (80-100); Mean Platelet Volume 10.2 fl (7.4-10.4); Platelet Count Result 98 k/mm3 (150-375); Red Blood Count 2.96 M/mm3 (4.6-6.20); White Blood Count 20.1 K/mm3 (4.5-10.0)
[2020-04-23 06:08] LABS: D Dimer 2.26 ug/mL (<0.48)
[2020-04-23 06:16] LABS: Alanine Aminotransferase 192 U/L (4-50); Albumin Level 2.5 g/dL (3.5-5.1); Alkaline Phosphatase 504 U/L (38-126); Anion Gap 15 mmol/L (8-16); Aspartate Amino Transferase 71 U/L (17-59); Bilirubin,Total 13.6 mg/dL (0.2-1.3); Calcium 5.9 mg/dL (8.4-10.2); Carbon Dioxide 23 mmol/L (22-30); Chloride 95 mmol/L (98-107); Estimated CRCL calculation 28 ml/min; Estimated Glomerular Filt Rate 15; Glucose 203 mg/dL (75-110); Lactate Dehydrogenase 921 U/L (313-618); Magnesium 2.8 mg/dL (1.6-2.3); Phosphorus 9.1 mg/dL (2.5-4.5); Sodium 133 mmol/L (137-145)
[2020-04-23 06:24] LABS: CRP 16.4 mg/dL (<1.0)
[2020-04-23 06:25] LABS: Blood Urea Nitrogen 138 mg/dL (9-20)
[2020-04-23] MEDS: INSULIN DETEMIR 100 UNITS/ML 26 UNITS SUB-Q ×2 (09:16→20:41)
[2020-04-23 09:41] LABS: Glucose Point of Care 202 (65-105)
[2020-04-23] MEDS: PANTOPRAZOLE SODIUM IV 40 MG VIAL IV PUSH ×2 (10:15→20:50)
--- NOTE | 2020-04-23 11:13 | PCDIET ---
Nutrition Follow-Up Complete: Nutrition Diagnosis: Inadequate oral intake related to inability to consume foods orally due to mechanical ventilation as evidence by NPO order Nutrition Goal: Total intake will meet estimated nutrition needs Goal in progress. Tube feedings held overnight for reported residuals. RN reports some bile from NG this morning. MD ordered to resume Nepro at 10mL/hr with possible increase to 20mL/hr later today, if tolerated. Once able, would recommend goal rate of 50mL/hr Nepro. If medically appropriate, may also consider medication to promote GI motility. Last recorded weight is 155.6 kg which is down from last review. -I/O. Patient to have dialysis today. Had 1L UF on 04/22/20. Bowel Motility: No documented BM. Labs Reviewed: Hgb (8.8), Hct (25.6), Glu (203), BUN (138), Cr (4.2), Na (133), Alb (2.5), Daiana Ca (7.1), PO4 (9.1) Meds Noted: Rocephin, Solu Cortef, Levophed, Precedex, Novolog, Protonix, Invanz, Levemir Additional Notes: Wound nurse to see re: abdominal incision. Will continue to monitor with same goal. Nutrition Monitoring and Evaluation: Follow up every Sunday/Sunday.
[2020-04-23 11:39] LABS: Glucose Point of Care 240 (65-105)
--- NOTE | 2020-04-23 13:30 | P.PNNP_ITS ---
Progress Note: A&P Assessment and Plan (1) Acute hyperkalemia: Code(s): E87.5 - Hyperkalemia Status: Acute Assessment and Plan: * Resolved (2) QUANG (acute kidney injury): Code(s): N17.9 - Acute kidney failure, unspecified Status: Acute Assessment and Plan: * likely ATN from hemodynamic instability, shock, cardiac arrest, and severe anemia * May be some contribution from the abdominal process. * Dialysis went better yesterday and the catheter is working well again today. 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 * Hemoglobin still stable in the 8s (5) Acute GI bleeding: Onset Date: ~04/13/20 Code(s): K92.2 - Gastrointestinal hemorrhage, unspecified Status: Acute Assessment and Plan: * No black or bloody stools noted * Some tenderness in the belly. Still has some drainage from the wounds. * White cell count is up a little bit. (6) Paroxysmal atrial fibrillation: Code(s): I48.0 - Paroxysmal atrial fibrillation Status: Chronic Assessment and Plan: * Heart rate doing okay * Off amiodarone (7) History of kidney transplant: Onset Date: ~1990 Code(s): Z94.0 - Kidney transplant status Status: Chronic Assessment and Plan: * holding MMF and tacrolimus. * He is on steroids. (8) Diabetes: Code(s): E11.9 - Type 2 diabetes mellitus without complications Status: Chronic Assessment and Plan: * follow accuchecks * on SSI Discussed case with Dr. Duarte. Subjective Date/time seen: 04/23/20 13:30 Interval history: Rinku lucero is on the ventilator, sedated. He is on dialysis and tolerating it well. He was seen at 1:15 p.m. Review of Systems Review of Systems: ROS unobtainable: Yes unobtainable due to medical condition Exam Narrative: Exam Narrative: General: WD/WN male intubated and sedated Heart: normal S1 and S2; no rub or gallop Lungs: coarse breath sounds throughout Abdomen: soft, hypoactive bowel sounds. lines tender with belly palpation Extremities: 1+ edema Skin: No rash or subcu nodules Objective Data Vital Signs Vital Signs: Vital Signs - 24 hr 04/22/20 13:49 04/22/20 14:00 04/22/20 14:06 Temperature Pulse Rate 102 H 95 102 H Respiratory Rate 24 H Blood Pressure 111/72 102/57 L 62/18 L Pulse Oximetry 94 04/22/20 14:15 04/22/20 14:30 04/22/20 14:45 Temperature Pulse Rate 95 114 H 112 H Respiratory Rate Blood Pressure 128/84 152/71 H 163/78 H Pulse Oximetry 04/22/20 15:00 04/22/20 15:15 04/22/20 15:30 Temperature Pulse Rate 134 H 127 H 111 H Respiratory Rate Blood Pressure 90/49 L 110/85 107/96 H Pulse Oximetry 04/22/20 15:35 04/22/20 15:45 04/22/20 15:57 T
--- NOTE | 2020-04-23 13:30 | PM.PNNEP ---
Progress Note: A&P Assessment and Plan (1) Acute hyperkalemia: Code(s): E87.5 - Hyperkalemia Status: Acute Assessment and Plan: Resolved (2) QUANG (acute kidney injury): Code(s): N17.9 - Acute kidney failure, unspecified Status: Acute Assessment and Plan: likely ATN from hemodynamic instability, shock, cardiac arrest, and severe anemia May be some contribution from the abdominal process. Dialysis went better yesterday and the catheter is working well again today. 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 Hemoglobin still stable in the 8s (5) Acute GI bleeding: Onset Date: ~04/13/20 Code(s): K92.2 - Gastrointestinal hemorrhage, unspecified Status: Acute Assessment and Plan: No black or bloody stools noted Some tenderness in the belly. Still has some drainage from the wounds. White cell count is up a little bit. (6) Paroxysmal atrial fibrillation: Code(s): I48.0 - Paroxysmal atrial fibrillation Status: Chronic Assessment and Plan: Heart rate doing okay Off amiodarone (7) History of kidney transplant: Onset Date: ~1990 Code(s): Z94.0 - Kidney transplant status Status: Chronic Assessment and Plan: holding MMF and tacrolimus. He is on steroids. (8) Diabetes: Code(s): E11.9 - Type 2 diabetes mellitus without complications Status: Chronic Assessment and Plan: follow accuchecks on SSI Discussed case with Dr. Duarte. Subjective Date/time seen: 04/23/20 13:30 Interval history: Rinku lucero is on the ventilator, sedated. He is on dialysis and tolerating it well. He was seen at 1:15 p.m. Review of Systems Review of Systems: ROS unobtainable: Yes unobtainable due to medical condition Exam Narrative: Exam Narrative: General: WD/WN male intubated and sedated Heart: normal S1 and S2; no rub or gallop Lungs: coarse breath sounds throughout Abdomen: soft, hypoactive bowel sounds. ventilation equipment tender with belly palpation Extremities: 1+ edema Skin: No rash or subcu nodules Objective Data Vital Signs Vital Signs: Vital Signs - 24 hr 04/22/20 13:49 04/22/20 14:00 04/22/20 14:06 Temperature Pulse Rate 102 H 95 102 H Respiratory Rate 24 H Blood Pressure 111/72 102/57 L 62/18 L Pulse Oximetry 94 04/22/20 14:15 04/22/20 14:30 04/22/20 14:45 Temperature Pulse Rate 95 114 H 112 H Respiratory Rate Blood Pressure 128/84 152/71 H 163/78 H Pulse Oximetry 04/22/20 15:00 04/22/20 15:15 04/22/20 15:30 Temperature Pulse Rate 134 H 127 H 111 H Respiratory Rate Blood Pressure 90/49 L 110/85 107/96 H Pulse Oximetry 04/22/20 15:35 04/22/20 15:45 04/22/20 15:57 Temperature Pulse Rate 105 H 111 H 106 H Respiratory Rate 22 H Blood Pressure 65/27 L 122/84 Pulse Oximetry 94 04/22/20 16:00 04/22/20 16:15 04/22/20 16:20 Temperature 37.2 C Pulse Rate 103 H 112 H 105 H Respiratory Rate 25 H Blood Pressure 110/59 L 120/70 120/70 Pulse Oximetry 95 04/22/20 16:30 04/22/20 17:11 04/22/20 18:00 Temperature 37.2 C Pulse Rate 106 H 101 H 93 Respiratory Rate 23 H 24 H Blood Pressure 159/99 H 108/83 Pulse Oximetry 96 96 97 04/22/20 19:50 04/22/20 20:00 04/22/20 20:38 Temperature 37.4 C Pulse Rate 97 101 H Respiratory Rate 22 H Blood Pressure 92/59 L Pulse Oximetry 97 98 96 04/22/20 21:01 04/22/20 22:00 04/22/20 23:20 Temperature 37.5 C Pulse Rate 104 H 100 106 H Respiratory Rate 22 H
[2020-04-23] MEDS: EPOETIN ALFA-EPBX 10,000 UNITS/ML VIAL 10000 UNITS IV PUSH (13:34)
--- NOTE | 2020-04-23 14:09 | WPDINTPN ---
Progress Note: A&P Assessment and Plan (1) Acute respiratory failure: Qualifiers: Respiratory failure complication: unspecified whether with hypoxia or hypercapnia Qualified Code(s): J96.00 - Acute respiratory failure, unspecified whether with hypoxia or hypercapnia Code(s): J96.00 - Acute respiratory failure, unspecified whether with hypoxia or hypercapnia Status: Acute Assessment and Plan: Patient with hemorrhagic shock, hypertensive, acidotic, decreased mentation on 04/14 was emergently intubated for ventilatory support -FiO2 down to 50%, peep of 5 on CMV mode of ventilation. After dialysis and adequate urine output patient already in negative fluid balance overnight -patient on Precedex infusion -CT head on 04/20/2020 with no acute intracranial findings -will continue dialysis for volume overload (2) Cardiac arrest with ventricular fibrillation: Code(s): I46.9 - Cardiac arrest, cause unspecified; I49.01 - Ventricular fibrillation Status: Acute Assessment and Plan: Is patient with VFib arrest on 04/14/2020 hemorrhagic/hypovolemic shock secondary to acute significant GI bleed. Could be related to elevated potassium -ROSC after 6 minutes. This patient taken to surgery Only on Levophed at this time which is being weaned -off amiodarone infusion -troponin elevated, likely secondary to cardiac arrest -appreciate Cardiology evaluation recommendation (3) Hemorrhagic shock: Code(s): R57.8 - Other shock Status: Acute Assessment and Plan: Hemorrhagic shock likely related to acute GI bleed, from bleeding duodenal ulcer -patient with severe anemia status post large amount of blood transfusion -patient remains on Levophed only (4) Acute GI bleeding: Onset Date: ~04/13/20 Code(s): K92.2 - Gastrointestinal hemorrhage, unspecified Status: Acute Assessment and Plan: Patient presented with dark red stools along with vomiting coffee-ground emesis. -EGD done on 04/13/2020 showed duodenal ulcers were cauterized with gold probe successfully -patient continues to have bloody bowel movements, repeat EGD on 04/14/2020 shows acute active duodenal ulcer bleeding. Epinephrine and clips x3 were applied. - 04/14/2020: Patient underwent Ex lap with extensive lysis of adhesions, pyloroplasty with oversewing bleeding duodenal ulcer and ligation of bleeding vessel in the posterior sac -hemoglobin has been stable for > 48 hours -PPI to IV q.12 hours -discussed with surgery, will increase tube feeds -patient with increasing leukocytosis, started ertapenem on 04/22/2020, as patient is having foul-smelling drainage from his incision and the SERGE to drain. Discussed with surgery (5) Paroxysmal atrial fibrillation: Code(s): I48.0 - Paroxysmal atrial fibrillation Status: Chronic Assessment and Plan: Currently in A fib rate controlled -not on any anticoagulation secondary to bleeding ulcer and hemorrhagic shock -not on amiodarone anymore (6) QUANG (acute kidney injury): Code(s): N17.9 - Acute kidney failure, unspecified Status: Acute Assessment and Plan: Patient with acute on chronic kidney disease, creatinine improving, urine output has been decreased most likely related to hemorrhagic/hypovolemic shock due to acute GI bleed. -patient has a history of renal transplants x2 -creatinine trending up, will hold diuresis as per discussion with Nephrology -lactic acid improved -urine output slowing down, BUN and creatinine rising, discussed with Nephrology, dialysis access placed early this morning. Patient to get dialyzed today (7) Thrombocytopenia: Code(s): D69.6 - Thrombocytopenia, unspecified Status: Chronic Assessment and Plan: Thrombocytopenia likely consumptive, also could be due to immunosuppressive treatment for his renal transplant Patient received more platelets on 04/14 -platelets count improving -will monitor
--- NOTE | 2020-04-23 15:38 | PM.IMPN ---
Progress Note: A&P Assessment and Plan (1) Cardiac arrest with ventricular fibrillation: Code(s): I46.9 - Cardiac arrest, cause unspecified; I49.01 - Ventricular fibrillation Status: Acute Assessment and Plan: Patient developed VFib arrest evening on 04/14 probably related to hypovolemic shock from acute blood loss. He did have elevated potassium earlier in the day which could have contributed to this. ROSC after 6 minutes. Patient taken to surgery later that evening. Patient currently stable but remains in critical condition. Trop 4.2 at peak but not unexpected after a code blue. (2) Acute respiratory failure: Qualifiers: Respiratory failure complication: unspecified whether with hypoxia or hypercapnia Qualified Code(s): J96.00 - Acute respiratory failure, unspecified whether with hypoxia or hypercapnia Code(s): J96.00 - Acute respiratory failure, unspecified whether with hypoxia or hypercapnia Status: Acute Assessment and Plan: Patient became obtunded requiring intubation on 04/14. A short time later, code blue was called. He remains on mechanical ventilation. . Chest x-ray reviewed and showing pulmonary edema with lower lobe airspace disease. Patient with fevers and has tested positive for COVID. BCx NGTD. Sputum Cx growing H.flu. Ceftriaxone started 04/18 and changed to ertapenem 04/22. Fevers have waned. O2 requirements have decreased after dialysis with fluid removal (3) COVID-19: Code(s): U07.1 - COVID-19 Status: Acute Assessment and Plan: Patient had intermittent fevers but developed more persistent fevers on 04/14. He was tested and found to be positive for COVID on 04/16/20. Currently on steroids. No Remdesivir due to QUANG. (4) Hemorrhagic shock: Code(s): R57.8 - Other shock Status: Acute Assessment and Plan: Patient with acute blood loss resulting in hemorrhagic shock. Currently on NE but able to come off of BOTTLE GAUGER and phenylephrine. Hgb 8.8 this am , stable past 3 days. Hydrocortisone added for pressure and for anti-rejection. Albumin 2.2. Received albumin but currently off now. (5) Acute GI bleeding: Onset Date: ~04/13/20 Code(s): K92.2 - Gastrointestinal hemorrhage, unspecified Status: Acute Assessment and Plan: Acute GI bleeding secondary to duodenal ulcer complicated by recent anticoagulant use. BRBPR and with coffee ground emesis consistent with brisk upper GI bleed with rapid transit. Patient has received 17 units of packed red blood cells in total. EGD twice has failed to stop the bleeding. Patient underwent emergency surgery 04/14 with exploratory laparotomy, extensive lysis of adhesions, ligation of bleeding vessel in the posterior sac, and pyloroplasty with over-sewing bleeding duodenal ulcer. Patient has done well thus far and is showing signs of improvement. Monitor HH closely for stability. (6) Acute hyperkalemia: Code(s): E87.5 - Hyperkalemia Status: Acute Assessment and Plan: The patient's potassium was as high as 7.2 on admission and has been elevated at times. The patient was treated appropriately including HD. Recent potassium levels normal. Continue to follow. (7) QUANG (acute kidney injury): Code(s): N17.9 - Acute kidney failure, unspecified Status: Acute Assessment and Plan: QUANG related to above with acute blood loss and now code blue. Cr stable at 4.2 today ). Suspect pre-renal and ATN from shock. Patient is s/p renal transplant and he is off his anti-rejection meds. Steroids started for anti-rejection treatment. Volume overload so dialysis started 04/22 after catheter placed. Attempted dialysis through left arm shunt 04/21 but unable to be cannulated repeat dialysis scheduled for today (8) Acute on chronic anemia: Code(s): D64.9 - Anemia, unspecified Status: Acute Assessment and Plan: With
[2020-04-23] MEDS: HEPARIN SODIUM 1,000 UNITS/ML VIAL 3000 UNITS (15:57)
[2020-04-23] MEDS: ERTAPENEM 1 GM/NS 50 ML 1 GM/50 ML BAG IVPB (16:15)
--- NOTE | 2020-04-23 17:01 | PCWOUND ---
WOCN NOTE Placed call to Dr Santacruz answering service to reports on patient wound bed status and stool filled exudate in medial abdominal wound. 15 minutes later received call from surgeons office with recording asking for a message to be left. left message on patient findings.
[2020-04-23 18:26] LABS: Glucose Point of Care 184 (65-105)
[2020-04-23 21:26] LABS: Glucose Point of Care 228 (65-105)
[2020-04-24] VITALS (38 sets, daily range): BP systolic 76–134; BP diastolic 27–88; PULSE 55–123; RESP 22; TEMP 36.8–38.4; O2SAT 94–99
[2020-04-24] MEDS: INSULIN ASPART (*BKC) 100 UNITS/ML SUB-Q ×4 (00:14→18:17)
[2020-04-24] MEDS: dexmedeTOMIDine 400 MCG/100 ML 400 MCG/100 ML BAG 36 MCG IV CONT (00:16)
[2020-04-24] MEDS: fentaNYL CITRATE INJ (*CRX) 100 MCG/2 ML VIAL 50 MCG IV PUSH ×3 (00:17→20:34)
[2020-04-24 02:19] LABS: Glucose Point of Care 273 (65-105)
[2020-04-24] MEDS: dexmedeTOMIDine 400 MCG/100 ML 400 MCG/100 ML BAG 28 MCG IV CONT (03:22)
[2020-04-24] MEDS: HYDROCORTISONE SODIUM SUCCINATE 100 MG/2 ML VIAL IV PUSH ×3 (04:55→20:19)
[2020-04-24] MEDS: CENTRAL LINE FLUSH 10 ML IV PUSH ×5 (04:55→20:19)
[2020-04-24 05:33] LABS: Hematocrit 26.9 % (42.0-52.0); Hemoglobin 9.3 g/dL (14.0-18.0); Mean Corpuscular HGB Conc 34.6 g/dl (32-36); Mean Corpuscular Hemoglobin 29.2 pg (26-34); Mean Corpuscular Volume 84.6 fl (80-100); Mean Platelet Volume 10.2 fl (7.4-10.4); Platelet Count Result 118 k/mm3 (150-375); Red Blood Count 3.18 M/mm3 (4.6-6.20); Red Cell Distribution Width 18.4 % (11.5-14.5); White Blood Count 21.9 K/mm3 (4.5-10.0)
[2020-04-24 05:41] LABS: Alveolar/Arterial O2 Gradient 366.9 mmHg; Base Excess ABG -0.4 mEq/l (+/-2.0); Carboxyhemoglobin 0.3 % THb (0-2.0); Device VENTILATOR; Fractional Inspired Oxygen 70 %; HCO3 ABG 22.9 mEq/l (22.0-26.0); Methemoglobin ABG 0.1 %THb (0-1.5); Modified Allen's Test Unable to perform; Oxygen Saturation ABG 97.8 % (95.0-100.0); Oxyhemoglobin 96.2 % THb (90.0-100.0); PCO2 ABG 32.6 mmHg (35.0-45.0); PO2 ABG 97.2 mmHg (80.0-100.0); PO2 FiO2 Ratio Arterial Blood 1.39 %; Reduced Hemoglobin 3.4 %THb (0-5.0); Site Drawn RIGHT RADIAL; pH ABG 7.464 (7.350-7.450)
[2020-04-24 05:42] LABS: Arterial Blood Gas PEEP 5 cmH2O; Arterial Blood Gas Tidal Volume 500 ml; Arterial Blood Gas Vent Mode ASSIST CONTROL; Arterial Blood Gas Ventilator rate 22 /MIN
[2020-04-24 05:47] LABS: Alanine Aminotransferase 153 U/L (4-50); Albumin Level 2.7 g/dL (3.5-5.1); Alkaline Phosphatase 456 U/L (38-126); Anion Gap 11 mmol/L (8-16); Aspartate Amino Transferase 86 U/L (17-59); Bilirubin,Total 14.5 mg/dL (0.2-1.3); Blood Urea Nitrogen 115 mg/dL (9-20); Calcium 5.9 mg/dL (8.4-10.2); Carbon Dioxide 27 mmol/L (22-30); Chloride 95 mmol/L (98-107); Estimated CRCL calculation 33 ml/min; Estimated Glomerular Filt Rate 18; Glucose 297 mg/dL (75-110); Magnesium 2.8 mg/dL (1.6-2.3); Phosphorus 8.5 mg/dL (2.5-4.5); Potassium 4.3 mmol/L (3.4-5.0); Sodium 133 mmol/L (137-145)
[2020-04-24] MEDS: dexmedeTOMIDine 400 MCG/100 ML 400 MCG/100 ML BAG 24 MCG IV CONT (07:18)
[2020-04-24 08:15] LABS: Glucose Point of Care 303 (65-105)
[2020-04-24] MEDS: LACTATED RINGERS 2,000 ML 999 ML IV CONT (08:45)
[2020-04-24] MEDS: PANTOPRAZOLE SODIUM IV 40 MG VIAL IV PUSH ×2 (09:08→20:17)
[2020-04-24] MEDS: NOREPINEPHRINE 8 MG/D5W 250 ML 8 MG/250 ML BAG 18.75 MG IV CONT (09:24)
[2020-04-24] MEDS: INSULIN DETEMIR 100 UNITS/ML 26 UNITS SUB-Q ×2 (09:28→20:15)
[2020-04-24 09:47] LABS: Glucose Point of Care 267 (65-105)
--- NOTE | 2020-04-24 10:49 | WPDINTPN ---
Subjective Date/time seen: 04/24/20 10:49 Interval history: 55 y/o male with intrabdominal sepsis, shock s/p perforated viscous and surgical repair due from duodenal ulcer bleeding. Overnight he's been febrile and hypotensive. Blood, SERGE drain, sputum and urine cultures are pending. Imipenem was started yesterday. Foul smelling material is coming out of his SERGE drain. urine is dark and concern Objective Data Vital Signs Vital Signs: Vital Signs - 24 hr 04/23/20 11:23 04/23/20 11:40 04/23/20 12:00 Temperature 38.2 C H Pulse Rate 112 H 104 H Respiratory Rate 22 H Blood Pressure 117/59 L Pulse Oximetry 93 93 94 04/23/20 12:30 04/23/20 13:00 04/23/20 13:15 Temperature 38.3 C H Pulse Rate 109 H 112 H 118 H Respiratory Rate 23 H Blood Pressure 117/59 L 118/63 99/65 L Pulse Oximetry 93 04/23/20 13:30 04/23/20 13:41 04/23/20 13:46 Temperature Pulse Rate 119 H 120 H 112 H Respiratory Rate Blood Pressure 71/54 L 101/33 L 124/70 Pulse Oximetry 04/23/20 13:51 04/23/20 14:00 04/23/20 14:15 Temperature Pulse Rate 112 H 115 H 102 H Respiratory Rate 22 H Blood Pressure 139/97 H 130/74 73/53 L Pulse Oximetry 94 04/23/20 14:22 04/23/20 14:25 04/23/20 14:30 Temperature Pulse Rate 115 H 114 H 119 H Respiratory Rate Blood Pressure 131/76 73/53 L 145/110 H Pulse Oximetry 04/23/20 14:45 04/23/20 14:50 04/23/20 15:00 Temperature Pulse Rate 120 H 114 H 117 H Respiratory Rate Blood Pressure 106/68 97/45 L Pulse Oximetry 93 04/23/20 15:15 04/23/20 15:30 04/23/20 15:45 Temperature Pulse Rate 109 H 118 H 115 H Respiratory Rate Blood Pressure 110/70 112/55 L 109/60 Pulse Oximetry 04/23/20 16:00 04/23/20 16:14 04/23/20 17:52 Temperature 37.7 C H 37.7 C H Pulse Rate 103 H 116 H 117 H Respiratory Rate 26 H 21 H Blood Pressure 120/67 132/116 H Pulse Oximetry 92 91 90 04/23/20 18:00 04/23/20 18:57 04/23/20 20:00 Temperature 38.3 C H Pulse Rate 120 H 125 H 123 H Respiratory Rate 26 H 33 H Blood Pressure 112/60 109/71 112/87 Pulse Oximetry 93 86 L 04/23/20 20:24 04/23/20 20:49 04/23/20 20:57 Temperature 38.4 C H Pulse Rate 128 H 115 H 112 H Respiratory Rate 29 H 25 H Blood Pressure 112/87 Pulse Oximetry 86 L 90 04/23/20 22:00 04/23/20 22:25 04/23/20 22:54 Temperature 38.5 C H Pulse Rate 118 H 111 H 109 H Respiratory Rate 27 H 22 H 43 H Blood Pressure 86/27 L 96/49 L Pulse Oximetry 92 04/23/20 23:25 04/23/20 23:38 04/24/20 00:00 Temperature 38.4 C H 38.4 C H Pulse Rate 122 H 117 H 120 H Respiratory Rate 22 H 22 H Blood Pressure 107/35 L 124/40 L Pulse Oximetry 88 L 95 95 04/24/20 00:16 04/24/20 00:46 04/24/20 02:00 Temperature 38.4 C H Pulse Rate 114 H 123 H 115 H Respiratory Rate 22 H 22 H Blood Pressure 120/85 110/27 L Pulse Oximetry 98 04/24/20 02:18 04/24/20 02:20 04/24/20 02:26 Temperature Pulse Rate 115 H 115 H 106 H Respiratory Rate 22 H Blood Pressure 122/35 L Pulse Oximetry 96 04/24/20 03:08 04/24/20 03:22 04/24/20 04:00 Temperature 38.4 C H Pulse Rate 111 H 111 H 97 Respiratory Rate 22 H 22 H 22 H Blood Pressure 104/30 L Pulse Oximetry 99 04/24/20 04:09 04/24/20 04:10 04/24/20 05:01 Temperature Pulse Rate 116 H 116 H 105 H Respiratory Rate 22 H Blood Pressure 104/30 L 95/77 L Pulse Oximetry 04/24/20 05:02 04/24/20 05:25 04/24/20 06:00 Temperature 38.3 C H Pulse Rate 119 H 112 H 98 Respiratory Rate 22 H 22 H Blood Pressure 108/60 Pulse Oximetry 99 98 04/24/20 07:18 04/24/20 08:00 04/24/20 08:31 Temperature 38.2 C H Pulse Rate 115 H 104 H 117 H Respiratory Rate 22 H 22 H Blood Pressure 110/64 Pulse Oximetry 97 99 04/24/20 09:24 04/24/20 10:00 04/24/20 10:28 Temperature 37.9 C H Pulse Rate 105 H 94 97 Respiratory Rate 22 H 22 H Blood Pressure 104/88 121/40 L Pulse Oximetry 97 Intake/Output In
--- NOTE | 2020-04-24 11:05 | PM.PNGS ---
Progress Note: A&P Assessment and Plan (1) Shock: Code(s): R57.9 - Shock, unspecified Status: Acute Assessment and Plan: sepsis, likely from EC fistula, will try to get imaging for further workup, cont abx, would start TPN, cont NPO for now (2) Acute respiratory failure: Qualifiers: Respiratory failure complication: unspecified whether with hypoxia or hypercapnia Qualified Code(s): J96.00 - Acute respiratory failure, unspecified whether with hypoxia or hypercapnia Code(s): J96.00 - Acute respiratory failure, unspecified whether with hypoxia or hypercapnia Status: Acute Assessment and Plan: wean per floor space allocator (3) Acute GI bleeding: Onset Date: ~04/13/20 Code(s): K92.2 - Gastrointestinal hemorrhage, unspecified Status: Acute Assessment and Plan: resolved Subjective Subjective Date/Time Seen: 04/24/20 11:05 no acute changes, slowly coming off Levophed Review of Systems Review of Systems: ROS unobtainable: Yes unobtainable due to endotracheal tube Exam Const: General: ill appearing Nutritional Appearance: obese Resp: Effort & Inspection: normal respiratory effort Auscultation: diminished lung sounds Cardio: Rate: regular rate Rhythm: regular rhythm GI: Other: vac and SERGE c foul smelling drainage, suspect EC fistula Objective Data Vital Signs Vital Signs: Vital Signs - 24 hr 04/23/20 11:23 04/23/20 11:40 04/23/20 12:00 Temperature 38.2 C H Pulse Rate 112 H 104 H Respiratory Rate 22 H Blood Pressure 117/59 L Pulse Oximetry 93 93 94 04/23/20 12:30 04/23/20 13:00 04/23/20 13:15 Temperature 38.3 C H Pulse Rate 109 H 112 H 118 H Respiratory Rate 23 H Blood Pressure 117/59 L 118/63 99/65 L Pulse Oximetry 93 04/23/20 13:30 04/23/20 13:41 04/23/20 13:46 Temperature Pulse Rate 119 H 120 H 112 H Respiratory Rate Blood Pressure 71/54 L 101/33 L 124/70 Pulse Oximetry 04/23/20 13:51 04/23/20 14:00 04/23/20 14:15 Temperature Pulse Rate 112 H 115 H 102 H Respiratory Rate 22 H Blood Pressure 139/97 H 130/74 73/53 L Pulse Oximetry 94 04/23/20 14:22 04/23/20 14:25 04/23/20 14:30 Temperature Pulse Rate 115 H 114 H 119 H Respiratory Rate Blood Pressure 131/76 73/53 L 145/110 H Pulse Oximetry 04/23/20 14:45 04/23/20 14:50 04/23/20 15:00 Temperature Pulse Rate 120 H 114 H 117 H Respiratory Rate Blood Pressure 106/68 97/45 L Pulse Oximetry 93 04/23/20 15:15 04/23/20 15:30 04/23/20 15:45 Temperature Pulse Rate 109 H 118 H 115 H Respiratory Rate Blood Pressure 110/70 112/55 L 109/60 Pulse Oximetry 04/23/20 16:00 04/23/20 16:14 04/23/20 17:52 Temperature 37.7 C H 37.7 C H Pulse Rate 103 H 116 H 117 H Respiratory Rate 26 H 21 H Blood Pressure 120/67 132/116 H Pulse Oximetry 92 91 90 04/23/20 18:00 04/23/20 18:57 04/23/20 20:00 Temperature 38.3 C H Pulse Rate 120 H 125 H 123 H Respiratory Rate 26 H 33 H Blood Pressure 112/60 109/71 112/87 Pulse Oximetry 93 86 L 04/23/20 20:24 04/23/20 20:49 04/23/20 20:57 Temperature 38.4 C H Pulse Rate 128 H 115 H 112 H Respiratory Rate 29 H 25 H Blood Pressure 112/87 Pulse Oximetry 86 L 90 04/23/20 22:00 04/23/20 22:25 04/23/20 22:54 Temperature 38.5 C H Pulse Rate 118 H 111 H 109 H Respiratory Rate 27 H 22 H 43 H Blood Pressure 86/27 L 96/49 L Pulse Oximetry 92 04/23/20 23:25 04/23/20 23:38 04/24/20 00:00 Temperature 38.4 C H 38.4 C H Pulse Rate 122 H 117 H 120 H Respiratory Rate 22 H 22 H Blood Pressure 107/35 L 124/40 L Pulse Oximetry 88 L 95 95 04/24/20 00:16 04/24/20 00:46 04/24/20 02:00 Temperature 38.4 C H Pulse Rate 114 H 123 H 115 H Respiratory Rate 22 H 22 H Blood Pressure 120/85 110/27 L Pulse Oximetry 98 04/24/20 02:18 04/24/20 02:20 04/24/20 02:26 Temperature Pulse Rate 115 H 115 H 106 H Respiratory Rate 22 H Blood Pressu
[2020-04-24] MEDS: LACTATED RINGERS 1,000 ML 999 ML IV CONT ×3 (11:16→16:17)
--- NOTE | 2020-04-24 11:30 | P.PNINT_ITS ---
Progress Note: A&P Assessment and Plan (1) Acute respiratory failure: Qualifiers: Respiratory failure complication: unspecified whether with hypoxia or hypercapnia Qualified Code(s): J96.00 - Acute respiratory failure, unspecified whether with hypoxia or hypercapnia Code(s): J96.00 - Acute respiratory failure, unspecified whether with hypoxia or hypercapnia Status: Acute Assessment and Plan: Patient with hemorrhagic shock, hypertensive, acidotic, decreased mentation on 04/14 was emergently intubated for ventilatory support -FiO2 down to 50%, peep of 5 on CMV mode of ventilation. After dialysis and adequate urine output patient already in negative fluid balance overnight -patient on Precedex infusion -CT head on 04/20/2020 with no acute intracranial findings -will continue dialysis for volume overload (2) Cardiac arrest with ventricular fibrillation: Code(s): I46.9 - Cardiac arrest, cause unspecified; I49.01 - Ventricular fibrillation Status: Acute Assessment and Plan: Is patient with VFib arrest on 04/14/2020 hemorrhagic/hypovolemic shock secondary to acute significant GI bleed. Could be related to elevated potassium -ROSC after 6 minutes. This patient taken to surgery Only on Levophed at this time which is being weaned -off amiodarone infusion -troponin elevated, likely secondary to cardiac arrest -appreciate Cardiology evaluation recommendation (3) Hemorrhagic shock: Code(s): R57.8 - Other shock Status: Acute Assessment and Plan: Hemorrhagic shock likely related to acute GI bleed, from bleeding duodenal ulcer -patient with severe anemia status post large amount of blood transfusion -patient remains on Levophed only (4) Acute GI bleeding: Onset Date: ~04/13/20 Code(s): K92.2 - Gastrointestinal hemorrhage, unspecified Status: Acute Assessment and Plan: Patient presented with dark red stools along with vomiting coffee-ground emesis. -EGD done on 04/13/2020 showed duodenal ulcers were cauterized with gold probe successfully -patient continues to have bloody bowel movements, repeat EGD on 04/14/2020 shows acute active duodenal ulcer bleeding. Epinephrine and clips x3 were applied. - 04/14/2020: Patient underwent Ex lap with extensive lysis of adhesions, pyloroplasty with oversewing bleeding duodenal ulcer and ligation of bleeding vessel in the posterior sac -hemoglobin has been stable for > 48 hours -PPI to IV q.12 hours -discussed with surgery, will increase tube feeds -patient with increasing leukocytosis, started ertapenem on 04/22/2020, as pat violetta is having foul-smelling drainage from his incision and the SERGE to drain. Discussed with surgery (5) Paroxysmal atrial fibrillation: Code(s): I48.0 - Paroxysmal atrial fibrillation Status: Chronic Assessment and Plan: Currently in A fib rate controlled -not on any anticoagulation secondary to bleeding ulcer and hemorrhagic shock -not on amiodarone anymore (6) QUANG (acute kidney injury): Code(s): N17.9 - Acute kidney failure, unspecified Status: Acute Assessment and Plan: Patient with acute on chronic kidney disease, creatinine improving, urine output has been decreased most likely related to hemorrhagic/hypovolemic shock due to acute GI bleed. Sill hypovolemic with septic shock -patient has a history of renal transplants x2 -creatinine trending up, will hold diuresis as per discussion with Nephrology -lactic acid improved -urine output slowing down, BUN and creatinine rising, discussed with Nephrology, dialysis access placed early t
[2020-04-24 12:43] LABS: Glucose Point of Care 373 (65-105)
--- NOTE | 2020-04-24 14:26 | P.PNNP_ITS ---
Progress Note: A&P Assessment and Plan (1) QUANG (acute kidney injury): Code(s): N17.9 - Acute kidney failure, unspecified Status: Acute Assessment and Plan: * likely ATN from hemodynamic instability, shock, cardiac arrest, and severe anemia * may be have some contributions from the abdominal process/issues as well * s/p dialysis yesterday and day before * hold HD today since concern for hypovolemia (gettting IVFs today) and worsening hypotension * may still need HD for clearance although elevated BUN likely a combination of renal failure, catabolic state, steroids and prior bleeding issues (2) Chronic renal failure, stage 3a: Code(s): N18.31 - Chronic kidney disease, stage 3a Status: Acute Assessment and Plan: * due chronic allograft nephropathy (of transplanted kidney) * baseline creatinine ~ 2.0mg/dl * 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 (3) Septic shock: Code(s): A41.9 - Sepsis, unspecified organism; R65.21 - Severe sepsis with septic shock Status: Acute Assessment and Plan: * 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 * remains on broad spectrum antibiotic therapy - cultures noted * follow wounds/drainage * pressor therapy with weaning as tolerated (4) Acute respiratory failure: Qualifiers: Respiratory failure complication: unspecified whether with hypoxia or hypercapnia Qualified Code(s): J96.00 - Acute respiratory failure, unspecified whether with hypoxia or hypercapnia Code(s): J96.00 - Acute respiratory failure, unspecified whether with hypoxia or hypercapnia Status: Acute Assessment and Plan: * due to ongoing medical issues and shock * weaning once more stable * continue mechanical ventilation (5) Acute GI bleeding: Onset Date: ~04/13/20 Code(s): K92.2 - Gastrointestinal hemorrhage, unspecified Status: Acute Assessment and Plan: * s/p 2 EGDs and and 1 surgery have stopped the bleeding * hemoglobin has been relatively stable * no black or bloody stools noted (6) Paroxysmal atrial fibrillation: Code(s): I48.0 - Paroxysmal atrial fibrillation Status: Chronic Assessment and Plan: * heart rate doing okay * off amiodarone (7) History of kidney transplant: Onset Date: ~1990 Code(s): Z94.0 - Kidney transplant status Status: Chronic Assessment and Plan: * holding MMF and tacrolimus * remains on steroids (8) Diabetes: Code(s): E11.9 - Type 2 diabetes mellitus without complications Status: Chronic Assessment and Plan: * follow accuchecks * on SSI Discussed case with Dr. Reyes. Will continue to follow. Subjective Date/time seen: 04/24/20 14:26 Chart reviewed since I last saw the patient -- remains critically ill with ongoing need for vasopressor therapy to maintain MAP; urine output has been flucutation but improved with IVFs earlier today; tolerated dialysis yesterday as well. Exam Narrative: Exam Narrative: General: WD/WN male intubated and sedated Heart: normal S1 and S2; no rub or gallop Lungs: coarse breath sounds throughout Abdomen: soft, hypoactive bowel sounds; some TTP noted Extremities: 1+ edema noted Skin: dry and intact Objective Data Vital Signs Vital Signs: Vital Signs Temp Pulse Resp BP Pulse Ox 04/24/20 14:00 105 H 22 H 89/60 L 96 04/24/20 13:47 117 H 76/60
--- NOTE | 2020-04-24 14:26 | PM.PNNEP ---
Progress Note: A&P Assessment and Plan (1) QUANG (acute kidney injury): Code(s): N17.9 - Acute kidney failure, unspecified Status: Acute Assessment and Plan: likely ATN from hemodynamic instability, shock, cardiac arrest, and severe anemia may be have some contributions from the abdominal process/issues as well s/p dialysis yesterday and day before hold HD today since concern for hypovolemia (gettting IVFs today) and worsening hypotension may still need HD for clearance although elevated BUN likely a combination of renal failure, catabolic state, steroids and prior bleeding issues (2) Chronic renal failure, stage 3a: Code(s): N18.31 - Chronic kidney disease, stage 3a Status: Acute Assessment and Plan: due chronic allograft nephropathy (of transplanted kidney) baseline creatinine ~ 2.0mg/dl 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 (3) Septic shock: Code(s): A41.9 - Sepsis, unspecified organism; R65.21 - Severe sepsis with septic shock Status: Acute Assessment and Plan: 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 remains on broad spectrum antibiotic therapy - cultures noted follow wounds/drainage pressor therapy with weaning as tolerated (4) Acute respiratory failure: Qualifiers: Respiratory failure complication: unspecified whether with hypoxia or hypercapnia Qualified Code(s): J96.00 - Acute respiratory failure, unspecified whether with hypoxia or hypercapnia Code(s): J96.00 - Acute respiratory failure, unspecified whether with hypoxia or hypercapnia Status: Acute Assessment and Plan: due to ongoing medical issues and shock weaning once more stable continue mechanical ventilation (5) Acute GI bleeding: Onset Date: ~04/13/20 Code(s): K92.2 - Gastrointestinal hemorrhage, unspecified Status: Acute Assessment and Plan: s/p 2 EGDs and and 1 surgery have stopped the bleeding hemoglobin has been relatively stable no black or bloody stools noted (6) Paroxysmal atrial fibrillation: Code(s): I48.0 - Paroxysmal atrial fibrillation Status: Chronic Assessment and Plan: heart rate doing okay off amiodarone (7) History of kidney transplant: Onset Date: ~1990 Code(s): Z94.0 - Kidney transplant status Status: Chronic Assessment and Plan: holding MMF and tacrolimus remains on steroids (8) Diabetes: Code(s): E11.9 - Type 2 diabetes mellitus without complications Status: Chronic Assessment and Plan: follow accuchecks on SSI Discussed case with Dr. Reyes. Will continue to follow. Subjective Date/time seen: 04/24/20 14:26 Chart reviewed since I last saw the patient -- remains critically ill with ongoing need for vasopressor therapy to maintain MAP; urine output has been flucutation but improved with IVFs earlier today; tolerated dialysis yesterday as well. Exam Narrative: Exam Narrative: General: WD/WN male intubated and sedated Heart: normal S1 and S2; no rub or gallop Lungs: coarse breath sounds throughout Abdomen: soft, hypoactive bowel sounds; some TTP noted Extremities: 1+ edema noted Skin: dry and intact Objective Data Vital Signs Vital Signs: Vital Signs Temp Pulse Resp BP Pulse Ox 04/24/20 14:00 105 H 22 H 89/60 L 96 04/24/20 13:47 117 H 76/60 L 04/24/20 12:00 37.6 C H 96 22 H 94/69 L 97 04/24/20 11:46 96 04/24/20 11:45 103 H 107/65 04/24/20 11:20 115 H 98 04/24/20 10:30 121/60 04/24/20 10:28 97 22 H 04/24/20 10:00 37.9 C H 94 22 H 121/40 L 97 04/24/20 09:24 105 H 104/88 04/24/20 08:31 117 H 99 04/24/20 08:00 38.2 C H 104 H 22 H 110/64 97 04/24/20 07:18 115 H 22 H 04/24/20 06:00 38.3 C H 98 22 H 108/60 98 04/24/20 05:25 112 H 99 04/24/20 05:02 119 H 22 H 04/24/20 05:01 105 H 95/77 L 04/24/20
--- NOTE | 2020-04-24 15:11 | P.PNIM_ITS ---
Progress Note: A&P Assessment and Plan (1) Cardiac arrest with ventricular fibrillation: Code(s): I46.9 - Cardiac arrest, cause unspecified; I49.01 - Ventricular fibrillation Status: Acute Assessment and Plan: Patient developed VFib arrest evening on 04/14 probably related to hypovolemic shock from acute blood loss. He did have elevated potassium earlier in the day which could have contributed to this. ROSC after 6 minutes. Patient taken to surgery later that evening. Patient currently stable but remains in critical condition. Trop 4.2 at peak but not unexpected after a code blue. (2) Acute respiratory failure: Qualifiers: Respiratory failure complication: unspecified whether with hypoxia or hypercapnia Qualified Code(s): J96.00 - Acute respiratory failure, unspecified whether with hypoxia or hypercapnia Code(s): J96.00 - Acute respiratory failure, unspecified whether with hypoxia or hypercapnia Status: Acute Assessment and Plan: Patient became obtunded requiring intubation on 04/14. A short time later, code blue was called. He remains on mechanical ventilation. . Chest x-ray reviewed and showing pulmonary edema with lower lobe airspace disease. Patient with fevers and has tested positive for COVID. BCx NGTD. Sputum Cx growing H.flu and. Ceftriaxone started 04/18 and changed to ertapenem 04/22 and now levoflo xacin and Vanc 04/24. Fevers have waned. O2 requirements decreased after dialysis with fluid removal (3) COVID-19: Code(s): U07.1 - COVID-19 Status: Acute Assessment and Plan: Patient had intermittent fevers but developed more persistent fevers on 04/14. He was tested and found to be positive for COVID on 04/16/20. Currently on steroids. No Remdesivir due to QUANG. (4) Hemorrhagic shock: Code(s): R57.8 - Other shock Status: Acute Assessment and Plan: Patient with acute blood loss resulting in hemorrhagic shock. Currently on NE but able to come off of [employer] and phenylephrine. Hgb 9.3 this am , stable past 4 days. Hydrocortisone added for pressure and for anti-rejection. Albumin 2.2. Received albumin but currently off now. (5) Acute GI bleeding: Onset Date: ~04/13/20 Code(s): K92.2 - Gastrointestinal hemorrhage, unspecified Status: Acute Assessment and Plan: Acute GI bleeding secondary to duodenal ulcer complicated by recent anticoagulant use. BRBPR and with coffee ground emesis consistent with brisk upper GI bleed with rapid transit. Patient has received 17 units of packed red blood cells in total. EGD twice has failed to stop the bleeding. Patient underwent emergency surgery 04/14 with exploratory laparotomy, extensive lysis of adhesions, ligation of bleeding vessel in the posterior sac, and pyloroplasty with over-sewing bleeding duodenal ulcer. Patient has done well thus far and is showing signs of improvement. Monitor HH closely for stability. wound culture now growing Citrobacter fr, antibiotics now levafloxacin and Vanc (6) Acute hyperkalemia: Code(s): E87.5 - Hyperkalemia Status: Acute Assessment and Plan: The patient's potassium was as high as 7.2 on admission and has been elevated at times. The patient was treated appropriately including HD. Recent potassium levels normal. Continue to follow. (7) QUANG (acute kidney injury): Code(s): N17.9 - Acute kidney failure, unspecified Status: Acute Assessment and Plan: QUANG related to above with acute blood loss and now code blue. Cr stable at 3.6 today ). Suspect pre-stephanie
[2020-04-24] MEDS: ERTAPENEM 1 GM/NS 50 ML 1 GM/50 ML BAG IVPB (16:43)
[2020-04-24] MEDS: FAT EMULSIONS IV 20% 250 ML 20.83 ML IVPB (17:45)
[2020-04-24] MEDS: AMINO ACIDS 5%/DEXTROSE 15% 2,000 ML with MULTIVITAMINS-12 INJ VIAL 1 2.5 ML, MULTIVITA... 40 ML IV CONT (17:45)
[2020-04-24 18:14] LABS: Glucose Point of Care 331 (65-105)
[2020-04-24] MEDS: HYDROCORTISONE SODIUM SUCCINATE 100 MG/2 ML VIAL 20 MG IV PUSH (20:20)
[2020-04-24 20:38] LABS: Glucose Point of Care 348 (65-105)
[2020-04-25] VITALS (38 sets, daily range): BP systolic 51–181; BP diastolic 32–82; PULSE 53–69; RESP 22–96; TEMP 36–37.2; O2SAT 92–98
[2020-04-25] MEDS: INSULIN ASPART (*BKC) 100 UNITS/ML 10 UNITS SUB-Q ×2 (00:18→05:54)
[2020-04-25 00:29] LABS: Glucose Point of Care 420 (65-105)
[2020-04-25] MEDS: NOREPINEPHRINE 8 MG/D5W 250 ML 8 MG/250 ML BAG 16.88 MG IV CONT (02:11)
[2020-04-25] MEDS: fentaNYL CITRATE INJ (*CRX) 100 MCG/2 ML VIAL 50 MCG IV PUSH ×2 (03:37→14:00)
[2020-04-25 05:12] LABS: Alveolar/Arterial O2 Gradient 321.4 mmHg; Base Excess ABG -4.8 mEq/l (+/-2.0); Carboxyhemoglobin 0.3 % THb (0-2.0); Fractional Inspired Oxygen 60 %; HCO3 ABG 19.4 mEq/l (22.0-26.0); Methemoglobin ABG 0.1 %THb (0-1.5); Oxygen Content ABG 12.8 %vol (16.0-22.0); Oxygen Saturation ABG 94.4 % (95.0-100.0); Oxyhemoglobin 90.7 % THb (90.0-100.0); PCO2 ABG 32.4 mmHg (35.0-45.0); PO2 ABG 70.8 mmHg (80.0-100.0); PO2 FiO2 Ratio Arterial Blood 1.18 %; Reduced Hemoglobin 8.9 %THb (0-5.0); pH ABG 7.394 (7.350-7.450)
[2020-04-25 05:13] LABS: Arterial Blood Gas PEEP 5 cmH2O; Arterial Blood Gas Tidal Volume 500 ml; Arterial Blood Gas Vent Mode CMV; Arterial Blood Gas Ventilator rate 22 /MIN; Device VENTILATOR; Modified Allen's Test Unable to perform; Site Drawn RIGHT RADIAL
[2020-04-25] MEDS: HYDROCORTISONE SODIUM SUCCINATE 100 MG/2 ML VIAL IV PUSH (05:27)
[2020-04-25] MEDS: CENTRAL LINE FLUSH 10 ML IV PUSH ×5 (05:57→20:51)
[2020-04-25 06:10] LABS: Glucose Point of Care 447 (65-105)
[2020-04-25 06:14] LABS: Hematocrit 24.1 % (42.0-52.0); Hemoglobin 8.1 g/dL (14.0-18.0); Mean Corpuscular HGB Conc 33.6 g/dl (32-36); Mean Corpuscular Hemoglobin 29.1 pg (26-34); Mean Corpuscular Volume 86.7 fl (80-100); Mean Platelet Volume 10.7 fl (7.4-10.4); Platelet Count Result 133 k/mm3 (150-375); Red Blood Count 2.78 M/mm3 (4.6-6.20); Red Cell Distribution Width 18.5 % (11.5-14.5); White Blood Count 24.9 K/mm3 (4.5-10.0)
[2020-04-25 06:31] LABS: D Dimer 1.05 ug/mL (<0.48)
[2020-04-25 07:01] LABS: Alanine Aminotransferase 111 U/L (4-50); Albumin Level 2.2 g/dL (3.5-5.1); Alkaline Phosphatase 289 U/L (38-126); Anion Gap 10 mmol/L (8-16); Aspartate Amino Transferase 64 U/L (17-59); Bilirubin,Total 10.2 mg/dL (0.2-1.3); Calcium 5.4 mg/dL (8.4-10.2); Carbon Dioxide 26 mmol/L (22-30); Chloride 95 mmol/L (98-107); Estimated CRCL calculation 34 ml/min; Estimated Glomerular Filt Rate 19; Glucose 456 mg/dL (75-110); Lactate Dehydrogenase 984 U/L (313-618); Magnesium 2.7 mg/dL (1.6-2.3); Phosphorus 8.9 mg/dL (2.5-4.5); Potassium 4.2 mmol/L (3.4-5.0); Sodium 131 mmol/L (137-145)
--- NOTE | 2020-04-25 07:03 | WPDINTPN ---
Progress Note: A&P Assessment and Plan (1) Acute respiratory failure: Qualifiers: Respiratory failure complication: unspecified whether with hypoxia or hypercapnia Qualified Code(s): J96.00 - Acute respiratory failure, unspecified whether with hypoxia or hypercapnia Code(s): J96.00 - Acute respiratory failure, unspecified whether with hypoxia or hypercapnia Status: Acute Assessment and Plan: Patient with hemorrhagic shock, hypertensive, acidotic, decreased mentation on 04/14 was emergently intubated for ventilatory support -FiO2 down to 50%, peep of 5 on CMV mode of ventilation. -patient on Versed infusion -CT head on 04/20/2020 with no acute intracranial findings -will continue dialysis for volume overload - daily SAT/SBT (2) Cardiac arrest with ventricular fibrillation: Code(s): I46.9 - Cardiac arrest, cause unspecified; I49.01 - Ventricular fibrillation Status: Acute Assessment and Plan: Is patient with VFib arrest on 04/14/2020 hemorrhagic/hypovolemic shock secondary to acute significant GI bleed. Could be related to elevated potassium -ROSC after 6 minutes. This patient taken to surgery Only on Levophed at this time which is being weaned -off amiodarone infusion -troponin elevated, likely secondary to cardiac arrest -appreciate Cardiology evaluation recommendation (3) Hemorrhagic shock: Code(s): R57.8 - Other shock Status: Acute Assessment and Plan: Hemorrhagic shock related to acute GI bleed from bleeding duodenal ulcer -patient with severe anemia status post large amount of blood transfusion; Hgb is stable today -patient remains on Levophed only - stress dose steroids on board (4) Acute GI bleeding: Onset Date: ~04/13/20 Code(s): K92.2 - Gastrointestinal hemorrhage, unspecified Status: Acute Assessment and Plan: Patient presented with dark red stools along with vomiting coffee-ground emesis. -EGD done on 04/13/2020 showed duodenal ulcers were cauterized with gold probe successfully -patient continues to have bloody bowel movements, repeat EGD on 04/14/2020 shows acute active duodenal ulcer bleeding. Epinephrine and clips x3 were applied. - 04/14/2020: Patient underwent Ex lap with extensive lysis of adhesions, pyloroplasty with oversewing bleeding duodenal ulcer and ligation of bleeding vessel in the posterior sac -hemoglobin has been stable -PPI to IV q.12 hours -discussed with surgery, will increase tube feeds -patient with increasing leukocytosis, started ertapenem on 04/22/2020, as patient is having foul-smelling drainage from his incision and the SERGE to drain. Discussed with surgery; also started vanc/Levaquin 04/24 (5) Paroxysmal atrial fibrillation: Code(s): I48.0 - Paroxysmal atrial fibrillation Status: Chronic Assessment and Plan: Converted to sinus hazel overnight -not on any anticoagulation secondary to bleeding ulcer and hemorrhagic shock -not on amiodarone anymore (6) QUANG (acute kidney injury): Code(s): N17.9 - Acute kidney failure, unspecified Status: Acute Assessment and Plan: Patient with acute on chronic kidney disease, creatinine improving, urine output has been decreased most likely related to hemorrhagic/hypovolemic shock due to acute GI bleed. Sill hypovolemic with septic shock -patient has a history of renal transplants x2 - HD per Nephrology (7) Thrombocytopenia: Code(s): D69.6 - Thrombocytopenia, unspecified Status: Chronic Assessment and Plan: Thrombocytopenia likely consumptive, also could be due to immunosuppressive treatment for his renal transplant Patient received more platelets on 04/14 -platelets count improving -will monitor platelet counts closely, transfuse if under 50,000 (8) Acute on chronic anemia: Code(s): D64.9 - Anemia, unspecified Status: Acute Assessment and Plan: Acute on chronic anemia likely related to GI
[2020-04-25 08:12] LABS: Blood Urea Nitrogen 138 mg/dL (9-20)
[2020-04-25] MEDS: INSULIN DETEMIR 100 UNITS/ML 26 UNITS SUB-Q (08:19)
[2020-04-25] MEDS: PANTOPRAZOLE SODIUM IV 40 MG VIAL IV PUSH ×2 (08:19→20:49)
[2020-04-25 08:50] LABS: CRP 21.6 mg/dL (<1.0)
--- NOTE | 2020-04-25 11:06 | PM.PNGS ---
Progress Note: A&P Assessment and Plan (1) Septic shock: Code(s): A41.9 - Sepsis, unspecified organism; R65.21 - Severe sepsis with septic shock Status: Acute Assessment and Plan: leukocytosis persists, will hopefully get CT today for further eval, TPN held for LFTs, cont to wean Levophed as cortez Subjective Subjective Date/Time Seen: 04/25/20 11:06 no acute issues, decreased drainage from both vac and SERGE Review of Systems Review of Systems: ROS unobtainable: Yes unobtainable due to endotracheal tube Exam Const: General: ill appearing Resp: Auscultation: diminished lung sounds Cardio: Rate: regular rate Rhythm: regular rhythm GI: Inspection: distended and incision Other: soft, mod dist, incision c vac, SERGE c dk drainage decreased Objective Data Vital Signs Vital Signs: Vital Signs - 24 hr 04/24/20 11:20 04/24/20 11:45 04/24/20 11:46 Temperature Pulse Rate 115 H 103 H Respiratory Rate Blood Pressure 107/65 Pulse Oximetry 98 96 04/24/20 12:00 04/24/20 13:47 04/24/20 14:00 Temperature 37.6 C H Pulse Rate 96 117 H 105 H Respiratory Rate 22 H 22 H Blood Pressure 94/69 L 76/60 L 89/60 L Pulse Oximetry 97 96 04/24/20 14:48 04/24/20 16:00 04/24/20 17:30 Temperature 37.2 C Pulse Rate 104 H 117 H 108 H Respiratory Rate 22 H Blood Pressure 101/76 134/69 Pulse Oximetry 95 94 04/24/20 17:41 04/24/20 18:00 04/24/20 18:06 Temperature Pulse Rate 109 H 106 H Respiratory Rate 22 H Blood Pressure 119/87 119/87 Pulse Oximetry 96 97 04/24/20 20:00 04/24/20 22:00 04/24/20 23:00 Temperature 37.1 C 36.8 C Pulse Rate 57 L 55 L Respiratory Rate 22 H 22 H Blood Pressure 101/60 102/46 L Pulse Oximetry 96 96 96 04/25/20 00:00 04/25/20 00:06 04/25/20 00:07 Temperature 36.5 C Pulse Rate 57 L 58 L 57 L Respiratory Rate 22 H 22 H Blood Pressure 104/82 104/82 Pulse Oximetry 96 04/25/20 00:24 04/25/20 02:00 04/25/20 02:05 Temperature 36.4 C L Pulse Rate 58 L 60 60 Respiratory Rate 24 H 22 H 22 H Blood Pressure 55/32 L 51/37 L Pulse Oximetry 97 96 04/25/20 02:06 04/25/20 02:08 04/25/20 02:11 Temperature Pulse Rate 58 L 56 L 56 L Respiratory Rate 22 H Blood Pressure 94/54 L 94/54 L 121/44 L Pulse Oximetry 95 04/25/20 04:00 04/25/20 05:15 04/25/20 05:20 Temperature 36.3 C L 36.0 C L Pulse Rate 64 56 L Respiratory Rate 22 H 22 H Blood Pressure 107/41 L 65/50 L 66/42 L Pulse Oximetry 94 94 04/25/20 05:24 04/25/20 05:31 04/25/20 05:32 Temperature 36.0 C L Pulse Rate 57 L 59 L 58 L Respiratory Rate 22 H 22 H Blood Pressure 91/50 L 70/49 L Pulse Oximetry 94 04/25/20 05:35 04/25/20 06:00 04/25/20 06:47 Temperature 36.0 C L 36.0 C L Pulse Rate 54 L 56 L 63 Respiratory Rate 22 H 22 H Blood Pressure 103/51 L 147/43 H 81/63 L Pulse Oximetry 95 94 04/25/20 07:15 04/25/20 07:30 04/25/20 08:00 Temperature 36.4 C Pulse Rate 62 63 Respiratory Rate 22 H Blood Pressure 140/53 L 146/40 H 181/78 H Pulse Oximetry 92 04/25/20 08:10 04/25/20 09:45 04/25/20 10:00 Temperature Pulse Rate 62 Respiratory Rate 22 H Blood Pressure 151/62 H 151/56 H 148/51 H Pulse Oximetry 96 Intake/Output Intake/Output: Intake & Output 04/22/20 04/23/20 04/24/20 04/25/20 23:59 23:59 23:59 23:59 Intake Total 1137 1320 6498 1239 Output Total 2767 2518 0325 4736 [facility] -[id number] -[id number] 3608 -116 Meds/Results Medications: Active Medications Generic Name Dose Route Start Last Admin Trade Name Freq PRN Reason Stop Dose Admin Dextrose 12.5 gm 04/19/20 02:34 Dextrose 50% 25 Gm/50 Ml Syringe IV PUSH PRN PRN Hypoglycemia Protocol Fentanyl Citrate 50 mcg 04/23/20 23:57 04/25/20 03:37 Fentanyl Citrate Inj (*Crx) 100 Mcg/2 Ml Vial IV PUSH 50 mcg Q2H PRN Administration Pain Rated 7-10 Glucagon 1 mg 04/19/20 02:34 Glucagon For Inj 1 Mg Vial IM PRN PRN
[2020-04-25] MEDS: HYDROCORTISONE SODIUM SUCCINATE 100 MG/2 ML VIAL 50 MG IV PUSH ×3 (11:45→20:52)
[2020-04-25 13:23] LABS: Glucose Point of Care 437 (65-105)
[2020-04-25] MEDS: INSULIN HUMAN NPH (*BKC) 100 UNITS/ML 25 UNITS SUB-Q (14:01)
--- NOTE | 2020-04-25 15:33 | P.PNNP_ITS ---
Progress Note: A&P Assessment and Plan (1) QUANG (acute kidney injury): Code(s): N17.9 - Acute kidney failure, unspecified Status: Acute Assessment and Plan: * likely ATN from hemodynamic instability, shock, cardiac arrest, and severe anemia * may be have some contributions from the abdominal process/issues as well * s/p dialysis day before yesterday and day before that * hold HD today and reassess tomorrow * may still need HD for clearance although elevated BUN likely a combination of renal failure, catabolic state, steroids and prior bleeding issues (2) Chronic renal failure, stage 3a: Code(s): N18.31 - Chronic kidney disease, stage 3a Status: Acute Assessment and Plan: * due chronic allograft nephropathy (of transplanted kidney) * baseline creatinine ~ 2.0mg/dl * 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 (3) Septic shock: Code(s): A41.9 - Sepsis, unspecified organism; R65.21 - Severe sepsis with septic shock Status: Acute Assessment and Plan: * 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 * remains on broad spectrum antibiotic therapy - cultures noted * follow wounds/drainage * pressor therapy with weaning as tolerated (4) Acute respiratory failure: Qualifiers: Respiratory failure complication: unspecified whether with hypoxia or hypercapnia Qualified Code(s): J96.00 - Acute respiratory failure, unspecified whether with hypoxia or hypercapnia Code(s): J96.00 - Acute respiratory failure, unspecified whether with hypoxia or hyper capnia Status: Acute Assessment and Plan: * due to ongoing medical issues and shock * weaning once more stable * continue mechanical ventilation (5) Acute GI bleeding: Onset Date: ~04/13/20 Code(s): K92.2 - Gastrointestinal hemorrhage, unspecified Status: Acute Assessment and Plan: * s/p 2 EGDs and and 1 surgery have stopped the bleeding * hemoglobin has been relatively stable * no black or bloody stools noted (6) Paroxysmal atrial fibrillation: Code(s): I48.0 - Paroxysmal atrial fibrillation Status: Chronic Assessment and Plan: * heart rate doing okay * off amiodarone (7) History of kidney transplant: Onset Date: ~1990 Code(s): Z94.0 - Kidney transplant status Status: Chronic Assessment and Plan: * holding MMF and tacrolimus * remains on steroids (8) Diabetes: Code(s): E11.9 - Type 2 diabetes mellitus without complications Status: Chronic Assessment and Plan: * follow accuchecks * on SSI Will continue to follow. Subjective Date/time seen: 04/25/20 15:33 No real significant change -- remains on mechanical ventilation with pressor support as needed; no urine output overnight (?); remains relatively hypotensive at this time. Exam Narrative: Exam Narrative: General: WD/WN male intubated and sedated Heart: normal S1 and S2; no rub or gallop Lungs: coarse breath sounds throughout Abdomen: soft, hypoactive bowel sounds; some TTP noted Extremities: 1+ edema noted Skin: no rash Objective Data Vital Signs Vital Signs: Vital Signs Temp Pulse Resp BP Pulse Ox 04/25/20 15:21 60 96 04/25/20 13:57 58 L 22 H 130/42 L 94 04/25/20 12:39 69 98 04/25/20 12:00 36.8 C 63 22 H 142/56 H 95 04/25/20 11:46 152/70 H 04/25/20 10:00 62
--- NOTE | 2020-04-25 15:33 | PM.PNNEP ---
Progress Note: A&P Assessment and Plan (1) QUANG (acute kidney injury): Code(s): N17.9 - Acute kidney failure, unspecified Status: Acute Assessment and Plan: likely ATN from hemodynamic instability, shock, cardiac arrest, and severe anemia may be have some contributions from the abdominal process/issues as well s/p dialysis day before yesterday and day before that hold HD today and reassess tomorrow may still need HD for clearance although elevated BUN likely a combination of renal failure, catabolic state, steroids and prior bleeding issues (2) Chronic renal failure, stage 3a: Code(s): N18.31 - Chronic kidney disease, stage 3a Status: Acute Assessment and Plan: due chronic allograft nephropathy (of transplanted kidney) baseline creatinine ~ 2.0mg/dl 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 (3) Septic shock: Code(s): A41.9 - Sepsis, unspecified organism; R65.21 - Severe sepsis with septic shock Status: Acute Assessment and Plan: 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 remains on broad spectrum antibiotic therapy - cultures noted follow wounds/drainage pressor therapy with weaning as tolerated (4) Acute respiratory failure: Qualifiers: Respiratory failure complication: unspecified whether with hypoxia or hypercapnia Qualified Code(s): J96.00 - Acute respiratory failure, unspecified whether with hypoxia or hypercapnia Code(s): J96.00 - Acute respiratory failure, unspecified whether with hypoxia or hypercapnia Status: Acute Assessment and Plan: due to ongoing medical issues and shock weaning once more stable continue mechanical ventilation (5) Acute GI bleeding: Onset Date: ~04/13/20 Code(s): K92.2 - Gastrointestinal hemorrhage, unspecified Status: Acute Assessment and Plan: s/p 2 EGDs and and 1 surgery have stopped the bleeding hemoglobin has been relatively stable no black or bloody stools noted (6) Paroxysmal atrial fibrillation: Code(s): I48.0 - Paroxysmal atrial fibrillation Status: Chronic Assessment and Plan: heart rate doing okay off amiodarone (7) History of kidney transplant: Onset Date: ~1990 Code(s): Z94.0 - Kidney transplant status Status: Chronic Assessment and Plan: holding MMF and tacrolimus remains on steroids (8) Diabetes: Code(s): E11.9 - Type 2 diabetes mellitus without complications Status: Chronic Assessment and Plan: follow accuchecks on SSI Will continue to follow. Subjective Date/time seen: 04/25/20 15:33 No real significant change -- remains on mechanical ventilation with pressor support as needed; no urine output overnight (?); remains relatively hypotensive at this time. Exam Narrative: Exam Narrative: General: WD/WN male intubated and sedated Heart: normal S1 and S2; no rub or gallop Lungs: coarse breath sounds throughout Abdomen: soft, hypoactive bowel sounds; some TTP noted Extremities: 1+ edema noted Skin: no rash Objective Data Vital Signs Vital Signs: Vital Signs Temp Pulse Resp BP Pulse Ox 04/25/20 15:21 60 96 04/25/20 13:57 58 L 22 H 130/42 L 94 04/25/20 12:39 69 98 04/25/20 12:00 36.8 C 63 22 H 142/56 H 95 04/25/20 11:46 152/70 H 04/25/20 10:00 62 22 H 148/51 H 96 04/25/20 09:45 151/56 H 04/25/20 08:12 65 93 04/25/20 08:10 151/62 H 04/25/20 08:00 36.4 C 63 22 H 181/78 H 92 04/25/20 07:30 146/40 H 04/25/20 07:15 62 140/53 L 04/25/20 06:47 63 81/63 L 04/25/20 06:00 36.0 C L 56 L 22 H 147/43 H 94 04/25/20 05:35 36.0 C L 54 L 22 H 103/51 L 95 04/25/20 05:32 58 L 22 H 04/25/20 05:31 59 L 70/49 L 04/25/20 05:24 36.0 C L 57 L 22 H 91/50 L 94 04/25/20 05:20 36.0 C L 56 L 22 H 66/42 L 94 04/25/20 05:15 65/50 L 04/25/20 04:00 36.3 C L
--- NOTE | 2020-04-25 15:53 | PM.IMPN ---
Progress Note: A&P Assessment and Plan (1) Cardiac arrest with ventricular fibrillation: Code(s): I46.9 - Cardiac arrest, cause unspecified; I49.01 - Ventricular fibrillation Status: Acute Assessment and Plan: Patient developed VFib arrest evening on 04/14 probably related to hypovolemic shock from acute blood loss. He did have elevated potassium earlier in the day which could have contributed to this. ROSC after 6 minutes. Patient taken to surgery later that evening. Patient currently stable but remains in critical condition. Trop 4.2 at peak but not unexpected after a code blue. (2) Acute respiratory failure: Qualifiers: Respiratory failure complication: unspecified whether with hypoxia or hypercapnia Qualified Code(s): J96.00 - Acute respiratory failure, unspecified whether with hypoxia or hypercapnia Code(s): J96.00 - Acute respiratory failure, unspecified whether with hypoxia or hypercapnia Status: Acute Assessment and Plan: Patient became obtunded requiring intubation on 04/14. A short time later, code blue was called. He remains on mechanical ventilation. . Chest x-ray reviewed and showing pulmonary edema with lower lobe airspace disease. Patient with fevers and has tested positive for COVID. BCx NGTD. Sputum Cx growing H.flu and. Ceftriaxone started 04/18 and changed to ertapenem 04/22 and now levofloxacin and Vanc 04/24. Fevers have waned. O2 requirements decreased after dialysis with fluid removal (3) COVID-19: Code(s): U07.1 - COVID-19 Status: Acute Assessment and Plan: Patient had intermittent fevers but developed more persistent fevers on 04/14. He was tested and found to be positive for COVID on 04/16/20. Currently on steroids. No Remdesivir due to QUANG. (4) Hemorrhagic shock: Code(s): R57.8 - Other shock Status: Acute Assessment and Plan: Patient with acute blood loss resulting in hemorrhagic shock. Currently on NE but able to come off of SECURITY SERVICES SPECIALIST and phenylephrine. Hgb 8.1 this am , stable past 5 days. Hydrocortisone added for pressure and for anti-rejection. Albumin 2.2. Received albumin but currently off now. (5) Acute GI bleeding: Onset Date: ~04/13/20 Code(s): K92.2 - Gastrointestinal hemorrhage, unspecified Status: Acute Assessment and Plan: Acute GI bleeding secondary to duodenal ulcer complicated by recent anticoagulant use. BRBPR and with coffee ground emesis consistent with brisk upper GI bleed with rapid transit. Patient has received 17 units of packed red blood cells in total. EGD twice has failed to stop the bleeding. Patient underwent emergency surgery 04/14 with exploratory laparotomy, extensive lysis of adhesions, ligation of bleeding vessel in the posterior sac, and pyloroplasty with over-sewing bleeding duodenal ulcer. Patient has done well thus far and is showing signs of improvement. Monitor HH closely for stability. wound culture now growing Citrobacter fr, antibiotics now levafloxacin and Vanc (6) Acute hyperkalemia: Code(s): E87.5 - Hyperkalemia Status: Acute Assessment and Plan: The patient's potassium was as high as 7.2 on admission and has been elevated at times. The patient was treated appropriately including HD. Recent potassium levels normal. Continue to follow. (7) QUANG (acute kidney injury): Code(s): N17.9 - Acute kidney failure, unspecified Status: Acute Assessment and Plan: QUANG related to above with acute blood loss and now code blue. Cr stable at 3.6 today ). Suspect pre-renal and ATN from shock. Patient is s/p renal transplant and he is off his anti-rejection meds. Steroids started for anti-rejection treatment. Volume overload so dialysis started 04/22 after catheter placed. Attempted dialysis through left arm shunt 04/21 but unable to be cannulated repeat dialysis 04/23 but none today (8) Acute on c
[2020-04-25] MEDS: ERTAPENEM 1 GM/NS 50 ML 1 GM/50 ML BAG IVPB (16:46)
[2020-04-25 17:30] LABS: Glucose Point of Care 413 (65-105)
[2020-04-25] MEDS: INSULIN ASPART (*BKC) 100 UNITS/ML 15 UNITS SUB-Q (18:06)
[2020-04-25] MEDS: INSULIN DETEMIR 100 UNITS/ML 35 UNITS SUB-Q (20:49)
[2020-04-25] MEDS: NOREPINEPHRINE 8 MG/D5W 250 ML 8 MG/250 ML BAG 9.38 MG IV CONT (21:12)
[2020-04-25 21:25] LABS: Glucose Point of Care 340 (65-105)
[2020-04-25] MEDS: INSULIN ASPART (*BKC) 100 UNITS/ML SUB-Q (23:49)
[2020-04-26] VITALS (52 sets, daily range): BP systolic 73–152; BP diastolic 23–88; PULSE 43–122; RESP 15–22; TEMP 35.6–37.1; O2SAT 90–99
[2020-04-26 00:06] LABS: Glucose Point of Care 370 (65-105)
[2020-04-26 04:30] LABS: Alveolar/Arterial O2 Gradient 316.2 mmHg; Carboxyhemoglobin 0.4 % THb (0-2.0); Fractional Inspired Oxygen 60 %; Oxygen Content ABG 10.6 %vol (16.0-22.0); Oxygen Saturation ABG 95.5 % (95.0-100.0); Oxyhemoglobin 92.9 % THb (90.0-100.0); PO2 ABG 75.3 mmHg (80.0-100.0); PO2 FiO2 Ratio Arterial Blood 1.25 %; Reduced Hemoglobin 6.7 %THb (0-5.0); pH ABG 7.422 (7.350-7.450)
[2020-04-26 04:32] LABS: Arterial Blood Gas PEEP 5 cmH2O; Arterial Blood Gas Vent Mode CMV; Arterial Blood Gas Ventilator rate 22 /MIN; Device VENTILATOR; Modified Allen's Test Pass; Site Drawn RIGHT RADIAL
[2020-04-26 04:33] LABS: Arterial Blood Gas Tidal Volume 500 ml
[2020-04-26] MEDS: HYDROCORTISONE SODIUM SUCCINATE 100 MG/2 ML VIAL 50 MG IV PUSH ×4 (04:39→21:39)
[2020-04-26 04:54] LABS: Hematocrit 21.6 % (42.0-52.0); Hemoglobin 7.3 g/dL (14.0-18.0); Mean Corpuscular HGB Conc 33.8 g/dl (32-36); Mean Corpuscular Hemoglobin 29.7 pg (26-34); Mean Corpuscular Volume 87.8 fl (80-100); Mean Platelet Volume 11.1 fl (7.4-10.4); Platelet Count Result 116 k/mm3 (150-375); Red Blood Count 2.46 M/mm3 (4.6-6.20); Red Cell Distribution Width 18.2 % (11.5-14.5); White Blood Count 18.4 K/mm3 (4.5-10.0)
[2020-04-26 05:22] LABS: Alanine Aminotransferase 94 U/L (4-50); Albumin Level 2.2 g/dL (3.5-5.1); Alkaline Phosphatase 234 U/L (38-126); Anion Gap 11 mmol/L (8-16); Aspartate Amino Transferase 72 U/L (17-59); Bilirubin,Total 9.9 mg/dL (0.2-1.3); Calcium 5.2 mg/dL (8.4-10.2); Carbon Dioxide 26 mmol/L (22-30); Chloride 96 mmol/L (98-107); Estimated CRCL calculation 28 ml/min; Estimated Glomerular Filt Rate 15; Glucose 323 mg/dL (75-110); Magnesium 2.9 mg/dL (1.6-2.3); Phosphorus 9.1 mg/dL (2.5-4.5); Potassium 4.2 mmol/L (3.4-5.0); Sodium 133 mmol/L (137-145)
[2020-04-26] MEDS: INSULIN ASPART (*BKC) 100 UNITS/ML SUB-Q (06:05)
[2020-04-26] MEDS: CENTRAL LINE FLUSH 10 ML IV PUSH ×6 (06:06→21:43)
[2020-04-26 06:16] LABS: Blood Urea Nitrogen 152 mg/dL (9-20)
[2020-04-26 06:54] LABS: Glucose Point of Care 301 (65-105)
[2020-04-26] MEDS: FENTANYL 2,500MCG/NS250ML(*CRX 2,500 MCG/250 ML BAG IV CONT (08:32)
[2020-04-26] MEDS: INSULIN DETEMIR 100 UNITS/ML 35 UNITS SUB-Q ×2 (08:49→21:36)
[2020-04-26] MEDS: PANTOPRAZOLE SODIUM IV 40 MG VIAL IV PUSH ×2 (08:52→21:39)
[2020-04-26] MEDS: INSULIN HUMAN REGULAR (*BKC) 100 UNITS in SODIUM CHLORIDE 0.9% IV 99 ML IV CONT (08:54)
[2020-04-26 09:08] LABS: Glucose Point of Care 302 (65-105)
[2020-04-26 10:31] LABS: Glucose Point of Care 310 (65-105)
[2020-04-26 11:39] LABS: Glucose Point of Care 310 (65-105)
--- NOTE | 2020-04-26 11:48 | WPDINTPN ---
Progress Note: A&P Assessment and Plan (1) Acute respiratory failure: Qualifiers: Respiratory failure complication: unspecified whether with hypoxia or hypercapnia Qualified Code(s): J96.00 - Acute respiratory failure, unspecified whether with hypoxia or hypercapnia Code(s): J96.00 - Acute respiratory failure, unspecified whether with hypoxia or hypercapnia Status: Acute Assessment and Plan: Patient with hemorrhagic shock, hypertensive, acidotic, decreased mentation on 04/14 was emergently intubated for ventilatory support -FiO2 down to 60% %, increase PEEP to 8 and decrease tidal volume to 450 -patient on Versed infusion. Will add fentanyl for pain control -CT head on 04/20/2020 with no acute intracranial findings -will continue dialysis for volume overload. Discussed with Dr. Collazo requested another dialysis session today -CT chest done yesterday showed Patchy bilateral airspace disease of the mid and lower lung zones, compatible with pneumonia. and Small pleural effusion -patient is on vancomycin, ertapenem and Levaquin (2) Cardiac arrest with ventricular fibrillation: Code(s): I46.9 - Cardiac arrest, cause unspecified; I49.01 - Ventricular fibrillation Status: Acute Assessment and Plan: Is patient with VFib arrest on 04/14/2020 hemorrhagic/hypovolemic shock secondary to acute significant GI bleed. Could be related to elevated potassium -ROSC after 6 minutes. This patient taken to surgery Only on Levophed at this time which is being weaned -off amiodarone infusion -troponin elevated, likely secondary to cardiac arrest -appreciate Cardiology evaluation recommendation (3) Hemorrhagic shock: Code(s): R57.8 - Other shock Status: Acute Assessment and Plan: Hemorrhagic shock related to acute GI bleed from bleeding duodenal ulcer -patient with severe anemia status post large amount of blood transfusion; Hgb is stable today -patient remains on Levophed only - stress dose steroids on board (4) Acute GI bleeding: Onset Date: ~04/13/20 Code(s): K92.2 - Gastrointestinal hemorrhage, unspecified Status: Acute Assessment and Plan: Patient presented with dark red stools along with vomiting coffee-ground emesis. -EGD done on 04/13/2020 showed duodenal ulcers were cauterized with gold probe successfully -patient continues to have bloody bowel movements, repeat EGD on 04/14/2020 shows acute active duodenal ulcer bleeding. Epinephrine and clips x3 were applied. - 04/14/2020: Patient underwent Ex lap with extensive lysis of adhesions, pyloroplasty with oversewing bleeding duodenal ulcer and ligation of bleeding vessel in the posterior sac -hemoglobin has been stable -PPI to IV q.12 hours --patient with increasing leukocytosis, started ertapenem on 04/22/2020, as patient is having foul-smelling drainage from his incision and the SERGE to drain. Discussed with surgery; also started vanc/Levaquin 04/24 - CT A/P done 04/25 showed - Percutaneous drainage catheter of the upper abdomen with adjacent midline surgical incision. Intra-abdominal gas is compatible with recent surgery. Small amount of fluid/soft tissue near the end of the surgical drain which likely represents phlegmonous change. Abscess not excluded in the absence of contrast administration. Cannot exclude fistula with the adjacent stomach. Cholelithiasis -general surgery following and at this point there is no plan to take patient back for surgery (5) Paroxysmal atrial fibrillation: Code(s): I48.0 - Paroxysmal atrial fibrillation Status: Chronic Assessment and Plan: Converted to sinus hazel -not on any anticoagulation secondary to bleeding ulcer and hemorrhagic shock -not on amiodarone anymore (6) QUANG (acute kidney injury): Code(s): N17.9 - Acute kidney failure, unspecified Status: Acute Assessment and Plan: Patient with acute on chronic kidney disease -patient has a histo
--- NOTE | 2020-04-26 11:53 | PCDIET ---
ICU Rounding Note: Tube feedings stopped due to reported concern for possible leakage; TPN then initiated and stopped reportedly due to increased LFTs. Documented 780mL gastric output on 04/25/20. RN to speak with surgery. If no plan for additional testing, MD ordered to restart tube feedings. If unable to resume enteral feedings, will need to resume PN and consider cycling. Last recorded weight is 155.9kg which is stable with last review. Bowel Motility: Bloody BM over the weekend, per RN. Labs Reviewed: Hgb (7.3), Hct (21.6), Glu (323), BUN (152), Cr (4.2), Na (133), Alb (2.2), PO4 (9.1), Ca (5.2) Meds Noted: Albumin, Solu Cortef, Levaquin, Invanz, Aspart, Levophed, Vancomycin, Fentanyl, Levemir, Versed, Protonix Additional Notes: Last documented dialysis on 04/23/20. SERGE and wound vac to abdomen. Following daily in ICU rounds. Assessing/reassessing every Sunday/Sunday
[2020-04-26 12:43] LABS: Glucose Point of Care 292 (65-105)
[2020-04-26 13:36] LABS: Glucose Point of Care 250 (65-105)
--- NOTE | 2020-04-26 13:38 | PM.PNGS ---
Progress Note: A&P Assessment and Plan (1) Septic shock: Code(s): A41.9 - Sepsis, unspecified organism; R65.21 - Severe sepsis with septic shock Status: Acute Assessment and Plan: WBC down to 18,[address] scan a/p yesterday showed a small amount of fluid/soft tissue near the end of the surgical drain which likely represents phlegmonous change. Continue IV antibiotics. Continue to trend labs. TPN held d/t LFTs. Okay to start trickle tube feedings from surgical standpoint. Minimal vasopressor support at this point - continue to wean Levophed as tolerated. (2) Acute GI bleeding: Onset Date: ~04/13/20 Code(s): K92.2 - Gastrointestinal hemorrhage, unspecified Status: Acute Assessment and Plan: No further sings of bleeding. Unable to do TPN d/t liver function. Okay from surgical standpoint to start trickle tube feedings and see how he tolerates this. See plan above. Continue SERGE drain to suction. Continue wound VAC therapy. Plan to change wound VAC later today and use white foam over area of possible enterocutaneous fistula. Monitor VAC output. (3) Acute kidney injury superimposed on CKD: Code(s): N17.9 - Acute kidney failure, unspecified; N18.9 - Chronic kidney disease, unspecified Status: Acute Assessment and Plan: Creatinine 4.2 today. Monitor labs. Nephrology following. (4) Shock liver: Code(s): K72.00 - Acute and subacute hepatic failure without coma Status: Acute Assessment and Plan: Tbili trending down to 9.9 today. (5) COVID-19: Code(s): U07.1 - COVID-19 Status: Acute Assessment and Plan: Continue precautions. Remains on ventilator. Care per CCP. Additional Plan Discussed and formulated plan of care with Dr. Geiger today. Subjective Subjective Date/Time Seen: 04/26/20 13:38 Post Op day: 12 Interval history: Patient intubated and sedated in the ICU. Per the nurse, he is still on 5 mcg/min of Levophed. Review of Systems Review of Systems: ROS unobtainable: Yes unobtainable due to endotracheal tube and unobtainable due to mental status Exam Const: Other: Sedated, comfortable. Opens eyes to voice but not following commands. Resp: Auscultation: diminished lung sounds bilateral Cardio: Rate: bradycardic Rhythm: regular rhythm GI: Inspection: Abdominal wall edema, distended and obesity GI Palp: Yes Soft to palpation and Yes Tenderness to palpation present (GI) (grimacing with palpation over entire abd) Auscultation: Hypoactive bowel sounds present Other: Upper midline incision with wound VAC In place and working well, minimal brown drainage output in canister. SERGE drain with dark brown output. Urinary Catheter: Urinary Catheter: patent and draining and urine clear Skin: General skin exam: jaundice Neuro: Other: АЛЕКСАНДР, sedated and on vent. Not following commands for me but did open eyes. Extrem: General: edema Psych: Insight: Limited insight present (Psych) and Poor insight present (Psych) Judgement: Limited judgement present (Psych) and Poor judgement present (Psych) Objective Data Vital Signs Vital Signs: Vital Signs - 24 hr 04/25/20 13:57 04/25/20 15:21 04/25/20 16:00 Temperature 98 F Pulse Rate 58 L 60 59 L Respiratory Rate 22 H 22 H Blood Pressure 130/42 L 120/39 L Pulse Oximetry 94 96 95 04/25/20 17:26 04/25/20 18:00 04/25/20 20:00 Temperature 98.9 F Pulse Rate 54 L 53 L 58 L Respiratory Rate 22 H 22 H Blood Pressure 111/58 L 97/57 L Pulse Oximetry 95 95 96 04/25/20 21:12 04/25/20 22:00 04/25/20 23:00 Temperature 98.8 F Pulse Rate 56 L 53 L 53 L Respiratory Rate 22 H Blood Pressure 103/54 L 118/54 L Pulse Oximetry 95 94 04/25/20 23:49 04/26/20 00:00 04/26/20 02:00 Temperature 98.7 F 98.4 F Pulse Rate 56 L 56 L 52 L Respiratory Rate 22 H 22 H 22 H Blood Pressure 126/56 L 126/56 L 133/42 L Pulse Oximetry 95 94 04/26/20 02:05 04/26/20 04:00 04/26/20 05:25
[2020-04-26 14:45] LABS: Glucose Point of Care 217 (65-105)
[2020-04-26] MEDS: ERTAPENEM 1 GM/NS 50 ML 1 GM/50 ML BAG IVPB (15:59)
[2020-04-26 17:04] LABS: Glucose Point of Care 162 (65-105)
--- NOTE | 2020-04-26 17:34 | PM.IMPN ---
Progress Note: A&P Assessment and Plan (1) Cardiac arrest with ventricular fibrillation: Code(s): I46.9 - Cardiac arrest, cause unspecified; I49.01 - Ventricular fibrillation Status: Acute Assessment and Plan: Patient developed VFib arrest evening on 04/14 probably related to hypovolemic shock from acute blood loss. He did have elevated potassium earlier in the day which could have contributed to this. ROSC after 6 minutes. Patient taken to surgery later that evening. Patient currently stable but remains in critical condition. Trop 4.2 at peak but not unexpected after a code blue. (2) Acute respiratory failure: Qualifiers: Respiratory failure complication: unspecified whether with hypoxia or hypercapnia Qualified Code(s): J96.00 - Acute respiratory failure, unspecified whether with hypoxia or hypercapnia Code(s): J96.00 - Acute respiratory failure, unspecified whether with hypoxia or hypercapnia Status: Acute Assessment and Plan: Patient became obtunded requiring intubation on 04/14. A short time later, code blue was called. He remains on mechanical ventilation. . Chest x-ray reviewed and showing pulmonary edema with lower lobe airspace disease. Patient with fevers and has tested positive for COVID. BCx NGTD. Sputum Cx growing H.flu and. Ceftriaxone started 04/18 and changed to ertapenem 04/22 and now levofloxacin and Vanc 04/24. Fevers have waned. O2 requirements decreased after dialysis with fluid removal and another session planned for today (3) COVID-19: Code(s): U07.1 - COVID-19 Status: Acute Assessment and Plan: Patient had intermittent fevers but developed more persistent fevers on 04/14. He was tested and found to be positive for COVID on 04/16/20. on hydrocortisone now. No Remdesivir due to QUANG. (4) Hemorrhagic shock: Code(s): R57.8 - Other shock Status: Acute Assessment and Plan: Patient with acute blood loss resulting in hemorrhagic shock. Currently on NE but able to come off of SPRAY OPERATOR and phenylephrine. Hgb 7.3 this am , stable past 6 days. Hydrocortisone added for pressure and for anti-rejection. Albumin 2.2. (5) Acute GI bleeding: Onset Date: ~04/13/20 Code(s): K92.2 - Gastrointestinal hemorrhage, unspecified Status: Acute Assessment and Plan: Acute GI bleeding secondary to duodenal ulcer complicated by recent anticoagulant use. BRBPR and with coffee ground emesis consistent with brisk upper GI bleed with rapid transit. Patient has received 17 units of packed red blood cells in total. EGD twice has failed to stop the bleeding. Patient underwent emergency surgery 04/14 with exploratory laparotomy, extensive lysis of adhesions, ligation of bleeding vessel in the posterior sac, and pyloroplasty with over-sewing bleeding duodenal ulcer. Patient has done well thus far and is showing signs of improvement. Monitor HH closely for stability. wound culture now growing Citrobacter fr, antibiotics now levafloxacin and Vanc and ertapenem Hgb lower today and thought dilutional . follow after dialysis (6) Acute hyperkalemia: Code(s): E87.5 - Hyperkalemia Status: Acute Assessment and Plan: The patient's potassium was as high as 7.2 on admission and has been elevated at times. The patient was treated appropriately including HD. Recent potassium levels normal. Continue to follow. (7) QUANG (acute kidney injury): Code(s): N17.9 - Acute kidney failure, unspecified Status: Acute Assessment and Plan: QUANG related to above with acute blood loss and now code blue. Cr stable at 3.6 today ). Suspect pre-renal and ATN from shock. Patient is s/p renal transplant and he is off his anti-rejection meds. Steroids started for anti-rejection treatment. Volume overload so dialysis started 04/22 after catheter placed. Attempted dialysis through left arm shunt 04/21 but unab
[2020-04-26 17:53] LABS: Glucose Point of Care 192 (65-105)
[2020-04-26] MEDS: INSULIN HUMAN REGULAR (*BKC) 100 UNITS in SODIUM CHLORIDE 0.9% IV 99 ML 6 UNITS IV CONT (18:00)
--- NOTE | 2020-04-26 18:01 | P.PNNP_ITS ---
Progress Note: A&P Assessment and Plan (1) QUANG (acute kidney injury): Code(s): N17.9 - Acute kidney failure, unspecified Status: Acute Assessment and Plan: * likely ATN from hemodynamic instability, shock, cardiac arrest, and severe anemia * may be have some contributions from the abdominal process/issues as well * HD today and possible tomorrow depending on status * HD to help with clearance although elevated BUN likely a combination of renal failure, catabolic state, steroids and prior bleeding issues (2) Chronic renal failure, stage 3a: Code(s): N18.31 - Chronic kidney disease, stage 3a Status: Acute Assessment and Plan: * due chronic allograft nephropathy (of transplanted kidney) * baseline creatinine ~ 2.0mg/dl * 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 (3) Septic shock: Code(s): A41.9 - Sepsis, unspecified organism; R65.21 - Severe sepsis with septic shock Status: Acute Assessment and Plan: * 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 * remains on broad spectrum antibiotic therapy - cultures noted * follow wounds/drainage * pressor therapy with weaning as tolerated (4) Acute respiratory failure: Qualifiers: Respiratory failure complication: unspecified whether with hypoxia or hypercapnia Qualified Code(s): J96.00 - Acute respiratory failure, unspecified whether with hypoxia or hypercapnia Code(s): J96.00 - Acute respiratory failure, unspecified whether with hypoxia or hypercapnia Status: Acute Assessment and Plan: * due to ongoing medical issues and shock * weaning once more stable * continue mechanical ventilation (5) Acute GI bleeding: Onset Date: ~04/13/20 Code(s): K92.2 - Gastrointestinal hemorrhage, unspecified Status: Acute Assessment and Plan: * s/p 2 EGDs and and 1 surgery have stopped the bleeding * hemoglobin has been relatively stable * no black or bloody stools noted (6) Paroxysmal atrial fibrillation: Code(s): I48.0 - Paroxysmal atrial fibrillation Status: Chronic Assessment and Plan: * heart rate doing okay * off amiodarone (7) History of kidney transplant: Onset Date: ~1990 Code(s): Z94.0 - Kidney transplant status Status: Chronic Assessment and Plan: * holding MMF and tacrolimus * remains on steroids (8) Diabetes: Code(s): E11.9 - Type 2 diabetes mellitus without complications Status: Chronic Assessment and Plan: * follow accuchecks * on SSI Will continue to follow. Subjective Date/time seen: 04/26/20 18:01 Tolerating dialysis treatment at the time of my visit (seen at 5:50AM); remains intubated/sedated and on pressor support; noted results of recent CT scan; no other acute events overnight or this AM; still making some urine at this time. Exam Narrative: Exam Narrative: General: WD/WN male intubated and sedated Heart: normal S1 and S2; no rub or gallop Lungs: coarse breath sounds throughout Abdomen: soft, hypoactive bowel sounds; some TTP noted Extremities: 1 - 2+ edema noted Skin: no nodules Objective Data Vital Signs Vital Signs: Vital Signs Temp Pulse Resp BP Pulse Ox 04/26/20 17:39 50 L 95 04/26/20 17:00 47 L 22 H 04/26/20 16:58 47 L 22 H 04/26/20 16:04 47 L 152/66 H 04/26/20 16:00 36.4 C 46 L 22 H 145/63 H 95
--- NOTE | 2020-04-26 18:01 | PM.PNNEP ---
Progress Note: A&P Assessment and Plan (1) QUANG (acute kidney injury): Code(s): N17.9 - Acute kidney failure, unspecified Status: Acute Assessment and Plan: likely ATN from hemodynamic instability, shock, cardiac arrest, and severe anemia may be have some contributions from the abdominal process/issues as well HD today and possible tomorrow depending on status HD to help with clearance although elevated BUN likely a combination of renal failure, catabolic state, steroids and prior bleeding issues (2) Chronic renal failure, stage 3a: Code(s): N18.31 - Chronic kidney disease, stage 3a Status: Acute Assessment and Plan: due chronic allograft nephropathy (of transplanted kidney) baseline creatinine ~ 2.0mg/dl 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 (3) Septic shock: Code(s): A41.9 - Sepsis, unspecified organism; R65.21 - Severe sepsis with septic shock Status: Acute Assessment and Plan: 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 remains on broad spectrum antibiotic therapy - cultures noted follow wounds/drainage pressor therapy with weaning as tolerated (4) Acute respiratory failure: Qualifiers: Respiratory failure complication: unspecified whether with hypoxia or hypercapnia Qualified Code(s): J96.00 - Acute respiratory failure, unspecified whether with hypoxia or hypercapnia Code(s): J96.00 - Acute respiratory failure, unspecified whether with hypoxia or hypercapnia Status: Acute Assessment and Plan: due to ongoing medical issues and shock weaning once more stable continue mechanical ventilation (5) Acute GI bleeding: Onset Date: ~04/13/20 Code(s): K92.2 - Gastrointestinal hemorrhage, unspecified Status: Acute Assessment and Plan: s/p 2 EGDs and and 1 surgery have stopped the bleeding hemoglobin has been relatively stable no black or bloody stools noted (6) Paroxysmal atrial fibrillation: Code(s): I48.0 - Paroxysmal atrial fibrillation Status: Chronic Assessment and Plan: heart rate doing okay off amiodarone (7) History of kidney transplant: Onset Date: ~1990 Code(s): Z94.0 - Kidney transplant status Status: Chronic Assessment and Plan: holding MMF and tacrolimus remains on steroids (8) Diabetes: Code(s): E11.9 - Type 2 diabetes mellitus without complications Status: Chronic Assessment and Plan: follow accuchecks on SSI Will continue to follow. Subjective Date/time seen: 04/26/20 18:01 Tolerating dialysis treatment at the time of my visit (seen at 5:50AM); remains intubated/sedated and on pressor support; noted results of recent CT scan; no other acute events overnight or this AM; still making some urine at this time. Exam Narrative: Exam Narrative: General: WD/WN male intubated and sedated Heart: normal S1 and S2; no rub or gallop Lungs: coarse breath sounds throughout Abdomen: soft, hypoactive bowel sounds; some TTP noted Extremities: 1 - 2+ edema noted Skin: no nodules Objective Data Vital Signs Vital Signs: Vital Signs Temp Pulse Resp BP Pulse Ox 04/26/20 17:39 50 L 95 04/26/20 17:00 47 L 22 H 04/26/20 16:58 47 L 22 H 04/26/20 16:04 47 L 152/66 H 04/26/20 16:00 36.4 C 46 L 22 H 145/63 H 95 04/26/20 15:31 48 L 101/38 L 04/26/20 14:35 47 L 95 04/26/20 14:00 48 L 22 H 122/43 L 94 04/26/20 13:30 50 L 22 H 04/26/20 12:00 37.1 C 47 L 22 H 110/47 L 93 04/26/20 10:59 50 L 94 04/26/20 10:00 51 L 22 H 115/40 L 93 04/26/20 08:37 66 18 04/26/20 08:32 61 15 04/26/20 08:00 36.8 C 52 L 18 111/37 L 95 04/26/20 07:50 65 93 04/26/20 06:00 36.6 C 50 L 22 H 138/47 L 94 04/26/20 05:25 50 L 95 04/26/20 04:00 36.8 C 51 L 22 H 131/45 L 94 04/26/20 02:05 52 L 99 04/26/20 02:00 36.9 C
[2020-04-26 18:05] LABS: Glucose Point of Care 135 (65-105)
[2020-04-26 19:29] LABS: Glucose Point of Care 100 (65-105)
[2020-04-26] MEDS: EPOETIN ALFA-EPBX 10,000 UNITS/ML VIAL 10000 UNITS IV PUSH (19:54)
[2020-04-26 21:06] LABS: Glucose Point of Care 94 (65-105)
--- NOTE | 2020-04-26 21:12 | PC.NURSE ---
Spoke with Dr. Peterson, give tr villagomez. Then if patient remains Less than 3 units on insulin drip, may shut off and start high dose SSI Q4h.
[2020-04-26] MEDS: NOREPINEPHRINE 8 MG/D5W 250 ML 8 MG/250 ML BAG 13.13 MG IV CONT (22:15)
[2020-04-26 22:38] LABS: Glucose Point of Care 99 (65-105)
--- NOTE | 2020-04-26 23:02 | PC.NURSE ---
Spoke with Dr Peterson regarding patient being AFIB 115-130. Dr. Peterson updated on current drips on the patient. Give Cardizem 10mg IV push x1, then start drip per protocol. Maintain HR 80-120.
--- NOTE | 2020-04-26 23:04 | ECG_ITS ---
Measurements Intervals [place] Rate: 114 P: ND: 0 QRS: 1 QRSD: 102 T: 75 QT: 324 QTc: 447 Interpretive Statements ATRIAL FIBRILLATION WITH RAPID VENTRICULAR RESPONSE ST-T WAVE ABNORMALITY IN HIGH LATERAL LEADS- CONSIDER ISCHEMIA ABNORMAL ECG Electronically Signed On 04-27-2020 6:57:34 [employer] by David Le D.O.
[2020-04-26] MEDS: dilTIAZem HCl INJ 25 MG/5 ML VIAL 10 MG IV PUSH (23:23)
[2020-04-27] VITALS (82 sets, daily range): BP systolic 70–158; BP diastolic 26–88; PULSE 47–137; RESP 16–36; TEMP 36.3–37.1; O2SAT 89–98
[2020-04-27 00:22] LABS: Glucose Point of Care 122 (65-105)
[2020-04-27 04:53] LABS: Base Excess ABG -0.9 mEq/l (+/-2.0); Carboxyhemoglobin 0.1 % THb (0-2.0); Fractional Inspired Oxygen 75 %; HCO3 ABG 23.5 mEq/l (22.0-26.0); Methemoglobin ABG 0.1 %THb (0-1.5); Oxygen Content ABG 11.9 %vol (16.0-22.0); Oxygen Saturation ABG 94.6 % (95.0-100.0); Oxyhemoglobin 92.3 % THb (90.0-100.0); PCO2 ABG 37.5 mmHg (35.0-45.0); PO2 ABG 70.9 mmHg (80.0-100.0); PO2 FiO2 Ratio Arterial Blood 0.95 %; Reduced Hemoglobin 7.5 %THb (0-5.0); Total Hemoglobin 9.1 g/dL (12.0-18.0); pH ABG 7.415 (7.350-7.450)
[2020-04-27 04:54] LABS: Arterial Blood Gas PEEP 8 cmH2O; Arterial Blood Gas Tidal Volume 450 ml; Arterial Blood Gas Vent Mode CMV; Arterial Blood Gas Ventilator rate 22 /MIN; Device VENTILATOR; Modified Allen's Test Pass; Site Drawn RIGHT RADIAL
[2020-04-27] MEDS: HYDROCORTISONE SODIUM SUCCINATE 100 MG/2 ML VIAL 50 MG IV PUSH ×4 (05:14→21:43)
[2020-04-27] MEDS: CENTRAL LINE FLUSH 10 ML IV PUSH ×4 (05:14→21:43)
[2020-04-27 05:29] LABS: Hematocrit 22.9 % (42.0-52.0); Hemoglobin 7.5 g/dL (14.0-18.0); Mean Corpuscular HGB Conc 32.8 g/dl (32-36); Mean Corpuscular Hemoglobin 28.4 pg (26-34); Mean Corpuscular Volume 86.7 fl (80-100); Mean Platelet Volume 11.2 fl (7.4-10.4); Platelet Count Result 110 k/mm3 (150-375); Red Blood Count 2.64 M/mm3 (4.6-6.20); Red Cell Distribution Width 18.6 % (11.5-14.5); White Blood Count 20.7 K/mm3 (4.5-10.0)
[2020-04-27 05:41] LABS: D Dimer 3.65 ug/mL (<0.48)
[2020-04-27 05:47] LABS: Alanine Aminotransferase 101 U/L (4-50); Albumin Level 2.7 g/dL (3.5-5.1); Alkaline Phosphatase 242 U/L (38-126); Anion Gap 7 mmol/L (8-16); Aspartate Amino Transferase 87 U/L (17-59); Blood Urea Nitrogen 107 mg/dL (9-20); Calcium 6.3 mg/dL (8.4-10.2); Carbon Dioxide 27 mmol/L (22-30); Chloride 98 mmol/L (98-107); Estimated CRCL calculation 39 ml/min; Estimated Glomerular Filt Rate 22; Glucose 171 mg/dL (75-110); Lactate Dehydrogenase 860 U/L (313-618); Magnesium 2.8 mg/dL (1.6-2.3); Potassium 4.1 mmol/L (3.4-5.0); Sodium 132 mmol/L (137-145)
[2020-04-27 05:52] LABS: CRP 14.2 mg/dL (<1.0)
[2020-04-27] MEDS: PANTOPRAZOLE SODIUM IV 40 MG VIAL IV PUSH ×2 (08:18→21:43)
[2020-04-27] MEDS: INSULIN ASPART (*BKC) 100 UNITS/ML SUB-Q ×3 (08:27→21:41)
[2020-04-27] MEDS: INSULIN DETEMIR 100 UNITS/ML 35 UNITS SUB-Q ×2 (08:27→21:40)
[2020-04-27 08:50] LABS: Glucose Point of Care 240 (65-105)
[2020-04-27] MEDS: NOREPINEPHRINE 8 MG/D5W 250 ML 8 MG/250 ML BAG 33.75 MG IV CONT (09:43)
[2020-04-27] MEDS: dilTIAZem HCl INJ 25 MG/5 ML VIAL 10 MG IV PUSH (09:44)
--- NOTE | 2020-04-27 09:44 | P.PNNP_ITS ---
Progress Note: A&P Assessment and Plan (1) QUANG (acute kidney injury): Code(s): N17.9 - Acute kidney failure, unspecified Status: Acute Assessment and Plan: * likely ATN from hemodynamic instability, shock, cardiac arrest, and severe anemia * may be have some contributions from the abdominal process/issues as well * HD yesterday and plan today for further fluid removal and clearance of uremic toxins but hold given change in status * HD helps with clearance of the uremic toxins but elevated BUN likely a combina tion of renal failure, catabolic state, steroids and prior bleeding issues (2) Chronic renal failure, stage 3a: Code(s): N18.31 - Chronic kidney disease, stage 3a Status: Acute Assessment and Plan: * due chronic allograft nephropathy (of transplanted kidney) * baseline creatinine ~ 2.0mg/dl * 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 (3) Septic shock: Code(s): A41.9 - Sepsis, unspecified organism; R65.21 - Severe sepsis with septic shock Status: Acute Assessment and Plan: * 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 * remains on broad spectrum antibiotic therapy - cultures noted * follow wounds/drainage * Surgery following * pressor therapy with weaning as tolerated (4) Acute respiratory failure: Qualifiers: Respiratory failure complication: unspecified whether with hypoxia or hypercapnia Qualified Code(s): J96.00 - Acute respiratory failure, unspecified whether with hypoxia or hypercapnia Code(s): J96.00 - Acute respiratory failure, unspecified whether with hypoxia or hypercapnia Status: Acute Assessment and Plan: * due to ongoing medical issues and shock * weaning once more stable * continue mechanical ventilation (5) Acute GI bleeding: Onset Date: ~04/13/20 Code(s): K92.2 - Gastrointestinal hemorrhage, unspecified Status: Acute Assessment and Plan: * s/p 2 EGDs and and 1 surgery have stopped the bleeding * hemoglobin has been relatively stable -- noted fluctuations in the last few days * no black or bloody stools noted (6) Paroxysmal atrial fibrillation: Code(s): I48.0 - Paroxysmal atrial fibrillation Status: Chronic Assessment and Plan: * heart rate doing okay * off amiodarone (7) History of kidney transplant: Onset Date: ~1990 Code(s): Z94.0 - Kidney transplant status Status: Chronic Assessment and Plan: * holding MMF and tacrolimus * remains on steroids (8) Diabetes: Code(s): E11.9 - Type 2 diabetes mellitus without complications Status: Chronic Assessment and Plan: * follow accuchecks * on SSI Will continue to follow. Subjective Date/time seen: 04/27/20 09:44 Tolerated dialysis treatment yesterday afternoon reasonably well; unfortunately, deteriorated overnight -- developed Afib with RVR; more hypotensive requiring increasing doses of levophed; worsening oxygenation with increase in oxygen requirement and PEEP; remain intubated/sedated at this time. Exam Narrative: Exam Narrative: General: WD/WN male intubated and sedated Heart: normal S1 and S2; no rub or gallop Lungs: coarse breath sounds throughout Abdomen: soft, hypoactive bowel sounds; some mild TTP noted Extremities: 1 - 2+ edema noted Skin: intact Objective Data Vital Signs Vital Signs: Vital Signs Temp Pulse Resp BP Pulse Ox 04/27/20 08:
--- NOTE | 2020-04-27 09:44 | PM.PNNEP ---
Progress Note: A&P Assessment and Plan (1) QUANG (acute kidney injury): Code(s): N17.9 - Acute kidney failure, unspecified Status: Acute Assessment and Plan: likely ATN from hemodynamic instability, shock, cardiac arrest, and severe anemia may be have some contributions from the abdominal process/issues as well HD yesterday and plan today for further fluid removal and clearance of uremic toxins but hold given change in status 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 remains on broad spectrum antibiotic therapy - cultures noted follow wounds/drainage Surgery following pressor therapy with weaning as tolerated (4) Acute respiratory failure: Qualifiers: Respiratory failure complication: unspecified whether with hypoxia or hypercapnia Qualified Code(s): J96.00 - Acute respiratory failure, unspecified whether with hypoxia or hypercapnia Code(s): J96.00 - Acute respiratory failure, unspecified whether with hypoxia or hypercapnia Status: Acute Assessment and Plan: due to ongoing medical issues and shock weaning once more stable continue mechanical ventilation (5) Acute GI bleeding: Onset Date: ~04/13/20 Code(s): K92.2 - Gastrointestinal hemorrhage, unspecified Status: Acute Assessment and Plan: s/p 2 EGDs and and 1 surgery have stopped the bleeding hemoglobin has been relatively stable -- noted fluctuations in the last few days no black or bloody stools noted (6) Paroxysmal atrial fibrillation: Code(s): I48.0 - Paroxysmal atrial fibrillation Status: Chronic Assessment and Plan: heart rate doing okay off amiodarone (7) History of kidney transplant: Onset Date: ~1990 Code(s): Z94.0 - Kidney transplant status Status: Chronic Assessment and Plan: holding MMF and tacrolimus remains on steroids (8) Diabetes: Code(s): E11.9 - Type 2 diabetes mellitus without complications Status: Chronic Assessment and Plan: follow accuchecks on SSI Will continue to follow. Subjective Date/time seen: 04/27/20 09:44 Tolerated dialysis treatment yesterday afternoon reasonably well; unfortunately, deteriorated overnight -- developed Afib with RVR; more hypotensive requiring increasing doses of levophed; worsening oxygenation with increase in oxygen requirement and PEEP; remain intubated/sedated at this time. Exam Narrative: Exam Narrative: General: WD/WN male intubated and sedated Heart: normal S1 and S2; no rub or gallop Lungs: coarse breath sounds throughout Abdomen: soft, hypoactive bowel sounds; some mild TTP noted Extremities: 1 - 2+ edema noted Skin: intact Objective Data Vital Signs Vital Signs: Vital Signs Temp Pulse Resp BP Pulse Ox 04/27/20 08:37 108 H 120/26 L 04/27/20 08:35 110 H 23 H 04/27/20 08:32 110 H 78/46 L 04/27/20 08:00 36.4 C L 108 H 23 H 113/48 L 94 04/27/20 07:28 54 L 22 H 119/41 L 04/27/20 07:26 54 L 22 H 04/27/20 07:20 113 H 93 04/27/20 06:00 36.4 C 50 L 22 H 114/48 L 94 04/27/20 05:33 36.5 C 53 L 22 H 112/54 L 93 04/27/20 05:19 113 H 93 04/27/20 04:57 55 L 22 H 04/27/20 04:56 54 L 20 103/61 04/27/20 04:00 36.5 C 51 L 22 H 106/49 L 90 04/27/20 03:55 36.5 C 52 L 22 H 102/58 L
[2020-04-27 10:04] LABS: Vancomycin Trough 23.9 ug/mL (10.0-20.0)
[2020-04-27] MEDS: VASOPRESSIN INJ 100 UNITS in DEXTROSE 5% 95 ML IV CONT (10:24)
--- NOTE | 2020-04-27 11:22 | PM.PNGS ---
Progress Note: A&P Assessment and Plan (1) Septic shock: Code(s): A41.9 - Sepsis, unspecified organism; R65.21 - Severe sepsis with septic shock Status: Acute Assessment and Plan: CT reviewed and no undrained collections, etc, cont vac and drain, cont trophic feeds, abx and pressors per utilities service investigator Subjective Subjective Date/Time Seen: 04/27/20 11:22 increasing pressor requirements today, [place] trophic feeds Review of Systems Review of Systems: ROS unobtainable: Yes unobtainable due to endotracheal tube Exam Const: General: ill appearing and patient obtunded Resp: Auscultation: diminished lung sounds Cardio: Rate: tachycardic GI: Inspection: Abdominal wall edema, distended and incision Other: soft, mod dist, vac C/D/I Objective Data Vital Signs Vital Signs: Vital Signs - 24 hr 04/26/20 12:00 04/26/20 13:30 04/26/20 14:00 Temperature 37.1 C Pulse Rate 47 L 50 L 48 L Respiratory Rate 22 H 22 H 22 H Blood Pressure 110/47 L 122/43 L Pulse Oximetry 93 94 04/26/20 14:35 04/26/20 15:31 04/26/20 16:00 Temperature 36.4 C Pulse Rate 47 L 48 L 46 L Respiratory Rate 22 H Blood Pressure 101/38 L 145/63 H Pulse Oximetry 95 95 04/26/20 16:04 04/26/20 16:45 04/26/20 16:58 Temperature 35.6 C L Pulse Rate 47 L 43 L 47 L Respiratory Rate 16 22 H Blood Pressure 152/66 H 146/62 H Pulse Oximetry 94 04/26/20 17:00 04/26/20 17:15 04/26/20 17:30 Temperature Pulse Rate 48 L 51 L 53 L Respiratory Rate 22 H Blood Pressure 139/59 L 145/65 H 108/47 L Pulse Oximetry 04/26/20 17:39 04/26/20 17:45 04/26/20 18:00 Temperature Pulse Rate 50 L 56 L 56 L Respiratory Rate 22 H Blood Pressure 122/61 128/67 Pulse Oximetry 95 93 04/26/20 18:15 04/26/20 18:30 04/26/20 18:45 Temperature Pulse Rate 56 L 59 L 61 Respiratory Rate Blood Pressure 129/65 123/61 125/65 Pulse Oximetry 04/26/20 19:00 04/26/20 19:15 04/26/20 19:33 Temperature Pulse Rate 61 65 62 Respiratory Rate Blood Pressure 124/60 124/63 Pulse Oximetry 93 04/26/20 19:45 04/26/20 20:00 04/26/20 20:04 Temperature 36.3 C L Pulse Rate 61 60 61 Respiratory Rate 18 Blood Pressure 122/69 120/60 120/60 Pulse Oximetry 93 04/26/20 20:15 04/26/20 20:30 04/26/20 20:35 Temperature 36.5 C Pulse Rate 58 L 62 57 L Respiratory Rate 16 Blood Pressure 121/66 135/57 L Pulse Oximetry 93 04/26/20 21:00 04/26/20 21:45 04/26/20 22:00 Temperature 36.5 C 36.4 C L Pulse Rate 55 L 53 L 57 L Respiratory Rate 18 18 Blood Pressure 135/57 L 109/68 89/50 L Pulse Oximetry 93 90 04/26/20 22:02 04/26/20 22:15 04/26/20 22:40 Temperature Pulse Rate 58 L 60 54 L Respiratory Rate Blood Pressure 89/50 L 109/35 L Pulse Oximetry 92 04/26/20 22:45 04/26/20 23:23 04/26/20 23:31 Temperature Pulse Rate 71 122 H 118 H Respiratory Rate 18 Blood Pressure 130/42 L 100/50 L 73/23 L Pulse Oximetry 91 04/26/20 23:35 04/26/20 23:41 04/26/20 23:48 Temperature Pulse Rate 102 H 118 H 118 H Respiratory Rate 22 H 18 20 Blood Pressure 117/71 Pulse Oximetry 90 93 04/26/20 23:51 04/27/20 00:00 04/27/20 00:04 Temperature 36.3 C L Pulse Rate 122 H 114 H 122 H Respiratory Rate 22 H Blood Pressure 121/88 82/45 L 121/88 Pulse Oximetry 89 L 04/27/20 00:07 04/27/20 00:30 04/27/20 01:31 Temperature 36.4 C Pulse Rate 110 H 113 H 113 H Respiratory Rate 22 H 22 H Blood Pressure 130/70 113/46 L 119/68 Pulse Oximetry 92 93 04/27/20 01:36 04/27/20 02:00 04/27/20 03:00 Temperature 36.4 C Pulse Rate 116 H 111 H 115 H Respiratory Rate 22 H 22 H Blood Pressure 118/71 113/50 L Pulse Oximetry 93 94 94 04/27/20 03:14 04/27/20 03:54 04/27/20 03:55 Temperature 36.5 C Pulse Rate 111 H 51 L 52 L Respiratory Rate 22 H 22 H Blood Pressure 105/43 L 102/58 L Pulse Oximetry 94 90 04/27/20 04:00 04/27/20 04:56 04/27/20 04:57 [place]
[2020-04-27] MEDS: ALBUMIN HUMAN 25% 25 GM/100 ML 100 ML IVPB ×3 (11:47→23:12)
[2020-04-27] MEDS: SODIUM BICARBONATE 8.4% 50 MEQ/50 ML SYRINGE 100 MEQ IV PUSH (12:15)
[2020-04-27 12:17] LABS: Glucose Point of Care 204 (65-105)
[2020-04-27] MEDS: ROCURONIUM BROMIDE 50 MG/5 ML VIAL IV PUSH (12:30)
[2020-04-27] MEDS: SODIUM BICARBONATE 8.4% 50 MEQ/50 ML SYRINGE IV PUSH (13:00)
[2020-04-27] MEDS: MORPHINE SULFATE (*CRX) 2 MG/ML INJ IV PUSH (13:19)
[2020-04-27 13:21] LABS: Alveolar/Arterial O2 Gradient 538.5 mmHg; Base Excess ABG 1.4 mEq/l (+/-2.0); Carboxyhemoglobin 0.3 % THb (0-2.0); Fractional Inspired Oxygen 100 %; HCO3 ABG 25.9 mEq/l (22.0-26.0); Methemoglobin ABG 0.1 %THb (0-1.5); Oxygen Content ABG 14.4 %vol (16.0-22.0); Oxygen Saturation ABG 98.7 % (95.0-100.0); Oxyhemoglobin 97.4 % THb (90.0-100.0); PCO2 ABG 40.7 mmHg (35.0-45.0); PO2 ABG 133.8 mmHg (80.0-100.0); PO2 FiO2 Ratio Arterial Blood 1.34 %; Reduced Hemoglobin 2.2 %THb (0-5.0); Total Hemoglobin 10.3 g/dL (12.0-18.0); pH ABG 7.422 (7.350-7.450)
[2020-04-27 13:22] LABS: Arterial Blood Gas PEEP 15 cmH2O; Arterial Blood Gas Tidal Volume 450 ml; Arterial Blood Gas Vent Mode CMV; Arterial Blood Gas Ventilator rate 22 /MIN; Device VENTILATOR; Site Drawn ARTLINE
--- NOTE | 2020-04-27 13:30 | PCDIET ---
Nutrition Follow-Up Complete: Nutrition Diagnosis: Inadequate oral intake related to inability to consume foods orally due to mechanical ventilation as evidenced by NPO order. Nutrition Goal: Total intake will meet estimated nutrition needs. Goal in progress. Patient has been tolerating Nepro at 10mL/hr; however, pressor support has increased today. If unable to advance tube feedings in next 24 hours, would recommend adding supplemental PN. Recommend continued calcium replacement, as medically appropriate. Last recorded weight is 153.3 kg which is decreased from last review. s/p 3L UF yesterday with negative I/O. Bowel Motility: No documented BM. Labs Reviewed: Hgb (7.5), Hct (22.9), BUN (107), Cr (3.0), Na (132), Alb (2.7), [place] Ca (7.34) Meds Noted: Albumin, Invanz, Fentanyl, Versed, Solu Cortef, Levemir, Levophed, Novolog, Levaquin, Protonix, Vancomycin, Vasopressin Additional Notes: SERGE drain and wound vac to abdomen. Buttocks macerated. Will continue to monitor with same goal. Nutrition Monitoring and Evaluation: Follow up every Sunday/Sunday.
--- NOTE | 2020-04-27 13:41 | WPDINTPN ---
Progress Note: A&P Assessment and Plan (1) Acute respiratory failure: Qualifiers: Respiratory failure complication: unspecified whether with hypoxia or hypercapnia Qualified Code(s): J96.00 - Acute respiratory failure, unspecified whether with hypoxia or hypercapnia Code(s): J96.00 - Acute respiratory failure, unspecified whether with hypoxia or hypercapnia Status: Acute Assessment and Plan: Patient with hemorrhagic shock, hypertensive, acidotic, decreased mentation on 04/14 was emergently intubated for ventilatory support -during the day today patient's oxygen requirement has gone up. Patient had to be bagged after he desaturated after change in position ABG reviewed. Wean FiO2. Peep increased to 12 -patient on Versed and fentanyl infusion -CT head on 04/20/2020 with no acute intracranial findings -patient was dialyzed yesterday. Hold dialysis today due to hemodynamic decompensation -will repeat chest x-ray -patient is on vancomycin, ertapenem and Levaquin -patient has been on ventilator for 2 weeks and is no where close to extubation. Will consult ENT for tracheostomy once patient is stabilized (2) Septic shock: Code(s): A41.9 - Sepsis, unspecified organism; R65.21 - Severe sepsis with septic shock Status: Acute Assessment and Plan: - Levaquin and Vancomycin added to ertapenem - fungal blood cultures and fungal culture from SERGE drain sent. Patient is at high risk for invasive candidiasis. If he does not improve with broaden antibiotic coverage, an Echinocandin should be added. -afebrile (3) Cardiac arrest with ventricular fibrillation: Code(s): I46.9 - Cardiac arrest, cause unspecified; I49.01 - Ventricular fibrillation Status: Acute Assessment and Plan: Is patient with VFib arrest on 04/14/2020 hemorrhagic/hypovolemic shock secondary to acute significant GI bleed. Could be related to elevated potassium -ROSC after 6 minutes. This patient taken to surger -off amiodarone infusion -troponin elevated, likely secondary to cardiac arrest -appreciate Cardiology evaluation recommendation (4) Duodenal ulcer: Code(s): K26.9 - Duodenal ulcer, unspecified as acute or chronic, without hemorrhage or perforation Status: Acute Assessment and Plan: -EGD done on 04/13/2020 showed duodenal ulcers were cauterized with gold probe successfully -patient continued to have bloody bowel movements, repeat EGD on 04/14/2020 shows acute active duodenal ulcer bleeding. Epinephrine and clips x3 were applied. - 04/14/2020: Patient underwent Ex lap with extensive lysis of adhesions, pyloroplasty with oversewing bleeding duodenal ulcer and ligation of bleeding vessel in the posterior sac -hemoglobin has been stable --patient with increasing leukocytosis, started ertapenem on 04/22/2020, as patient is having foul-smelling drainage from his incision and the SERGE to drain. Discussed with surgery; also started vanc/Levaquin 04/24 - CT A/P done 04/25 showed - Percutaneous drainage catheter of the upper abdomen with adjacent midline surgical incision. Intra-abdominal gas is compatible with recent surgery. Small amount of fluid/soft tissue near the end of the surgical drain which likely represents phlegmonous change. Abscess not excluded in the absence of contrast administration. Cannot exclude fistula with the adjacent stomach. Cholelithiasis -wound culture is growing Citrobacter which should be covered. -repeat blood culture -patient has deteriorated today with increased vasopressor requirement. This could be secondary to AFib with RVR or abscess in intra abdomen. -I will add empiric antifungal -continue PPI to IV q.12 hours -general surgery following and at this point there is no plan to take patient back for surgery. I will discuss case with surgery (5) Acute GI bleeding: Onset Date: ~04/13/20 Code(s): K92.2 - Gastrointestinal hemorrhage, unspecified Status: Acute (6) Hemor
--- NOTE | 2020-04-27 14:00 | P.PCNBED_ITS ---
Procedures Arterial Line Arterial Line Date: 04/27/20 Arterial Line Time: 12:30 Discussed with the patient/family/POA, the placement of an arterial catheter, including its clinical necessity/indication and associated potential risks, benefits and alternatives.: Yes Patient/family/POA and/or understands and acknowledges the need to proceed with the arterial catheter insertion as an important element of the patient's clinical management.: Yes Time Out Performed: Yes Patient Position: supine Adult Daycare Coordinator Prep: sterile gown, sterile gloves, mask and hat Site: right and femoral Site Prep: other (Surgical towel) Technique used: ultrasound-guided Size (Gauge): 18 Length: 12 cm Closure/Dressing: suture and transparent dressing Patient tolerated procedure: well Complications: other (Required multiple times)
[2020-04-27 14:47] LABS: Lactic Acid Reflex 2.1 mmol/L (0.7-2.1)
[2020-04-27] MEDS: FENTANYL 2,500MCG/NS250ML(*CRX 2,500 MCG/250 ML BAG 20 MCG IV CONT (15:22)
[2020-04-27] MEDS: MICAFUNGIN SODIUM 100 MG in SODIUM CHLORIDE 0.9% IV 100 ML IVPB (15:54)
--- NOTE | 2020-04-27 15:58 | PM.IMPN ---
Progress Note: A&P Assessment and Plan (1) Cardiac arrest with ventricular fibrillation: Code(s): I46.9 - Cardiac arrest, cause unspecified; I49.01 - Ventricular fibrillation Status: Acute Assessment and Plan: Patient developed VFib arrest evening on 04/14 probably related to hypovolemic shock from acute blood loss. He did have elevated potassium earlier in the day which could have contributed to this. ROSC after 6 minutes. Patient taken to surgery later that evening. Patient currently stable but remains in critical condition. Trop 4.2 at peak but not unexpected after a code blue. (2) Acute respiratory failure: Qualifiers: Respiratory failure complication: unspecified whether with hypoxia or hypercapnia Qualified Code(s): J96.00 - Acute respiratory failure, unspecified whether with hypoxia or hypercapnia Code(s): J96.00 - Acute respiratory failure, unspecified whether with hypoxia or hypercapnia Status: Acute Assessment and Plan: Patient became obtunded requiring intubation on 04/14. A short time later, code blue was called. He remains on mechanical ventilation. Chest x-ray reviewed and showing pulmonary edema with lower lobe airspace disease. Patient with fevers and has tested positive for COVID. BCx NGTD. Sputum Cx growing H.flu and Ceftriaxone started 04/18 and changed to ertapenem 04/22 and now levofloxacin and Vanc 04/24. Micofungin added today. Fevers have waned (last fever 04/24). Still on high PEEP. (3) COVID-19: Code(s): U07.1 - COVID-19 Status: Acute Assessment and Plan: Patient had intermittent fevers but developed more persistent fevers on 04/14. He was tested and found to be positive for COVID on 04/16/20. on hydrocortisone now. No Remdesivir due to QUANG. (4) Hemorrhagic shock: Code(s): R57.8 - Other shock Status: Acute Assessment and Plan: Patient with acute blood loss resulting in hemorrhagic shock. Currently on NE and now RESPIRATORY DIRECTOR added again. Hgb 7.5 this am. Hydrocortisone added for pressure and for anti-rejection. Albumin 2.7. (5) Acute GI bleeding: Onset Date: ~04/13/20 Code(s): K92.2 - Gastrointestinal hemorrhage, unspecified Status: Acute Assessment and Plan: Acute GI bleeding secondary to duodenal ulcer complicated by recent anticoagulant use. BRBPR and with coffee ground emesis consistent with brisk upper GI bleed with rapid transit. Patient has received 17 units of packed red blood cells in total. EGD twice had failed to stop the bleeding. Patient underwent emergency surgery 04/14 with exploratory laparotomy, extensive lysis of adhesions, ligation of bleeding vessel in the posterior sac, and pyloroplasty with over-sewing bleeding duodenal ulcer. Monitor HH closely for stability. Wound culture now growing Citrobacter. Currently on ertapenem, levafloxacin and Van. Micafungin added today. (6) Acute hyperkalemia: Code(s): E87.5 - Hyperkalemia Status: Acute Assessment and Plan: The patient's potassium was as high as 7.2 on admission and has been elevated at times. The patient was treated appropriately including HD. Recent potassium levels normal. Continue to follow. (7) QUANG (acute kidney injury): Code(s): N17.9 - Acute kidney failure, unspecified Status: Acute Assessment and Plan: QUANG related to above with acute blood loss and now code blue. Cr stable at 3-4 range. Suspect pre-renal and ATN from shock. Patient is s/p renal transplant and he is off his anti-rejection meds. Steroids started for anti-rejection treatment. Volume overload so attempted dialysis through left arm shunt 04/21 but unable to be cannulated. Left IJ placed and dialysis started 04/22. repeat dialysis 04/23 and again today 04/26 (8) Acute on chronic anemia: Code(s): D64.9 - Anemia, unspecified Status: Acute Assessment and Plan: With a base
[2020-04-27] MEDS: ERTAPENEM 1 GM/NS 50 ML 1 GM/50 ML BAG IVPB (16:55)
[2020-04-27] MEDS: NOREPINEPHRINE 8 MG/D5W 250 ML 8 MG/250 ML BAG 22.5 MG IV CONT (17:28)
[2020-04-27 17:33] LABS: Reflex Lactic Acid Yes or No Add Lactic
[2020-04-27 18:18] LABS: Lactic Acid 2.4 mmol/L (0.7-2.1)
[2020-04-27 19:11] LABS: Glucose Point of Care 199 (65-105)
[2020-04-27 22:03] LABS: Glucose Point of Care 213 (65-105)
[2020-04-28] VITALS (55 sets, daily range): BP systolic 107–155; BP diastolic 2–56; PULSE 47–55; RESP 22–24; TEMP 36.3–36.9; O2SAT 96–99
[2020-04-28] MEDS: INSULIN ASPART (*BKC) 100 UNITS/ML SUB-Q ×6 (00:05→20:19)
[2020-04-28 00:42] LABS: Glucose Point of Care 208 (65-105)
[2020-04-28 03:55] LABS: Immature Platelet Fraction Pct 3.5 % (0.9-11.2); Mean Corpuscular HGB Conc 32.4 g/dl (32-36); Mean Corpuscular Hemoglobin 28.7 pg (26-34); Mean Corpuscular Volume 88.6 fl (80-100); Mean Platelet Volume 11.5 fl (7.4-10.4); Platelet Count Result 82 k/mm3 (150-375); Red Blood Count 2.02 M/mm3 (4.6-6.20); Red Cell Distribution Width 18.6 % (11.5-14.5); White Blood Count 9.9 K/mm3 (4.5-10.0)
[2020-04-28] MEDS: HYDROCORTISONE SODIUM SUCCINATE 100 MG/2 ML VIAL 50 MG IV PUSH ×4 (04:08→22:48)
[2020-04-28 04:10] LABS: Alanine Aminotransferase 75 U/L (4-50); Albumin Level 2.8 g/dL (3.5-5.1); Alkaline Phosphatase 173 U/L (38-126); Anion Gap 11 mmol/L (8-16); Aspartate Amino Transferase 72 U/L (17-59); Bilirubin,Total 11.9 mg/dL (0.2-1.3); Calcium 5.7 mg/dL (8.4-10.2); Carbon Dioxide 28 mmol/L (22-30); Chloride 98 mmol/L (98-107); Estimated CRCL calculation 31 ml/min; Estimated Glomerular Filt Rate 17; Glucose 218 mg/dL (75-110); Magnesium 2.9 mg/dL (1.6-2.3); Potassium 4.3 mmol/L (3.4-5.0); Sodium 137 mmol/L (137-145)
[2020-04-28 04:12] LABS: Hematocrit 17.9 % (42.0-52.0); Hemoglobin 5.8 g/dL (14.0-18.0)
[2020-04-28 04:39] LABS: Immature Platelet Fraction Pct 4.5 % (0.9-11.2); Mean Corpuscular HGB Conc 32.2 g/dl (32-36); Mean Corpuscular Hemoglobin 28.7 pg (26-34); Mean Corpuscular Volume 89.1 fl (80-100); Mean Platelet Volume 11.6 fl (7.4-10.4); Platelet Count Result 81 k/mm3 (150-375); Red Blood Count 2.02 M/mm3 (4.6-6.20); Red Cell Distribution Width 18.7 % (11.5-14.5); White Blood Count 9.7 K/mm3 (4.5-10.0)
[2020-04-28 04:48] LABS: Hemoglobin 5.8 g/dL (14.0-18.0)
[2020-04-28 04:55] LABS: Alveolar/Arterial O2 Gradient 241.1 mmHg; Base Excess ABG -0.8 mEq/l (+/-2.0); Carboxyhemoglobin 0.3 % THb (0-2.0); Fractional Inspired Oxygen 60 %; HCO3 ABG 23.2 mEq/l (22.0-26.0); Methemoglobin ABG 0.2 %THb (0-1.5); Oxygen Content ABG 12.3 %vol (16.0-22.0); Oxyhemoglobin 97.7 % THb (90.0-100.0); PCO2 ABG 35.4 mmHg (35.0-45.0); PO2 ABG 147.8 mmHg (80.0-100.0); PO2 FiO2 Ratio Arterial Blood 2.46 %; Reduced Hemoglobin 1.8 %THb (0-5.0); Total Hemoglobin 8.7 g/dL (12.0-18.0); pH ABG 7.434 (7.350-7.450)
[2020-04-28 04:56] LABS: Device VENTILATOR; Modified Allen's Test Unable to perform; Site Drawn RIGHT RADIAL
[2020-04-28 04:57] LABS: Arterial Blood Gas PEEP 15 cmH2O; Arterial Blood Gas Tidal Volume 450 ml; Arterial Blood Gas Vent Mode ASSIST CONTROL; Arterial Blood Gas Ventilator rate 22 /MIN
[2020-04-28 04:58] LABS: Blood Urea Nitrogen 127 mg/dL (9-20)
[2020-04-28] MEDS: CENTRAL LINE FLUSH 10 ML IV PUSH ×3 (05:28→20:18)
[2020-04-28] MEDS: ALBUMIN HUMAN 25% 25 GM/100 ML 100 ML IVPB ×4 (05:28→23:51)
[2020-04-28 06:39] LABS: Immature Reticulocyte Fraction 14.4 % (3.0-15.9); Reticulocyte Hemoglobin Conten 28.9 pg (28.2-35.7); Reticulocyte Percent 6.56 % (0.7-4.3); Reticulocytes Absolute 0.13 B/L (32.2-175.7)
[2020-04-28] MEDS: SODIUM CHLORIDE 0.9% IV 250 ML 30 ML IV CONT (06:42)
[2020-04-28 06:51] LABS: Lactate Dehydrogenase 802 U/L (313-618)
[2020-04-28] MEDS: INSULIN DETEMIR 100 UNITS/ML 35 UNITS SUB-Q (08:05)
[2020-04-28] MEDS: PANTOPRAZOLE SODIUM IV 40 MG VIAL IV PUSH ×2 (08:06→19:44)
[2020-04-28] MEDS: MICAFUNGIN SODIUM 100 MG in SODIUM CHLORIDE 0.9% IV 100 ML IVPB (08:12)
[2020-04-28] MEDS: FENTANYL 2,500MCG/NS250ML(*CRX 2,500 MCG/250 ML BAG 10 MCG IV CONT (08:25)
[2020-04-28 08:29] LABS: Glucose Point of Care 224 (65-105)
[2020-04-28] MEDS: CALCIUM CHLOR 1,000MG/100ML NS 1,000 MG/100 ML BAG 100 MG IVPB (11:07)
--- NOTE | 2020-04-28 11:22 | PC.NURSE ---
withdrew NG tube 10cm per Dr. Hawthorne instruction, placed on low intermittent suction
--- NOTE | 2020-04-28 11:26 | WPDINTPN ---
Progress Note: A&P Assessment and Plan (1) Acute respiratory failure: Qualifiers: Respiratory failure complication: unspecified whether with hypoxia or hypercapnia Qualified Code(s): J96.00 - Acute respiratory failure, unspecified whether with hypoxia or hypercapnia Code(s): J96.00 - Acute respiratory failure, unspecified whether with hypoxia or hypercapnia Status: Acute Assessment and Plan: Patient with hemorrhagic shock, hypertensive, acidotic, decreased mentation on 04/14 was emergently intubated for ventilatory support -04/27-worsening hypoxia and increased oxygen requirement. Patient had to be bagged after he desaturated after change in position. Peep had to be increased to 15 - ABG reviewed and chest x-ray reviewed. Wean FiO2. Peep decreased to 12 -patient on Versed and fentanyl infusion -patient was dialyzed 04/27. Hold dialysis yesterday due to hemodynamic decompensation -patient is on vancomycin, ertapenem and Levaquin -patient has been on ventilator for 2 weeks and is no where close to extubation. Will consult ENT for tracheostomy unless patient transfers to outside facility (2) Septic shock: Code(s): A41.9 - Sepsis, unspecified organism; R65.21 - Severe sepsis with septic shock Status: Acute Assessment and Plan: - Levaquin and Vancomycin added to ertapenem - fungal blood cultures and fungal culture from SERGE drain sent and negative as of -patient started on micafungin 04/27 -afebrile -continue Levophed. vasopressin is on hold -patient on stress dose steroids -right femoral arterial catheter replaced 04/27 (3) Cardiac arrest with ventricular fibrillation: Code(s): I46.9 - Cardiac arrest, cause unspecified; I49.01 - Ventricular fibrillation Status: Acute Assessment and Plan: Is patient with VFib arrest on 04/14/2020 hemorrhagic/hypovolemic shock secondary to acute significant GI bleed. Could be related to elevated potassium -ROSC after 6 minutes. This patient taken to surger -off amiodarone infusion -troponin elevated, likely secondary to cardiac arrest -appreciate Cardiology evaluation recommendation (4) Duodenal ulcer: Code(s): K26.9 - Duodenal ulcer, unspecified as acute or chronic, without hemorrhage or perforation Status: Acute Assessment and Plan: -EGD done on 04/13/2020 showed duodenal ulcers were cauterized with gold probe successfully -patient continued to have bloody bowel movements, repeat EGD on 04/14/2020 shows acute active duodenal ulcer bleeding. Epinephrine and clips x3 were applied. - 04/14/2020: Patient underwent Ex lap with extensive lysis of adhesions, pyloroplasty with oversewing bleeding duodenal ulcer and ligation of bleeding vessel in the posterior sac --patient with increasing leukocytosis, started ertapenem on 04/22/2020, as patient is having foul-smelling drainage from his incision and the SERGE to drain. Discussed with surgery; also started vanc/Levaquin 04/24, Micafungin added 04/27 - CT A/P done 04/25 showed - Percutaneous drainage catheter of the upper abdomen with adjacent midline surgical incision. Intra-abdominal gas is compatible with recent surgery. Small amount of fluid/soft tissue near the end of the surgical drain which likely represents phlegmonous change. Abscess not excluded in the absence of contrast administration. Cannot exclude fistula with the adjacent stomach. Cholelithiasis -wound culture is growing Citrobacter which should be covered. -repeat blood culture have been negative -patient deteriorated 04/27 with increased vasopressor requirement. This could be secondary to AFib with RVR or abscess in intra abdomen. -CT abdomen pelvis was repeated on 04/27 and showed Worsening upper abdominal abscess. I spoke to General surgery and he reviewed the CT. Neurosurgeon believes the patient is to high risk of mortality for any general surgery at this time. He is going to talk to wound care and adjust the wound VAC to see if
--- NOTE | 2020-04-28 11:43 | PCDIET ---
ICU Rounding Note: Tube feedings stopped due to bloody NG output. Discussed with MD. No new orders at this time. Recommended Clinimix 5/15 at 50mL/hr if able to tolerate fluid volume. Ideally would progress toward goal of 100mL/hr to meet estimated needs if able to tolerate volume removal. Last recorded weight is 150.7kg which is down from last review. -I/O today. Bowel Motility: No documented BM. Discussed with RN during rounds. Labs Reviewed: Hgb (5.8), Hct (18.0), Glu (218), BUN (127), Cr (3.7), Alb (2.8), Daiana Ca (6.66) Meds Noted: Albumin, Invanz, Fentanyl, Solu Cortef, Novolog, Levemir, Levaquin, Micafungin, Versed, Levophed, Protonix, Vancomycin, Vasopressin Additional Notes: Buttocks macerated. SERGE drain and wound vac to abdomen. Possible transfer to outside hospital discussed. Following daily in ICU rounds. Assessing/reassessing every Sunday/Sunday.
[2020-04-28] MEDS: NOREPINEPHRINE 8 MG/D5W 250 ML 8 MG/250 ML BAG 7.5 MG IV CONT (11:49)
[2020-04-28 12:54] LABS: Glucose Point of Care 232 (65-105)
--- NOTE | 2020-04-28 12:57 | PM.PNGS ---
Progress Note: A&P Assessment and Plan (1) Septic shock: Code(s): A41.9 - Sepsis, unspecified organism; R65.21 - Severe sepsis with septic shock Status: Acute Assessment and Plan: WBC down to 9,[address] abd/pelvis yesterday showed 6.1 x 4.7 cm abscess located caudal to the tip of the SERGE drainage catheter. This patient is too high risk for any surgical intervention at this time. This fluid collection is just posterior to the fascia of the upper midline incision and appears it will likely drain through this area. Another possible option is to percutaneously drain this abscess in Radiology if this does not drain through the midline wound or if he begins declining. We will plan to change the wound VAC today and reassess the upper midline incision. Dr. Hawthorne spoke with the Inventory Analyst who is attempting to facilitate transferring the patient to a tertiary care facility. Continue broad-spectrum IV antibiotics and IV Micafungin also added yesterday. (2) Acute GI bleeding: Onset Date: ~04/13/20 Code(s): K92.2 - Gastrointestinal hemorrhage, unspecified Status: Acute Assessment and Plan: Hgb 5.8 this morning. 2 units PRBCs ordered this morning. Concern for rebleed. They have been able to wean his vasopressors down since yesterday with BP remaining stable this morning. SERGE drain and wound VAC with minimal output, no changes. NG tube with dark maroon drainage. Hold tube feedings at this point. Possibly attempt TPN for nutrition. Monitor serial H/H. See plan above. (3) Acute kidney injury superimposed on CKD: Code(s): N17.9 - Acute kidney failure, unspecified; N18.9 - Chronic kidney disease, unspecified Status: Acute Assessment and Plan: Patient unable to tolerate dialysis yesterday, requiring a significant increase in vasopressor support. Management per Nephrology and Inventory Analyst, may possibly need CRRT which would need to be done at a tertiary care facility. (4) Elevated bilirubin: Code(s): R17 - Unspecified jaundice Status: Acute Assessment and Plan: Tbili 11.9 today. (5) Acute respiratory failure: Qualifiers: Respiratory failure complication: unspecified whether with hypoxia or hypercapnia Qualified Code(s): J96.00 - Acute respiratory failure, unspecified whether with hypoxia or hypercapnia Code(s): J96.00 - Acute respiratory failure, unspecified whether with hypoxia or hypercapnia Status: Acute Assessment and Plan: Still on mechanical ventilator, now at about 2 weeks. Management per Inventory Analyst. Discussed plan today and Inventory Analyst planning possible tracheostomy depending on transfer. (6) COVID-19: Code(s): U07.1 - COVID-19 Status: Acute Assessment and Plan: On appropriate precautions for isolation. Additional Plan Discussed and formulated plan of care with Dr. Hawthorne today. Subjective Subjective Date/Time Seen: 04/28/20 09:30 Post Op day: 14 Interval history: Patient intubated and sedated on mechanical ventilator. Per the nurse, patient tube feedings were stopped this morning by the Inventory Analyst. SERGE drain and wound VAC both with minimal output overnight. Levophed at 6 mcg/min and vasopressin now off. Review of Systems Review of Systems: ROS unobtainable: Yes unobtainable due to endotracheal tube Exam Const: General: ill appearing Other: Sedated, comfortable. Opens eyes to voice but not following commands. Resp: Effort & Inspection: abnormal respiratory pattern ( On mechanical ventilator) Auscultation: diminished lung sounds bilateral Cardio: Rate: bradycardic Rhythm: regular rhythm GI: Inspection: Abdominal wall edema, distended, obesity and other (upper midline wound VAC c/d/i with minimal output) GI Palp: Yes Soft to palpation and Yes Tenderness to palpation present (GI) (grimacing with palpation of entire abdomen) Auscultation: Hypoactive bowel sounds present Other: SERGE drain with
[2020-04-28 13:31] LABS: Hematocrit 22.4 % (42.0-52.0); Hemoglobin 7.5 g/dL (14.0-18.0)
[2020-04-28 13:43] LABS: INR 1.4; Partial Thromboplastin Time 31.1 SECONDS (22.3-36.8); Prothrombin Time 17.6 Seconds (11.1-14.7)
[2020-04-28 14:02] LABS: Fibrinogen 170 mg/dl (215-510)
[2020-04-28] MEDS: ERTAPENEM 1 GM/NS 50 ML 1 GM/50 ML BAG IVPB (15:15)
--- NOTE | 2020-04-28 16:28 | PC.NURSE ---
X2 attempts to contact to update on care plan
[2020-04-28 16:49] LABS: Glucose Point of Care 215 (65-105)
--- NOTE | 2020-04-28 17:22 | P.PNNP_ITS ---
Progress Note: A&P Assessment and Plan (1) QUANG (acute kidney injury): Code(s): N17.9 - Acute kidney failure, unspecified Status: Acute Assessment and Plan: * likely ATN from hemodynamic instability, shock, cardiac arrest, and severe anemia * may be have some contributions from the abdominal process/issues as well * HD tomorrow and likely try daily dialysis given issues with fluid overload, uremia, and hypotension... 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 * remains on broad spectrum antibiotic therapy - cultures noted * CT scan of abdomen noted -- trying to adjust wound vac to address abdominal abscess * follow wounds/drainage * Surgery following * pressor therapy with weaning as tolerated (4) Acute respiratory failure: Qualifiers: Respiratory failure complication: unspecified whether with hypoxia or hypercapnia Qualified Code(s): J96.00 - Acute respiratory failure, unspecified whether with hypoxia or hypercapnia Code(s): J96.00 - Acute respiratory failure, unspecified whether with hypoxia or hypercapnia Status: Acute Assessment and Plan: * due to ongoing medical issues, shock, volume overload....etc * weaning once more stable * continue mechanical ventilation - likely to need tracheostomy (5) Acute GI bleeding: Onset Date: ~04/13/20 Code(s): K92.2 - Gastrointestinal hemorrhage, unspecified Status: Acute Assessment and Plan: * s/p 2 EGDs and and 1 surgery have stopped the bleeding * hemoglobin has been relatively stable -- noted fluctuations in the last few days * no black or bloody stools noted (6) Paroxysmal atrial fibrillation: Code(s): I48.0 - Paroxysmal atrial fibrillation Status: Chronic Assessment and Plan: * heart rate doing okay * off amiodarone (7) History of kidney transplant: Onset Date: ~1990 Code(s): Z94.0 - Kidney transplant status Status: Chronic Assessment and Plan: * NPO so holding MMF and tacrolimus - somewhat concerning that immunosuppressive medications have been on hold since admission * remains on steroids (8) Diabetes: Code(s): E11.9 - Type 2 diabetes mellitus without complications Status: Chronic Assessment and Plan: * follow accuchecks * on SSI Discussed case with -- under ideal circumstances, he probably need CRRT but efforts to transfer him to another hospital where this is available have been unsuccessful. Will try short daily dialysis treatments to see if this helps stabilize his fluid status as uremia in the setting of his hemodynamic instability. Will continue to follow. Subjective Date/time seen: 04/28/20 17:22 Still remains critically ill but pressor requirements have lessened; results of CT scan of abd/pelvis noted with Surgery recommendations reviewed; attempts to transfer patient for CRRT not successful as no beds av
--- NOTE | 2020-04-28 17:22 | PM.PNNEP ---
Progress Note: A&P Assessment and Plan (1) QUANG (acute kidney injury): Code(s): N17.9 - Acute kidney failure, unspecified Status: Acute Assessment and Plan: likely ATN from hemodynamic instability, shock, cardiac arrest, and severe anemia may be have some contributions from the abdominal process/issues as well HD tomorrow and likely try daily dialysis given issues with fluid overload, uremia, and hypotension... 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 remains on broad spectrum antibiotic therapy - cultures noted CT scan of abdomen noted -- trying to adjust wound vac to address abdominal abscess follow wounds/drainage Surgery following pressor therapy with weaning as tolerated (4) Acute respiratory failure: Qualifiers: Respiratory failure complication: unspecified whether with hypoxia or hypercapnia Qualified Code(s): J96.00 - Acute respiratory failure, unspecified whether with hypoxia or hypercapnia Code(s): J96.00 - Acute respiratory failure, unspecified whether with hypoxia or hypercapnia Status: Acute Assessment and Plan: due to ongoing medical issues, shock, volume overload....etc weaning once more stable continue mechanical ventilation - likely to need tracheostomy (5) Acute GI bleeding: Onset Date: ~04/13/20 Code(s): K92.2 - Gastrointestinal hemorrhage, unspecified Status: Acute Assessment and Plan: s/p 2 EGDs and and 1 surgery have stopped the bleeding hemoglobin has been relatively stable -- noted fluctuations in the last few days no black or bloody stools noted (6) Paroxysmal atrial fibrillation: Code(s): I48.0 - Paroxysmal atrial fibrillation Status: Chronic Assessment and Plan: heart rate doing okay off amiodarone (7) History of kidney transplant: Onset Date: ~1990 Code(s): Z94.0 - Kidney transplant status Status: Chronic Assessment and Plan: NPO so holding MMF and tacrolimus - somewhat concerning that immunosuppressive medications have been on hold since admission remains on steroids (8) Diabetes: Code(s): E11.9 - Type 2 diabetes mellitus without complications Status: Chronic Assessment and Plan: follow accuchecks on SSI Discussed case with -- under ideal circumstances, he probably need CRRT but efforts to transfer him to another hospital where this is available have been unsuccessful. Will try short daily dialysis treatments to see if this helps stabilize his fluid status as uremia in the setting of his hemodynamic instability. Will continue to follow. Subjective Date/time seen: 04/28/20 17:22 Still remains critically ill but pressor requirements have lessened; results of CT scan of abd/pelvis noted with Surgery recommendations reviewed; attempts to transfer patient for CRRT not successful as no beds available at any other institution. Exam Narrative: Exam Narrative: General: WD/WN male intubated and sedated Heart: normal S1 and S2; no rub or gallop Lungs: coarse breath sounds throughout Abdomen: soft, hypoactive bowel sounds; some mild TTP noted Extremities: 1 - 2+ edema noted Skin: no rash Objective Data Vital Signs Vital Signs: Vital Signs Temp Pulse Resp BP Pulse Ox 04/28/20 16:40 50 L 99 04/28/20 14:00
[2020-04-28] MEDS: FAT EMULSIONS IV 20% 250 ML 20.83 ML IVPB (17:40)
[2020-04-28] MEDS: AMINO ACIDS 5%/DEXTROSE 15% 2,000 ML with MULTIVITAMINS-12 INJ VIAL 1 2.5 ML, MULTIVITA... 40 ML IV CONT (17:40)
[2020-04-28 18:02] LABS: Hematocrit 21.6 % (42.0-52.0); Hemoglobin 7.3 g/dL (14.0-18.0)
[2020-04-28 18:55] LABS: Vancomycin Random 18.8 ug/mL (10-20)
[2020-04-28] MEDS: INSULIN DETEMIR 100 UNITS/ML 45 UNITS SUB-Q (19:31)
[2020-04-28 19:56] LABS: Glucose Point of Care 240 (65-105)
--- NOTE | 2020-04-28 20:22 | PM.IMPN ---
Progress Note: A&P Assessment and Plan (1) Cardiac arrest with ventricular fibrillation: Code(s): I46.9 - Cardiac arrest, cause unspecified; I49.01 - Ventricular fibrillation Status: Acute Assessment and Plan: Patient developed VFib arrest evening on 04/14 probably related to hypovolemic shock from acute blood loss. He did have elevated potassium earlier in the day which could have contributed to this. ROSC after 6 minutes. Patient taken to surgery later that evening. Patient currently stable but remains in critical condition. Trop 4.2 at peak but not unexpected after a code blue. (2) Acute respiratory failure: Qualifiers: Respiratory failure complication: unspecified whether with hypoxia or hypercapnia Qualified Code(s): J96.00 - Acute respiratory failure, unspecified whether with hypoxia or hypercapnia Code(s): J96.00 - Acute respiratory failure, unspecified whether with hypoxia or hypercapnia Status: Acute Assessment and Plan: Patient became obtunded requiring intubation on 04/14. A short time later that day, code blue was called. He remains on mechanical ventilation. Chest x-ray reviewed and showing pulmonary edema with lower lobe airspace disease. Patient with fevers and has tested positive for COVID. BCx NGTD. Sputum Cx growing H.flu and Ceftriaxone started 04/18 and changed to ertapenem 04/22 and levofloxacin and Vanc added 04/24. Micofungin added 04/27. Fevers have waned (last fever 04/24). Still on high PEEP but better. Appreciate air drill operator input (3) COVID-19: Code(s): U07.1 - COVID-19 Status: Acute Assessment and Plan: Patient had intermittent fevers but developed more persistent fevers on 04/14. He was tested and found to be positive for COVID on 04/16/20. on hydrocortisone now. No Remdesivir due to QUANG. (4) Hemorrhagic shock: Code(s): R57.8 - Other shock Status: Acute Assessment and Plan: Patient with acute blood loss resulting in hemorrhagic shock. Currently on NE but able to be weaned. SCIENCE MANAGER weaned off last night. Hgb 5.8 this am. Hydrocortisone added for pressure and for anti-rejection. Albumin 2.8. (5) Acute GI bleeding: Onset Date: ~04/13/20 Code(s): K92.2 - Gastrointestinal hemorrhage, unspecified Status: Acute Assessment and Plan: Acute GI bleeding secondary to duodenal ulcer complicated by recent anticoagulant use. BRBPR and with coffee ground emesis consistent with brisk upper GI bleed with rapid transit. Patient has received 19 units of packed red blood cells in total. EGD twice had failed to stop the bleeding. Patient underwent emergency surgery 04/14 with exploratory laparotomy, extensive lysis of adhesions, ligation of bleeding vessel in the posterior sac, and pyloroplasty with over-sewing bleeding duodenal ulcer. Hgb dropped today requiring 2 more units. Monitor HH closely for stability. Wound culture now growing Citrobacter. Currently on Ertapenem, levofloxacin and Vanc. Micafungin added 04/27. (6) Acute hyperkalemia: Code(s): E87.5 - Hyperkalemia Status: Acute Assessment and Plan: The patient's potassium was as high as 7.2 on admission and has been elevated at times. The patient was treated appropriately including HD. Recent potassium levels normal. Continue to follow. (7) QUANG (acute kidney injury): Code(s): N17.9 - Acute kidney failure, unspecified Status: Acute Assessment and Plan: QUANG related to above with acute blood loss and now code blue. Cr stable at 3-4 range. Suspect pre-renal and ATN from shock. Patient is s/p renal transplant and he is off his anti-rejection meds. Steroids started for anti-rejection treatment. Volume overload so attempted dialysis through left arm shunt 04/21 but unable to be cannulated. Left IJ placed and dialysis started. Fluid removal with HD started 04/22, 04/23, 04/26. (8) Acute on c
[2020-04-28] MEDS: CALCIUM GLUCONATE 1,000 MG/10 ML VIAL 1000 MG IV PUSH (22:48)
[2020-04-29] VITALS (65 sets, daily range): BP systolic 89–166; BP diastolic 40–83; PULSE 48–125; RESP 15–24; TEMP 36.2–37.3; O2SAT 93–99
[2020-04-29] MEDS: INSULIN ASPART (*BKC) 100 UNITS/ML SUB-Q ×3 (00:01→08:00)
[2020-04-29 00:12] LABS: Hematocrit 19.8 % (42.0-52.0); Hemoglobin 6.6 g/dL (14.0-18.0)
[2020-04-29 00:24] LABS: Glucose Point of Care 316 (65-105)
[2020-04-29] MEDS: FENTANYL 2,500MCG/NS250ML(*CRX 2,500 MCG/250 ML BAG 15 MCG IV CONT (03:57)
[2020-04-29] MEDS: HYDROCORTISONE SODIUM SUCCINATE 100 MG/2 ML VIAL 50 MG IV PUSH ×2 (05:06→15:16)
[2020-04-29 05:28] LABS: Hemoglobin 7.1 g/dL (14.0-18.0); Mean Corpuscular HGB Conc 34.5 g/dl (32-36); Mean Corpuscular Hemoglobin 29.7 pg (26-34); Mean Corpuscular Volume 86.2 fl (80-100); Mean Platelet Volume 11.6 fl (7.4-10.4); Platelet Count Result 67 k/mm3 (150-375); Red Blood Count 2.39 M/mm3 (4.6-6.20); Red Cell Distribution Width 17.2 % (11.5-14.5); White Blood Count 7.4 K/mm3 (4.5-10.0)
[2020-04-29 05:32] LABS: Alveolar/Arterial O2 Gradient 183.4 mmHg; Base Excess ABG -6.3 mEq/l (+/-2.0); Carboxyhemoglobin 0.3 % THb (0-2.0); Fractional Inspired Oxygen 50 %; Methemoglobin ABG 0.3 %THb (0-1.5); Oxygen Content ABG 10.3 %vol (16.0-22.0); Oxygen Saturation ABG 98.8 % (95.0-100.0); Oxyhemoglobin 97.1 % THb (90.0-100.0); PCO2 ABG 30.5 mmHg (35.0-45.0); PO2 ABG 138.8 mmHg (80.0-100.0); PO2 FiO2 Ratio Arterial Blood 2.78 %; Reduced Hemoglobin 2.3 %THb (0-5.0); pH ABG 7.388 (7.350-7.450)
[2020-04-29 05:35] LABS: Device VENTILATOR; Modified Allen's Test Pass; Site Drawn ARTLINE; Total Hemoglobin 7.3 g/dL (12.0-18.0)
[2020-04-29 05:36] LABS: Arterial Blood Gas PEEP 12 cmH2O; Arterial Blood Gas Tidal Volume 450 ml; Arterial Blood Gas Vent Mode CMV; Arterial Blood Gas Ventilator rate 22 /MIN
[2020-04-29 05:41] LABS: Hematocrit 20.6 % (42.0-52.0)
[2020-04-29 05:42] LABS: D Dimer 1.33 ug/mL (<0.48)
[2020-04-29 05:49] LABS: Alanine Aminotransferase 56 U/L (4-50); Albumin Level 2.8 g/dL (3.5-5.1); Alkaline Phosphatase 135 U/L (38-126); Anion Gap 12 mmol/L (8-16); Aspartate Amino Transferase 66 U/L (17-59); Bilirubin Indirect 1.5 mg/dL (0-1.1); Bilirubin,Total 11.8 mg/dL (0.2-1.3); Calcium 5.7 mg/dL (8.4-10.2); Carbon Dioxide 25 mmol/L (22-30); Chloride 99 mmol/L (98-107); Estimated CRCL calculation 34 ml/min; Estimated Glomerular Filt Rate 19; Glucose 306 mg/dL (75-110); Lactate Dehydrogenase 829 U/L (313-618); Magnesium 2.9 mg/dL (1.6-2.3); Phosphorus 7.9 mg/dL (2.5-4.5); Potassium 4.2 mmol/L (3.4-5.0); Sodium 136 mmol/L (137-145)
[2020-04-29] MEDS: ALBUMIN HUMAN 25% 25 GM/100 ML 100 ML IVPB ×3 (05:50→19:02)
[2020-04-29] MEDS: CENTRAL LINE FLUSH 10 ML IV PUSH ×3 (05:50→20:28)
[2020-04-29 05:54] LABS: Blood Urea Nitrogen 147 mg/dL (9-20)
[2020-04-29 06:00] LABS: CRP 16.2 mg/dL (<1.0)
[2020-04-29 06:24] LABS: Glucose Point of Care 305 (65-105)
[2020-04-29] MEDS: INSULIN DETEMIR 100 UNITS/ML 45 UNITS SUB-Q ×2 (08:02→20:44)
[2020-04-29] MEDS: PANTOPRAZOLE SODIUM IV 40 MG VIAL IV PUSH ×2 (08:07→20:28)
--- NOTE | 2020-04-29 08:30 | WPDINTPN ---
Progress Note: A&P Assessment and Plan (1) Acute respiratory failure: Qualifiers: Respiratory failure complication: unspecified whether with hypoxia or hypercapnia Qualified Code(s): J96.00 - Acute respiratory failure, unspecified whether with hypoxia or hypercapnia Code(s): J96.00 - Acute respiratory failure, unspecified whether with hypoxia or hypercapnia Status: Acute Assessment and Plan: Patient with hemorrhagic shock, hypertensive, acidotic, decreased mentation on 04/14 was emergently intubated for ventilatory support -04/27-worsening hypoxia and increased oxygen requirement. Patient had to be bagged after he desaturated after change in position. Peep had to be increased to 15 - ABG reviewed and chest x-ray reviewed. Wean FiO2. Peep decreased to 12 patient on 50% FiO2 -patient on Versed and fentanyl infusion -patient was dialyzed 04/27 and will be dialyzed again today -patient is on vancomycin, ertapenem and Levaquin -patient has been on ventilator for > 2 weeks and is no where close to extubation. ENT consulted for tracheostomy unless patient transfers to outside facility (2) Septic shock: Code(s): A41.9 - Sepsis, unspecified organism; R65.21 - Severe sepsis with septic shock Status: Acute Assessment and Plan: - Levaquin and Vancomycin added to ertapenem - fungal blood cultures and fungal culture from SERGE drain sent and negative as of -patient started on micafungin 04/27 -afebrile -Levophed weaned off this morning and currently off of vasopressors -patient on stress dose steroids. I will discontinue if patient stays off vasopressors tonight -right femoral arterial catheter replaced 04/27 (3) Cardiac arrest with ventricular fibrillation: Code(s): I46.9 - Cardiac arrest, cause unspecified; I49.01 - Ventricular fibrillation Status: Acute Assessment and Plan: Is patient with VFib arrest on 04/14/2020 hemorrhagic/hypovolemic shock secondary to acute significant GI bleed. Could be related to elevated potassium -ROSC after 6 minutes. This patient taken to surger -off amiodarone infusion -troponin elevated, likely secondary to cardiac arrest -appreciate Cardiology evaluation recommendation (4) Duodenal ulcer: Code(s): K26.9 - Duodenal ulcer, unspecified as acute or chronic, without hemorrhage or perforation Status: Acute Assessment and Plan: -EGD done on 04/13/2020 showed duodenal ulcers were cauterized with gold probe successfully -patient continued to have bloody bowel movements, repeat EGD on 04/14/2020 shows acute active duodenal ulcer bleeding. Epinephrine and clips x3 were applied. - 04/14/2020: Patient underwent Ex lap with extensive lysis of adhesions, pyloroplasty with oversewing bleeding duodenal ulcer and ligation of bleeding vessel in the posterior sac --patient with increasing leukocytosis, started ertapenem on 04/22/2020, as patient is having foul-smelling drainage from his incision and the SERGE to drain. Discussed with surgery; also started vanc/Levaquin 04/24, Micafungin added 04/27 - CT A/P done 04/25 showed - Percutaneous drainage catheter of the upper abdomen with adjacent midline surgical incision. Intra-abdominal gas is compatible with recent surgery. Small amount of fluid/soft tissue near the end of the surgical drain which likely represents phlegmonous change. Abscess not excluded in the absence of contrast administration. Cannot exclude fistula with the adjacent stomach. Cholelithiasis -wound culture is growing Citrobacter which should be covered. -repeat blood culture have been negative -patient deteriorated 04/27 with increased vasopressor requirement. This could be secondary to AFib with RVR or abscess in intra abdomen. -CT abdomen pelvis was repeated on 04/27 and showed Worsening upper abdominal abscess. I spoke to General surgery and he reviewed the CT. Surgeon believes the patient is to high risk of mortality for any general surgery at this time
[2020-04-29 08:49] LABS: Glucose Point of Care 331 (65-105)
--- NOTE | 2020-04-29 09:22 | PM.PNGS ---
Progress Note: A&P Assessment and Plan (1) Septic shock: Code(s): A41.9 - Sepsis, unspecified organism; R65.21 - Severe sepsis with septic shock Status: Acute Assessment and Plan: WBC remains normal today. Vasopressors are now off. CT abd/pelvis suggests 6.1 x 4.7 cm abscess just posterior to the fascia of the upper midline incision. Patient is a high risk surgical candidate. Continue supportive care. Adjusted the foam dressing of the wound VAC to try and facilitate drainage of the abscess through the midline incision. Continue care for enterocutaneous fistula. Bowel rest, TPN for nutrition, and wound VAC therapy. Continue IV antibiotics and IV micafungin. All COVID ICU beds were full when attempting transfer yesterday. Repeat COVID test pending. (2) Acute GI bleeding: Onset Date: ~04/13/20 Code(s): K92.2 - Gastrointestinal hemorrhage, unspecified Status: Acute Assessment and Plan: Hgb 6.6 overnight. Tranfusing another 2 units PRBC today. Although hgb dropped some again, he remains hemodynamically stable. Continue supportive care and monitor serial H/H. NG tube to low-int suction, monitor output. See plan above. (3) Acute kidney injury superimposed on CKD: Code(s): N17.9 - Acute kidney failure, unspecified; N18.9 - Chronic kidney disease, unspecified Status: Acute Assessment and Plan: Patient may require CRRT. Nephrology following. [facility] trying to facilitate transfer to tertiary care facility. (4) Elevated bilirubin: Code(s): R17 - Unspecified jaundice Status: Acute (5) Acute respiratory failure: Qualifiers: Respiratory failure complication: unspecified whether with hypoxia or hypercapnia Qualified Code(s): J96.00 - Acute respiratory failure, unspecified whether with hypoxia or hypercapnia Code(s): J96.00 - Acute respiratory failure, unspecified whether with hypoxia or hypercapnia Status: Acute Assessment and Plan: Still on mechanical ventilator, now over 2 weeks. Management per [facility]. Planning for tracheostomy unless able to transfer patient. (6) COVID-19: Code(s): U07.1 - COVID-19 Status: Acute Assessment and Plan: On droplet, contact, airborne precautions for isolation. Repeat COVID test pending. (7) Thrombocytopenia: Code(s): D69.6 - Thrombocytopenia, unspecified Status: Chronic Assessment and Plan: Platelets down to 67 today. Thrombocytopenia is likely consumptive. Continue to trend labs. Could consider platelet transfusion if continues to trend down. Additional Plan Discussed plan of care with Dr. Hawthorne today. Subjective Subjective Date/Time Seen: 04/29/20 09:22 Post Op day: 15 Interval history: Patient intubated and sedated in ICU. Currently off all vasopressors with stable BP. Receiving his second unit of PRBC transfusion. Review of Systems Review of Systems: ROS unobtainable: Yes unobtainable due to endotracheal tube and unobtainable due to mental status Exam Const: General: ill appearing Other: Sedated, comfortable. Opens eyes to voice but not following commands. Resp: Effort & Inspection: abnormal respiratory pattern ( On mechanical ventilator) Auscultation: diminished lung sounds bilateral Cardio: Rate: bradycardic Rhythm: regular rhythm GI: Inspection: distended, obesity and other (upper midline wound VAC c/d/i with minimal output) GI Palp: Yes Soft to palpation and Yes Tenderness to palpation present (GI) (grimacing with palpation of entire abdomen) Auscultation: Hypoactive bowel sounds present Other: SERGE drain with dark maroon/brown purulent output, minimal, with oily appearance consistent with fat necrosis Urinary Catheter: Urinary Catheter: patent and draining and urine clear Skin: General skin exam: jaundice Neuro: Other: АЛЕКСАНДР, sedated and on vent. Not following commands for me but did open eyes. Extrem: General: normal to inspecti
--- NOTE | 2020-04-29 11:30 | PCDIET ---
ICU Rounding Note: Patient receiving Clinimix 5/15 at 40mL/hr with 250mL 20% lipids daily. This provides 1182kcal and 48grams protein. MD adding insulin to TPN with plan for dialysis today. If patient tolerates fluid removal, would suggest increasing Clinimix rate to 60mL/hr once glucose control is improved. Ultimate goal to meet estimated needs would be 100mL/hr Clinimix with lipids. Last recorded weight is 149.5kg which is stable. -I/O noted. Bowel Motility: No documented BM. Labs Reviewed: Hgb (7.1), Hct (20.6), Glu (306), BUN (147), Cr (3.4), Na (136), Alb (2.8), Daiana Ca (6.66) Meds Noted: Albumin, Invanz, Fentanyl, Levaquin, Micafungin, Solu Cortef, Novolog, Levemir, Versed, Levophed, Protonix, Vancomycin, Vasopressin Additional Notes: Wound vac to abdomen; integumentary notes reviewed. Following daily in ICU rounds. Assessing/reassessing every Sunday/Sunday.
[2020-04-29] MEDS: INSULIN HUMAN REGULAR (*BKC) 100 UNITS in SODIUM CHLORIDE 0.9% IV 99 ML IV CONT (11:41)
[2020-04-29 11:46] LABS: Hematocrit 24.4 % (42.0-52.0); Hemoglobin 8.2 g/dL (14.0-18.0)
[2020-04-29 11:52] LABS: Glucose Point of Care 268 (65-105)
--- NOTE | 2020-04-29 11:58 | P.PNNP_ITS ---
Progress Note: A&P Assessment and Plan (1) QUANG (acute kidney injury): Code(s): N17.9 - Acute kidney failure, unspecified Status: Acute Assessment and Plan: * likely ATN from hemodynamic instability, shock, cardiac arrest, and severe anemia * may be have some contributions from the abdominal process/issues as well * HD today and likely try daily dialysis given issues with fluid overload, uremia, and hypotension... 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 + abscess * remains on broad spectrum antibiotic therapy - cultures noted * CT scan of abdomen noted -- trying to adjust wound vac to address abdominal abscess * follow wounds/drainage * Surgery following * pressor therapy with weaning as tolerated (4) Acute respiratory failure: Qualifiers: Respiratory failure complication: unspecified whether with hypoxia or hypercapnia Qualified Code(s): J96.00 - Acute respiratory failure, unspecified whether with hypoxia or hypercapnia Code(s): J96.00 - Acute respiratory failure, unspecified whether with hypoxia or hypercapnia Status: Acute Assessment and Plan: * due to ongoing medical issues, shock, volume overload....etc * weaning once more stable * continue mechanical ventilation - likely to need tracheostomy (5) Acute GI bleeding: Onset Date: ~04/13/20 Code(s): K92.2 - Gastrointestinal hemorrhage, unspecified Status: Acute Assessment and Plan: * s/p 2 EGDs and and 1 surgery have stopped the bleeding (initially) * noted drop in H/H in the last 48 hours requiring PRBC transfusion * high dose Epogen with HD * follow trend of H/H (6) Paroxysmal atrial fibrillation: Code(s): I48.0 - Paroxysmal atrial fibrillation Status: Chronic Assessment and Plan: * heart rate doing okay * off amiodarone (7) History of kidney transplant: Onset Date: ~1990 Code(s): Z94.0 - Kidney transplant status Status: Chronic Assessment and Plan: * NPO so holding MMF and tacrolimus - somewhat concerning that immunosuppressive medications have been on hold since admission * remains on steroids (8) Diabetes: Code(s): E11.9 - Type 2 diabetes mellitus without complications Status: Chronic Assessment and Plan: * follow accuchecks * on SSI Will continue to follow. Subjective Date/time seen: 04/29/20 11:58 Tolerating dialysis treatrment at the time of my visit (seen on HD at 11:35AM); stable from a hemodynamic perspective; tolerated PRBC transfusion in the last 24 hours; remains critically ill but somewhat better than yesterday. Exam Narrative: Exam Narrative: General: WD/WN male intubated and sedated Heart: normal S1 and S2; no rub or gallop Lungs: coarse breath sounds throughout Abdomen: soft, hypoactive bowel sounds; some mild TTP noted Extremities: 1 - 2+ edema noted Skin: no n
--- NOTE | 2020-04-29 11:58 | PM.PNNEP ---
Progress Note: A&P Assessment and Plan (1) QUANG (acute kidney injury): Code(s): N17.9 - Acute kidney failure, unspecified Status: Acute Assessment and Plan: likely ATN from hemodynamic instability, shock, cardiac arrest, and severe anemia may be have some contributions from the abdominal process/issues as well HD today and likely try daily dialysis given issues with fluid overload, uremia, and hypotension... 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 + abscess remains on broad spectrum antibiotic therapy - cultures noted CT scan of abdomen noted -- trying to adjust wound vac to address abdominal abscess follow wounds/drainage Surgery following pressor therapy with weaning as tolerated (4) Acute respiratory failure: Qualifiers: Respiratory failure complication: unspecified whether with hypoxia or hypercapnia Qualified Code(s): J96.00 - Acute respiratory failure, unspecified whether with hypoxia or hypercapnia Code(s): J96.00 - Acute respiratory failure, unspecified whether with hypoxia or hypercapnia Status: Acute Assessment and Plan: due to ongoing medical issues, shock, volume overload....etc weaning once more stable continue mechanical ventilation - likely to need tracheostomy (5) Acute GI bleeding: Onset Date: ~04/13/20 Code(s): K92.2 - Gastrointestinal hemorrhage, unspecified Status: Acute Assessment and Plan: s/p 2 EGDs and and 1 surgery have stopped the bleeding (initially) noted drop in H/H in the last 48 hours requiring PRBC transfusion high dose Epogen with HD follow trend of H/H (6) Paroxysmal atrial fibrillation: Code(s): I48.0 - Paroxysmal atrial fibrillation Status: Chronic Assessment and Plan: heart rate doing okay off amiodarone (7) History of kidney transplant: Onset Date: ~1990 Code(s): Z94.0 - Kidney transplant status Status: Chronic Assessment and Plan: NPO so holding MMF and tacrolimus - somewhat concerning that immunosuppressive medications have been on hold since admission remains on steroids (8) Diabetes: Code(s): E11.9 - Type 2 diabetes mellitus without complications Status: Chronic Assessment and Plan: follow accuchecks on SSI Will continue to follow. Subjective Date/time seen: 04/29/20 11:58 Tolerating dialysis treatrment at the time of my visit (seen on HD at 11:35AM); stable from a hemodynamic perspective; tolerated PRBC transfusion in the last 24 hours; remains critically ill but somewhat better than yesterday. Exam Narrative: Exam Narrative: General: WD/WN male intubated and sedated Heart: normal S1 and S2; no rub or gallop Lungs: coarse breath sounds throughout Abdomen: soft, hypoactive bowel sounds; some mild TTP noted Extremities: 1 - 2+ edema noted Skin: no nodules Objective Data Vital Signs Vital Signs: Vital Signs Temp Pulse Resp BP Pulse Ox 04/29/20 11:18 57 L 102/44 L 04/29/20 10:45 54 L 97 04/29/20 10:00 55 L 22 H 118/47 L 97 04/29/20 09:20 54 L 97 04/29/20 09:17 36.9 C 54 L 22 H 134/51 L 98 04/29/20 08:17 36.6 C 55 L 23 H 136/52 L 97 04/29/20 08:00 36.6 C 54 L 22 H 147/53 H 97 04/29/20 07:17 36.5 C 52 L 22 H 136/51 L 97 04/29/20 07:02 36.4 C 53 L
[2020-04-29 12:55] LABS: Glucose Point of Care 203 (65-105)
[2020-04-29] MEDS: EPOETIN ALFA-EPBX 20,000 UNITS/ML VIAL 20000 UNITS IV PUSH (13:55)
[2020-04-29 14:24] LABS: Glucose Point of Care 177 (65-105)
[2020-04-29] MEDS: EPOETIN ALFA-EPBX 10,000 UNITS/ML VIAL 20000 UNITS IV PUSH (15:14)
[2020-04-29] MEDS: ERTAPENEM 1 GM/NS 50 ML 1 GM/50 ML BAG IVPB (15:21)
[2020-04-29 15:36] LABS: Glucose Point of Care 189 (65-105)
[2020-04-29 15:48] LABS: Triglycerides 268 mg/dL (<150)
[2020-04-29] MEDS: AMINO ACIDS 5%/DEXTROSE 15% 2,000 ML with MULTIVITAMINS-12 INJ VIAL 1 2.5 ML, MULTIVITA... 40 ML IV CONT (16:55)
[2020-04-29] MEDS: FAT EMULSIONS IV 20% 250 ML 20.83 ML IVPB (16:56)
[2020-04-29 16:57] LABS: Vancomycin Random 18.9 ug/mL (10-20)
[2020-04-29 17:15] LABS: Glucose Point of Care 194 (65-105)
[2020-04-29] MEDS: MICAFUNGIN SODIUM 100 MG in SODIUM CHLORIDE 0.9% IV 100 ML IVPB (17:25)
[2020-04-29 18:21] LABS: Glucose Point of Care 189 (65-105)
[2020-04-29 19:15] LABS: Hematocrit 24.7 % (42.0-52.0); Hemoglobin 8.4 g/dL (14.0-18.0)
[2020-04-29 20:04] LABS: SARS-CoV-2 RNA PCR Positive
[2020-04-29] MEDS: FENTANYL 2,500MCG/NS250ML(*CRX 2,500 MCG/250 ML BAG 20 MCG IV CONT (20:42)
--- NOTE | 2020-04-29 23:06 | PC.NURSE ---
Patient left via [facility] to [facility] ROOM 312. Consents signed, Paperwork gathered. Report given to Tiarra FRANCISCO at [facility], notified of departure as well as Maryse.
[2020-04-29 23:36] LABS: Glucose Point of Care 192 (65-105)
[2020-04-29 23:36] LABS: Glucose Point of Care 201 (65-105)
[2020-04-29 23:36] LABS: Glucose Point of Care 200 (65-105)
[2020-05-04 11:18] LABS: Haptoglobin 117 mg/dL (43-212)
--- NOTE | 2020-05-04 13:09 | PM.TDS ---
Transfer Discharge Sum: Prov Provider Date of admission: 04/12/20 23:54 Primary care physician: Stanley Courtney MD Admitting clinician: Juaquin Pollack MD Consults: 04/12/20 23:57 Consult to Physician Routine Comment: notified of pt. consult Consulting Provider: Bobby Vásquez yardage caller/MD group to consult: paula Reason for consultation: gi bleed Has provider been notified: Yes 04/13/20 Consult to Physician Routine Comment: Consulting Provider: Ngoc Duarte Reason for consultation: GI Bleed Has provider been notified: Yes 04/13/20 06:25 Consult to Physician Routine Comment: md notified Consulting Provider: Rodrigo Collazo yardage caller/MD group to consult: Dr. Collazo Reason for consultation: hyperkalemia Has provider been notified: Yes 04/14/20 00:32 Consult to Physician Routine Comment: OFFICE NOTIFIED OF CONSULT Consulting Provider: Nori Geiger yardage caller/MD group to consult: Dr. Pickett, General Surgery Reason for consultation: Acute GI Bleeding Has provider been notified: Yes 04/15/20 Consult to Physician Routine Comment: Consulting Provider: Helio Jacobo Reason for consultation: cardiac arrest Has provider been notified: Yes 04/22/20 Wound/ET Consult Routine Reason for Consult:: Possible wound VAC placement to upper midline abdominal wound 04/28/20 Consult to Physician Routine Comment: OFFICE NOTIFIED OF CONSULT Consulting Provider: Allan Stevens yardage caller/MD group to consult: ENT Reason for consultation: Tracheostomy Has provider been notified: Yes Attending physician on discharge: Chapo Peterson Discharging clinician: Chapo Peterson Anticipated date of transfer: 04/29/20 DS: Admitting Diagnosis Admitting Diagnosis Admitting Diagnosis: Acute GI bleed DS: Discharge Diagnosis Discharge Diagnosis (1) Cardiac arrest with ventricular fibrillation: Code(s): I46.9 - Cardiac arrest, cause unspecified; I49.01 - Ventricular fibrillation Status: Acute Assessment and Plan: Patient developed VFib arrest evening on 04/14 probably related to hypovolemic shock from acute blood loss. He did have elevated potassium earlier in the day which could have contributed to this. ROSC after 6 minutes. Patient taken to surgery later that evening. Patient currently stable but remains in critical condition. Trop 4.2 at peak but not unexpected after a code blue. (2) Acute respiratory failure: Qualifiers: Respiratory failure complication: unspecified whether with hypoxia or hypercapnia Qualified Code(s): J96.00 - Acute respiratory failure, unspecified whether with hypoxia or hypercapnia Code(s): J96.00 - Acute respiratory failure, unspecified whether with hypoxia or hypercapnia Status: Acute Assessment and Plan: Patient became obtunded requiring intubation on 04/14. A short time later that day, a code blue was called. He remains on mechanical ventilation. Chest x-ray reviewed and showing pulmonary edema with lower lobe airspace disease. Patient with fevers and has tested positive for COVID. BCx NGTD. Sputum Cx growing H.flu and Ceftriaxone started 04/18 and changed to ertapenem 04/22 and now levofloxacin and Vanc 04/24. Micofungin added. Fevers have waned (last fever 04/24). Still on high PEEP. (3) COVID-19: Code(s): U07.1 - COVID-19 Status: Acute Assessment and Plan: Patient had intermittent fevers but developed more persistent fevers on 04/14. He was tested and found to be positive for COVID on 04/16/20. on hydrocortisone now. No Remdesivir due to QUANG. (4) Hemorrhagic shock: Code(s): R57.8 - Other shock Status: Acute Assessment and Plan: Patient with acute blood loss resulting in hemorrhagic shock. Treated with pressors on and off through out his hospital course. Hydrocortisone added for possible adrenal insufficiency (was on chronic Prednisone on admission)
== END 2020-04-29 23:00 | disposition short-term general hospital (02) | DRG 326 ==
LOC: ANHED 22:25 → ANHIMU 04-13 01:41 → ANHICU 04-14 07:40 → ANHIMU 04-30 15:31
PROVIDERS: Internal Medicine; Internal Medicine Critical Care Medicine; Internal Medicine Gastroenterology; Internal Medicine Nephrology; Surgery; Admitting Provider Family Medicine; Emergency Provider Emergency Medicine; PCP Family Medicine; Visit Provider Internal Medicine
PROC: 0DJ08ZZ Inspection of Upper Intestinal Tract, Via Natural or Artificial Opening Endoscopic (ICD-10-PCS; CPT 43235; principal; 2020-04-13 10:00)
PROC: 0DQ90ZZ Repair Duodenum, Open Approach (ICD-10-PCS; CPT 49000; principal; 2020-04-14 18:45)
DX: K26.4 Chronic or unspecified duodenal ulcer with hemorrhage (principal); R57.8 Other shock; I49.01 Ventricular fibrillation; J96.00 Acute respiratory failure, unspecified whether with hypoxia or hypercapnia; K72.00 Acute and subacute hepatic failure without coma; N17.0 Acute kidney failure with tubular necrosis; U07.1 COVID-19; A41.9 Sepsis, unspecified organism; R65.21 Severe sepsis with septic shock; I21.A1 Myocardial infarction type 2; D68.32 Hemorrhagic disorder due to extrinsic circulating anticoagulants; I13.0 Hypertensive heart and chronic kidney disease with heart failure and stage 1 through stage 4 chronic kidney disease, or unspecified chronic kidney disease; I50.32 Chronic diastolic (congestive) heart failure; Z94.0 Kidney transplant status; N02.8 Recurrent and persistent hematuria with other morphologic changes; D62 Acute posthemorrhagic anemia; E87.2 Acidosis; N17.9 Acute kidney failure, unspecified; K63.2 Fistula of intestine; Z68.41 Body mass index [BMI] 40.0-44.9, adult; I48.0 Paroxysmal atrial fibrillation; Z79.01 Long term (current) use of anticoagulants; Z79.82 Long term (current) use of aspirin; E11.22 Type 2 diabetes mellitus with diabetic chronic kidney disease; Z79.899 Other long term (current) drug therapy; Z99.2 Dependence on renal dialysis; D63.1 Anemia in chronic kidney disease; I25.10 Atherosclerotic heart disease of native coronary artery without angina pectoris; M19.90 Unspecified osteoarthritis, unspecified site; E11.59 Type 2 diabetes mellitus with other circulatory complications; G47.30 Sleep apnea, unspecified; Z86.73 Personal history of transient ischemic attack (TIA), and cerebral infarction without residual deficits; E87.5 Hyperkalemia; D69.6 Thrombocytopenia, unspecified; E78.5 Hyperlipidemia, unspecified; N18.31 Chronic kidney disease, stage 3a; T45.515A Adverse effect of anticoagulants, initial encounter; Y92.9 Unspecified place or not applicable; R56.9 Unspecified convulsions; E66.9 Obesity, unspecified; K66.0 Peritoneal adhesions (postprocedural) (postinfection)
CPT/HCPCS: 36415; 36430; 36569; 36600; 70450; 71045; 71250; 74176; 74240; 76705; 80048; 80053; 80069; 80197; 80202; 81001; 82248; 82330; 82375; 82550; 82728; 82805; 82948; 83010; 83036; 83050; 83605; 83615; 83735; 84100; 84478; 84484; 85014; 85018; 85025; 85027; 85046; 85049; 85055; 85380; 85384; 85610; 85730; 86140; 86706; 86850; 86900; 86901; 86920; 86923; 87040; 87070; 87077; 87081; 87086; 87102; 87103; 87186; 87205; 87206; 87340; 87635; 93005; 93970; 94002; 94003; 94640; 96374; 96375; 96376; 99285; C1713; C1751; C1752; C8929; C9113; C9803; G0257; J0131; J0171; J0282; J0610; J0696; J1335; J1644; J1720; J1815; J1953; J1956; J2060; J2248; J2250; J2270; J2370; J2405; J2704; J3010; J3370; J3475; J7030; J7040; J7050; J7060; J7120; P9012; P9016; P9017; P9034; P9047; Q5106; Q9957; U0003